=== PATIENT | female | born 1955 | race Caucasian/White ===

== ENCOUNTER 2019-10-22 06:20 | Inpatient (IN) | payer OTHER, MEDICARE, SELFPAY ==
[2019-10-22] VITALS (7 sets, daily range): BP systolic 132–226; BP diastolic 71–107; PULSE 68–93; RESP 16–20; TEMP 36.2–36.8; O2SAT 95–99; BMI 30.6
--- NOTE | ~2019-10-22 | XR_ITS ---
EXAMINATION: XR abdomen/kub 1V DATE: 10/24/2019 05:55 INDICATION: Small bowel obstruction. TECHNIQUE: A supine view of the abdomen on 2 radiographs was obtained. COMPARISON: Small bowel series 10/23/2019 FINDINGS: There is oral contrast in dilated small bowel in right abdomen. The colon is decompressed. The nasogastric tube tip is in the distal stomach. Surgical clips in the right upper quadrant are lik jonathan from cholecystectomy. IMPRESSION: 1. Small bowel obstruction. Reviewed, dictated and finalized at location A. IMPRESSION: 1. Small bowel obstruction.
--- NOTE | ~2019-10-22 | XR_ITS ---
EXAMINATION: XR abdomen/kub 1V DATE: 10/25/2019 06:01 INDICATION: Small bowel obstruction. TECHNIQUE: A supine view of the abdomen was obtained. COMPARISON: Abdomen radiographs 10/24/2019, CT abdomen and pelvis 10/22/2019 FINDINGS: There are dilated loops of small bowel bowel containing oral contrast in the lower abdomen. There is oral contrast in the proximal colon. The colon is normal in caliber. The nasogastric tube t ip is in the distal stomach. Surgical clips in the right upper quadrant are likely from cholecystecto my. IMPRESSION: 1. Persistently dilated distal small bowel, consistent with small bowel obstruction. Reviewed, dictated and finalized at location A. IMPRESSION: 1. Persistently dilated distal small bowel, consistent with small bowel obstruc tion.
--- NOTE | ~2019-10-22 | XR_ITS ---
EXAMINATION: XR UGI water soluble w sbs DATE: 10/23/2019 13:03 INDICATION: Small bowel obstruction. TECHNIQUE: Water-soluble contrast was injected into the nasogastric tube. Fluoroscopy of the stomach and small bowel was performed. Fluoroscopy exposure time was 0.1 minutes. Radiographs of the abdomen were obtained. The total number of images was 16. COMPARISON: CT abdomen and pelvis 10/22/2019 FINDINGS: UPPER GASTROINTESTINAL SERIES: The nasogastric tube tip is in the stomach. The stomach and duodenum are normal. Surgical clips in th e right upper quadrant are likely from cholecystectomy. SMALL BOWEL SERIES: There are multiple dilated loops of small bowel. At 4 hours, contrast had not reached the colon. IMPRESSION: 1. Small bowel obstruction. Reviewed, dictated and finalized at location A. IMPRESSION: 1. Small bowel obstruction.
--- NOTE | ~2019-10-22 | XR_ITS ---
XR abdomen NG/feed tube insert DATE: 10/22/2019 08:54 INDICATION: NG tube placement TECHNIQUE: Portable AP view on 10/22/2019 at 0851 hours COMPARISON: None FINDINGS: A nasogastric tube is present in the body of the stomach, extending 17 cm distal to the kristy phragmatic hiatus. There are some gas-distended dilated small bowel segments. Surgical clips overlying the right upper quadrant, consistent with cholecystectomy. IMPRESSION: NG tube in stomach Reviewed, dictated and finalized at Location A. Reviewed, dictated and finalized at location A. IMPRESSION: NG tube in stomach
--- NOTE | ~2019-10-22 | XR_ITS ---
EXAMINATION: XR abdomen/kub 1V INDICATION: Hematuria TECHNIQUE: Supine view of the abdomen is obtained. COMPARISON: 10/27/2019 FINDINGS: A small amount of enteric contrast material is seen throughout the colon to the level of th e rectum. There are no dilated loops of bowel. The nasogastric tube has been removed. Cholecystectomy clips are noted in the right upper quadrant. IMPRESSION: 1. Nonobstructive bowel gas pattern. Reviewed, dictated and finalized at location A.
--- NOTE | ~2019-10-22 | XR_ITS ---
EXAMINATION: XR abdomen/kub 1V DATE: 10/26/2019 05:59 INDICATION: Small bowel obstruction. TECHNIQUE: A supine view of the abdomen on 2 radiographs was obtained. COMPARISON: Abdomen radiograph 10/25/2019, CT abdomen and pelvis 10/22/2019 FINDINGS: There are no gas-filled dilated loops of bowel. There is oral contrast in the colon. There are scattered diverticula in the colon. The nasogastric tube tip is in the distal stomach. Surgical c lips in the right upper quadrant are likely from cholecystectomy. IMPRESSION: 1. Nonobstructive bowel gas pattern. Reviewed, dictated and finalized at location A.
--- NOTE | ~2019-10-22 | XR_ITS ---
EXAMINATION: XR abdomen/kub 1V DATE: 10/27/2019 05:57 INDICATION: Small bowel obstruction. TECHNIQUE: A supine view of the abdomen was obtained. COMPARISON: Abdomen radiograph 10/26/2019 FINDINGS: There are no gas-filled dilated loops of small bowel. There is oral contrast in the colon, which is decompressed. There are scattered diverticula in the colon. The nasogastric tube tip is in t he distal stomach. Surgical clips in the right upper quadrant are likely from cholecystectomy. IMPRESSION: 1. Nonobstructive bowel gas pattern. Reviewed, dictated and finalized at location A.
--- NOTE | ~2019-10-22 | XR_ITS ---
EXAMINATION: XR sm bowel follow through WS DATE: 10/27/2019 10:36 INDICATION: Small bowel obstruction. TECHNIQUE: Oral contrast was administered, and a time course of radiographs of the abdomen was obtain ed. Fluoroscopy of the small bowel was not performed. Fluoroscopy exposure time was 0 minutes. The to mekhi number of images was 7. COMPARISON: Small bowel series 10/23/2019 FINDINGS: The nasogastric tube tip is in the stomach. Surgical clips in the right upper quadrant are likely fro m cholecystectomy. There are no dilated loops of small bowel. Transit time from the stomach to proxim al colon was approximately 1 hour. There are diverticula in the colon. IMPRESSION: 1. Nonobstructive bowel gas pattern. Reviewed, dictated and finalized at location A.
--- NOTE | ~2019-10-22 | CT_ITS ---
EXAMINATION: CT abdomen pelvis wo con DATE: 10/22/2019 07:22 INDICATION: Abdominal pain. History of Crohn's disease. TECHNIQUE: Computed tomography (CT) of the abdomen and pelvis was performed without intravenous contr ast. Automated exposure control and iterative reconstruction technique were employed. Exam dose: 100 2.28 mGy-cm total exam DLP. COMPARISON: 08/04/2013 CT abdomen pelvis FINDINGS: No pulmonary infiltrate or consolidation. A 4 mm nodule is noted in the middle lobe (series 4 image 5). No pericardial or pleural effusion. There are numerous hepatic and splenic calcified granulomas. Status post cholecystectomy. No hepatic, splenic, pancreatic, adrenal or renal space-occupying mass l esion is evident on this limited noncontrast examination. No bile duct or pancreatic duct dilatation. No urinary tract calculus or hydroureteronephrosis. There is extensive calcification of the abdominal aorta and iliac arteries but no evidence of aneurys m. No intraperitoneal or retroperitoneal or pelvic mass lesion or adenopathy or ascites is noted. There is a small sliding hiatal hernia. There are numerous small bowel air fluid levels. There is small bowel dilatation up to 3.8 mm. There is some fecalized content within the mid to distal small bowel in the right periumbilical area, with evidence of a stricture in this region. There is some soft tissue infiltration of the mesenteric fat in this region. The distal small bowel is decompressed. There is mild left colonic diverticulosis; no CT evidence of diverticulitis. Small free fluid collects in the dependent pelvis. The urinary bladder is unremarkable. Status post hysterectomy. Degenerative changes of the thoracic and lumbar spine. Degenerative disease noted in particular at L3 -4, L4-5 and L5-S1. There is degenerative change at the apophyseal joints with associated minimal gra de 1 anterolisthesis at L4-5. IMPRESSION: Small bowel stricture/obstruction in right periumbilical area. Surgical consult is recom mended. Reviewed, dictated and finalized at Location A. Reviewed, dictated and finalized at location A. IMPRESSION: Small bowel stricture/obstruction in right periumbilical area. Checo gical consult is recommended.
--- NOTE | 2019-10-22 06:29 | ED.ABDPAIN ---
HPI - Abdominal Pain General Chief Complaint: Abdominal Pain <Roslyn Lawson MD - Last Filed: 10/22/19 07:06> Stated Complaint: abd pain <Roslyn Lawson MD - Last Filed: 10/22/19 07:06> Time Seen by Provider: 10/22/19 06:29 <Roslyn Lawson MD - Last Filed: 10/22/19 07:06> Source: patient <Roslyn Lawson MD - Last Filed: 10/22/19 07:06> Mode of arrival: EMS <Roslyn Lawson MD - Last Filed: 10/22/19 07:06> Limitations: no limitations <Roslyn Lawson MD - Last Filed: 10/22/19 07:06> History of Present Illness HPI narrative: Patient is a 64-year-old female with a history of Crohn's disease who presents for evaluation of abdominal pain. Pain is located throughout the abdomen, worse in the upper abdomen without radiation to the chest, back or lower abdomen. Associated with abdominal distention, nausea, no vomiting at this point. Patient with onset of symptoms approximately 10 hours ago. She has decreased flatus, no bowel movements this morning. Patient is worried she may have a bowel obstruction. She is not on any immune modulator therapy or steroids at this point. 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 <Roslyn Lawson MD - Last Filed: 10/22/19 07:06> Related Data Home Medications: Home Medications Medication Instructions Recorded Confirmed amlodipine [Norvasc] 5 mg PO DAILY 10/22/19 10/22/19 aspirin-dipyridamole [Aggrenox] 2 cap PO DAILY 10/22/19 10/22/19 bupropion HCl 150 mg PO BID 10/22/19 10/22/19 folic acid 1 mg PO DAILY 10/22/19 10/22/19 losartan 50 mg PO DAILY 10/22/19 10/22/19 mesalamine [Pentasa] 1,000 mg PO QID 10/22/19 10/22/19 pantoprazole 40 mg PO QAM 10/22/19 10/22/19 valacyclovir [Valtrex] 1,000 mg PO QID PRN 10/22/19 10/22/19 <Roslyn Lawson MD - Last Filed: 10/22/19 07:06> Allergies/Adverse Reactions: Allergies Allergy/AdvReac Type Severity Reaction Status Date / Time adhesive Allergy Unknown Rash Verified 10/22/19 06:37 amoxicillin Allergy Unknown Rash Verified 10/22/19 06:37 cefazolin Allergy Unknown Unknown Verified 10/22/19 06:37 Cephalosporins Allergy Unknown Unknown Verified 10/22/19 06:37 cephradine Allergy Unknown Unknown Verified 10/22/19 06:37 clopidogrel Allergy Unknown Muscle Verified 10/22/19 06:37 Spasms codeine Allergy Unknown Rash Verified 10/22/19 06:37 duloxetine Allergy Unknown Unknown Verified 10/22/19 06:37 hydromorphone Allergy Unknown Itching Verified 10/22/19 06:37 iodine Allergy Unknown Unknown Verified 10/22/19 06:37 lorazepam Allergy Unknown Unknown Verified 10/22/19 06:37 meperidine Allergy Unknown Unknown Verified 10/22/19 06:37 Penicillins Allergy Unknown Unknown Verified 10/22/19 06:37 phenytoin Allergy Unknown Unknown Verified 10/22/19 06:37 Ytldpvh-Dkh-Odr Reductase Allergy Unknown MUSCLE Verified 10/22/19 06:37 Inhibitor WEAKNESS/CRAMPING Sulfa (Sulfonamide Allergy Unknown Rash Verified 10/22/19 06:37 Antibiotics) sulfanilamide Allergy Unknown Unknown Verified 10/22/19 06:37 tramadol Allergy Unknown Itching Verified 10/22/19 06:37 CLOPIDOGREL BISULFATE Allergy Unknown SEVERE Uncoded 04/27/19 13:30 MUSCLE SPASMS Contrast Media Allergy Unknown Dyspnea / Uncoded 04/27/19 13:30 SOB <Roslyn Lawson MD - Last Filed: 10/22/19 07:06> Review of Systems Review of Systems: Narrative: CONSTITUTIONAL: Denies fever, chills, or sweats. CARDIOVASCULAR: Denies chest pain, palpitations, or edema. RESPIRATORY: Denies cough or dyspnea. GASTROINTESTINAL: Reports abdominal pain, nausea, no vomiting or diarrhea GENITOURINARY: Denies dysuria or hematuria. SKIN: Denies rash or itching. MUSCULOSKELETAL: Denies back pain NEUROLOGIC: Denies headache. <Roslyn Lawson MD - Last Filed: 10/22/19 07:06> PMFSH Past Medical History Medical History: Medical History Anxiety Bowel obstruction Crohn's disease CVA (
[2019-10-22 06:47] LABS: Basophils Absolute Auto 0.1 K/mm3 (0.0-0.1); Basophils Percent Auto 0.4 % (0.2-1.2); Eosinophils Absolute Auto 0.1 K/mm3 (0-0.3); Hematocrit 43.1 % (37.0-47.0); Hemoglobin 14.4 g/dL (12.0-15.0); Immature Granulocyte Absolute 0.07 K/mm3 (0.00-0.031); Immature Granulocyte Percent A 0.5 % (0-0.5); Lymphocytes Absolute Auto 2.87 K/mm3 (0.9-3.2); Lymphocytes Percent Auto 20.9 % (18.3-44.2); Mean Corpuscular HGB Conc 33.4 g/dl (32-36); Mean Corpuscular Hemoglobin 28.5 pg (26-34); Mean Corpuscular Volume 85.2 fl (80-100); Mean Platelet Volume 9.7 fl (7.4-10.4); Monocytes Absolute Auto 0.9 K/mm3 (0.1-0.6); Monocytes Percent Auto 6.6 % (2.6-8.5); Neutrophils Absolute Auto 9.7 K/mm3 (1.3-6.7); Neutrophils Percent Auto 70.6 % (45.5-73.1); Platelet Count Result 258 k/mm3 (150-375); Red Blood Count 5.06 M/mm3 (4.2-5.4); Red Cell Distribution Width 14.1 % (11.5-14.5); White Blood Count 13.7 K/mm3 (4.5-10.0)
[2019-10-22] MEDS: SODIUM CHLORIDE 0.9% IV 1,000 ML 999 ML IV CONT (06:47)
[2019-10-22] MEDS: ONDANSETRON INJ 4 MG/2 ML VIAL IV PUSH (06:47)
[2019-10-22 07:02] LABS: Alanine Aminotransferase 12 U/L (4-35); Albumin Level 4.6 g/dL (3.5-5.1); Alkaline Phosphatase 80 U/L (38-126); Aspartate Amino Transferase 25 U/L (14-36); Bilirubin,Total 0.3 mg/dL (0.2-1.3); Blood Urea Nitrogen 19 mg/dL (7-17); Calcium 9.8 mg/dL (8.4-10.2); Carbon Dioxide 24 mmol/L (22-30); Chloride 105 mmol/L (98-107); Estimated CRCL calculation 71 ml/min; Estimated Glomerular Filt Rate > 60; Glucose 183 mg/dL (65-105); Lipase 96 U/L (23-300); Potassium 4.2 mmol/L (3.4-5.0); Sodium 138 mmol/L (137-145)
[2019-10-22 08:25] LABS: Add Urine Microscopic? YES; Appearance Urine Clear (Clear); Bacteria Urine Trace /hpf; Bilirubin Urine Negative (Negative); Blood Urine 1+ (Negative); Color Urine Straw (Yellow); Glucose Urine UA Negative (Negative); Ketones Urine Negative (Negative); Leukocyte Esterase Ur Negative LEU/UL (Negative); Mucus Urine Rare /lpf; Nitrate Urine Negative (Negative); Protein Urine 2+ mg/dL (Negative); RBC Urine 0-2 /hpf (0-2); Specific Grav Ur 1.014 (1.001-1.035); Squamous Epithelial Cell Urine Rare /hpf (Few); Urobilinogen Urine Negative mg/dL (<2.0); WBC Urine 0-3 /hpf
[2019-10-22] MEDS: metroNIDAZOLE 500 MG/ISO 100ML 500 MG/100 ML BAG 100 MG IVPB ×2 (09:18→16:41)
[2019-10-22] MEDS: methylPREDNISolone SOD SUCC 40 MG VIAL 30 MG IV PUSH ×3 (09:18→21:07)
[2019-10-22] MEDS: MORPHINE SULFATE 4 MG/ML INJ IV PUSH ×3 (10:33→21:16)
--- NOTE | 2019-10-22 10:35 | WPDGICN ---
Assessment and Plan Assessment and plan (1) SBO (small bowel obstruction): Code(s): K56.609 - Unspecified intestinal obstruction, unspecified as to partial versus complete obstruction Status: Acute Assessment and Plan: Patient with acute small bowel obstruction. X-ray suggest stricture obstruction in the mid abdomen. Patient is known to have many adhesions identified by previous hysterectomy and cholecystectomy. She has been felt to have Crohn's disease identified by blood work in the past. Previously treated with Pentasa. Dr. Hanks and the emergency room physician have placed the patient on a trial of IV steroids. Plan is for NG tube decompression. Surgery will see the patient for the potential of surgical decompression if necessary. (2) Crohn's disease: Code(s): K50.90 - Crohn's disease, unspecified, without complications Status: Acute Assessment and Plan: Identified by lab work. Patient has done well for many years. Current obstruction may be from Crohn's disease but may also be from adhesions. Surgery to follow patient closely at this point. She had patient will be treated empirically for Crohn's disease. GI Consult Note Consult date/time: 10/22/19 10:35 HPI: Bianca Vee is a 64 year old female seen at the request of the emergency room and Dr. mann as absence. Patient ate and nice evening meal. Later in the evening about 10 or 11:00 a.m. began to have severe abdominal pain abdominal distention and cramping. Upon presenting to the emergency room x-rays were consistent with small-bowel obstruction. Patient's past medical history is significant for similar findings in 2006. She underwent a cholecystectomy. Laboratory workup suggested Crohn's disease. Since that time she has been maintained on Pentasa. Has done well with no abdominal distention or cramping in the last 10-12 years. Her past medical history is significant for diabetes and hypertension. In 1977 had a ruptured appendix and diffuse peritonitis. In 2001 abdominal hysterectomy was performed she was noted to have multiple adhesions at that time. Cholecystectomy was performed in 2006 and apparently she had multiple adhesions at that time . multiple puncture sites were required to have laparoscopic cholecystectomy performed. She has been followed by Dr. jadiel garcía who has treated her for apparent Crohn's disease. Laboratory works appear to confirm this diagnosis. She has been on Pentasa for many years as stated with no repeat difficulties over the last 10 years. Review of Systems Review of Systems: All systems reviewed & are unremarkable except as noted in HPI and below PMFSH Past Medical History Medical History Anxiety Bowel obstruction Crohn's disease CVA (cerebral vascular accident) Depression Nephrolithiasis Pancreatitis Type 2 diabetes mellitus Surgical History Surgical History H/O: hysterectomy History of cholecystectomy History of tonsillectomy Family History Family History Father Hypertension Family history of coronary artery disease Sibling Family history of alcoholism Grandparent Family history of coronary artery disease Other Asthma Social History Social History Smoking status: Never smoker Alcohol intake: never Meds Home Medications and Allergies Home Medications Medication Instructions Recorded Confirmed Type amlodipine [Norvasc] 5 mg PO DAILY 10/22/19 10/22/19 History aspirin-dipyridamole [Aggrenox] 2 cap PO DAILY 10/22/19 10/22/19 History bupropion HCl 150 mg PO BID 10/22/19 10/22/19 History folic acid 1 mg PO DAILY 10/22/19 10/22/19 History losartan 50 mg PO DAILY 10/22/19 10/22/19 History mesalamine [Pentasa] 1,000 mg PO QID 10/22/19 10/22/19 History
--- NOTE | 2019-10-22 10:56 | PC.NURSE ---
This patient, Bianca eVe, was admitted to Medical Room 248-. Patient/family oriented to hospital policies and general routines including ID bracelet, bed and alarms, visiting hours, pain management, procedures, bathroom and other care routines, personal items, smoking policy, room service/diet, and visiting hours. Valuables list has been completed. Information on how to activate the Rapid Response Team has been discussed. Patient/Family are encouraged to report perceived risks to care and to ask questions if they do not understand what they are told or what they should do.
[2019-10-22] MEDS: levoFLOXacin 500 MG/D5W 100 ML 500 MG/100 ML BAG 100 MG IVPB (11:05)
[2019-10-22] MEDS: SODIUM CHLORIDE 0.9% IV 1,000 ML 125 ML IV CONT ×2 (11:06→20:33)
[2019-10-22 12:57] LABS: Glucose Point of Care 202 (65-105)
--- NOTE | 2019-10-22 16:58 | PM.IMHP ---
H&P: HPI History of Present Illness Chief complaint: SMALL BOWEL BSCRUCTION,CROHNS Narrative: Bianca Vee is a 64 year old female this patient is had multiples abdominal surgery and has had 2 prior partial small-bowel obstructions in the past. Her small-bowel obstructions have been treated conservatively. The patient does have ulcerative colitis and is typically well under control. The patient typically manages her diet so that she does not have a flare-up of the Crohn's disease. The patient stated that last night she ate shrimp and broccoli salad. The patient started to have abdominal pain mostly around the umbilical area. She has a had a bowel movement since yesterday. She said that is a very crampy tight feeling in her abdomen. The symptoms went on for approximately 10 hours before she came to the emergency room. She has seen Dr. De La Cruz in the past but chose to see other since then. She tells me that she saw Dr. de la cruz in the emergency room earlier. The patient has a anxiety issues. She did have a NG tube placed in the right near. Abdominal pelvis CT was read as small bowel stricture/obstruction and right belinda umbilical area. Surgical consult recommended. Surgery has been consulted. After the NG tube was placed at abdominal x-ray was taken and was read as NG tube in the stomach. I spent approximately 1 hour repositioning the NG tube and flushing the NG tube and was able to return flecks of broccoli and other substances. The patient still continues to complains of abdominal discomfort. Patient was started on Flagyl, Levaquin, IV fluids, and steroids. Date of service 10/22/2019 Review of Systems Review of Systems: All systems reviewed & are unremarkable except as noted in HPI and below Constitutional: Constitutional: Reports as per HPI and Reports no additional constitutional complaints Eyes: Eyes: Reports as per HPI and Reports no additional eye complaints ENT: Reports system reviewed and no additional complaints, except as documented and Reports Normal hearing present Cardiovascular: Cardiovascular: Reports no additional cardiovascular complaints Respiratory: Respiratory: Reports no additional respiratory complaints and Reports no additional respiratory complaints Gastrointestinal: Gastrointestinal: Reports as per HPI and Reports no additional gastrointestinal complaints Musculoskeletal: Musculoskeletal: Reports no additional musculoskeletal complaints Integumentary/Breasts: Skin/Breast: Reports system reviewed and no additional complaints, except as docu and Reports as per HPI Neurologic: Reports system reviewed and no additional complaints, except as documented, Reports as per HPI and Reports Normal hearing present Psychiatric: Psychiatric: Reports no additional psychiatric complaints and Reports as per HPI Endocrine: Endocrine: Reports no additional endocrine complaints Hematologic/Lymphatic: Hematologic/Lymphatic: Reports no additional hematologic/lymphatic complaints Allergic/Immunologic: Allergic/Immunologic: Reports no additional allergic/immunologic complaints [facility] Past Medical History Medical History (Updated 10/22/19 @ 17:42 by Mayra Stark NP) Anxiety Bowel obstruction Crohn's disease CVA (cerebral vascular accident) Depression History of endometriosis Hyperlipidemia Hypertension IBS (irritable bowel syndrome) Nephrolithiasis Obstructive sleep apnea Unable to tolerate CPAP Pancreatitis PTSD (post-traumatic stress disorder) Shingles Tendon tear, ankle Left ankle was wearing of walking the for that. Type 2 diabetes mellitus Surgical History Surgical History (Updated 10/22/19 @ 17:13 by Mayra Stark NP) H/O meniscectomy of right knee H/O rhinoplasty H/O: hysterectomy History of appendectomy History of section, classical History of cholecystectomy History of extraction of renal calculus History of tonsillectomy Family History Family History (Reviewed 10/22/19 @ 17
[2019-10-22 17:30] LABS: Glucose Point of Care 162 (65-105)
--- NOTE | 2019-10-22 19:02 | PM.CNGS ---
Assessment and Plan Assessment and plan (1) SBO (small bowel obstruction): Code(s): K56.609 - Unspecified intestinal obstruction, unspecified as to partial versus complete obstruction Status: Acute Assessment and Plan: cont NG decompression, bowel rest, will get UGI c SBS for further eval (2) Crohn's disease: Code(s): K50.90 - Crohn's disease, unspecified, without complications Status: Acute Assessment and Plan: steroid trial per GI (3) Type 2 diabetes mellitus: Code(s): E11.9 - Type 2 diabetes mellitus without complications Status: Chronic Assessment and Plan: mgmt per primary (4) Hypertension: Code(s): I10 - Essential (primary) hypertension Status: Chronic Assessment and Plan: mgmt per primary (5) CVA (cerebral vascular accident): Code(s): I63.9 - Cerebral infarction, unspecified Status: Acute Assessment and Plan: in 2008 c some mild residual motor/neural dysfxn History of Present Illness Consult details Consult date: 10/22/19 Reason for consult: abdominal pain (sbo) Requesting physician: Mayra Stark NP Narrative: The patient is a 64-year-old female a history of well-controlled Crohn's disease that presented to the emergency department complaining of crampy abdominal pain over the last day or so. Patient reports that after dinner yesterday the symptoms became much more severe. Patient reports nausea as well as vomiting. Patient reports a similar episode in 2006 and at that time was diagnosed with Crohn's disease. Workup in the emergency department including CT scan is significant for small-bowel obstruction possible stricture. Review of Systems Constitutional: Constitutional: Denies anorexia, Denies chills, Denies fatigue, Denies headache(s), Denies malaise, Denies poor appetite, Denies weight gain and Denies weight loss Eyes: Eyes: Reports no additional eye complaints and Denies loss of vision ENT: Reports Normal hearing present, Denies dysphagia, Denies headache(s), Denies hearing loss and Denies sore throat Cardiovascular: Cardiovascular: Denies chest pain, Denies syncope, Denies irregular heart rhythm, Denies leg edema and Denies dyspnea Respiratory: Respiratory: Denies cough and Denies dyspnea Gastrointestinal: Gastrointestinal: Reports abdominal pain, Reports bloating, Denies change in bowel habits, Denies change in stool character, Denies constipation, Denies dysphagia, Reports heartburn, Denies diarrhea, Reports nausea and Reports vomiting Genitourinary: Genitourinary: Denies urinary frequency, Denies dysuria and Denies urinary urgency Musculoskeletal: Musculoskeletal: Denies myalgias, Denies arthralgias and Denies muscle cramps Integumentary/Breasts: Skin/Breast: Denies non-healing lesions and Denies rash Neurologic: Denies syncope, Denies headache(s) and Denies loss of vision Psychiatric: Psychiatric: Reports no additional psychiatric complaints Endocrine: Endocrine: Denies change in body appearance and Denies fatigue Hematologic/Lymphatic: Hematologic/Lymphatic: Denies easy bleeding, Denies easy bruising and Denies lymphadenopathy PMFSH Past Medical History Medical History Anxiety Bowel obstruction Crohn's disease CVA (cerebral vascular accident) Depression History of endometriosis Hyperlipidemia Hypertension IBS (irritable bowel syndrome) Nephrolithiasis Obstructive sleep apnea Unable to tolerate CPAP Pancreatitis PTSD (post-traumatic stress disorder) Shingles Tendon tear, ankle Left ankle was wearing of walking the for that. Type 2 diabetes mellitus Surgical History Surgical History H/O meniscectomy of right knee H/O rhinoplasty H/O: hysterectomy History of appendectomy History of section, classical History of cholecystectomy History of extraction of renal calculus
[2019-10-22] MEDS: FAMOTIDINE 20 MG/2 ML VIAL IV PUSH (21:06)
[2019-10-22 23:12] LABS: Glucose Point of Care 139 (65-105)
[2019-10-23] MEDS: metroNIDAZOLE 500 MG/ISO 100ML 500 MG/100 ML BAG 100 MG IVPB ×4 (00:41→23:49)
[2019-10-23] MEDS: MORPHINE SULFATE 4 MG/ML INJ IV PUSH ×6 (00:50→22:31)
[2019-10-23] MEDS: methylPREDNISolone SOD SUCC 40 MG VIAL 30 MG IV PUSH ×3 (05:11→20:41)
[2019-10-23 05:23] LABS: Basophils Percent Auto 0.1 % (0.2-1.2); Hematocrit 42.9 % (37.0-47.0); Hemoglobin 14.1 g/dL (12.0-15.0); Immature Granulocyte Absolute 0.14 K/mm3 (0.00-0.031); Immature Granulocyte Percent A 0.7 % (0-0.5); Lymphocytes Percent Auto 9.2 % (18.3-44.2); Mean Corpuscular HGB Conc 32.9 g/dl (32-36); Mean Corpuscular Hemoglobin 28.5 pg (26-34); Mean Corpuscular Volume 86.8 fl (80-100); Mean Platelet Volume 9.6 fl (7.4-10.4); Monocytes Absolute Auto 0.9 K/mm3 (0.1-0.6); Monocytes Percent Auto 4.4 % (2.6-8.5); Neutrophils Absolute Auto 17.8 K/mm3 (1.3-6.7); Neutrophils Percent Auto 85.6 % (45.5-73.1); Platelet Count Result 289 k/mm3 (150-375); Red Blood Count 4.94 M/mm3 (4.2-5.4); Red Cell Distribution Width 14.2 % (11.5-14.5); White Blood Count 20.8 K/mm3 (4.5-10.0)
[2019-10-23 05:23] LABS: Glucose Point of Care 146 (65-105)
[2019-10-23 05:39] LABS: Alanine Aminotransferase 24 U/L (4-35); Albumin Level 4.2 g/dL (3.5-5.1); Alkaline Phosphatase 74 U/L (38-126); Aspartate Amino Transferase 52 U/L (14-36); Bilirubin,Total 0.4 mg/dL (0.2-1.3); Blood Urea Nitrogen 13 mg/dL (7-17); Calcium 8.8 mg/dL (8.4-10.2); Carbon Dioxide 25 mmol/L (22-30); Chloride 104 mmol/L (98-107); Estimated CRCL calculation 71 ml/min; Estimated Glomerular Filt Rate > 60; Glucose 152 mg/dL (65-105); Magnesium 1.3 mg/dL (1.6-2.3); Potassium 4.2 mmol/L (3.4-5.0); Sodium 137 mmol/L (137-145)
[2019-10-23 06:00] VITALS: BP 165/68; PULSE 82; RESP 18; TEMP 36.2; O2SAT 97
[2019-10-23] MEDS: SODIUM CHLORIDE 0.9% IV 1,000 ML 125 ML IV CONT ×2 (06:02→20:40)
[2019-10-23 06:31] LABS: Thyroid Stimulating Hormone Reflex 0.889 uIU/mL (0.465-4.68)
--- NOTE | 2019-10-23 09:01 | PM.PNGS ---
Progress Note: A&P Assessment and Plan (1) SBO (small bowel obstruction): Code(s): K56.609 - Unspecified intestinal obstruction, unspecified as to partial versus complete obstruction Status: Acute Assessment and Plan: will get UGI c SBS for further eval today, cont bowel rest/NG decompression for now (2) Crohn's disease: Code(s): K50.90 - Crohn's disease, unspecified, without complications Status: Acute Assessment and Plan: steroids per GI (3) Type 2 diabetes mellitus: Code(s): E11.9 - Type 2 diabetes mellitus without complications Status: Chronic Assessment and Plan: mgmt per primary (4) CVA (cerebral vascular accident): Code(s): I63.9 - Cerebral infarction, unspecified Status: Acute Subjective Subjective Date/Time Seen: 10/23/19 09:01 feels a little better this am, +flatus, less pain/bloating Review of Systems Constitutional: Constitutional: Denies chills, Reports fatigue and Reports lethargy Cardiovascular: Cardiovascular: Denies chest pain and Denies palpitations Respiratory: Respiratory: Denies dyspnea Gastrointestinal: Gastrointestinal: Reports abdominal pain, Reports bloating, Reports constipation, Denies diarrhea, Reports nausea and Denies vomiting Exam Const: General: no acute distress Resp: Auscultation: clear to auscultation bilaterally Cardio: Rate: regular rate Rhythm: regular rhythm GI: Other: S, decreased dist, mild TTP, +bs Objective Data Vital Signs Vital Signs: Vital Signs - 24 hr 10/22/19 09:02 10/22/19 11:00 10/22/19 11:08 Temperature 36.2 C L Pulse Rate 86 75 82 Respiratory Rate 16 16 18 Blood Pressure 159/92 H 188/88 H 186/86 H Pulse Oximetry 98 96 10/22/19 13:59 10/22/19 22:00 10/23/19 06:00 Temperature 36.2 C L 36.8 C 36.2 C L Pulse Rate 93 93 82 Respiratory Rate 18 18 18 Blood Pressure 151/88 H 132/71 165/68 H Pulse Oximetry 95 97 97 Intake/Output Intake/Output: Intake & Output 10/20/19 10/21/19 10/22/19 10/23/19 23:59 23:59 23:59 23:59 Intake Total 2300 1100 Output Total 1225 1000 Balance 1075 100 Meds/Results Medications: Active Medications Generic Name Dose Route Start Last Admin Trade Name Freq PRN Reason Stop Dose Admin Dextrose 12.5 gm 10/22/19 16:56 Dextrose 50% Syringe IV PUSH PRN PRN Hypoglycemia Protocol Famotidine 20 mg 10/22/19 21:00 10/22/19 21:06 Pepcid Iv IV PUSH 20 mg Q12HR NICHOLAS Administration Glucagon 1 mg 10/22/19 16:56 Glucagon For Inj IM PRN PRN Hypoglycemia Protocol Glucose 15 gm 10/22/19 16:56 Glutose 15 PO PRN PRN Hypoglycemia Protocol Hydralazine HCl 10 mg 10/22/19 16:54 Apresoline Hcl Inj IV PUSH Q8H PRN Blood Pressure - High Sodium Chloride 1,000 mls @ 125 mls/hr 10/22/19 09:35 10/23/19 06:02 Normal Saline Iv IV CONT 125 mls/hr .Q8H NICHOLAS Administration Metronidazole 500 mg in 100 mls @ 100 mls/hr 10/22/19 17:00 10/23/19 02:05 Flagyl 500 Mg/Iso Soln 100 Ml IVPB Infused Q8H [facility] Infusion Levofloxacin/Dextrose 500 mg in 100 mls @ 100 mls/hr 10/23/19 09:00 Levaquin 500 Mg/D5w 100 Ml IVPB DAILY NICHOLAS Dextrose 1,000 mls @ 100 mls/hr 10/22/19 16:56 Dextrose 5% 1,000 Ml IVPB PRN PRN Hypoglycemia Protocol Insulin Aspart 2 - 5 units 10/22/19 17:00 10/23/19 05:07 Novolog SUB-Q Not Given Q6H [facility] Protocol Methylprednisolone Sodium Succinate 30 mg 10/22/19 14:00 10/23/19 05:11 Solu-Medrol IV PUSH 30 mg Q8HR NICHOLAS Administration Morphine Sulfate 4 mg 10/22/19 09:34 10/23/19 06:57 Morphine Sulfate Inj IV PUSH 4 mg Q2H PRN Administration Pain Rated 7-10 Radiology Results: ITS Impressions Abdomen X-Ray 10/22/19 09:09 IMPRESSION: NG tube in stomach Abdomen/Pelvis CT 10/22/19 09:19 IMPRESSION: Small bowel stricture/obstruction in right periumbili
[2019-10-23] MEDS: ONDANSETRON INJ 4 MG/2 ML VIAL IV PUSH ×3 (09:47→22:32)
--- NOTE | 2019-10-23 10:29 | WPDGIPROGNO ---
Subjective Date/time seen: 10/23/19 10:29 Reason for follow-up small bowel obstruction /questionable Crohn's disease. The patient continues to have abdominal distention. It is presently getting a small bowel series. At this time barium as slowly proceeding through the small bowel. No bowel movement reported. Heart rate rhythm regular. Lungs CTA. Abdomen was distended mildly tympanic. Bowel sounds were hypoactive. Extremities were without edema. Neuro was nonfocal. HEENT and was unremarkable. NG tube was in place. Impression: Small-bowel obstruction. This may be secondary to adhesions versus Crohn's disease. GERD well controlled on medication. NAFLD. History of pancreatitis with positive DONNY. Sweat gland carcinoma. History of adenomatous colon polyps. Low magnesium. Anxiety/depression. Cervical dysplasia status post conization. Diabetes mellitus. Gout. Hyperlipidemia. Hypertension. Questionable history of [place]. Renal lithiasis. Obesity. Obstructive sleep apnea. TIA/CVA. Obesity. Recommendation: Continue IV antibiotics. Continue steroids. Await small-bowel follow-through. Recheck KUB in the a.m. and blood work in a.m.. Recommend surgery to continue following. Correct electrolytes. Review of Systems Review of Systems: All systems reviewed & are unremarkable except as noted in HPI and below Objective Data Vital Signs Vital Signs: Vital Signs - 24 hr 10/22/19 11:00 10/22/19 11:08 10/22/19 13:59 Temperature 36.2 C L 36.2 C L Pulse Rate 75 82 93 Respiratory Rate 16 18 18 Blood Pressure 188/88 H 186/86 H 151/88 H Pulse Oximetry 96 95 10/22/19 22:00 10/23/19 06:00 Temperature 36.8 C 36.2 C L Pulse Rate 93 82 Respiratory Rate 18 18 Blood Pressure 132/71 165/68 H Pulse Oximetry 97 97 Intake/Output Intake/Output: Intake & Output 10/20/19 10/21/19 10/22/19 10/23/19 23:59 23:59 23:59 23:59 Intake Total 2300 1100 Output Total 1225 1000 Balance 1075 100 Meds/Results Medications: Active Medications Generic Name Dose Route Start Last Admin Trade Name Freq PRN Reason Stop Dose Admin Dextrose 12.5 gm 10/22/19 16:56 Dextrose 50% Syringe IV PUSH PRN PRN Hypoglycemia Protocol Famotidine 20 mg 10/22/19 21:00 10/22/19 21:06 Pepcid Iv IV PUSH 20 mg Q12HR NICHOLAS Administration Glucagon 1 mg 10/22/19 16:56 Glucagon For Inj IM PRN PRN Hypoglycemia Protocol Glucose 15 gm 10/22/19 16:56 Glutose 15 PO PRN PRN Hypoglycemia Protocol Hydralazine HCl 10 mg 10/22/19 16:54 Apresoline Hcl Inj IV PUSH Q8H PRN Blood Pressure - High Sodium Chloride 1,000 mls @ 125 mls/hr 10/22/19 09:35 10/23/19 06:02 Normal Saline Iv IV CONT 125 mls/hr .Q8H N[facility]AS Administration Metronidazole 500 mg in 100 mls @ 100 mls/hr 10/22/19 17:00 10/23/19 02:05 Flagyl 500 Mg/Iso Soln 100 Ml IVPB Infused Q8H [facility] Infusion Levofloxacin/Dextrose 500 mg in 100 mls @ 100 mls/hr 10/23/19 09:00 Levaquin 500 Mg/D5w 100 Ml IVPB DAILY N[facility] Dextrose 1,000 mls @ 100 mls/hr 10/22/19 16:56 Dextrose 5% 1,000 Ml IVPB PRN PRN Hypoglycemia Protocol Insulin Aspart 2 - 5 units 10/22/19 17:00 10/23/19 05:07 Novolog SUB-Q Not Given Q6H [facility] Protocol Methylprednisolone Sodium Succinate 30 mg 10/22/19 14:00 10/23/19 05:11 Solu-Medrol IV PUSH 30 mg Q8HR NICHOLAS Administration Morphine Sulfate 4 mg 10/22/19 09:34 10/23/19 09:07 Morphine Sulfate Inj IV PUSH 4 mg Q2H PRN Administration Pain Rated 7-10 Ondansetron HCl 4 mg 10/23/19 09:31 10/23/19 09:47 Zofran Inj IV PUSH 4 mg Q6H PRN Administration Nausea And Vomiting Radiology Results: ITS Impressions Abdomen X-Ray 10/22/19 09:09 IMPRESSION: NG tube in stomach Abdomen/Pelvis CT 10/22/19 09:19 IMPRESSION: Small bowel
[2019-10-23 11:05] VITALS: BMI 30.6
[2019-10-23] MEDS: MAGNESIUM SULF 2 GM/WATER 50ML 2 GM/50 ML BAG IVPB (11:09)
[2019-10-23] MEDS: FAMOTIDINE 20 MG/2 ML VIAL IV PUSH ×2 (11:12→20:41)
[2019-10-23 11:41] LABS: Hematocrit 40.2 % (37.0-47.0); Hemoglobin 13.3 g/dL (12.0-15.0); Mean Corpuscular HGB Conc 33.1 g/dl (32-36); Mean Corpuscular Hemoglobin 28.7 pg (26-34); Mean Corpuscular Volume 86.8 fl (80-100); Mean Platelet Volume 9.9 fl (7.4-10.4); Platelet Count Result 280 k/mm3 (150-375); Red Blood Count 4.63 M/mm3 (4.2-5.4); Red Cell Distribution Width 14.3 % (11.5-14.5); White Blood Count 20.7 K/mm3 (4.5-10.0)
[2019-10-23 11:50] LABS: Prothrombin Time 12.8 Seconds (11.1-14.7)
[2019-10-23 12:06] LABS: Alanine Aminotransferase 20 U/L (4-35); Alkaline Phosphatase 70 U/L (38-126); Aspartate Amino Transferase 37 U/L (14-36); Bilirubin,Total 0.4 mg/dL (0.2-1.3); Blood Urea Nitrogen 14 mg/dL (7-17); Calcium 9.1 mg/dL (8.4-10.2); Carbon Dioxide 26 mmol/L (22-30); Chloride 105 mmol/L (98-107); Estimated CRCL calculation 71 ml/min; Estimated Glomerular Filt Rate > 60; Glucose 180 mg/dL (65-105); Magnesium 1.4 mg/dL (1.6-2.3); Sodium 138 mmol/L (137-145)
--- NOTE | 2019-10-23 12:42 | PM.IMPN ---
Progress Note: A&P Assessment and Plan (1) SBO (small bowel obstruction): Code(s): K56.609 - Unspecified intestinal obstruction, unspecified as to partial versus complete obstruction Status: Acute Assessment and Plan: CT abd/pelvis revealed numerous small bowel air fluid levels with small bowel dilatation up to 3.8mm with fecalized contents in the mid to distal small bowel in the right periumbilical area with evidence of stricture. There was also soft tissue infiltration of the mesenteric fat in this region with the distal small bowel decompressed. General surgery and GI are on board. She has an NG tube in place which was clamped at the time of my evaluation for small bowel series. She did have 2 epiodes of emesis while the NG tube was clamped for the study. Her abdomen is mildly to moderately distended at this time. She has a known hx of adhesions due to multiple abdominal surgeries in the past and hx of SBO x2 in 2006. She also reports a hx of Chron's disease identified by blood work and is on mesalamine. UGI series revealed multiple dilated loops of small bowel at at 4 hours, contrast had not reached the colon. General surgery is on board and recommendations are greatly appreciated Continue NPO for bowel rest Continue NG tube decompression and return to suction once the study is complete Continue IV fluids Continue IV analgesics PRN Continue IV zofran PRN nausea (2) Type 2 diabetes mellitus: Qualifiers: Diabetes mellitus complication status: without complication Diabetes mellitus tank terminal gauger insulin use: without tank terminal gauger use Qualified Code(s): E11.9 - Type 2 diabetes mellitus without complications Code(s): E11.9 - Type 2 diabetes mellitus without complications Status: Chronic Assessment and Plan: Blood sugars were reviewed and are at target. HbA1C from 06/13/19 was 6.9. Glyburide and metformin are on hold at this time. Check HbA1C Continue Accu-cheks Q6HR since pt is NPO Continue low dose SSI Continue hypoglycemic protocol (3) Anxiety: Code(s): F41.9 - Anxiety disorder, unspecified Status: Chronic Assessment and Plan: Continue ativan PRN (4) Depression: Qualifiers: Depression Type: unspecified Qualified Code(s): F32.9 - Major depressive disorder, single episode, unspecified Code(s): F32.9 - Major depressive disorder, single episode, unspecified Status: Chronic Assessment and Plan: The patient has a hx of depression and is on bupropion which is on hold at this time. Resume bupropion once pt is no longer NPO (5) Crohn's disease: Qualifiers: Digestive disease complication type: unspecified complication Gastrointestinal tract location: unspecified location Qualified Code(s): K50.919 - Crohn's disease, unspecified, with unspecified complications Code(s): K50.90 - Crohn's disease, unspecified, without complications Status: Acute Assessment and Plan: The patient has a hx of Chron's disease diagnosed by blood work. She is on mesalamine prior to admission. Dr. Hanks is on board. Continue IV solu-medrol Continue IV flagyl and levaquin (6) Hypertension: Qualifiers: Hypertension type: essential hypertension Qualified Code(s): I10 - Essential (primary) hypertension Code(s): I10 - Essential (primary) hypertension Status: Chronic Assessment and Plan: Blood pressures were reviewed and the AM reading was elevated at 165/68. Losartan and amlodipine are on hold at this time since she is NPO given SBO. She is also experiencing pain which is exacerbating her HTN. Continue IV hydralazine PRN Continue to monitor (7) Hyperlipidemia: Qualifiers: Hyperlipidemia type: unspecified Qualified Code(s): E78.5 - Hyperlipidemia, unspecified Code(s): E78.5 - Hyperlipidemia, unspecified Status: Acute Asse
[2019-10-23 12:52] LABS: Glucose Point of Care 158 (65-105)
[2019-10-23] MEDS: levoFLOXacin 500 MG/D5W 100 ML 500 MG/100 ML BAG 100 MG IVPB (13:49)
[2019-10-23 14:00] VITALS: BP 141/85; PULSE 72; RESP 16; TEMP 36.6; O2SAT 96
[2019-10-23 14:55] VITALS: BP 168/82; PULSE 71; RESP 20; TEMP 36.4; O2SAT 98
[2019-10-23] MEDS: ENOXAPARIN 40 MG/0.4 ML SYRINGE SUB-Q (17:38)
[2019-10-23 19:05] LABS: Glucose Point of Care 133 (65-105)
[2019-10-23 20:00] VITALS: PULSE 71; RESP 20; O2SAT 98
[2019-10-23 22:00] VITALS: BP 167/6; PULSE 53; RESP 18; TEMP 36.3; O2SAT 96
[2019-10-23 23:00] VITALS: BP 151/77
[2019-10-24 00:07] LABS: Glucose Point of Care 174 (65-105)
[2019-10-24] MEDS: MORPHINE SULFATE 4 MG/ML INJ IV PUSH ×2 (03:57→09:32)
[2019-10-24] MEDS: ONDANSETRON INJ 4 MG/2 ML VIAL IV PUSH ×3 (03:58→20:24)
[2019-10-24 05:05] LABS: Hematocrit 38.3 % (37.0-47.0); Hemoglobin 12.6 g/dL (12.0-15.0); Mean Corpuscular HGB Conc 32.9 g/dl (32-36); Mean Corpuscular Volume 88.2 fl (80-100); Mean Platelet Volume 10.2 fl (7.4-10.4); Platelet Count Result 269 k/mm3 (150-375); Red Blood Count 4.34 M/mm3 (4.2-5.4); Red Cell Distribution Width 14.5 % (11.5-14.5); White Blood Count 20.7 K/mm3 (4.5-10.0)
[2019-10-24 05:18] LABS: Blood Urea Nitrogen 18 mg/dL (7-17); Calcium 8.4 mg/dL (8.4-10.2); Carbon Dioxide 25 mmol/L (22-30); Chloride 106 mmol/L (98-107); Estimated CRCL calculation 63 ml/min; Estimated Glomerular Filt Rate > 60; Glucose 150 mg/dL (65-105); Magnesium 1.8 mg/dL (1.6-2.3); Potassium 4.2 mmol/L (3.4-5.0); Sodium 137 mmol/L (137-145)
[2019-10-24] MEDS: SODIUM CHLORIDE 0.9% IV 1,000 ML 125 ML IV CONT (05:58)
[2019-10-24 06:00] VITALS: BP 158/55; PULSE 55; RESP 18; TEMP 36.5; O2SAT 97
[2019-10-24] MEDS: methylPREDNISolone SOD SUCC 40 MG VIAL 30 MG IV PUSH ×3 (06:07→20:35)
[2019-10-24 07:46] LABS: Glucose Point of Care 140 (65-105)
--- NOTE | 2019-10-24 08:37 | PM.PNGS ---
Progress Note: A&P Assessment and Plan (1) SBO (small bowel obstruction): Code(s): K56.609 - Unspecified intestinal obstruction, unspecified as to partial versus complete obstruction Status: Acute Assessment and Plan: No signs of intestinal ischemia but does not appear to have resolution of small-bowel obstruction at this point. Continue steroids and antibiotics. Continue NG suction, NPO and IV fluids. Will check serial exams labs and KUBs. Would still give this several more days unless her condition would change. 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 insulin use: without adjunct faculty for medical terminology use Diabetes mellitus complication status: without complication Qualified Code(s): E11.9 - Type 2 diabetes mellitus without complications Code(s): E11.9 - Type 2 diabetes mellitus without complications Status: Chronic Subjective Subjective Date/Time Seen: 10/24/19 08:37 Patient reports: no new complaints, pain is less, no flatus, no bowel movement, vomiting and afebrile Review of Systems Review of Systems: All systems reviewed & are unremarkable except as noted in HPI and below Constitutional: Constitutional: Denies headache(s) ENT: Denies headache(s) Cardiovascular: Cardiovascular: Denies chest pain and Denies dyspnea Respiratory: Respiratory: Denies cough and Denies dyspnea Gastrointestinal: Gastrointestinal: Reports as per HPI Neurologic: Denies confusion and Denies headache(s) Psychiatric: Psychiatric: Denies confusion Exam Const: General: comfortable and no acute distress; No confusion Orientation/consciousness: patient oriented x3 and No confusion Resp: Effort & Inspection: normal respiratory effort Auscultation: clear to auscultation bilaterally Cardio: Rate: regular rate Rhythm: regular rhythm GI: Inspection: distended GI Palp: Yes Soft to palpation, No Tenderness to palpation present (GI), No Guarding due to palpation present (GI) and No Rebound tenderness present Auscultation: Hypoactive bowel sounds present Neuro: General: patient oriented x3, no focal motor deficits and No confusion Extrem: General: no calf tenderness and no edema Psych: Speech and movement: Normal speech and movement present Affect: normal affect Attitude: cooperative Thought process: Loose association thought process present Insight: Fair insight present (Psych) Judgement: Fair judgement present (Psych) Objective Data Vital Signs Vital Signs: Vital Signs - 24 hr 10/23/19 14:00 10/23/19 14:55 10/23/19 20:00 Temperature 36.6 C 36.4 C Pulse Rate 72 71 71 Respiratory Rate 16 20 20 Blood Pressure 141/85 H 168/82 H Pulse Oximetry 96 98 98 10/23/19 22:00 10/23/19 23:00 10/24/19 06:00 Temperature 36.3 C L 36.5 C Pulse Rate 53 L 55 L Respiratory Rate 18 18 Blood Pressure 167/6 H 151/77 H 158/55 H Pulse Oximetry 96 97 Intake/Output Intake/Output: Intake & Output 10/21/19 10/22/19 10/23/19 10/24/19 23:59 23:59 23:59 23:59 Intake Total 2300 2450 1000 Output Total 1225 2000 800 Balance 1075 450 200 Meds/Results Medications: Active Medications Generic Name Dose Route Start Last Admin Trade Name Freq PRN Reason Stop Dose Admin Dextrose 12.5 gm 10/22/19 16:56 Dextrose 50% Syringe IV PUSH PRN PRN Hypoglycemia Protocol Enoxaparin Sodium 40 mg 10/23/19 17:00 10/23/19 17:38
[2019-10-24] MEDS: levoFLOXacin 500 MG/D5W 100 ML 500 MG/100 ML BAG 100 MG IVPB (09:13)
[2019-10-24] MEDS: ENOXAPARIN 40 MG/0.4 ML SYRINGE SUB-Q (09:19)
[2019-10-24] MEDS: FAMOTIDINE 20 MG/2 ML VIAL IV PUSH ×2 (09:19→20:34)
[2019-10-24] MEDS: metroNIDAZOLE 500 MG/ISO 100ML 500 MG/100 ML BAG 100 MG IVPB ×2 (10:43→17:35)
--- NOTE | 2019-10-24 12:32 | WPDGIPROGNO ---
Subjective Date/time seen: 10/24/19 12:32 For follow-up with GI for small-bowel obstruction. The patient has not had any bowel movement. Minimal flatus. No nausea vomiting. Still has abdominal distention and discomfort. Fourteen point review systems otherwise unremarkable. HEENT is unremarkable. NG tube in place. Heart rate rhythm regular. Lungs CTA. Abdomen slight distention., soft hypoactive bowel sounds. Extremities without edema. Neuro nonfocal. Impression: Small-bowel obstruction. This may be secondary to adhesions versus Crohn's disease? GERD well controlled on medication. NAFLD. History of pancreatitis with positive DONNY. Sweat gland carcinoma. History of adenomatous colon polyps. Low magnesium. Anxiety/depression. Cervical dysplasia status post conization. Diabetes mellitus. Gout. Hyperlipidemia. Hypertension. Questionable history of [place]. Renal lithiasis. Obesity. Obstructive sleep apnea. TIA/CVA. Obesity. Recommendation: Continue antibiotics. Continue steroids. Surgery if no improvement. Objective Data Vital Signs Vital Signs: Vital Signs - 24 hr 10/23/19 14:00 10/23/19 14:55 10/23/19 20:00 Temperature 36.6 C 36.4 C Pulse Rate 72 71 71 Respiratory Rate 16 20 20 Blood Pressure 141/85 H 168/82 H Pulse Oximetry 96 98 98 10/23/19 22:00 10/23/19 23:00 10/24/19 06:00 Temperature 36.3 C L 36.5 C Pulse Rate 53 L 55 L Respiratory Rate 18 18 Blood Pressure 167/6 H 151/77 H 158/55 H Pulse Oximetry 96 97 Intake/Output Intake/Output: Intake & Output 10/21/19 10/22/19 10/23/19 10/24/19 23:59 23:59 23:59 23:59 Intake Total 2300 2450 1100 Output Total 1225 2000 800 Balance 1075 450 300 Meds/Results Medications: Active Medications Generic Name Dose Route Start Last Admin Trade Name Freq PRN Reason Stop Dose Admin Dextrose 12.5 gm 10/22/19 16:56 Dextrose 50% Syringe IV PUSH PRN PRN Hypoglycemia Protocol Enoxaparin Sodium 40 mg 10/23/19 17:00 10/24/19 09:19 Lovenox SUB-Q 40 mg DAILY NICHOLAS Administration Famotidine 20 mg 10/22/19 21:00 10/24/19 09:19 Pepcid Iv IV PUSH 20 mg Q12HR NICHOLAS Administration Glucagon 1 mg 10/22/19 16:56 Glucagon For Inj IM PRN PRN Hypoglycemia Protocol Glucose 15 gm 10/22/19 16:56 Glutose 15 PO PRN PRN Hypoglycemia Protocol Hydralazine HCl 10 mg 10/22/19 16:54 Apresoline Hcl Inj IV PUSH Q8H PRN Blood Pressure - High Metronidazole 500 mg in 100 mls @ 100 mls/hr 10/22/19 17:00 10/24/19 10:43 Flagyl 500 Mg/Iso Soln 100 Ml IVPB 100 mls/hr Q8H NICH[facility]AS Administration Levofloxacin/Dextrose 500 mg in 100 mls @ 100 mls/hr 10/23/19 09:00 10/24/19 09:13 Levaquin 500 Mg/D5w 100 Ml IVPB 100 mls/hr DAILY NICHOLAS Administration Dextrose 1,000 mls @ 100 mls/hr 10/22/19 16:56 Dextrose 5% 1,000 Ml IVPB PRN PRN Hypoglycemia Protocol Acetaminophen 1,000 mg in 100 mls @ 400 mls/hr 10/23/19 14:06 Ofirmev 1,000 Mg Ivpb IVPB 10/24/19 14:07 Q6H PRN Pain Rated 1-6 Potassium Chloride/Sodium Chloride 1,000 mls @ 100 mls/hr 10/24/19 08:45 Kcl 20 Meq/0.45% Ns IV CONT .Q10H [facility] Insulin Aspart 2 - 5 units 10/22/19 17:00 10/24/19 05:59 Novolog SUB-Q Not Given Q6H [facility] Protocol Methylprednisolone Sodium Succinate 30 mg 10/22/19 14:00 10/24/19 06:07 Solu-Medrol IV PUSH 30 mg Q8HR NICHOLAS Administration Morphine Sulfate 4 mg 10/22/19 09:34 10/24/19 09:32 Morphine Sulfate Inj IV PUSH 4 mg Q2H PRN Administration Pain Rated 7-10 Ondansetron HCl 4 mg 10/23/19 12:43 10/24/19 09:32 Zofran Inj IV PUSH 4 mg Q4H PRN Administration Nausea And Vomiting Radiology Results: ITS Impressions Abdomen/Pelvis CT 10/22/19 09:19 IMPRESSION: Small bowel stricture/obstruction in right periumbilical area. Surgical consult is recommended
[2019-10-24] MEDS: KCL 20 MEQ/0.45% NS 1,000 ML 100 ML IV CONT ×2 (13:01→22:14)
[2019-10-24 14:00] VITALS: BP 168/69; PULSE 78; RESP 18; TEMP 36.3; O2SAT 93
--- NOTE | 2019-10-24 14:45 | PM.IMPN ---
Progress Note: A&P Assessment and Plan (1) SBO (small bowel obstruction): Code(s): K56.609 - Unspecified intestinal obstruction, unspecified as to partial versus complete obstruction Status: Acute Assessment and Plan: CT abd/pelvis revealed numerous small bowel air fluid levels with small bowel dilatation up to 3.8mm with fecalized contents in the mid to distal small bowel in the right periumbilical area with evidence of stricture. There was also soft tissue infiltration of the mesenteric fat in this region with the distal small bowel decompressed. General surgery and GI are on board. She has an NG tube in place which is patent and draining. Her abdomen is mildly distended at this time. She has a known hx of adhesions due to multiple abdominal surgeries in the past and hx of SBO x2 in 2006. She also reports a hx of Crohn's disease identified by blood work and is on mesalamine. UGI series revealed multiple dilated loops of small bowel at at 4 hours, contrast had not reached the colon. Abdominal x-ray today revealed unchanged SBO. General surgery and GI is on board and recommendations are greatly appreciated Continue NPO for bowel rest Continue NG tube decompression was continuous suction Continue IV fluids Continue IV analgesics PRN Continue IV zofran PRN nausea Continue to monitor with serial abdominal exams and abdominal x-ray (2) Type 2 diabetes mellitus: Qualifiers: Diabetes mellitus fci insulin use: without radio station manager use Diabetes mellitus complication status: without complication Qualified Code(s): E11.9 - Type 2 diabetes mellitus without complications Code(s): E11.9 - Type 2 diabetes mellitus without complications Status: Chronic Assessment and Plan: Blood sugars have been reviewed and are at target. A1c repeated today is 7.0. Blood sugar evaluated today and stable at 150. Check HbA1C Continue Accu-cheks Q6HR since pt is NPO Continue low dose SSI and hypoglycemic protocol Continue to hold glyburide and metformin (3) Anxiety: Code(s): F41.9 - Anxiety disorder, unspecified Status: Chronic Assessment and Plan: Patient appears slightly anxious in conversation. Continue ativan PRN (4) Depression: Qualifiers: Depression Type: unspecified Qualified Code(s): F32.9 - Major depressive disorder, single episode, unspecified Code(s): F32.9 - Major depressive disorder, single episode, unspecified Status: Chronic Assessment and Plan: The patient has a hx of depression and is on bupropion which is on hold at this time. Resume bupropion once pt is no longer NPO (5) Crohn's disease: Qualifiers: Digestive disease complication type: unspecified complication Gastrointestinal tract location: unspecified location Qualified Code(s): K50.919 - Crohn's disease, unspecified, with unspecified complications Code(s): K50.90 - Crohn's disease, unspecified, without complications Status: Acute Assessment and Plan: The patient has a hx of Chron's disease diagnosed by blood work. She is on mesalamine prior to admission. Dr. Hanks is on board. Continue IV solu-medrol Continue IV flagyl and levaquin (6) Hypertension: Qualifiers: Hypertension type: essential hypertension Qualified Code(s): I10 - Essential (primary) hypertension Code(s): I10 - Essential (primary) hypertension Status: Chronic Assessment and Plan: Blood pressures reviewed today and stable at 150 8/55. Losartan and amlodipine are on hold at this time since she is NPO given SBO. She is also experiencing pain which is likely exacerbating her HTN. Continue to hold p.o. antihypertensives Continue IV hydralazine PRN Continue to monitor blood pressures (7) Hyperlipidemia: Qualifiers: Hyperlipidemia type: unspecified Qualified Code(s): E78.5 - Hyperlipidemia, unspecified
[2019-10-24 15:21] LABS: Glucose Point of Care 136 (65-105)
[2019-10-24 19:32] LABS: Glucose Point of Care 143 (65-105)
[2019-10-24] MEDS: hydrALAZINE HCL 20 MG/ML VIAL 10 MG IV PUSH (21:28)
[2019-10-24 22:00] VITALS: BP 188/76; PULSE 72; RESP 16; TEMP 36.2; O2SAT 95
[2019-10-24 22:10] LABS: Glucose Point of Care 132 (65-105)
[2019-10-24] MEDS: HYOSCYAMINE SULFATE 0.5 MG/ML AMPUL 0.25 MG IM (22:33)
[2019-10-25] MEDS: metroNIDAZOLE 500 MG/ISO 100ML 500 MG/100 ML BAG 100 MG IVPB ×3 (00:55→17:39)
[2019-10-25] MEDS: MORPHINE SULFATE 4 MG/ML INJ IV PUSH ×4 (04:11→21:21)
[2019-10-25 05:22] LABS: Hematocrit 40.8 % (37.0-47.0); Hemoglobin 13.5 g/dL (12.0-15.0); Mean Corpuscular HGB Conc 33.1 g/dl (32-36); Mean Corpuscular Hemoglobin 28.7 pg (26-34); Mean Corpuscular Volume 86.6 fl (80-100); Mean Platelet Volume 10.3 fl (7.4-10.4); Platelet Count Result 280 k/mm3 (150-375); Red Blood Count 4.71 M/mm3 (4.2-5.4); Red Cell Distribution Width 14.4 % (11.5-14.5); White Blood Count 19.3 K/mm3 (4.5-10.0)
[2019-10-25 05:24] LABS: Blood Urea Nitrogen 17 mg/dL (7-17); Calcium 8.9 mg/dL (8.4-10.2); Carbon Dioxide 27 mmol/L (22-30); Chloride 103 mmol/L (98-107); Estimated CRCL calculation 63 ml/min; Estimated Glomerular Filt Rate > 60; Glucose 146 mg/dL (65-105); Magnesium 1.8 mg/dL (1.6-2.3); Sodium 137 mmol/L (137-145)
[2019-10-25 05:51] VITALS: BP 175/77; PULSE 84; RESP 16; TEMP 36.4; O2SAT 96
[2019-10-25] MEDS: methylPREDNISolone SOD SUCC 40 MG VIAL 30 MG IV PUSH ×3 (06:07→21:22)
[2019-10-25 06:25] LABS: Glucose Point of Care 134 (65-105)
[2019-10-25] MEDS: FAMOTIDINE 20 MG/2 ML VIAL IV PUSH ×2 (08:27→21:26)
[2019-10-25] MEDS: ENOXAPARIN 40 MG/0.4 ML SYRINGE SUB-Q (08:28)
[2019-10-25] MEDS: levoFLOXacin 500 MG/D5W 100 ML 500 MG/100 ML BAG 100 MG IVPB (08:29)
--- NOTE | 2019-10-25 08:33 | WPDGIPROGNO ---
Subjective Date/time seen: 10/25/19 08:33 Small bowel obstruction. This very pleasant lady passed minimal flatus. No nausea or vomiting. Had some rectal bleeding and a significant panic attack last night. The bleeding consists some blood on the tissue paper. She is having no significant abdominal pain at this time. HEENT: NG tube in place. Heart rate rhythm regular. Lungs CTA. Abdomen was soft with hypoactive bowel sounds. Extremities without edema. Musculoskeletal system revealed no joint tenderness or swelling Skin is warm and dry. Neuro was nonfocal. Impression: Small-bowel obstruction. This may be secondary to adhesions versus Crohn's disease? GERD well controlled on medication. NAFLD. History of pancreatitis with positive DONNY. Sweat gland carcinoma. History of adenomatous colon polyps. Low magnesium. Anxiety/depression. Cervical dysplasia status post conization. Diabetes mellitus. Gout. Hyperlipidemia. Hypertension. Questionable history of OH. Renal lithiasis. Obesity. Obstructive sleep apnea. TIA/CVA. Obesity. Recommendation: Recheck KUB in the morning. Recheck laboratory studies in the morning. If no improvement or require surgery. Review of Systems Review of Systems: All systems reviewed & are unremarkable except as noted in HPI and below Objective Data Vital Signs Vital Signs: Vital Signs - 24 hr 10/24/19 14:00 10/24/19 22:00 10/25/19 05:51 Temperature 36.3 C L 36.2 C L 36.4 C Pulse Rate 78 72 84 Respiratory Rate 18 16 16 Blood Pressure 168/69 H 188/76 H 175/77 H Pulse Oximetry 93 95 96 Intake/Output Intake/Output: Intake & Output 10/22/19 10/23/19 10/24/19 10/25/19 23:59 23:59 23:59 23:59 Intake Total 2300 2450 2500 100 Output Total 1225 2000 2250 1950 Balance 1075 450 250 -1850 Meds/Results Medications: Active Medications Generic Name Dose Route Start Last Admin Trade Name Freq PRN Reason Stop Dose Admin Dextrose 12.5 gm 10/22/19 16:56 Dextrose 50% Syringe IV PUSH PRN PRN Hypoglycemia Protocol Enoxaparin Sodium 40 mg 10/23/19 17:00 10/24/19 09:19 Lovenox SUB-Q 40 mg DAILY NICHOLAS Administration Famotidine 20 mg 10/22/19 21:00 10/24/19 20:34 Pepcid Iv IV PUSH 20 mg Q12HR NICHOLAS Administration Glucagon 1 mg 10/22/19 16:56 Glucagon For Inj IM PRN PRN Hypoglycemia Protocol Glucose 15 gm 10/22/19 16:56 Glutose 15 PO PRN PRN Hypoglycemia Protocol Hydralazine HCl 10 mg 10/22/19 16:54 10/24/19 21:28 Apresoline Hcl Inj IV PUSH 10 mg Q8H PRN Administration Blood Pressure - High Metronidazole 500 mg in 100 mls @ 100 mls/hr 10/22/19 17:00 10/25/19 02:05 Flagyl 500 Mg/Iso Soln 100 Ml IVPB Infused Q8H NICHOLAS Infusion Levofloxacin/Dextrose 500 mg in 100 mls @ 100 mls/hr 10/23/19 09:00 10/24/19 12:47 Levaquin 500 Mg/D5w 100 Ml IVPB Infused DAILY NICHOLAS Infusion Dextrose 1,000 mls @ 100 mls/hr 10/22/19 16:56 Dextrose 5% 1,000 Ml IVPB PRN PRN Hypoglycemia Protocol Potassium Chloride/Sodium Chloride 1,000 mls @ 100 mls/hr 10/24/19 08:45 10/24/19 22:14 Kcl 20 Meq/0.45% Ns IV CONT 100 mls/hr .Q10H NICHOLAS Administration Acetaminophen 1,000 mg in 100 mls @ 400 mls/hr 10/24/19 17:09 10/24/19 17:50 Ofirmev 1,000 Mg Ivpb IVPB 10/25/19 17:10 Infused Q6H PRN Infusion Pain Rated 4-6, Fever Insulin Aspart 2 - 5 units 10/22/19 17:00 10/25/19 07:39 Novolog SUB-Q Not Given Q6H [facility] Protocol Methylprednisolone Sodium Succinate 30 mg 10/22/19 14:00 10/25/19 06:07 Solu-Medrol IV PUSH 30 mg Q8HR NICHOLAS Administration Morphine Sulfate 4 mg 10/22/19 09:34 10/25/19 04:11 Morphine Sulfate Inj IV PUSH 4 mg Q2H PRN Administration Pain Rated 7-10 Ondansetron HCl 4 mg 10/23/19 12:43 10/24/19 20:24 Zofran Inj IV PUSH 4 mg Q4H PRN Administration Nausea And Vomiting
[2019-10-25] MEDS: KCL 20 MEQ/0.45% NS 1,000 ML 100 ML IV CONT ×2 (08:37→23:47)
[2019-10-25 09:00] VITALS: BP 145/77
--- NOTE | 2019-10-25 10:04 | PM.PNGS ---
Progress Note: A&P Assessment and Plan (1) SBO (small bowel obstruction): Code(s): K56.609 - Unspecified intestinal obstruction, unspecified as to partial versus complete obstruction Status: Acute Assessment and Plan: KUB looks better and no signs of bowel ischemia. Continue NG suction NPO and IV fluids. I am still hopeful this may resolve. (2) Crohn's disease: Qualifiers: Digestive disease complication type: unspecified complication Gastrointestinal tract location: unspecified location Qualified Code(s): K50.919 - Crohn's disease, unspecified, with unspecified complications Code(s): K50.90 - Crohn's disease, unspecified, without complications Status: Chronic Assessment and Plan: Continue antibiotics and IV steroid medications. Dr. Hanks is following. (3) CVA (cerebral vascular accident): Code(s): I63.9 - Cerebral infarction, unspecified Status: Chronic (4) Type 2 diabetes mellitus: Qualifiers: Diabetes mellitus terminal gauger insulin use: without terminal gauger use Diabetes mellitus complication status: without complication Qualified Code(s): E11.9 - Type 2 diabetes mellitus without complications Code(s): E11.9 - Type 2 diabetes mellitus without complications Status: Chronic (5) Hypertension: Qualifiers: Hypertension type: essential hypertension Qualified Code(s): I10 - Essential (primary) hypertension Code(s): I10 - Essential (primary) hypertension Status: Chronic Subjective Subjective Date/Time Seen: 10/25/19 10:04 The came upset yesterday because she urinated and notice some blood in the urine. Otherwise, has pass flatus but no BM. No abdominal pain. No further vomiting. Review of Systems Review of Systems: All systems reviewed & are unremarkable except as noted in HPI and below Constitutional: Constitutional: Denies headache(s) ENT: Denies headache(s) Cardiovascular: Cardiovascular: Denies chest pain and Denies dyspnea Respiratory: Respiratory: Denies cough and Denies dyspnea Gastrointestinal: Gastrointestinal: Reports as per HPI Genitourinary: Genitourinary: Reports as per HPI (Hematuria) Neurologic: Denies confusion and Denies headache(s) Psychiatric: Psychiatric: Denies confusion Exam Const: General: comfortable and no acute distress; No confusion Orientation/consciousness: patient oriented x3 and No confusion Resp: Effort & Inspection: normal respiratory effort Auscultation: clear to auscultation bilaterally Cardio: Rate: regular rate Rhythm: regular rhythm GI: Inspection: distended, obesity and scar GI Palp: Yes Soft to palpation, No Tenderness to palpation present (GI), No Guarding due to palpation present (GI) and No Rebound tenderness present Auscultation: Hypoactive bowel sounds present Neuro: General: patient oriented x3, no focal motor deficits and No confusion Extrem: General: no calf tenderness and no edema Psych: Affect: normal affect Insight: Good insight present (Psych) Judgement: Good judgement present (Psych) Objective Data Vital Signs Vital Signs: Vital Signs - 24 hr 10/24/19 14:00 10/24/19 22:00 10/25/19 05:51 Temperature 36.3 C L 36.2 C L 36.4 C Pulse Rate 78 72 84 Respiratory Rate 18 16 16 Blood Pressure 168/69 H 188/76 H 175/77 H Pulse Oximetry 93 95 96 Intake/Output Intake/Output: Intake & Output 10/22/19 10/23/19 10/24/19 10/25/19 23:59 23:59 23:59 23:59 Intake Total 2300 2450 2500 1100 Output Total 1225 2000 2250 1950 Balance 1075 450 250 -850 Meds/Results Medications: Active Medications Generic Name Dose Route Start Last Admin Trade Name Freq PRN Reason Stop Dose Admin Dextrose 12.5 gm 10/22/19 16:56 Dextrose 50% Syringe IV PUSH PRN PRN Hypoglycemia Protocol Enoxaparin Sodium 40 mg 10/23/19 17:00 10/25/19 08:28 Lovenox SUB-Q 40 mg DAILY NICHOLAS Administration Famotidine 20 mg 10/22/19 21:00
--- NOTE | 2019-10-25 11:40 | PCDIET ---
Nutrition Follow-Up Complete: Nutrition Diagnosis: Altered GI function related to Crohn's disease as evidenced by NPO/NGT. Nutrition Goal: Meet estimated nutritional needs Goal not met. Patient remains NPO with NG tube in place. 350mL output today thus far. Per surgery, KUB improved and no planned surgery at this time. Last recorded weight is 81 kg. Recommend obtaining new weight. Bowel Motility: No reported BM. +Flatus. Labs Reviewed: WBC (19.3), Glu (134) Meds Noted: Pepcid, Novolog, Levaquin, Solu Medrol, Flagyl, 0.45NaCl with 20mEq KCl at 100mL/hr Additional Notes: No documented skin breakdown. Patient is on day #5 NPO. If unable/unexpected to advance diet in the next 2-3 days, recommend central PN: Clinimix E 5/15 at 80mL/hr with 250mL 20% lipids will provide 1863kcal and 96 grams protein daily. May also consider short term peripheral nutrition support if duration of NPO is expected to last less than a few more days: Clinimix E 4.25/5 at 100mL/hr with 250mL 20% lipids will provide 1316kcal and 102g protein daily. Nutrition Monitoring and Evaluation: Will follow up every 3 days.
[2019-10-25 12:52] LABS: Glucose Point of Care 152 (65-105)
[2019-10-25 14:00] VITALS: BP 185/80; PULSE 77; RESP 16; TEMP 36.2; O2SAT 96
--- NOTE | 2019-10-25 14:24 | PM.IMPN ---
Progress Note: A&P Assessment and Plan (1) SBO (small bowel obstruction): Code(s): K56.609 - Unspecified intestinal obstruction, unspecified as to partial versus complete obstruction Status: Acute Assessment and Plan: CT abd/pelvis revealed numerous small bowel air fluid levels with small bowel dilatation up to 3.8mm with fecalized contents in the mid to distal small bowel in the right periumbilical area with evidence of stricture. There was also soft tissue infiltration of the mesenteric fat in this region with the distal small bowel decompressed. She has an NG tube in place which is patent and draining. Her abdomen is mildly distended at this time. She has a known hx of adhesions due to multiple abdominal surgeries and hx of SBO x2 in 2006. She also reports a hx of Crohn's disease identified by blood work and is on mesalamine. UGI series revealed multiple dilated loops of small bowel at 4 hours, contrast had not reached the colon. Abdominal x-ray today revealed persistently dilated distal small bowel with slight improvement in dilatation as compared to yesterday. General surgery and GI is on board and recommendations are greatly appreciated Continue NPO diet for bowel rest Continue NG tube decompression with low intermittent suction Continue IV fluids Continue IV analgesics PRN Continue IV zofran PRN nausea Continue to monitor with serial abdominal exams and abdominal x-ray (2) Type 2 diabetes mellitus: Qualifiers: Diabetes mellitus complication status: without complication Diabetes mellitus intermediate project manager insulin use: without mcfp use Qualified Code(s): E11.9 - Type 2 diabetes mellitus without complications Code(s): E11.9 - Type 2 diabetes mellitus without complications Status: Chronic Assessment and Plan: Blood sugars have been reviewed and are at target. A1c repeated today is 7.0. Blood sugar evaluated today and stable at 146. Continue Accu-cheks Q6HR since pt is NPO Continue low dose SSI and hypoglycemic protocol Continue to hold glyburide and metformin (3) Crohn's disease: Qualifiers: Digestive disease complication type: unspecified complication Gastrointestinal tract location: unspecified location Qualified Code(s): K50.919 - Crohn's disease, unspecified, with unspecified complications Code(s): K50.90 - Crohn's disease, unspecified, without complications Status: Chronic Assessment and Plan: The patient has a hx of Crohn's disease diagnosed by blood work. She is on mesalamine prior to admission. Continue IV solu-medrol Continue IV flagyl and levaquin Dr. Hanks is on board and recommendations are appreciated (4) Hypertension: Qualifiers: Hypertension type: essential hypertension Qualified Code(s): I10 - Essential (primary) hypertension Code(s): I10 - Essential (primary) hypertension Status: Chronic Assessment and Plan: Blood pressures reviewed today and elevated at 175/77 and then improved to 145/77 on repeat. She is experiencing pain which is likely exacerbating her HTN. Continue to hold PO antihypertensives Continue IV hydralazine PRN Continue to monitor blood pressures (5) Hypomagnesemia: Code(s): E83.42 - Hypomagnesemia Status: Acute Assessment and Plan: Magnesium previously low at 1.3. She takes 250mg PO daily prior to admission which is on hold as she is NPO. Magnesium today is 1.8. Continue to monitor and supplement as needed (6) Hematuria: Code(s): R31.9 - Hematuria, unspecified Status: Acute Assessment and Plan: Patient reports episode of hematuria last night. She denies dysuria, urgency, or frequency. She does endorse mild right flank pain. She has no CVA tenderness. She has a history of nephrolithiasis. CT on 10/21 did not reveal evidence of calculus or hydroureteronephrosis. Renal function is good. Will order UA with re
[2019-10-25] MEDS: hydrALAZINE HCL 20 MG/ML VIAL 10 MG IV PUSH ×2 (15:58→21:42)
[2019-10-25 17:15] LABS: Glucose Point of Care 142 (65-105)
[2019-10-25 17:30] VITALS: BP 159/86
[2019-10-25] MEDS: ONDANSETRON INJ 4 MG/2 ML VIAL IV PUSH (21:26)
[2019-10-25 22:00] VITALS: BP 185/81; PULSE 76; RESP 16; TEMP 36.6; O2SAT 96
[2019-10-25 23:19] VITALS: BP 148/70
[2019-10-26 01:09] LABS: Glucose Point of Care 152 (65-105)
[2019-10-26] MEDS: metroNIDAZOLE 500 MG/ISO 100ML 500 MG/100 ML BAG 100 MG IVPB ×3 (01:38→16:44)
[2019-10-26] MEDS: MORPHINE SULFATE 4 MG/ML INJ IV PUSH ×2 (02:31→15:20)
[2019-10-26 05:50] VITALS: BP 146/61; PULSE 63; RESP 16; TEMP 36.6; O2SAT 94
[2019-10-26] MEDS: methylPREDNISolone SOD SUCC 40 MG VIAL 30 MG IV PUSH ×3 (06:18→22:00)
--- NOTE | 2019-10-26 06:23 | PM.PNGS ---
Progress Note: A&P Assessment and Plan (1) SBO (small bowel obstruction): Code(s): K56.609 - Unspecified intestinal obstruction, unspecified as to partial versus complete obstruction Status: Acute Assessment and Plan: Seems to be making progress. Continue present treatment. Possibly proceed with repeat small-bowel series tomorrow. (2) Crohn's disease: Qualifiers: Digestive disease complication type: unspecified complication Gastrointestinal tract location: unspecified location Qualified Code(s): K50.919 - Crohn's disease, unspecified, with unspecified complications Code(s): K50.90 - Crohn's disease, unspecified, without complications Status: Chronic (3) Type 2 diabetes mellitus: Qualifiers: Diabetes mellitus nursing home insulin use: without vermin exterminator use Diabetes mellitus complication status: without complication Qualified Code(s): E11.9 - Type 2 diabetes mellitus without complications Code(s): E11.9 - Type 2 diabetes mellitus without complications Status: Chronic Subjective Subjective Date/Time Seen: 10/26/19 06:23 Patient reports: no new complaints, feels better, flatus and no bowel movement Review of Systems Review of Systems: All systems reviewed & are unremarkable except as noted in HPI and below Constitutional: Constitutional: Denies headache(s) ENT: Denies headache(s) Cardiovascular: Cardiovascular: Denies chest pain and Denies dyspnea Respiratory: Respiratory: Denies cough and Denies dyspnea Gastrointestinal: Gastrointestinal: Reports as per HPI Neurologic: Denies confusion and Denies headache(s) Psychiatric: Psychiatric: Denies confusion Exam Const: General: comfortable and no acute distress; No confusion Orientation/consciousness: patient oriented x3 and No confusion Resp: Effort & Inspection: normal respiratory effort Auscultation: clear to auscultation bilaterally Cardio: Rate: regular rate Rhythm: regular rhythm GI: Inspection: distended and obesity GI Palp: Yes Soft to palpation, No Tenderness to palpation present (GI), No Guarding due to palpation present (GI) and No Rebound tenderness present Auscultation: Hypoactive bowel sounds present Neuro: General: patient oriented x3, no focal motor deficits and No confusion Extrem: General: no calf tenderness and no edema Psych: Affect: normal affect Insight: Good insight present (Psych) Judgement: Good judgement present (Psych) Objective Data Vital Signs Vital Signs: Vital Signs - 24 hr 10/25/19 09:00 10/25/19 14:00 10/25/19 17:30 Temperature 36.2 C L Pulse Rate 77 Respiratory Rate 16 Blood Pressure 145/77 H 185/80 H 159/86 H Pulse Oximetry 96 10/25/19 22:00 10/25/19 23:19 10/26/19 05:50 Temperature 36.6 C 36.6 C Pulse Rate 76 63 Respiratory Rate 16 16 Blood Pressure 185/81 H 148/70 H 146/61 H Pulse Oximetry 96 94 Intake/Output Intake/Output: Intake & Output 10/23/19 10/24/19 10/25/19 10/26/19 23:59 23:59 23:59 23:59 Intake Total 2450 2500 2400 100 Output Total 2000 2250 3350 1400 Balance 450 250 -950 -1300 Meds/Results Medications: Active Medications Generic Name Dose Route Start Last Admin Trade Name Freq PRN Reason Stop Dose Admin Dextrose 12.5 gm 10/22/19 16:56 Dextrose 50% Syringe IV PUSH PRN PRN Hypoglycemia Protocol Enoxaparin Sodium 40 mg 10/23/19 17:00 10/25/19 08:28 Lovenox SUB-Q 40 mg DAILY NICHOLAS Administration Famotidine 20 mg 10/22/19 21:00 10/25/19 21:26 Pepcid Iv IV PUSH 20 mg Q12HR NICHOLAS Administration Glucagon 1 mg 10/22/19 16:56 Glucagon For Inj IM PRN PRN Hypoglycemia Protocol Glucose 15 gm 10/22/19 16:56 Glutose 15 PO PRN PRN Hypoglycemia Protocol Hydralazine HCl 10 mg 10/22/19 16:54 10/25/19 21:42 Apresoline Hcl Inj IV PUSH 10 mg Q8H PRN Administration Blood Pressure - High Metronidazole 500 mg
[2019-10-26 06:26] LABS: Hemoglobin 13.2 g/dL (12.0-15.0); Mean Corpuscular Hemoglobin 28.3 pg (26-34); Mean Corpuscular Volume 85.8 fl (80-100); Mean Platelet Volume 9.6 fl (7.4-10.4); Platelet Count Result 275 k/mm3 (150-375); Red Blood Count 4.66 M/mm3 (4.2-5.4); Red Cell Distribution Width 14.5 % (11.5-14.5); White Blood Count 16.4 K/mm3 (4.5-10.0)
[2019-10-26 06:42] LABS: Alanine Aminotransferase 60 U/L (4-35); Albumin Level 3.9 g/dL (3.5-5.1); Alkaline Phosphatase 82 U/L (38-126); Aspartate Amino Transferase 166 U/L (14-36); Bilirubin,Total 0.5 mg/dL (0.2-1.3); Blood Urea Nitrogen 20 mg/dL (7-17); Calcium 8.8 mg/dL (8.4-10.2); Carbon Dioxide 29 mmol/L (22-30); Chloride 100 mmol/L (98-107); Estimated CRCL calculation 63 ml/min; Estimated Glomerular Filt Rate > 60; Glucose 142 mg/dL (65-105); Magnesium 1.8 mg/dL (1.6-2.3); Potassium 3.9 mmol/L (3.4-5.0); Sodium 136 mmol/L (137-145)
--- NOTE | 2019-10-26 08:22 | WPDGIPROGNO ---
Subjective Date/time seen: 10/26/19 08:22 Patient fortunately passing flatus. No bowel movement yet. Feeling much better. General: very pleasant patient in no acute distress. HEENT: Head was normocephalic sclerae is clear mouth without masses neck was supple. Heart: Rate rhythm regular without S3 or S4. Lungs: CTA. Abdomen: Soft with no guarding or rigidity. Bowel sounds were active. Neurologic: Cranial nerves 2 through 12 intact. No focal defects. No clonus. Musculoskeletal system: Revealed no joint tenderness or swelling no muscle atrophy. Extremities: Reveal no significant edema. Skin: Warm and dry with normal turgor. Mental status: intact. Patient is alert and oriented. Impression: Small-bowel obstruction. This may be secondary to adhesions versus Crohn's disease? GERD well controlled on medication. NAFLD. History of pancreatitis with positive DONNY. Sweat gland carcinoma. History of adenomatous colon polyps. Low magnesium. Anxiety/depression. Cervical dysplasia status post conization. Diabetes mellitus. Gout. Hyperlipidemia. Hypertension. Questionable history of OH. Renal lithiasis. Obesity. Obstructive sleep apnea. TIA/CVA. Obesity. Recommendation: May consider clear liquids. Advance as tolerated to low residue, consistent carbohydrate and low-fat diet. Would recommend oral prednisone 40 mg with rapid taper 5 mg Every 5 days. Dietary consult. Patient to follow up in the office in 4 weeks. Review of Systems Review of Systems: All systems reviewed & are unremarkable except as noted in HPI and below Objective Data Vital Signs Vital Signs: Vital Signs - 24 hr 10/25/19 09:00 10/25/19 14:00 10/25/19 17:30 Temperature 36.2 C L Pulse Rate 77 Respiratory Rate 16 Blood Pressure 145/77 H 185/80 H 159/86 H Pulse Oximetry 96 10/25/19 22:00 10/25/19 23:19 10/26/19 05:50 Temperature 36.6 C 36.6 C Pulse Rate 76 63 Respiratory Rate 16 16 Blood Pressure 185/81 H 148/70 H 146/61 H Pulse Oximetry 96 94 Intake/Output Intake/Output: Intake & Output 10/23/19 10/24/19 10/25/19 10/26/19 23:59 23:59 23:59 23:59 Intake Total 2450 2500 2400 100 Output Total 1999 2250 3350 1600 Balance 450 250 -950 -1500 Meds/Results Medications: Active Medications Generic Name Dose Route Start Last Admin Trade Name Freq PRN Reason Stop Dose Admin Dextrose 12.5 gm 10/22/19 16:56 Dextrose 50% Syringe IV PUSH PRN PRN Hypoglycemia Protocol Enoxaparin Sodium 40 mg 10/23/19 17:00 10/25/19 08:28 Lovenox SUB-Q 40 mg DAILY NICHOLAS Administration Famotidine 20 mg 10/22/19 21:00 10/25/19 21:26 Pepcid Iv IV PUSH 20 mg Q12HR NICHOLAS Administration Glucagon 1 mg 10/22/19 16:56 Glucagon For Inj IM PRN PRN Hypoglycemia Protocol Glucose 15 gm 10/22/19 16:56 Glutose 15 PO PRN PRN Hypoglycemia Protocol Hydralazine HCl 10 mg 10/22/19 16:54 10/25/19 21:42 Apresoline Hcl Inj IV PUSH 10 mg Q8H PRN Administration Blood Pressure - High Metronidazole 500 mg in 100 mls @ 100 mls/hr 10/22/19 17:00 10/26/19 04:36 Flagyl 500 Mg/Iso Soln 100 Ml IVPB Infused Q8H NICHOLAS Infusion Levofloxacin/Dextrose 500 mg in 100 mls @ 100 mls/hr 10/23/19 09:00 10/25/19 12:48 Levaquin 500 Mg/D5w 100 Ml IVPB Infused DAILY NICHOLAS Infusion Dextrose 1,000 mls @ 100 mls/hr 10/22/19 16:56 Dextrose 5% 1,000 Ml IVPB PRN PRN Hypoglycemia Protocol Potassium Chloride/Sodium Chloride 1,000 mls @ 100 mls/hr 10/24/19 08:45 10/25/19 23:47 Kcl 20 Meq/0.45% Ns IV CONT 100 mls/hr .Q10H NICHOLAS Administration Insulin Aspart 2 - 5 units 10/22/19 17:00 10/26/19 06:17 Novolog SUB-Q Not Given Q6H NICHOLAS Protocol Methylprednisolone Sodium Succinate 30 mg 10/22/19 14:00 10/26/19 06:18 Solu-Medrol IV PUSH 30 mg Q8HR NICHOLAS Administration Morphine Sulfate 4 mg 10/21
[2019-10-26] MEDS: ENOXAPARIN 40 MG/0.4 ML SYRINGE SUB-Q (08:55)
[2019-10-26] MEDS: FAMOTIDINE 20 MG/2 ML VIAL IV PUSH ×2 (08:55→22:00)
[2019-10-26] MEDS: levoFLOXacin 500 MG/D5W 100 ML 500 MG/100 ML BAG 100 MG IVPB (08:56)
[2019-10-26] MEDS: ONDANSETRON INJ 4 MG/2 ML VIAL IV PUSH ×2 (10:22→15:20)
[2019-10-26 11:27] LABS: Glucose Point of Care 168 (65-105)
--- NOTE | 2019-10-26 12:11 | PM.IMPN ---
Progress Note: A&P Assessment and Plan (1) SBO (small bowel obstruction): Code(s): K56.609 - Unspecified intestinal obstruction, unspecified as to partial versus complete obstruction Status: Acute Assessment and Plan: CT abd/pelvis revealed numerous small bowel air fluid levels with small bowel dilatation up to 3.8mm with fecalized contents in the mid to distal small bowel in the right periumbilical area with evidence of stricture. There was also soft tissue infiltration of the mesenteric fat in this region with the distal small bowel decompressed. She has an NG tube in place which is patent and draining. She has a known hx of adhesions due to multiple abdominal surgeries and hx of SBO x2 in 2006. SBO likely related to adhesions, but may be related to Crohn's disease. UGI series performed on 10/22 revealed multiple dilated loops of small bowel and at 4 hours contrast had not reached the colon. Abdominal x-ray today reveals nonobstructive bowel gas pattern. Patient had a bowel movement and is passing flatus. General surgery and GI is on board and recommendations are greatly appreciated Continue NPO diet for bowel rest Continue NG tube decompression with low intermittent suction Continue IV fluids Continue IV analgesics PRN Continue IV zofran PRN nausea Continue to monitor with serial abdominal exams and abdominal x-ray. Possibly small bowel follow-through tomorrow (2) Crohn's disease: Qualifiers: Digestive disease complication type: unspecified complication Gastrointestinal tract location: unspecified location Qualified Code(s): K50.919 - Crohn's disease, unspecified, with unspecified complications Code(s): K50.90 - Crohn's disease, unspecified, without complications Status: Chronic Assessment and Plan: The patient has a hx of Crohn's disease diagnosed by blood work. She is on mesalamine prior to admission. Continue IV solu-medrol Continue IV flagyl and levaquin Dr. Hanks is on board and recommendations are appreciated (3) Hematuria: Code(s): R31.9 - Hematuria, unspecified Status: Acute Assessment and Plan: Patient reports episode of gross hematuria on 10/22 and 10/23. She denies dysuria, urgency, or frequency. She previously endorsed mild right flank pain which has resolved. She has no CVA tenderness. She complains of dysuria and bladder spasm today. She has a history of nephrolithiasis. CT on 10/21 did not reveal evidence of calculus or hydroureteronephrosis. UA on 10/21 revealed 1+ blood. It appears she passed a stone on 10/24 at night which was sent to the lab for pathology. Renal function is good. UA has been ordered and still needs to be collected. Will evaluate for ongoing hematuria Continue to monitor (4) Nephrolithiasis: Code(s): N20.0 - Calculus of kidney Status: Acute Assessment and Plan: Appears patient passed a stone last night as above. No evidence of stone on CT a/p taken 10/21. Urine had been strained Await UA results Await pathology result of stone (5) Hypertension: Qualifiers: Hypertension type: essential hypertension Qualified Code(s): I10 - Essential (primary) hypertension Code(s): I10 - Essential (primary) hypertension Status: Chronic Assessment and Plan: Blood pressures reviewed today and stable at 141/61. She has had several elevated readings which may be explained by pain she was experiencing. Continue to hold PO antihypertensives given NPO status Continue IV hydralazine PRN Continue to monitor blood pressures (6) Hypomagnesemia: Code(s): E83.42 - Hypomagnesemia Status: Acute Assessment and Plan: Magnesium previously low at 1.3. She takes 250mg PO daily prior to admission which is on hold as she is NPO. Magnesium levels have been stable. Continue to monitor and supplement as needed (7) Type 2 diabetes mellitus: Qualifie
--- NOTE | 2019-10-26 12:36 | PCDIET ---
Nutrition Consult Complete: Altered GI function as related to Chrons as evidenced by NPO/NGT Meet estimated nutritional needs Goal: Goal not met. Continue with current goal. Pt current nutrition is NPO. Nutrition recommendation: ADAT to heart healthy/DBCC if medically appropriate. If PO intake not appropriate, recommend starting PPN/TPN in the next 24hrs due to prolonged NPO period. See rec below. Last recorded weight is 81 kg. Bowel Motility: BM and flatus + Labs Reviewed:na 136, BUN 20, Glucose 142, AST 166, ALT 60 Additional Notes: Patient is on day #5 NPO. If unable/unexpected to advance diet in the next 2-3 days, recommend alternative nutrition to bypass gut: If need anticipated short term (less than three days) recommend PPN: Clinimix E 4.25/5 at 100mL/hr with 250mL 20% lipids will provide 1316kcal and 102g protein daily. TPN recommended for longer expected NPO over three days: Clinimix E 5/15 at 80mL/hr with 250mL 20% lipids will provide 1863kcal and 96 grams protein daily. Due to risk of refeeding syndrome from prolonged NPO period, any PPN/TPN should start at 1/2 rate for day one, increasing only to full goal rate day two if electrolytes remain stable. Will monitor nutrition, wt, labs daily.
[2019-10-26 13:41] LABS: Add Urine Microscopic? YES; Appearance Urine Clear (Clear); Bilirubin Urine Negative (Negative); Blood Urine 2+ (Negative); Color Urine Yellow (Yellow); Glucose Urine UA Negative (Negative); Ketones Urine Trace mg/dL (Negative); Leukocyte Esterase Ur Trace LEU/UL (Negative); Mucus Urine Rare /lpf; Nitrate Urine Negative (Negative); Protein Urine Negative (Negative); Specific Grav Ur 1.017 (1.001-1.035); Squamous Epithelial Cell Urine Occasional /hpf (Few); Urobilinogen Urine Negative mg/dL (<2.0); WBC Urine 0-3 /hpf
[2019-10-26 13:43] VITALS: BP 177/81; PULSE 60; RESP 18; TEMP 36.1; O2SAT 98
[2019-10-26] MEDS: hydrALAZINE HCL 20 MG/ML VIAL 10 MG IV PUSH (14:22)
[2019-10-26] MEDS: PHENOL/SOD PHENO SPRAY CHERRY (*BKC) 1 SPRAY MUCOUS MEM ×2 (14:23→22:29)
[2019-10-26] MEDS: KCL 20 MEQ/0.45% NS 1,000 ML 100 ML IV CONT (14:27)
[2019-10-26 15:33] LABS: Glucose Point of Care 127 (65-105)
[2019-10-26 16:55] LABS: Glucose Point of Care 155 (65-105)
[2019-10-26 22:00] VITALS: BP 154/78; PULSE 64; RESP 18; TEMP 36.6; O2SAT 96
[2019-10-27 00:21] LABS: Glucose Point of Care 122 (65-105)
[2019-10-27] MEDS: KCL 20 MEQ/0.45% NS 1,000 ML 100 ML IV CONT ×3 (00:59→23:33)
[2019-10-27] MEDS: metroNIDAZOLE 500 MG/ISO 100ML 500 MG/100 ML BAG 100 MG IVPB ×3 (04:06→16:30)
[2019-10-27] MEDS: ONDANSETRON INJ 4 MG/2 ML VIAL IV PUSH ×2 (04:12→12:42)
[2019-10-27] MEDS: hydrALAZINE HCL 20 MG/ML VIAL 10 MG IV PUSH (05:49)
[2019-10-27 05:53] LABS: Hematocrit 42.9 % (37.0-47.0); Hemoglobin 14.2 g/dL (12.0-15.0); Mean Corpuscular HGB Conc 33.1 g/dl (32-36); Mean Corpuscular Hemoglobin 28.7 pg (26-34); Mean Corpuscular Volume 86.8 fl (80-100); Mean Platelet Volume 9.8 fl (7.4-10.4); Platelet Count Result 288 k/mm3 (150-375); Red Blood Count 4.94 M/mm3 (4.2-5.4); Red Cell Distribution Width 14.5 % (11.5-14.5); White Blood Count 15.9 K/mm3 (4.5-10.0)
[2019-10-27] MEDS: methylPREDNISolone SOD SUCC 40 MG VIAL 30 MG IV PUSH (05:58)
[2019-10-27 06:00] VITALS: BP 177/81; PULSE 76; RESP 18; TEMP 36.3; O2SAT 96
[2019-10-27 06:12] LABS: Alanine Aminotransferase 49 U/L (4-35); Albumin Level 4.1 g/dL (3.5-5.1); Alkaline Phosphatase 85 U/L (38-126); Aspartate Amino Transferase 55 U/L (14-36); Bilirubin,Total 0.5 mg/dL (0.2-1.3); Blood Urea Nitrogen 20 mg/dL (7-17); Calcium 8.8 mg/dL (8.4-10.2); Carbon Dioxide 28 mmol/L (22-30); Chloride 99 mmol/L (98-107); Estimated CRCL calculation 63 ml/min; Estimated Glomerular Filt Rate > 60; Glucose 163 mg/dL (65-105); Magnesium 1.9 mg/dL (1.6-2.3); Potassium 4.5 mmol/L (3.4-5.0); Sodium 136 mmol/L (137-145)
[2019-10-27 06:35] VITALS: BP 153/84
[2019-10-27 07:14] LABS: Prealbumin 31.9 mg/dL (17.6-36.0)
--- NOTE | 2019-10-27 07:27 | PM.PNGS ---
Progress Note: A&P Assessment and Plan (1) SBO (small bowel obstruction): Code(s): K56.609 - Unspecified intestinal obstruction, unspecified as to partial versus complete obstruction Status: Acute Assessment and Plan: It appears small-bowel obstruction has resolved. Will proceed with repeat upper GI small-bowel follow-through to ensure resolution. If has appropriate transit time, will proceed with removing NG tube in starting liquids today. (2) Crohn's disease: Qualifiers: Digestive disease complication type: unspecified complication Gastrointestinal tract location: unspecified location Qualified Code(s): K50.919 - Crohn's disease, unspecified, with unspecified complications Code(s): K50.90 - Crohn's disease, unspecified, without complications Status: Chronic Assessment and Plan: For plans regarding antibiotics and steroids per Dr. Hanks and hospitalist. (3) CVA (cerebral vascular accident): Code(s): I63.9 - Cerebral infarction, unspecified Status: Chronic (4) Type 2 diabetes mellitus: Qualifiers: Diabetes mellitus watermaster insulin use: without correction use Diabetes mellitus complication status: without complication Qualified Code(s): E11.9 - Type 2 diabetes mellitus without complications Code(s): E11.9 - Type 2 diabetes mellitus without complications Status: Chronic Subjective Subjective Date/Time Seen: 10/27/19 07:28 Patient reports: no new complaints, feels better, flatus, bowel movement and afebrile Review of Systems Review of Systems: All systems reviewed & are unremarkable except as noted in HPI and below Constitutional: Constitutional: Denies headache(s) ENT: Denies headache(s) Cardiovascular: Cardiovascular: Denies chest pain and Denies dyspnea Respiratory: Respiratory: Denies cough and Denies dyspnea Gastrointestinal: Gastrointestinal: Reports as per HPI Neurologic: Denies confusion and Denies headache(s) Psychiatric: Psychiatric: Denies confusion Exam Const: General: comfortable and no acute distress; No confusion Orientation/consciousness: patient oriented x3 and No confusion GI: Inspection: normal to inspection and non-distended GI Palp: Yes Soft to palpation, No Tenderness to palpation present (GI), No Guarding due to palpation present (GI) and No Rebound tenderness present Auscultation: normal bowel sounds Neuro: General: patient oriented x3, no focal motor deficits and No confusion Extrem: General: no calf tenderness and no edema Psych: Affect: normal affect Insight: Good insight present (Psych) Judgement: Good judgement present (Psych) Objective Data Vital Signs Vital Signs: Vital Signs - 24 hr 10/26/19 13:43 10/26/19 22:00 Temperature 36.1 C L 36.6 C Pulse Rate 60 64 Respiratory Rate 18 18 Blood Pressure 177/81 H 154/78 H Pulse Oximetry 98 96 Intake/Output Intake/Output: Intake & Output 10/24/19 10/25/19 10/26/19 10/27/19 23:59 23:59 23:59 23:59 Intake Total 2500 2400 1621 879 Output Total 2250 5080 227 Balance 061 -698 -657 060 Meds/Results Medications: Active Medications Generic Name Dose Route Start Last Admin Trade Name Freq PRN Reason Stop Dose Admin Dextrose 12.5 gm 10/22/19 16:56 Dextrose 50% Syringe IV PUSH PRN PRN Hypoglycemia Protocol Enoxaparin Sodium 40 mg 10/23/19 17:00 10/26/19 08:55 Lovenox SUB-Q 40 mg DAILY NICHOLAS Administration Famotidine 20 mg 10/22/19 21:00 10/26/19 22:00 Pepcid Iv IV PUSH 20 mg Q12HR NICHOLAS Administration Glucagon 1 mg 10/22/19 16:56 Glucagon For Inj IM PRN PRN Hypoglycemia Protocol Glucose 15 gm 10/22/19 16:56 Glutose 15 PO PRN PRN Hypoglycemia Protocol Hydralazine HCl 10 mg 10/22/19 16:54 10/27/19 05:49 Apresoline Hcl Inj IV PUSH 10 mg Q8H PRN Administration Blood Pressure - High Metronidazole 500 mg in 100 mls @ 100 ml
[2019-10-27 07:35] LABS: Glucose Point of Care 166 (65-105)
[2019-10-27 08:07] LABS: Glucose Point of Care 169 (65-105)
[2019-10-27] MEDS: ENOXAPARIN 40 MG/0.4 ML SYRINGE SUB-Q (09:00)
--- NOTE | 2019-10-27 10:38 | PCNFU ---
Nutrition Follow-Up Complete: Alertered GI function as related to Chrons as evidenced by NPO/NGT goal: Meet estimated nutritional needs Progressing towards goal. We will continue current goal. Pt current nutrition is NPO. Nutrition recommendation:Advance as tolerated per MD orders. Last recorded weight is 81 kg. Bowel Motility:+BM reported 10/26 Labs Reviewed:Glu 163,BUN 20,Na 136 Meds Noted:Flygyl,Lovenox,Solu Medrol Additional Notes: Spoke with nursing over telephone today due to COVID 19 precautions. Patient is currently in xray for small bowel follow through. Plans to removed NGT and start clear liquids if resolved. Monitoring: Will monitor every 3 days.
[2019-10-27 11:00] LABS: Vitamin D 1,25 (OH)2 Total 54 pg/mL (18-72); Vitamin D2 1,25 (OH)2 <8 pg/mL; Vitamin D3 1,25 (OH)2 54 pg/mL
[2019-10-27] MEDS: levoFLOXacin 500 MG/D5W 100 ML 500 MG/100 ML BAG 100 MG IVPB (11:00)
[2019-10-27 11:07] LABS: Glucose Point of Care 201 (65-105)
[2019-10-27] MEDS: FAMOTIDINE 20 MG/2 ML VIAL IV PUSH (11:08)
[2019-10-27 11:52] LABS: Glucose Point of Care 208 (65-105)
[2019-10-27] MEDS: INSULIN ASPART (*BKC) 100 UNITS/ML SUB-Q ×2 (12:06→23:32)
--- NOTE | 2019-10-27 12:22 | WPDGIPROGNO ---
Subjective Date/time seen: 10/27/19 12:22 Continue follow-up of small-bowel obstruction. Patient feeling well. Having multiple stools. Follow-up small-bowel follow-through shows contrast in the colon within 1 hour. No nausea, vomiting or abdominal pain. General: very pleasant patient in no acute distress. HEENT: Head was normocephalic sclerae is clear mouth without masses neck was supple. Heart: Rate rhythm regular without S3 or S4. Lungs: CTA. Abdomen: Soft with no guarding or rigidity. Bowel sounds were active. Neurologic: Cranial nerves 2 through 12 intact. No focal defects. No clonus. Musculoskeletal system: Revealed no joint tenderness or swelling no muscle atrophy. Extremities: Reveal no significant edema. Skin: Warm and dry with normal turgor. Mental status: intact. Patient is alert and oriented. Impression: Small-bowel obstruction. This may be secondary to adhesions versus Crohn's disease? The patient has Crohn's disease is not been definitively and histologically proven. GERD well controlled on medication. NAFLD. History of pancreatitis with positive DONNY. Sweat gland carcinoma. History of adenomatous colon polyps. Low magnesium. Anxiety/depression. Cervical dysplasia status post conization. Diabetes mellitus. Gout. Hyperlipidemia. Hypertension. Questionable history of VT. Renal lithiasis. Obesity. Obstructive sleep apnea. TIA/CVA. Obesity. Recommendation: DC NG tube. Clear liquids. Would advance to a low residue diabetic diet. DC IV Solu-Medrol. Will begin prednisone 40 mg with a rapid taper of 5 mg every 5 days. Will follow up in the office. Recheck laboratory studies. Orders have been placed. Review of Systems Review of Systems: All systems reviewed & are unremarkable except as noted in HPI and below Objective Data Vital Signs Vital Signs: Vital Signs - 24 hr 10/26/19 13:43 10/26/19 22:00 10/27/19 06:00 Temperature 36.1 C L 36.6 C 36.3 C L Pulse Rate 60 64 76 Respiratory Rate 18 18 18 Blood Pressure 177/81 H 154/78 H 177/81 H Pulse Oximetry 98 96 96 10/27/19 06:35 Temperature Pulse Rate Respiratory Rate Blood Pressure 153/84 H Pulse Oximetry Intake/Output Intake/Output: Intake & Output 10/24/19 10/25/19 10/26/19 10/27/19 23:59 23:59 23:59 23:59 Intake Total 2500 2400 1621 879 Output Total 5869 9934 8973 2953 Balance 082 -878 -829 -385 Meds/Results Medications: Active Medications Generic Name Dose Route Start Last Admin Trade Name Freq PRN Reason Stop Dose Admin Dextrose 12.5 gm 10/22/19 16:56 Dextrose 50% Syringe IV PUSH PRN PRN Hypoglycemia Protocol Enoxaparin Sodium 40 mg 10/23/19 17:00 10/27/19 09:00 Lovenox SUB-Q 40 mg DAILY NICHOLAS Administration Glucagon 1 mg 10/22/19 16:56 Glucagon For Inj IM PRN PRN Hypoglycemia Protocol Glucose 15 gm 10/22/19 16:56 Glutose 15 PO PRN PRN Hypoglycemia Protocol Hydralazine HCl 10 mg 10/22/19 16:54 10/27/19 05:49 Apresoline Hcl Inj IV PUSH 10 mg Q8H PRN Administration Blood Pressure - High Metronidazole 500 mg in 100 mls @ 100 mls/hr 10/22/19 17:00 10/27/19 09:06 Flagyl 500 Mg/Iso Soln 100 Ml IVPB 100 mls/hr Q8H NICHOLAS Administration Levofloxacin/Dextrose 500 mg in 100 mls @ 100 mls/hr 10/23/19 09:00 10/26/19 09:56 Levaquin 500 Mg/D5w 100 Ml IVPB Infused DAILY NICHOLAS Infusion Dextrose 1,000 mls @ 100 mls/hr 10/22/19 16:56 Dextrose 5% 1,000 Ml IVPB PRN PRN Hypoglycemia Protocol Potassium Chloride/Sodium Chloride 1,000 mls @ 100 mls/hr 10/24/19 08:45 10/27/19 00:59 Kcl 20 Meq/0.45% Ns IV CONT 100 mls/hr .Q10H NICHOLAS Administration Insulin Aspart 2 - 5 units 10/22/19 17:00 10/27/19 12:06 Novolog SUB-Q 2 units Q6H NICHOLAS Administration Protocol Morphine Sulfate 4 mg 10/22/19 09:34 10/26/19 15:20 Morphine Sulfate Inj IV PUSH 4 mg
[2019-10-27] MEDS: PHENOL/SOD PHENO SPRAY CHERRY (*BKC) 1 SPRAY MUCOUS MEM (12:42)
--- NOTE | 2019-10-27 13:19 | PCDIET ---
Nutrition Consult for low fiber/diabetic consistent carb/low fat diet. See Nutritional Teaching Intervention. Diabetic Referral made for outpatient education with Dietitian and House Worker General. Thank you for the consult.
[2019-10-27 13:22] LABS: Hematocrit 43.5 % (37.0-47.0); Hemoglobin 14.5 g/dL (12.0-15.0); Mean Corpuscular HGB Conc 33.3 g/dl (32-36); Mean Corpuscular Hemoglobin 28.4 pg (26-34); Mean Corpuscular Volume 85.3 fl (80-100); Mean Platelet Volume 9.7 fl (7.4-10.4); Platelet Count Result 312 k/mm3 (150-375); Red Cell Distribution Width 14.4 % (11.5-14.5)
[2019-10-27 13:26] VITALS: BP 148/85; PULSE 86; RESP 18; TEMP 36.3; O2SAT 97
[2019-10-27 13:36] LABS: Blood Urea Nitrogen 21 mg/dL (7-17); CRP < 0.5 mg/dL (<1.0); Calcium 8.8 mg/dL (8.4-10.2); Carbon Dioxide 28 mmol/L (22-30); Chloride 99 mmol/L (98-107); Estimated CRCL calculation 71 ml/min; Estimated Glomerular Filt Rate > 60; Glucose 168 mg/dL (65-105); Magnesium 1.9 mg/dL (1.6-2.3); Phosphorus 4.1 mg/dL (2.5-4.5); Potassium 4.2 mmol/L (3.4-5.0); Sodium 135 mmol/L (137-145)
[2019-10-27] MEDS: PANTOPRAZOLE 40 MG TABLET PO (13:59)
--- NOTE | 2019-10-27 14:39 | PM.IMPN ---
Progress Note: A&P Assessment and Plan (1) SBO (small bowel obstruction): Code(s): K56.609 - Unspecified intestinal obstruction, unspecified as to partial versus complete obstruction Status: Acute Assessment and Plan: CT abd/pelvis revealed numerous small bowel air fluid levels with small bowel dilatation up to 3.8mm with fecalized contents in the mid to distal small bowel in the right periumbilical area with evidence of stricture. There was also soft tissue infiltration of the mesenteric fat in this region with the distal small bowel decompressed. She has an NG tube in place which is patent and draining. She has a known hx of adhesions due to multiple abdominal surgeries and hx of SBO x2 in 2006. SBO likely related to adhesions, but may be related to Crohn's disease. UGI series performed on 10/22 revealed multiple dilated loops of small bowel and at 4 hours contrast had not reached the colon. Abdominal x-ray 10/25 reveals nonobstructive bowel gas pattern. Small-bowel follow-through performed todayShows no dilated loops of bowel and 1 hour transit time from stomach to proximal colon. Patient had a bowel movement and is passing flatus. General surgery and GI is on board and recommendations are greatly appreciated Begin clear liquid diet and advance as tolerated Discontinue NG tube Discontinue IV fluids Continue IV analgesics PRN Continue IV zofran PRN nausea (2) Crohn's disease: Qualifiers: Digestive disease complication type: unspecified complication Gastrointestinal tract location: unspecified location Qualified Code(s): K50.919 - Crohn's disease, unspecified, with unspecified complications Code(s): K50.90 - Crohn's disease, unspecified, without complications Status: Chronic Assessment and Plan: The patient has a hx of Crohn's disease diagnosed by blood work. She is on mesalamine prior to admission. Discontinue IV solu-medrol Begin p.o. prednisone with taper. Initiate at 40 mg and decrease by 5 mg every 5 days per GI recommendation Continue IV flagyl and levaquin Dr. Hanks is on board and recommendations are appreciated (3) Urinary tract infection: Code(s): N39.0 - Urinary tract infection, site not specified Status: Acute Assessment and Plan: Patient endorsed gross hematuria on 10/22 and 10/23. On 10/25 and today, she complains of dysuria and suprapubic discomfort. She also endorses urgency and frequency. No CVA tenderness. UA with trace leukocyte esterase but otherwise relatively normal, however she has been receiving IV antibiotics. Reflex culture was not performed. She does have leukocytosis but has remained afebrile. Will treat with 5 day course of macrobid given her symptoms. Continue IV fluids Continue to monitor symptoms (4) Nephrolithiasis: Code(s): N20.0 - Calculus of kidney Status: Acute Assessment and Plan: She has a history of nephrolithiasis. CT on 10/21 did not reveal evidence of calculus or hydroureteronephrosis. Patient reports episode of gross hematuria on 10/22 and 10/23 and she passed a stone on 10/24 pm which was sent to lab for pathology. UA collected on 10/25 revealed 2+ blood and 6-10 RBC. She denies CVA tenderness or flank pain. No longer having gross hematuria. Cr is 0.8 and BUN is 20 Await pathology result of stone Patient requests to be set up with a urologist as an outpatient given her history of kidney stones (5) Hypertension: Qualifiers: Hypertension type: essential hypertension Qualified Code(s): I10 - Essential (primary) hypertension Code(s): I10 - Essential (primary) hypertension Status: Chronic Assessment and Plan: Blood pressures reviewed today and stable though mildly elevated at 153/84. She has had several elevated readings which may be explained by pain she was experiencing. Will resume PO amlodipine and losartan. Previously held while patient was NPO. S
[2019-10-27] MEDS: predniSONE 20 MG TABLET 40 MG PO (14:58)
[2019-10-27 15:54] LABS: Glucose Point of Care 107 (65-105)
[2019-10-27] MEDS: NITROFURANTOIN MONOHYD MACROCR 100 MG CAP PO (20:47)
[2019-10-27 22:00] VITALS: BP 169/75; PULSE 75; RESP 18; TEMP 36; O2SAT 98
[2019-10-27 23:22] LABS: Glucose Point of Care 289 (65-105)
[2019-10-28] MEDS: metroNIDAZOLE 500 MG/ISO 100ML 500 MG/100 ML BAG 100 MG IVPB ×2 (00:50→09:44)
[2019-10-28] MEDS: PHENOL/SOD PHENO SPRAY CHERRY (*BKC) 1 SPRAY MUCOUS MEM ×2 (05:03→23:01)
[2019-10-28] MEDS: INSULIN ASPART (*BKC) 100 UNITS/ML SUB-Q ×2 (05:04→17:08)
[2019-10-28 05:25] LABS: Basophils Percent Auto 0.1 % (0.2-1.2); Eosinophils Percent Auto 0.1 % (0-4.4); Hematocrit 41.9 % (37.0-47.0); Immature Granulocyte Absolute 0.16 K/mm3 (0.00-0.031); Lymphocytes Absolute Auto 3.15 K/mm3 (0.9-3.2); Lymphocytes Percent Auto 19.3 % (18.3-44.2); Mean Corpuscular HGB Conc 33.4 g/dl (32-36); Mean Corpuscular Hemoglobin 28.6 pg (26-34); Mean Corpuscular Volume 85.7 fl (80-100); Mean Platelet Volume 9.5 fl (7.4-10.4); Monocytes Absolute Auto 1.4 K/mm3 (0.1-0.6); Monocytes Percent Auto 8.7 % (2.6-8.5); Neutrophils Absolute Auto 11.6 K/mm3 (1.3-6.7); Neutrophils Percent Auto 70.8 % (45.5-73.1); Platelet Count Result 308 k/mm3 (150-375); Red Blood Count 4.89 M/mm3 (4.2-5.4); Red Cell Distribution Width 14.3 % (11.5-14.5); White Blood Count 16.3 K/mm3 (4.5-10.0)
[2019-10-28 05:41] LABS: Alanine Aminotransferase 28 U/L (4-35); Albumin Level 3.7 g/dL (3.5-5.1); Alkaline Phosphatase 68 U/L (38-126); Aspartate Amino Transferase 25 U/L (14-36); Bilirubin,Total 0.3 mg/dL (0.2-1.3); Blood Urea Nitrogen 21 mg/dL (7-17); Calcium 8.9 mg/dL (8.4-10.2); Carbon Dioxide 28 mmol/L (22-30); Chloride 102 mmol/L (98-107); Estimated CRCL calculation 56 ml/min; Estimated Glomerular Filt Rate > 60; Glucose 213 mg/dL (65-105); Magnesium 1.9 mg/dL (1.6-2.3); Potassium 3.9 mmol/L (3.4-5.0); Sodium 135 mmol/L (137-145)
[2019-10-28 05:56] LABS: Glucose Point of Care 205 (65-105)
[2019-10-28 06:00] VITALS: BP 158/78; PULSE 78; RESP 16; TEMP 36.1; O2SAT 97
[2019-10-28] MEDS: levoFLOXacin 500 MG/D5W 100 ML 500 MG/100 ML BAG 100 MG IVPB (08:38)
[2019-10-28] MEDS: ENOXAPARIN 40 MG/0.4 ML SYRINGE SUB-Q (08:46)
[2019-10-28] MEDS: LOSARTAN POTASSIUM 50 MG TABLET PO (08:46)
[2019-10-28] MEDS: predniSONE 20 MG TABLET 40 MG PO (08:47)
[2019-10-28] MEDS: NITROFURANTOIN MONOHYD MACROCR 100 MG CAP PO ×2 (08:47→20:53)
[2019-10-28] MEDS: PANTOPRAZOLE 40 MG TABLET PO (08:47)
[2019-10-28] MEDS: glyBURIDE 5 MG TABLET PO (08:47)
[2019-10-28] MEDS: metFORMIN HCL 500 MG TABLET PO (08:47)
[2019-10-28] MEDS: AMLODIPINE BESYLATE 5 MG TABLET PO (08:48)
--- NOTE | 2019-10-28 09:08 | WPDGIPROGNO ---
Progress Note: A&P Assessment and Plan (1) SBO (small bowel obstruction): Code(s): K56.609 - Unspecified intestinal obstruction, unspecified as to partial versus complete obstruction Status: Acute Assessment and Plan: resolved, SBFT reviewed tolerating diet now appreciate surgery service ? adhesions vs Crohns (however not proven per Dr Hanks's notes) (2) Crohn's disease: Qualifiers: Digestive disease complication type: unspecified complication Gastrointestinal tract location: unspecified location Qualified Code(s): K50.919 - Crohn's disease, unspecified, with unspecified complications Code(s): K50.90 - Crohn's disease, unspecified, without complications Status: Chronic Assessment and Plan: continue with prednisone 40 mg with a rapid taper of 5 mg every 5 days, also on iv abx home maybe tomorrow if clinical improvement (3) Type 2 diabetes mellitus: Qualifiers: Diabetes mellitus ad terminal makeup operator insulin use: without mcc use Diabetes mellitus complication status: without complication Qualified Code(s): E11.9 - Type 2 diabetes mellitus without complications Code(s): E11.9 - Type 2 diabetes mellitus without complications Status: Chronic Subjective Date/time seen: 10/28/19 09:08 Interval history: I am covering for Dr Hanks. NGT removed and she is tolerating diet this morning, also had BM earlier today, overall feeling better Review of Systems Review of Systems: All systems reviewed & are unremarkable except as noted in HPI and below Exam Const: General: comfortable and no acute distress; No confusion Orientation/consciousness: patient oriented x3 and No confusion HENMT: General nose exam: Normal nares present Eyes: General: appearance normal, both eyes and all related structures Neck: Neck: no JVD Resp: Auscultation: clear to auscultation bilaterally Cardio: Rate: regular rate GI: Inspection: normal to inspection and non-distended GI Palp: Yes Soft to palpation, No Tenderness to palpation present (GI), No Guarding due to palpation present (GI) and No Rebound tenderness present Auscultation: normal bowel sounds Neuro: General: patient oriented x3, no focal motor deficits and No confusion Extrem: General: no calf tenderness and no edema Psych: Affect: normal affect Insight: Good insight present (Psych) Judgement: Good judgement present (Psych) Objective Data Vital Signs Vital Signs: Vital Signs - 24 hr 10/27/19 13:26 10/27/19 22:00 10/28/19 06:00 Temperature 97.4 F L 96.8 F L 97.0 F L Pulse Rate 86 75 78 Respiratory Rate 18 18 16 Blood Pressure 148/85 H 169/75 H 158/78 H Pulse Oximetry 97 98 97 Intake/Output Intake/Output: Intake & Output 10/25/19 10/26/19 10/27/19 10/28/19 23:59 23:59 23:59 23:59 Intake Total 2400 1621 3539 250 Output Total 7434 8002 8816 881 Tkhamjl -653 -531 1539 -250 Meds/Results Medications: Active Medications Generic Name Dose Route Start Last Admin Trade Name Freq PRN Reason Stop Dose Admin Amlodipine Besylate 5 mg 10/28/19 09:00 10/28/19 08:48 Norvasc PO 5 mg DAILY NICHOLAS Administration Dextrose 12.5 gm 10/22/19 16:56 Dextrose 50% Syringe IV PUSH PRN PRN Hypoglycemia Protocol Dipyridamole/Aspirin 1 cap 10/28/19 09:00 10/28/19 08:47 Aggrenox 25 Mg-200 Mg Capsule PO 1 cap BID NICHOLAS Administration Enoxaparin Sodium 40 mg 10/23/19 17:00 10/28/19 08:46 Lovenox SUB-Q 40 mg DAILY NICHOLAS Administration Glucagon 1 mg 10/22/19 16:56 Glucagon For Inj IM PRN PRN Hypoglycemia Protocol Glucose 15 gm 10/22/19 16:56 Glutose 15 PO PRN PRN Hypoglycemia Protocol Glyburide 5 mg 10/28/19 08:00 10/28/19 08:47 Micronase PO 5 mg DAILY@0800 NICHOLAS Administration Hydralazine HCl 10 mg 10/22/19 16:54 10/27/19 05:49 Apresoline Hcl Inj IV PUSH 10 mg Q8H PRN Administration Blood Pressure -
[2019-10-28] MEDS: OXYBUTYNIN CHLORIDE 5 MG TABLET PO ×3 (09:43→17:08)
--- NOTE | 2019-10-28 10:20 | PM.IMPN ---
Progress Note: A&P Assessment and Plan (1) SBO (small bowel obstruction): Code(s): K56.609 - Unspecified intestinal obstruction, unspecified as to partial versus complete obstruction Status: Acute Assessment and Plan: CT abd/pelvis revealed numerous small bowel air fluid levels with small bowel dilatation up to 3.8mm with fecalized contents in the mid to distal small bowel in the right periumbilical area with evidence of stricture. There was also soft tissue infiltration of the mesenteric fat in this region with the distal small bowel decompressed. She has an NG tube in place which is patent and draining. She has a known hx of adhesions due to multiple abdominal surgeries and hx of SBO x2 in 2006. SBO likely related to adhesions, but may be related to Crohn's disease. UGI series performed on 10/22 revealed multiple dilated loops of small bowel and at 4 hours contrast had not reached the colon. Abdominal x-ray 10/25 reveals nonobstructive bowel gas pattern. Small-bowel follow-through performed today shows no dilated loops of bowel and 1 hour transit time from stomach to proximal colon. Patient had a bowel movement and is passing flatus. General surgery and GI is on board and recommendations are greatly appreciated Continue to advance diet as tolerated NG tube discontinued on 10/27/2019 IV fluids discontinued on 10/27/2019 Continue IV analgesics PRN Continue IV zofran PRN nausea Hopeful discharge tomorrow pending improvement of oral intake (2) Crohn's disease: Qualifiers: Digestive disease complication type: unspecified complication Gastrointestinal tract location: unspecified location Qualified Code(s): K50.919 - Crohn's disease, unspecified, with unspecified complications Code(s): K50.90 - Crohn's disease, unspecified, without complications Status: Chronic Assessment and Plan: The patient has a hx of suspected Crohn's disease diagnosed by blood work. She is on mesalamine prior to admission. IV solu-medrol discontinued on 10/27/2019 Continue p.o. prednisone with taper. Initiate at 40 mg and decrease by 5 mg every 5 days per GI recommendation. 40 mg PO initiated on 10/27/2019 and will decrease to 35 mg on 11/01/2019 Continue IV flagyl and levaquin. Initiated on 10/22/2019 GI is on board and recommendations are appreciated (3) Urinary tract infection: Code(s): N39.0 - Urinary tract infection, site not specified Status: Acute Assessment and Plan: Patient endorsed gross hematuria on 10/22 and 10/23. Now, she complains of dysuria, suprapubic discomfort, urgency, frequency, and bladder spasm. No CVA tenderness. UA with trace leukocyte esterase but otherwise relatively normal, however she has been receiving IV antibiotics. Reflex culture was not performed. She does have leukocytosis but has remained afebrile. Will treat with 5 day course of macrobid given her symptoms. Initiated on 10/26. Begin oxybutynin for bladder spasm Continue to monitor symptoms (4) Nephrolithiasis: Code(s): N20.0 - Calculus of kidney Status: Acute Assessment and Plan: She has a history of nephrolithiasis. CT on 10/21 did not reveal evidence of calculus or hydroureteronephrosis. Patient reports episode of gross hematuria on 10/22 and 10/23 and she passed a stone on 10/24 pm which was sent to lab for chemical analysis. UA collected on 10/25 revealed 2+ blood and 6-10 RBC. She denies CVA tenderness or flank pain. No longer having gross hematuria. Cr is 0.8 and BUN is 20 Await pathology result of stone Order KUB to assess for additional stones Begin oxybutynin for bladder spasm Patient requests to be set up with a urologist as an outpatient given her history of kidney stones (5) Hypertension: Qualifiers: Hypertension type: essential hypertension Qualified Code(s): I10 - Essential (primary) hypertension Code(s): I10 - Essential (primary) hypert
--- NOTE | 2019-10-28 10:41 | PM.PNGS ---
Progress Note: A&P Assessment and Plan (1) SBO (small bowel obstruction): Code(s): K56.609 - Unspecified intestinal obstruction, unspecified as to partial versus complete obstruction Status: Acute Assessment and Plan: resolved by small-bowel series. Hopefully patient's appetite will improve. She is now on diabetic diet with low fiber. Continue to follow. (2) Crohn's disease: Qualifiers: Digestive disease complication type: unspecified complication Gastrointestinal tract location: unspecified location Qualified Code(s): K50.919 - Crohn's disease, unspecified, with unspecified complications Code(s): K50.90 - Crohn's disease, unspecified, without complications Status: Chronic Assessment and Plan: Antibiotics have been stopped. Solu-Medrol has been stopped. Patient is on a prednisone rapid taper. Appreciate GI assistance. Subjective Subjective Date/Time Seen: 10/28/19 10:41 Patient reports: bowel movement Interval history: Patient had negative upper GI small-bowel follow-through yesterday. She was started on clear liquids. She has not been nauseated but tells me the liquids did not really agree with her. She also did have much of an appetite. She did not take much of the clear liquids. She would like to try some solid food. Review of Systems Review of Systems: All systems reviewed & are unremarkable except as noted in HPI and below ( HPI) Exam Const: General: comfortable and no acute distress; No confusion Orientation/consciousness: patient oriented x3 and No confusion Resp: Effort & Inspection: normal respiratory effort Auscultation: clear to auscultation bilaterally Cardio: Rate: regular rate Rhythm: regular rhythm GI: Inspection: normal to inspection, non-distended, obesity and scar ( midline) GI Palp: Yes Soft to palpation, No Tenderness to palpation present (GI), No Guarding due to palpation present (GI) and No Rebound tenderness present Auscultation: normal bowel sounds Neuro: General: patient oriented x3, no focal motor deficits and No confusion Extrem: General: no calf tenderness and no edema Psych: Affect: normal affect Insight: Good insight present (Psych) Judgement: Good judgement present (Psych) Objective Data Vital Signs Vital Signs: Vital Signs - 24 hr 10/27/19 13:26 10/27/19 22:00 10/28/19 06:00 Temperature 36.3 C L 36.0 C L 36.1 C L Pulse Rate 86 75 78 Respiratory Rate 18 18 16 Blood Pressure 148/85 H 169/75 H 158/78 H Pulse Oximetry 97 98 97 Intake/Output Intake/Output: Intake & Output 10/25/19 10/26/19 10/27/19 10/28/19 23:59 23:59 23:59 23:59 Intake Total 2400 1621 3539 610 Output Total 3350 9456 0677 500 Banner -955 -257 1539 110 Meds/Results Medications: Active Medications Generic Name Dose Route Start Last Admin Trade Name Freq PRN Reason Stop Dose Admin Amlodipine Besylate 5 mg 10/28/19 09:00 10/28/19 08:48 Norvasc PO 5 mg DAILY NICHOLAS Administration Dextrose 12.5 gm 10/22/19 16:56 Dextrose 50% Syringe IV PUSH PRN PRN Hypoglycemia Protocol Dipyridamole/Aspirin 1 cap 10/28/19 09:00 10/28/19 08:47 Aggrenox 25 Mg-200 Mg Capsule PO 1 cap BID NICHOLAS Administration Enoxaparin Sodium 40 mg 10/23/19 17:00 10/28/19 08:46 Lovenox SUB-Q 40 mg DAILY NICHOLAS Administration Glucagon 1 mg 10/22/19 16:56 Glucagon For Inj IM PRN PRN Hypoglycemia Protocol Glucose 15 gm 10/22/19 16:56 Glutose 15 PO PRN PRN Hypoglycemia Protocol Glyburide 5 mg 10/28/19 08:00 10/28/19 08:47 Micronase PO 5 mg DAILY@0800 NICHOLAS Administration Hydralazine HCl 10 mg 10/22/19 16:54 10/27/19 05:49 Apresoline Hcl Inj IV PUSH 10 mg Q8H PRN Administration Blood Pressure - High Metronidazole 500 mg in 100 mls @ 100 mls/hr 10/22/19 17:00 10/28/19 09:44 Flagyl 500 Mg/Iso Soln 100 Ml IVPB 100 mls/hr Q8H NICHOLAS Administra
[2019-10-28 11:39] LABS: Glucose Point of Care 99 (65-105)
[2019-10-28] MEDS: KCL 20 MEQ/0.45% NS 1,000 ML 100 ML IV CONT ×3 (12:58→23:00)
[2019-10-28 14:00] VITALS: BP 136/66; PULSE 74; RESP 18; TEMP 36.4; O2SAT 95
[2019-10-28 16:31] LABS: Glucose Point of Care 203 (65-105)
[2019-10-28 21:01] LABS: Glucose Point of Care 208 (65-105)
[2019-10-28 22:00] VITALS: BP 146/75; PULSE 77; RESP 16; TEMP 36.8; O2SAT 97
[2019-10-29] MEDS: PHENOL/SOD PHENO SPRAY CHERRY (*BKC) 1 SPRAY MUCOUS MEM ×2 (01:56→21:48)
[2019-10-29 05:21] LABS: Basophils Percent Auto 0.2 % (0.2-1.2); Eosinophils Absolute Auto 0.1 K/mm3 (0-0.3); Eosinophils Percent Auto 0.5 % (0-4.4); Hematocrit 40.1 % (37.0-47.0); Hemoglobin 13.3 g/dL (12.0-15.0); Immature Granulocyte Absolute 0.22 K/mm3 (0.00-0.031); Immature Granulocyte Percent A 1.2 % (0-0.5); Lymphocytes Absolute Auto 5.53 K/mm3 (0.9-3.2); Mean Corpuscular HGB Conc 33.2 g/dl (32-36); Mean Corpuscular Hemoglobin 28.5 pg (26-34); Mean Corpuscular Volume 85.9 fl (80-100); Mean Platelet Volume 9.7 fl (7.4-10.4); Monocytes Absolute Auto 1.5 K/mm3 (0.1-0.6); Monocytes Percent Auto 7.7 % (2.6-8.5); Neutrophils Absolute Auto 11.7 K/mm3 (1.3-6.7); Neutrophils Percent Auto 61.4 % (45.5-73.1); Platelet Count Result 262 k/mm3 (150-375); Red Blood Count 4.67 M/mm3 (4.2-5.4); Red Cell Distribution Width 14.5 % (11.5-14.5); White Blood Count 19.1 K/mm3 (4.5-10.0)
[2019-10-29 05:35] LABS: Alanine Aminotransferase 21 U/L (4-35); Albumin Level 3.5 g/dL (3.5-5.1); Alkaline Phosphatase 56 U/L (38-126); Aspartate Amino Transferase 20 U/L (14-36); Bilirubin,Total 0.3 mg/dL (0.2-1.3); Blood Urea Nitrogen 22 mg/dL (7-17); Calcium 8.7 mg/dL (8.4-10.2); Carbon Dioxide 27 mmol/L (22-30); Chloride 103 mmol/L (98-107); Estimated CRCL calculation 63 ml/min; Estimated Glomerular Filt Rate > 60; Glucose 136 mg/dL (65-105); Magnesium 1.7 mg/dL (1.6-2.3); Potassium 3.9 mmol/L (3.4-5.0); Sodium 136 mmol/L (137-145)
[2019-10-29 06:00] VITALS: BP 174/73; PULSE 52; RESP 20; TEMP 36.8; O2SAT 98
[2019-10-29 08:05] LABS: Glucose Point of Care 101 (65-105)
[2019-10-29] MEDS: metFORMIN HCL 500 MG TABLET PO (09:44)
[2019-10-29] MEDS: glyBURIDE 5 MG TABLET PO (09:44)
[2019-10-29] MEDS: predniSONE 20 MG TABLET 40 MG PO (09:45)
[2019-10-29] MEDS: AMLODIPINE BESYLATE 5 MG TABLET PO (09:46)
[2019-10-29] MEDS: ENOXAPARIN 40 MG/0.4 ML SYRINGE SUB-Q (09:46)
[2019-10-29] MEDS: LOSARTAN POTASSIUM 50 MG TABLET PO (09:47)
[2019-10-29] MEDS: NITROFURANTOIN MONOHYD MACROCR 100 MG CAP PO ×2 (09:47→21:44)
[2019-10-29] MEDS: OXYBUTYNIN CHLORIDE 5 MG TABLET PO ×3 (09:47→16:36)
[2019-10-29] MEDS: PANTOPRAZOLE 40 MG TABLET PO (09:47)
--- NOTE | 2019-10-29 10:54 | PM.PNGS ---
Progress Note: A&P Assessment and Plan (1) Leukocytosis: Code(s): D72.829 - Elevated white blood cell count, unspecified Status: Acute Assessment and Plan: white blood cell count continues to increase. She is on Macrobid for urinary tract infection but is still having dysuria. Consider getting formal urine culture to look for resistant organism. Other thought is that this is due to the prednisone and prednisone taper. (2) SBO (small bowel obstruction): Code(s): K56.609 - Unspecified intestinal obstruction, unspecified as to partial versus complete obstruction Status: Resolved Assessment and Plan: Eating well although still has some digestive complaints. Plain films yesterday were negative for any signs of obstruction. (3) Crohn's disease: Qualifiers: Digestive disease complication type: unspecified complication Gastrointestinal tract location: unspecified location Qualified Code(s): K50.919 - Crohn's disease, unspecified, with unspecified complications Code(s): K50.90 - Crohn's disease, unspecified, without complications Status: Chronic Assessment and Plan: On prednisone taper per Dr. Escalera. Further management per GI. Subjective Subjective Date/Time Seen: 10/29/19 10:54 Still not feeling quite 100%. She is eating better and 8 all of her breakfast. She is reporting a little bit of nausea right now. She ate well yesterday taking in over 2000 cc orally. Review of Systems Review of Systems: All systems reviewed & are unremarkable except as noted in HPI and below ( HPI and those items noted below) Gastrointestinal: Gastrointestinal: Reports nausea Genitourinary: Genitourinary: Reports hematuria ( 3 days ago.) and Reports dysuria ( Still having some dysuria) Exam Const: General: comfortable and no acute distress; No confusion Orientation/consciousness: patient oriented x3 and No confusion GI: Inspection: normal to inspection, non-distended, obesity and scar GI Palp: Yes Soft to palpation, No Tenderness to palpation present (GI), No Guarding due to palpation present (GI) and No Rebound tenderness present Auscultation: normal bowel sounds Neuro: General: patient oriented x3, no focal motor deficits and No confusion Extrem: General: no calf tenderness and no edema Psych: Affect: normal affect Insight: Good insight present (Psych) Judgement: Good judgement present (Psych) Objective Data Vital Signs Vital Signs: Vital Signs - 24 hr 10/28/19 14:00 10/28/19 22:00 10/29/19 06:00 Temperature 36.4 C 36.8 C 36.8 C Pulse Rate 74 77 52 L Respiratory Rate 18 16 20 Blood Pressure 136/66 146/75 H 174/73 H Pulse Oximetry 95 97 98 Intake/Output Intake/Output: Intake & Output 10/26/19 10/27/19 10/28/19 10/29/19 23:59 23:59 23:59 23:59 Intake Total 1621 3539 4490 490 Output Total 2275 2000 2550 1200 Balance -654 1539 1940 -710 Meds/Results Medications: Active Medications Generic Name Dose Route Start Last Admin Trade Name Freq PRN Reason Stop Dose Admin Amlodipine Besylate 5 mg 10/28/19 09:00 10/29/19 09:46 Norvasc PO 5 mg DAILY NICHOLAS Administration Dextrose 12.5 gm 10/22/19 16:56 Dextrose 50% Syringe IV PUSH PRN PRN Hypoglycemia Protocol Dipyridamole/Aspirin 1 cap 10/28/19 09:00 10/29/19 09:46 Aggrenox 25 Mg-200 Mg Capsule PO 1 cap BID NICHOLAS Administration Enoxaparin Sodium 40 mg 10/23/19 17:00 10/29/19 09:46 Lovenox SUB-Q 40 mg DAILY NICHOLAS Administration Glucagon 1 mg 10/22/19 16:56 Glucagon For Inj IM PRN PRN Hypoglycemia Protocol Glucose 15 gm 10/22/19 16:56 Glutose 15 PO PRN PRN Hypoglycemia Protocol Glyburide 5 mg 10/28/19 08:00 10/29/19 09:44 Micronase PO 5 mg DAILY@0800 NICHOLAS Administration Hydralazine HCl 10 mg 10/22/19 16:54 10/27/19 05:49 Apresoline Hcl Inj IV PUSH 10 mg Q8H PRN Administratio
[2019-10-29 11:40] LABS: Glucose Point of Care 181 (65-105)
--- NOTE | 2019-10-29 13:39 | WPDGIPROGNO ---
Progress Note: A&P Assessment and Plan (1) Crohn's disease: Qualifiers: Digestive disease complication type: unspecified complication Gastrointestinal tract location: unspecified location Qualified Code(s): K50.919 - Crohn's disease, unspecified, with unspecified complications Code(s): K50.90 - Crohn's disease, unspecified, without complications Status: Chronic Assessment and Plan: continue with slow taper (decrease 5 mg every 5 days) and 3 more days of abx (2) SBO (small bowel obstruction): Code(s): K56.609 - Unspecified intestinal obstruction, unspecified as to partial versus complete obstruction Status: Resolved Assessment and Plan: resolved, having bowel movements, still discomfort after eating probably go home tomorrow Dr Hanks to resume care (3) Leukocytosis: Qualifiers: Leukocytosis type: unspecified Qualified Code(s): D72.829 - Elevated white blood cell count, unspecified Code(s): D72.829 - Elevated white blood cell count, unspecified Status: Acute Assessment and Plan: most likely from steroids, no fever and she is on iv antibiotics (4) CVA (cerebral vascular accident): Qualifiers: CVA mechanism: unspecified Qualified Code(s): I63.9 - Cerebral infarction, unspecified Code(s): I63.9 - Cerebral infarction, unspecified Status: Chronic Subjective Date/time seen: 10/29/19 13:39 Interval history: tolerating diet but discomfort and bloating after eating, she also had BM. Still not ready to go home, probably tomorrow. Review of Systems Review of Systems: All systems reviewed & are unremarkable except as noted in HPI and below Exam Const: General: comfortable and no acute distress; No confusion Orientation/consciousness: patient oriented x3 and No confusion HENMT: General nose exam: Normal nares present Eyes: General: appearance normal, both eyes and all related structures Neck: Neck: no JVD Resp: Auscultation: clear to auscultation bilaterally Cardio: Rate: regular rate GI: Inspection: normal to inspection and non-distended GI Palp: Yes Soft to palpation, No Tenderness to palpation present (GI), No Guarding due to palpation present (GI) and No Rebound tenderness present Auscultation: normal bowel sounds Neuro: General: patient oriented x3, no focal motor deficits and No confusion Speech: normal speech Other: chronic right sided weakness (CVA) Extrem: General: no calf tenderness and no edema Psych: Affect: normal affect Insight: Good insight present (Psych) Judgement: Good judgement present (Psych) Objective Data Vital Signs Vital Signs: Vital Signs - 24 hr 10/28/19 14:00 10/28/19 22:00 10/29/19 06:00 Temperature 97.6 F 98.3 F 98.2 F Pulse Rate 74 77 52 L Respiratory Rate 18 16 20 Blood Pressure 136/66 146/75 H 174/73 H Pulse Oximetry 95 97 98 Intake/Output Intake/Output: Intake & Output 10/26/19 10/27/19 10/28/19 10/29/19 23:59 23:59 23:59 23:59 Intake Total 1621 3539 4490 490 Output Total 2275 2000 2550 1200 Balance -654 1539 1940 -710 Meds/Results Medications: Active Medications Generic Name Dose Route Start Last Admin Trade Name Freq PRN Reason Stop Dose Admin Amlodipine Besylate 5 mg 10/28/19 09:00 10/29/19 09:46 Norvasc PO 5 mg DAILY NICHOLAS Administration Dextrose 12.5 gm 10/22/19 16:56 Dextrose 50% Syringe IV PUSH PRN PRN Hypoglycemia Protocol Dipyridamole/Aspirin 1 cap 10/28/19 09:00 10/29/19 09:46 Aggrenox 25 Mg-200 Mg Capsule PO 1 cap BID NICHLOAS Administration Enoxaparin Sodium 40 mg 10/23/19 17:00 10/29/19 09:46 Lovenox SUB-Q 40 mg DAILY NICHOLAS Administration Glucagon 1 mg 10/22/19 16:56 Glucagon For Inj IM PRN PRN Hypoglycemia Protocol Glucose 15 gm 10/22/19 16:56 Glutose 15 PO PRN PRN Hypoglycemia Protocol Glyburide 5 mg 10/28/19 08:00 10/29/19 09:44
[2019-10-29 14:00] VITALS: BP 146/73; PULSE 88; RESP 18; TEMP 36.7; O2SAT 98
[2019-10-29] MEDS: INSULIN ASPART (*BKC) 100 UNITS/ML SUB-Q (16:37)
--- NOTE | 2019-10-29 16:47 | PM.IMPN ---
Progress Note: A&P Assessment and Plan (1) SBO (small bowel obstruction): Code(s): K56.609 - Unspecified intestinal obstruction, unspecified as to partial versus complete obstruction Status: Resolved Assessment and Plan: CT abd/pelvis revealed numerous small bowel air fluid levels with small bowel dilatation up to 3.8mm with fecalized contents in the mid to distal small bowel in the right periumbilical area with evidence of stricture. There was also soft tissue infiltration of the mesenteric fat in this region with the distal small bowel decompressed. She has an NG tube in place which is patent and draining. She has a known hx of adhesions due to multiple abdominal surgeries and hx of SBO x2 in 2006. SBO likely related to adhesions, but may be related to Crohn's disease. UGI series performed on 10/22 revealed multiple dilated loops of small bowel and at 4 hours contrast had not reached the colon. Abdominal x-ray 10/25 reveals nonobstructive bowel gas pattern. Small-bowel follow-through performed today shows no dilated loops of bowel and 1 hour transit time from stomach to proximal colon. Patient had a bowel movement and is passing flatus. General surgery and GI is on board and recommendations are greatly appreciated Continue to advance diet as tolerated NG tube discontinued on 10/27/2019 IV fluids discontinued on 10/28/2019 Continue IV analgesics PRN Continue IV zofran PRN nausea Hopeful discharge tomorrow pending improvement of oral intake (2) Crohn's disease: Qualifiers: Digestive disease complication type: unspecified complication Gastrointestinal tract location: unspecified location Qualified Code(s): K50.919 - Crohn's disease, unspecified, with unspecified complications Code(s): K50.90 - Crohn's disease, unspecified, without complications Status: Chronic Assessment and Plan: The patient has a hx of suspected Crohn's disease diagnosed by blood work. She is on mesalamine prior to admission. She has leukocytosis, however I suspect this is related to prednisone use. IV solu-medrol discontinued on 10/27/2019 Continue p.o. prednisone with taper. Initiate at 40 mg and decrease by 5 mg every 5 days per GI recommendation. 40 mg PO initiated on 10/27/2019 and will decrease to 35 mg on 11/01/2019 Continue IV flagyl and levaquin. Initiated on 10/22/2019. Will continue for 3 additional days per GI recommendation. (3) Urinary tract infection: Code(s): N39.0 - Urinary tract infection, site not specified Status: Acute Assessment and Plan: Patient endorsed gross hematuria on 10/22 and 10/23. On 10/24, she complained of dysuria, suprapubic discomfort, urgency, frequency, and bladder spasm. No CVA tenderness. UA with trace leukocyte esterase but otherwise relatively normal, however she has been receiving IV antibiotics. Reflex culture was not performed. She does have leukocytosis, likely due to prednisone. She has remained afebrile. Will treat with 5 day course of macrobid given her symptoms. Initiated on 10/26. Continue oxybutynin for bladder spasm Continue to monitor symptoms (4) Nephrolithiasis: Code(s): N20.0 - Calculus of kidney Status: Acute Assessment and Plan: She has a history of nephrolithiasis. CT on 10/21 did not reveal evidence of calculus or hydroureteronephrosis. Patient reports episode of gross hematuria on 10/22 and 10/23 and she passed a stone on 10/24 pm which was sent to lab for chemical analysis. UA collected on 10/25 revealed 2+ blood and 6-10 RBC. She denies CVA tenderness or flank pain. No longer having gross hematuria. Cr is 0.8 and BUN is 22 Await pathology result of stone Order KUB to assess for additional stones Begin oxybutynin for bladder spasm Patient requests to be set up with a urologist as an outpatient given her history of kidney stones (5) Hypertension: Qualifiers: Hypertension type: essentia
[2019-10-29 16:48] LABS: Glucose Point of Care 300 (65-105)
[2019-10-29 22:00] VITALS: BP 139/72; PULSE 89; RESP 20; TEMP 36.3; O2SAT 99
[2019-10-29 22:44] LABS: Glucose Point of Care 246 (65-105)
[2019-10-30 05:47] LABS: Basophils Percent Auto 0.2 % (0.2-1.2); Eosinophils Absolute Auto 0.1 K/mm3 (0-0.3); Eosinophils Percent Auto 0.5 % (0-4.4); Hemoglobin 13.6 g/dL (12.0-15.0); Immature Granulocyte Absolute 0.21 K/mm3 (0.00-0.031); Immature Granulocyte Percent A 1.2 % (0-0.5); Lymphocytes Absolute Auto 4.97 K/mm3 (0.9-3.2); Lymphocytes Percent Auto 28.1 % (18.3-44.2); Mean Corpuscular HGB Conc 33.2 g/dl (32-36); Mean Corpuscular Hemoglobin 28.7 pg (26-34); Mean Corpuscular Volume 86.5 fl (80-100); Mean Platelet Volume 9.9 fl (7.4-10.4); Monocytes Absolute Auto 1.4 K/mm3 (0.1-0.6); Monocytes Percent Auto 7.6 % (2.6-8.5); Neutrophils Percent Auto 62.4 % (45.5-73.1); Platelet Count Result 274 k/mm3 (150-375); Red Blood Count 4.74 M/mm3 (4.2-5.4); Red Cell Distribution Width 14.5 % (11.5-14.5); White Blood Count 17.7 K/mm3 (4.5-10.0)
[2019-10-30 05:59] LABS: Alanine Aminotransferase 17 U/L (4-35); Albumin Level 3.6 g/dL (3.5-5.1); Alkaline Phosphatase 55 U/L (38-126); Aspartate Amino Transferase 16 U/L (14-36); Bilirubin,Total 0.3 mg/dL (0.2-1.3); Blood Urea Nitrogen 20 mg/dL (7-17); Calcium 8.6 mg/dL (8.4-10.2); Carbon Dioxide 28 mmol/L (22-30); Chloride 102 mmol/L (98-107); Estimated CRCL calculation 63 ml/min; Estimated Glomerular Filt Rate > 60; Glucose 119 mg/dL (65-105); Magnesium 1.7 mg/dL (1.6-2.3); Potassium 3.5 mmol/L (3.4-5.0); Sodium 138 mmol/L (137-145)
[2019-10-30 06:00] VITALS: BP 134/89; PULSE 89; RESP 20; TEMP 36.6; O2SAT 99
[2019-10-30 07:58] LABS: Glucose Point of Care 93 (65-105)
[2019-10-30] MEDS: glyBURIDE 5 MG TABLET PO (08:53)
[2019-10-30] MEDS: PANTOPRAZOLE 40 MG TABLET PO (08:53)
[2019-10-30] MEDS: predniSONE 20 MG TABLET 40 MG PO (08:53)
[2019-10-30] MEDS: LOSARTAN POTASSIUM 50 MG TABLET PO (08:53)
[2019-10-30] MEDS: ENOXAPARIN 40 MG/0.4 ML SYRINGE SUB-Q (08:53)
[2019-10-30] MEDS: OXYBUTYNIN CHLORIDE 5 MG TABLET PO ×2 (08:53→12:59)
[2019-10-30] MEDS: metFORMIN HCL 500 MG TABLET PO (08:53)
[2019-10-30] MEDS: NITROFURANTOIN MONOHYD MACROCR 100 MG CAP PO (08:53)
[2019-10-30] MEDS: AMLODIPINE BESYLATE 5 MG TABLET PO (08:53)
[2019-10-30] MEDS: PHENOL/SOD PHENO SPRAY CHERRY (*BKC) 1 SPRAY MUCOUS MEM (08:57)
--- NOTE | 2019-10-30 09:54 | PM.PNGS ---
Progress Note: A&P Assessment and Plan (1) SBO (small bowel obstruction): Code(s): K56.609 - Unspecified intestinal obstruction, unspecified as to partial versus complete obstruction Status: Resolved Assessment and Plan: Seems to have resolved with current treatment. Continues to tolerate a low fiber diet and bowels are moving. Okay to discharge from a surgical standpoint and no follow-up needed unless having issues in the future. (2) Leukocytosis: Qualifiers: Leukocytosis type: unspecified Qualified Code(s): D72.829 - Elevated white blood cell count, unspecified Code(s): D72.829 - Elevated white blood cell count, unspecified Status: Acute Assessment and Plan: White blood cell count down some today to 17,000. Likely due to steroids. Still having dysuria and is on Macrobid for UTI. Plans to see Urologist as an outpatient and is on oxybutynin. (3) Crohn's disease: Qualifiers: Digestive disease complication type: unspecified complication Gastrointestinal tract location: unspecified location Qualified Code(s): K50.919 - Crohn's disease, unspecified, with unspecified complications Code(s): K50.90 - Crohn's disease, unspecified, without complications Status: Chronic Assessment and Plan: On prednisone taper per Dr. Escalera. Further management per GI. Will plan to follow up with Dr. Hanks. Subjective Subjective Date/Time Seen: 10/30/19 09:30 Patient reports: no new complaints, tolerating a regular diet, flatus and bowel movement Interval history: Patient feeling well today. Still reports fullness after eating meals with some bloating but resolves spontaneously. No nausea, vomiting, or abdominal pain. Bowels are moving. No other complaints. Review of Systems Review of Systems: All systems reviewed & are unremarkable except as noted in HPI and below Exam Const: General: comfortable and no acute distress Orientation/consciousness: patient oriented x3 GI: Inspection: non-distended GI Palp: Yes Soft to palpation, No Tenderness to palpation present (GI) and No Guarding due to palpation present (GI) Auscultation: normal bowel sounds Skin: General skin exam: normal color Neuro: General: patient oriented x3 and no focal motor deficits Extrem: General: no calf tenderness and no edema Psych: Affect: normal affect Attitude: cooperative Insight: Good insight present (Psych) Judgement: Good judgement present (Psych) Objective Data Vital Signs Vital Signs: Vital Signs - 24 hr 10/29/19 14:00 10/29/19 22:00 10/30/19 06:00 Temperature 36.7 C 36.3 C L 36.6 C Pulse Rate 88 89 89 Respiratory Rate 18 20 20 Blood Pressure 146/73 H 139/72 134/89 Pulse Oximetry 98 99 99 Intake/Output Intake/Output: Intake & Output 10/27/19 10/28/19 10/29/19 10/30/19 23:59 23:59 23:59 23:59 Intake Total 3539 4490 1130 1280 Output Total 1999 2550 3550 1300 Balance 1539 1940 -242 -20 Meds/Results Medications: Active Medications Generic Name Dose Route Start Last Admin Trade Name Freq PRN Reason Stop Dose Admin Amlodipine Besylate 5 mg 10/28/19 09:00 10/30/19 08:53 Norvasc PO 5 mg DAILY NICHOLAS Administration Dextrose 12.5 gm 10/22/19 16:56 Dextrose 50% Syringe IV PUSH PRN PRN Hypoglycemia Protocol Dipyridamole/Aspirin 1 cap 10/28/19 09:00 10/30/19 08:53 Aggrenox 25 Mg-200 Mg Capsule PO 1 cap BID NICHOLAS Administration Enoxaparin Sodium 40 mg 10/23/19 17:00 10/30/19 08:53 Lovenox SUB-Q 40 mg DAILY NICHOLAS Administration Glucagon 1 mg 10/22/19 16:56 Glucagon For Inj IM PRN PRN Hypoglycemia Protocol Glucose 15 gm 10/22/19 16:56 Glutose 15 PO PRN PRN Hypoglycemia Protocol Glyburide 5 mg 10/28/19 08:00 10/30/19 08:53 Micronase PO 5 mg DAILY@0800 NICHOLAS Administration Hydralazine HCl 10 mg 10/22/19 16:54 10/27/19 05:49 Apresoline Hcl Inj IV PUSH
--- NOTE | 2019-10-30 10:58 | WPDGIPROGNO ---
Subjective Date/time seen: 10/30/19 10:58 Follow-up with small-bowel obstruction adhesions versus Crohn's. Very pleasant lady's feeling better. Passing flatus and having bowel movements. No significant abdominal pain, nausea or vomiting. General: very pleasant patient in no acute distress. HEENT: Head was normocephalic sclerae is clear mouth without masses neck was supple. Heart: Rate rhythm regular without S3 or S4. Lungs: CTA. Abdomen: Soft with no guarding or rigidity. Bowel sounds were active. Neurologic: Cranial nerves 2 through 12 intact. No focal defects. No clonus. Musculoskeletal system: Revealed no joint tenderness or swelling no muscle atrophy. Extremities: Reveal no significant edema. Skin: Warm and dry with normal turgor. Mental status: intact. Patient is alert and oriented. Impression: Small-bowel obstruction. This may be secondary to adhesions versus Crohn's disease? The patient has Crohn's disease is not been definitively and histologically proven. GERD well controlled on medication. NAFLD. History of pancreatitis with positive DONNY. Sweat gland carcinoma. History of adenomatous colon polyps. Low magnesium. Anxiety/depression. Cervical dysplasia status post conization. Diabetes mellitus. Gout. Hyperlipidemia. Hypertension. Questionable history of [place]. Renal lithiasis. Obesity. Obstructive sleep apnea. TIA/CVA. Obesity. Recommendation: Continue prednisone 40 mg. Decrease by 5 mg every 5 days. Will follow up the office in 4-5 weeks. Review of Systems Review of Systems: All systems reviewed & are unremarkable except as noted in HPI and below Objective Data Vital Signs Vital Signs: Vital Signs - 24 hr 10/29/19 14:00 10/29/19 22:00 10/30/19 06:00 Temperature 36.7 C 36.3 C L 36.6 C Pulse Rate 88 89 89 Respiratory Rate 18 20 20 Blood Pressure 146/73 H 139/72 134/89 Pulse Oximetry 98 99 99 Intake/Output Intake/Output: Intake & Output 10/27/19 10/28/19 10/29/19 10/30/19 23:59 23:59 23:59 23:59 Intake Total 3539 4490 1130 1280 Output Total 1999 2550 3550 1300 Balance 1539 9250 -5500 -20 Meds/Results Medications: Active Medications Generic Name Dose Route Start Last Admin Trade Name Freq PRN Reason Stop Dose Admin Amlodipine Besylate 5 mg 10/28/19 09:00 10/30/19 08:53 Norvasc PO 5 mg DAILY NICHOLAS Administration Dextrose 12.5 gm 10/22/19 16:56 Dextrose 50% Syringe IV PUSH PRN PRN Hypoglycemia Protocol Dipyridamole/Aspirin 1 cap 10/28/19 09:00 10/30/19 08:53 Aggrenox 25 Mg-200 Mg Capsule PO 1 cap BID NICHOLAS Administration Enoxaparin Sodium 40 mg 10/23/19 17:00 10/30/19 08:53 Lovenox SUB-Q 40 mg DAILY NICHOLAS Administration Glucagon 1 mg 10/22/19 16:56 Glucagon For Inj IM PRN PRN Hypoglycemia Protocol Glucose 15 gm 10/22/19 16:56 Glutose 15 PO PRN PRN Hypoglycemia Protocol Glyburide 5 mg 10/28/19 08:00 10/30/19 08:53 Micronase PO 5 mg DAILY@0800 NICHOLAS Administration Hydralazine HCl 10 mg 10/22/19 16:54 10/27/19 05:49 Apresoline Hcl Inj IV PUSH 10 mg Q8H PRN Administration Blood Pressure - High Dextrose 1,000 mls @ 100 mls/hr 10/22/19 16:56 Dextrose 5% 1,000 Ml IVPB PRN PRN Hypoglycemia Protocol Insulin Aspart 3 - 6 units 10/28/19 12:00 10/30/19 08:54 Novolog SUB-Q Not Given [facility] Protocol Losartan Potassium 50 mg 10/28/19 09:00 10/30/19 08:53 Cozaar PO 50 mg DAILY NICHOLAS Administration Metformin HCl 500 mg 10/28/19 08:00 10/30/19 08:53 Glucophage PO 500 mg DAILY@0800 NICHOLAS Administration Morphine Sulfate 4 mg 10/22/19 09:34 10/26/19 15:20 Morphine Sulfate Inj IV PUSH 4 mg Q2H PRN Administration Pain Rated 7-10 Nitrofurantoin Macrocrystals 100 mg 10/27/19 21:00 10/30/19 08:53 Macrobid PO 100 mg Q12HR NICHOLAS Administration Ondansetron HCl
[2019-10-30 11:42] LABS: Glucose Point of Care 149 (65-105)
[2019-10-30 14:00] VITALS: BP 129/79; PULSE 87; RESP 20; TEMP 36.7; O2SAT 98
--- NOTE | 2019-10-31 10:50 | PM.DS ---
DS: Summary Hospital Course Reason for hospitalization: Abdominal pain Hospital Course: Date of admission: 10/22/2019 Date of discharge: 10/30/2019 Baldemar Vee is a 64 year old female with a PMH significant for Crohns disease, multiple abdominal surgeries, SBO x2 in 2006, CVA, nephrolithiasis, and T2DM who presented to the ED on 10/22/19 with complaints of abdominal pain, distension, and inability to pass flatus. At presentation, WBC 13.7, Hgb 14.4, Hct 43.1, Plt 258, Na 138, K 4.2 Cl 105, CO2 24, BUN 19, Cr 0.7, Gluc 183, CT a/p revealing SBO in right periumbilical area. An NG tube was placed and she was made NPO. She was admitted to the hospitalist service on 10/22/19 and was seen in consultation by general surgery and gastroenterology. She was monitored with serial abdominal exams and X-rays. UGI series on 10/22 revealed dilated loops of small bowel and no transit of contrast to colon after 4 hours. On 10/25, abdominal X-ray showed non-obstructive bowel gas pattern, and she began passing flatus and having bowel movements. Her distension improved considerably. NG tube was discontinued on 10/26 and she began to advance her diet. She was able to tolerate a low fiber diet at time of discharge. She completed a course of IV Levaquin and Flagyl. She transitioned from IV solumedrol to PO Prednisone taper which she will continue outpatient. She will follow up with Dr. Hanks in 4-6 weeks. On 10/24, she passed a kidney stone after having hematuria x2 days. She also endorsed suprapubic discomfort, dysuria, urgency, and frequency. Her UA revealed only trace leuk esterase, likely because she had been on IV antibiotics for several days. She was treated with a course of Macrobid and oxybutynin for bladder spasms. She plans to establish outpatient care with a urologist given her history of kidney stones. With the resolution of her small bowel obstruction and tolerating a solid diet, she was felt to no longer require inpatient care. She was educated on her medication changes as well as dietary recommendations. She was advised to monitor blood sugars closely given her extended prednisone taper. She will follow up with her PCP in 1-2 weeks. She was discharged home in hemodynamically stable condition on the afternoon of 10/30/19. Status at Discharge Functional status at discharge: independent ambulation Overall status at discharge: patient is progressing back to baseline Time Spent with Patient Time attestation: Total time spent providing and/or coordinating discharge services:55 minutes Time spent: Greater than 30 minutes Exam Narrative: Exam Narrative: Ms. Vee is examined alone today. She is a well-nourished 64-year-old female who is lying semi recumbent in bed. She appears comfortable and is in no acute respiratory distress. At time of discharge, HR 87, BP 129/79, RR 20, T 98.1?, 98% room air Neuro: awake, alert and oriented x4, speech clear, no focal neuro deficits noted HEENMT: normocephalic, atraumatic, EOMI, sclerae anicteric, moist oral mucosa Neck: supple, no lymphadenopathy Respiratory: clear to auscultation bilaterally, normal respiratory effort without accessory muscle use Cardio: regular rate, regular rhythm, normal S1 and S2 Abdomen: normal to inspection, quarter size bruise on RLQ, nondistended, normoactive bowel sounds, tympanic to percussion, soft, nontender to palpation, no rigidity or guarding, no CVA tenderness, no flank tenderness Extremities: BLE without edema, erythema, or pain to palpation, dorsal pedis pulses palpable bilaterally Skin: Linear excoriation on right lower extremity, warm and dry Psych: Pleasant and cooperative, chatty, normal mood and affect DS: Data Data Completed and Pending Completed studies during hospitalization: Pending at discharge 10/25/19 07:41 Surgical [PTH] Routine Labs on day of discharge: Laboratory Tests 10/30/19 05:19 10/30/19 05:19 10/30/19 11:28 POC Capillary Glucose 149 H
== END 2019-10-30 16:06 | disposition home or self-care (01) | DRG 388 ==
LOC: ANHED 09:27 → ANH2MED 09:58
PROVIDERS: Emergency Medicine; Internal Medicine Gastroenterology; Nurse Practitioner; Physician Assistant; Surgery; Admitting Provider Hospitalist; Emergency Provider Emergency Medicine; Visit Provider Family Medicine
DX: K56.609 Unspecified intestinal obstruction, unspecified as to partial versus complete obstruction (principal); K85.90 Acute pancreatitis without necrosis or infection, unspecified; K50.90 Crohn's disease, unspecified, without complications; N39.0 Urinary tract infection, site not specified; F41.8 Other specified anxiety disorders; E11.9 Type 2 diabetes mellitus without complications; G47.33 Obstructive sleep apnea (adult) (pediatric); I10 Essential (primary) hypertension; E78.5 Hyperlipidemia, unspecified; B02.9 Zoster without complications; E83.42 Hypomagnesemia; Z86.73 Personal history of transient ischemic attack (TIA), and cerebral infarction without residual deficits; E66.9 Obesity, unspecified; Z68.30 Body mass index [BMI] 30.0-30.9, adult; M10.9 Gout, unspecified; N20.0 Calculus of kidney
CPT/HCPCS: 36415; 74018; 74176; 74240; 74248; 74250; 80048; 80053; 80076; 81001; 82365; 82652; 83036; 83690; 83735; 84100; 84134; 84443; 85025; 85027; 85610; 86140; 88300; 96361; 96365; 96366; 96367; 96375; 96376; 99285; A9270; G0378; J0131; J0360; J1650; J1815; J1956; J1980; J2270; J2405; J2920; J3010; J3475; J7030; J7512

== ENCOUNTER 2020-06-14 23:59 | Emergency (ER) | payer OTHER, MEDICARE, SELFPAY ==
--- NOTE | ~2020-06-14 | XR_ITS ---
EXAMINATION: XR chest 1V portable DATE: 06/15/2020 00:39 INDICATION: Shortness of breath, cough, nausea and body aches. TECHNIQUE: frontal view of the chest was obtained. COMPARISON: Chest radiograph dated 02/26/2007 FINDINGS: The lungs remain clear with no focal airspace opacities, pulmonary edema, pleural effusion or pneumot horax. The cardiomediastinal silhouette is normal. Cholecystectomy clips in the right upper quadrant. IMPRESSION: 1. No acute cardiopulmonary disease. Reviewed, dictated and finalized at location A. EDUCATOR
[2020-06-15] VITALS (9 sets, daily range): BP systolic 124–154; BP diastolic 87–104; PULSE 96–116; RESP 13–23; TEMP 36.6; O2SAT 94–96
--- NOTE | 2020-06-15 00:56 | ED.GENADULT ---
HPI - General Adult General Chief complaint: Shortness of Breath/Dyspnea Stated complaint: SOB w/ cough Time Seen by Provider: 06/15/20 00:12 History of Present Illness HPI narrative: Patient is a 64-year-old female who presents the emergency department with chief complaint of cough sore throat and ear pain. Patient reports that she was exposed to COVID-19 states she has multiple family members that have COVID-19. Patient states that she has been coughing and has had a sore throat reports that its not improved by anything and reports it hurts whenever she eats or during. Patient denies shortness of breath. Related Data Home Medications Medication Instructions Recorded Confirmed Pentasa 500 mg PO BID 10/22/19 10/22/19 amlodipine [Norvasc] 5 mg PO DAILY 10/22/19 10/22/19 aspirin-dipyridamole [Aggrenox] 2 cap PO DAILY 10/22/19 10/22/19 bupropion HCl 150 mg PO BID 10/22/19 10/22/19 cholecalciferol (vitamin D3) 25 mcg PO BID 10/22/19 10/22/19 [Vitamin D3] coQ10 (ubiquinol) 100 mg PO DAILY 10/22/19 10/22/19 folic acid 1 mg PO DAILY 10/22/19 10/22/19 glyburide-metformin 5 - 500 tablet PO QID 10/22/19 10/22/19 losartan 50 mg PO DAILY 10/22/19 10/22/19 magnesium 250 mg PO DAILY 10/22/19 10/22/19 pantoprazole 40 mg PO QAM 10/22/19 10/22/19 valacyclovir [Valtrex] 1,000 mg PO DAILY 10/22/19 10/22/19 Allergies Allergy/AdvReac Type Severity Reaction Status Date / Time clopidogrel Allergy Severe Muscle Verified 06/15/20 00:18 Spasms adhesive Allergy Unknown Rash Verified 06/15/20 00:18 amoxicillin Allergy Unknown Rash Verified 06/15/20 00:18 cefazolin Allergy Unknown Unknown Verified 06/15/20 00:18 Cephalosporins Allergy Unknown Unknown Verified 06/15/20 00:18 cephradine Allergy Unknown Unknown Verified 06/15/20 00:18 codeine Allergy Unknown Rash Verified 06/15/20 00:18 duloxetine Allergy Unknown Unknown Verified 10/22/19 06:37 hydromorphone Allergy Unknown Itching Verified 10/22/19 06:37 iodine Allergy Unknown Unknown Verified 06/15/20 00:18 lorazepam Allergy Unknown Unknown Verified 06/15/20 00:18 meperidine Allergy Unknown Unknown Verified 06/15/20 00:18 Penicillins Allergy Unknown Unknown Verified 06/15/20 00:18 phenytoin Allergy Unknown Unknown Verified 06/15/20 00:18 Lcejkry-Hff-Cpe Reductase Allergy Unknown MUSCLE Verified 06/15/20 00:18 Inhibitor WEAKNESS/CRAMPING Sulfa (Sulfonamide Allergy Unknown Rash Verified 06/15/20 00:18 Antibiotics) sulfanilamide Allergy Unknown Unknown Verified 06/15/20 00:18 tramadol Allergy Unknown Itching Verified 06/15/20 00:18 Contrast Media Allergy Unknown Dyspnea / Uncoded 04/27/19 13:30 SOB Review of Systems Review of Systems: Narrative: A 10 system review of systems was completed on the patient and is negative except for what is stated in the HPI. Nursing and ancillary documentation was reviewed. [facility] Past Medical History Medical History Anxiety Bowel obstruction Crohn's disease Questionable. CVA (cerebral vascular accident) Depression History of endometriosis Hyperlipidemia Hypertension IBS (irritable bowel syndrome) Nephrolithiasis Obstructive sleep apnea Unable to tolerate CPAP Pancreatitis PTSD (post-traumatic stress disorder) Shingles Tendon tear, ankle Left ankle was wearing of walking the for that. Type 2 diabetes mellitus Surgical History Surgical History H/O meniscectomy of right knee H/O rhinoplasty H/O: hysterectomy History of appendectomy History of section, classical History of cholecystectomy History of extraction of renal calculus History of tonsillectomy Family History Family History Father Acute myocardial infarction Family history of coronary artery disease Hypertension Sibling Family history of alcoholism Hypertension Grandparent F
[2020-06-15] MEDS: predniSONE 20 MG TABLET 40 MG PO (01:02)
[2020-06-15] MEDS: BENZONATATE 100 MG CAPSULE 200 MG PO (01:02)
[2020-06-15 20:08] LABS: SARS-CoV-2 RNA PCR Positive
== END 2020-06-15 01:22 | disposition home or self-care (01) ==
PROVIDERS: Emergency Provider Emergency Medicine; PCP Family Medicine
DX: U07.1 COVID-19 (principal); F41.9 Anxiety disorder, unspecified; Z86.73 Personal history of transient ischemic attack (TIA), and cerebral infarction without residual deficits; F32.9 Major depressive disorder, single episode, unspecified; E78.5 Hyperlipidemia, unspecified; N80.9 Endometriosis, unspecified; K58.9 Irritable bowel syndrome, unspecified; G47.33 Obstructive sleep apnea (adult) (pediatric); F43.10 Post-traumatic stress disorder, unspecified; E11.9 Type 2 diabetes mellitus without complications; Z79.84 Long term (current) use of oral hypoglycemic drugs; Z79.82 Long term (current) use of aspirin; Z87.442 Personal history of urinary calculi
CPT/HCPCS: 71045; 87081; 87880; 99283; A9270; C9803; J7512; U0003

== ENCOUNTER 2021-01-07 19:38 | Emergency (ER) | payer OTHER, MEDICARE, SELFPAY ==
[2021-01-07 19:49] VITALS: BP 147/68; PULSE 82; RESP 16; TEMP 37.2; O2SAT 99
--- NOTE | 2021-01-07 20:11 | ED.FEMALEGU ---
HPI - Female Genitourinary General Chief complaint: Urogenital-Female Stated complaint: blood in urine Related Data Home Medications Medication Instructions Recorded Confirmed Pentasa 500 mg PO BID 10/22/19 01/07/21 amlodipine [Norvasc] 5 mg PO DAILY 10/22/19 01/07/21 aspirin-dipyridamole [Aggrenox] 2 cap PO DAILY 10/22/19 01/07/21 bupropion HCl 150 mg PO BID 10/22/19 01/07/21 cholecalciferol (vitamin D3) 25 mcg PO BID 10/22/19 01/07/21 [Vitamin D3] coQ10 (ubiquinol) 100 mg PO DAILY 10/22/19 01/07/21 folic acid 1 mg PO DAILY 10/22/19 01/07/21 glyburide-metformin 5 - 500 tablet PO QID 10/22/19 01/07/21 losartan 50 mg PO DAILY 10/22/19 01/07/21 magnesium 250 mg PO DAILY 10/22/19 01/07/21 pantoprazole 40 mg PO QAM 10/22/19 01/07/21 valacyclovir [Valtrex] 1,000 mg PO DAILY 10/22/19 01/07/21 prednisone 20 mg PO ONCE 01/07/21 01/07/21 Allergies Allergy/AdvReac Type Severity Reaction Status Date / Time clopidogrel Allergy Severe Muscle Verified 06/15/20 00:18 Spasms adhesive Allergy Unknown Rash Verified 06/15/20 00:18 amoxicillin Allergy Unknown Rash Verified 06/15/20 00:18 cefazolin Allergy Unknown Unknown Verified 06/15/20 00:18 Cephalosporins Allergy Unknown Unknown Verified 06/15/20 00:18 cephradine Allergy Unknown Unknown Verified 06/15/20 00:18 codeine Allergy Unknown Rash Verified 06/15/20 00:18 duloxetine Allergy Unknown Unknown Verified 10/22/19 06:37 hydromorphone Allergy Unknown Itching Verified 10/22/19 06:37 iodine Allergy Unknown Unknown Verified 06/15/20 00:18 lorazepam Allergy Unknown Unknown Verified 06/15/20 00:18 meperidine Allergy Unknown Unknown Verified 06/15/20 00:18 Penicillins Allergy Unknown Unknown Verified 06/15/20 00:18 phenytoin Allergy Unknown Unknown Verified 06/15/20 00:18 Nzvsnuv-Emd-Whc Reductase Allergy Unknown MUSCLE Verified 06/15/20 00:18 Inhibitor WEAKNESS/CRAMPING Sulfa (Sulfonamide Allergy Unknown Rash Verified 06/15/20 00:18 Antibiotics) sulfanilamide Allergy Unknown Unknown Verified 06/15/20 00:18 tramadol Allergy Unknown Itching Verified 06/15/20 00:18 Contrast Media Allergy Unknown Dyspnea / Uncoded 04/27/19 13:30 SOB PMFSH Past Medical History Medical History Anxiety Bowel obstruction Crohn's disease Questionable. CVA (cerebral vascular accident) Depression History of endometriosis Hyperlipidemia Hypertension IBS (irritable bowel syndrome) Nephrolithiasis Obstructive sleep apnea Unable to tolerate CPAP Pancreatitis PTSD (post-traumatic stress disorder) Shingles Tendon tear, ankle Left ankle was wearing of walking the for that. Type 2 diabetes mellitus Surgical History Surgical History H/O meniscectomy of right knee H/O rhinoplasty H/O: hysterectomy History of appendectomy History of section, classical History of cholecystectomy History of extraction of renal calculus History of tonsillectomy Family History Family History Father Acute myocardial infarction Family history of coronary artery disease Hypertension Sibling Family history of alcoholism Hypertension Grandparent Family history of coronary artery disease Mother Diabetes mellitus Acute myocardial infarction Congestive heart failure Leukemia Hypertension Cerebrovascular accident Other Asthma Social History Social History Social History: The patient lives with her . She has 1 son. She desires to be a full code and she desires to have her as her durable power defense attorney for healthcare. The patient is a lifelong nonsmoker. 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 No alcohol or illicit drugs. Smoking status: Never smoker Second hand tobacco smoke exposure: Yes Alcohol
--- NOTE | 2021-01-14 16:51 | PC.NURSE ---
called and stated had been dx with uti and given abx but received phone call from another pharmacy with same abx ready to be picked up. aware urine cx shows no growth and not to start second round of abx unless otherwise directed by pmd. stated will f/u with pmd.
== END 2021-01-07 20:16 | disposition home or self-care (01) ==
PROVIDERS: Emergency Provider Nurse Practitioner
DX: N30.01 Acute cystitis with hematuria (principal); F41.9 Anxiety disorder, unspecified; F32.9 Major depressive disorder, single episode, unspecified; Z86.73 Personal history of transient ischemic attack (TIA), and cerebral infarction without residual deficits; N80.9 Endometriosis, unspecified; E78.5 Hyperlipidemia, unspecified; I10 Essential (primary) hypertension; E11.9 Type 2 diabetes mellitus without complications
CPT/HCPCS: 81003; 87086; 99213; G0463

== ENCOUNTER 2021-06-25 13:30 | Outpatient (RCR) | payer MEDICARE, SELFPAY ==
[2021-06-17 15:59] VITALS: PULSE 68
== END 2021-08-05 13:27 | disposition home or self-care (01) ==
LOC: ANHCPREHAB 13:30
PROVIDERS: PCP Family Medicine; Visit Provider Internal Medicine Cardiovascular Disease
DX: Z95.1 Presence of aortocoronary bypass graft (principal)
CPT/HCPCS: 93798

== ENCOUNTER 2021-08-29 08:46 | Inpatient (IN) | payer MEDICARE, SELFPAY ==
[2021-08-29] VITALS (33 sets, daily range): BP systolic 91–187; BP diastolic 43–121; PULSE 90–116; RESP 12–24; TEMP 35.9–37.4; O2SAT 93–100
--- NOTE | ~2021-08-29 | XR_ITS ---
EXAMINATION: XR abdomen obstructive series DATE: 08/31/2021 11:16 INDICATION: Follow-up partial small bowel obstruction TECHNIQUE: Supine and upright views of the abdomen. FINDINGS: Comparison to multiple prior studies sequentially, with oldest reviewed study dated 020. The visualized lung parenchyma is normal.. There is a nonobstructive bowel gas pattern. Small bowel h as been decompressed since prior examination. NG tube in the stomach. There are cholecystectomy clips . Gas and stool are seen throughout the colon to the level of the rectum. There is no free air. Card iomegaly. Status post median sternotomy. IMPRESSION: 1. No acute abdominal abnormality. Reviewed, dictated and finalized at location A.
--- NOTE | ~2021-08-29 | XR_ITS ---
EXAMINATION: XR abdomen obstructive series DATE: 08/30/2021 08:44 INDICATION: Possible small bowel obstruction versus ileus. Abdomen pain. TECHNIQUE: Supine and upright views of the abdomen. FINDINGS: 08/29/2021 The visualized lung parenchyma is normal.. There is a nonspecific bowel gas pattern. Small bowel is r elatively decompressed. NG tube in the stomach. There are air-fluid levels in the small bowel in the right abdomen. Gas and stool are seen throughout the colon to the level of the rectum. There is no f ree air. IMPRESSION: 1. Nonspecific bowel gas pattern which may represent ileus or partial obstruction.. Reviewed, dictated and finalized at location A. IMPRESSION: 1. Nonspecific bowel gas pattern which may represent ileus or partial obstruct ion..
--- NOTE | ~2021-08-29 | CT_ITS ---
EXAMINATION: CT abdomen pelvis wo con DATE: 08/29/2021 09:29 INDICATION: Small bowel obstruction TECHNIQUE: Computed tomography (CT) of the abdomen and pelvis was performed without intravenous contr ast. The dose-length product was 916.56 mGy-cm. Automated exposure control and iterative reconstructi on technique were employed. COMPARISON: CT dated 10/22/2019. FINDINGS: There is dilated fluid-filled small bowel throughout the abdomen with transition in the pel vis, best seen on coronal images 32-50. Lung bases are unremarkable. There are calcified granulomas of the liver and spleen. There is a nodul ar liver surface, suspicious for cirrhosis. The pancreas, adrenal glands and kidneys are unremarkable . No free air or free fluid. No significant lymphadenopathy. Moderate lumbar spondylosis. IMPRESSION: 1. Small bowel obstruction with transition in the pelvis. Reviewed, dictated and finalized at location B.
--- NOTE | ~2021-08-29 | XR_ITS ---
EXAMINATION: XR abdomen NG/feed tube insert DATE: 08/29/2021 15:46 INDICATION: Nasogastric tube placement. TECHNIQUE: An upright view of the abdomen was obtained. COMPARISON: CT abdomen and pelvis 08/29/2021 FINDINGS: There are dilated loops of small bowel. The colon is decompressed. The lower abdomen is exc luded. The nasogastric tube tip is in the stomach. Surgical clips in the right upper quadrant are lik jonathan from cholecystectomy. Median sternotomy wires and mediastinal surgical clips are seen, likely fro m prior coronary artery bypass grafting. IMPRESSION: 1. Nasogastric tube tip in the stomach. 2. Small bowel obstruction. Reviewed, dictated and finalized at location A.
--- NOTE | ~2021-08-29 | XR_ITS ---
EXAMINATION: XR sm bowel follow through [facility] DATE: 09/01/2021 15:56 INDICATION: Small bowel obstruction. Possible Crohn's disease. TECHNIQUE: Workers Compensation Legal Secretary radiograph(s) of the abdomen was/were obtained. Oral contrast was administered by t he patient's existing nasogastric tube, and sequential radiographs of the abdomen were obtained until oral contrast was noted to be in the proximal colon. A total of 15 fluoroscopic spot images of the s mall bowel and 5 overhead radiographs were obtained. Fluoroscopy exposure time was 2.7 minutes. COMPARISON: CT dated 08/29/2021 FINDINGS: Workers Compensation Legal Secretary radiograph demonstrates cholecystectomy clips in the right upper quadrant. Nasogastric tube tip in proximal side port in the body of the stomach. Median sternotomy wires and mediastinal surgical c lips are seen, likely from prior coronary artery bypass grafting. No dilated gas-filled loops of ken l on the environmental advisor image. Transit time from the stomach to proximal colon was approximately 30-45 minutes . There is normal caliber and mucosal fold pattern throughout the small bowel. Terminal ileum is norm al. No tethering or abnormal mass effect observed upon the small bowel with real-time fluoroscopy. IMPRESSION: 1. Small bowel appears normal with no obstruction. Reviewed, dictated and finalized at location A.
[2021-08-29] MEDS: MORPHINE SULFATE (*CRX) 4 MG/ML INJ IV PUSH ×3 (09:21→20:25)
[2021-08-29] MEDS: ONDANSETRON INJ 4 MG/2 ML VIAL IV PUSH (09:21)
[2021-08-29 09:30] LABS: Basophils Absolute Auto 0.1 K/mm3 (0.0-0.1); Basophils Percent Auto 0.5 % (0.2-1.2); Eosinophils Absolute Auto 0.2 K/mm3 (0-0.3); Eosinophils Percent Auto 1.5 % (0-4.4); Hemoglobin 12.7 g/dL (12.0-15.0); Immature Granulocyte Absolute 0.08 K/mm3 (0.00-0.031); Immature Granulocyte Percent A 0.5 % (0-0.5); Lymphocytes Absolute Auto 3.25 K/mm3 (0.9-3.2); Lymphocytes Percent Auto 20.9 % (18.3-44.2); Mean Corpuscular HGB Conc 31.8 g/dl (32-36); Mean Corpuscular Volume 78.9 fl (80-100); Mean Platelet Volume 9.9 fl (7.4-10.4); Monocytes Percent Auto 6.5 % (2.6-8.5); Neutrophils Absolute Auto 10.9 K/mm3 (1.3-6.7); Neutrophils Percent Auto 70.1 % (45.5-73.1); Platelet Count Result 284 k/mm3 (150-375); Red Blood Count 5.07 M/mm3 (4.2-5.4); Red Cell Distribution Width 16.3 % (11.5-14.5); White Blood Count 15.6 K/mm3 (4.5-10.0)
[2021-08-29 09:54] LABS: Albumin Level 4.5 g/dL (3.5-5.1); Alkaline Phosphatase 85 U/L (38-126); Anion Gap 13 mmol/L (8-16); Aspartate Amino Transferase 33 U/L (14-36); Bilirubin,Total 0.3 mg/dL (0.2-1.3); Blood Urea Nitrogen 22 mg/dL (7-17); Calcium 9.6 mg/dL (8.4-10.2); Carbon Dioxide 22 mmol/L (22-30); Chloride 103 mmol/L (98-107); Estimated CRCL calculation 77 ml/min; Estimated Glomerular Filt Rate > 60; Glucose 192 mg/dL (65-110); Lipase 95 U/L (23-300); Sodium 138 mmol/L (137-145)
[2021-08-29 10:07] LABS: Alanine Aminotransferase 17 U/L (4-35)
[2021-08-29 10:17] LABS: Add Urine Microscopic? YES; Appearance Urine Cloudy (Clear); Bilirubin Urine Negative (Negative); Color Urine Yellow (Yellow); Glucose Urine UA Negative (Negative); Ketones Urine Trace mg/dL (Negative); Leukocyte Esterase Ur 1+ LEU/UL (Negative); Mucus Urine Rare /lpf; Nitrate Urine Negative (Negative); Protein Urine 3+ mg/dL (Negative); Specific Grav Ur 1.026 (1.001-1.035); Squamous Epithelial Cell Urine Occasional /hpf (Few); Urobilinogen Urine Negative mg/dL (<2.0); WBC Urine 21-30 /hpf
[2021-08-29 10:24] LABS: Blood Urine Negative (Negative)
--- NOTE | 2021-08-29 11:08 | ED.ABDPAIN ---
HPI - Abdominal Pain General Chief Complaint: Abdominal Pain Stated Complaint: Abd Pain Time Seen by Provider: 08/29/21 08:59 History of Present Illness HPI narrative: Patient is a 65-year-old female with history of nonbiopsy-proven Crohn's disease who presents ER with concerns for bowel obstruction. Has history of recurrent partial small bowel obstructions that improved with steroids. She has been seen by GI here as well as general surgery here in the past. She is never required surgery. Reports she began having pain around 2:30 AM. She has been having abdominal cramping and vomiting. She is able to force 1 bowel movement. No diarrhea. Denies fevers or chills or sweats. No chest pain or chest pressure. Related Data Home Medications Medication Instructions Recorded Confirmed bupropion HCl 150 mg PO BID 10/22/19 06/17/21 cholecalciferol (vitamin D3) 25 mcg PO BID 10/22/19 06/17/21 [Vitamin D3] coQ10 (ubiquinol) 100 mg PO DAILY 10/22/19 06/17/21 magnesium 250 mg PO DAILY 10/22/19 06/17/21 pantoprazole 40 mg PO QAM 10/22/19 06/17/21 valacyclovir [Valtrex] 1,000 mg PO DAILY PRN 10/22/19 06/17/21 aspirin 81 mg PO DAILY 06/17/21 06/17/21 biotin 10,000 mcg PO DAILY 06/17/21 06/17/21 dapagliflozin [Farxiga] 10 mg PO DAILY 06/17/21 06/17/21 ezetimibe 10 mg PO DAILY 06/17/21 06/17/21 folic acid-vit B6-vit B12 [Folbic] 1 tablet PO DAILY 06/17/21 06/17/21 glyburide-metformin 1 tablet PO DAILY 06/17/21 06/17/21 losartan 50 mg PO DAILY 06/17/21 06/17/21 metoprolol succinate 50 mg PO DAILY 06/17/21 06/17/21 rosuvastatin 5 mg PO 3XW 06/17/21 06/17/21 diclofenac sodium [Diclo Gel] 2 g TOPICAL QID PRN 06/18/21 06/18/21 Allergies Allergy/AdvReac Type Severity Reaction Status Date / Time clopidogrel Allergy Severe Muscle Verified 06/15/20 00:18 Spasms adhesive Allergy Unknown Rash Verified 06/15/20 00:18 amoxicillin Allergy Unknown Rash Verified 06/15/20 00:18 cefazolin Allergy Unknown Unknown Verified 06/15/20 00:18 Cephalosporins Allergy Unknown Unknown Verified 06/15/20 00:18 cephradine Allergy Unknown Unknown Verified 06/15/20 00:18 codeine Allergy Unknown Rash Verified 06/15/20 00:18 duloxetine Allergy Unknown Unknown Verified 10/22/19 06:37 hydromorphone Allergy Unknown Itching Verified 10/22/19 06:37 iodine Allergy Unknown Unknown Verified 06/15/20 00:18 lorazepam Allergy Unknown Unknown Verified 06/15/20 00:18 meperidine Allergy Unknown Unknown Verified 06/15/20 00:18 Penicillins Allergy Unknown Unknown Verified 06/15/20 00:18 phenytoin Allergy Unknown Unknown Verified 06/15/20 00:18 Fqtidzw-SSN-UlV Reductase Allergy Unknown MUSCLE Verified 06/15/20 00:18 Inhibitor WEAKNESS/CRAMPING [Ozsbbjy-Ukg-Ocg Reductase Inhibitor] Sulfa (Sulfonamide Allergy Unknown Rash Verified 06/15/20 00:18 Antibiotics) sulfanilamide Allergy Unknown Unknown Verified 06/15/20 00:18 tramadol Allergy Unknown Itching Verified 06/15/20 00:18 Contrast Media Allergy Unknown Dyspnea / Uncoded 04/27/19 13:30 SOB Review of Systems Review of Systems: All systems reviewed & are unremarkable except as noted in HPI and below Constitutional: Constitutional: Denies chills and Denies fever(s) ENT: Denies nasal congestion and Denies sore throat Respiratory: Respiratory: Denies cough, Denies dyspnea and Denies wheezing Gastrointestinal: Gastrointestinal: Reports abdominal pain, Reports bloating, Denies diarrhea, Reports nausea and Reports vomiting Genitourinary: Genitourinary: Denies nocturia, Denies dysuria and Denies flank pain PMFSH Past Medical History Medical History Anxiety Bowel obstruction Crohn's disease Questionable. CVA (cerebral vascular accident) Depression History of endometriosis Hyperlipidemia Hypertension IBS (irritable bowel syndrome) Nephrolithiasis Obstructive sleep apnea Unable to tolerate CPAP Pancreatitis PTSD (post-traumatic stress disorder)
[2021-08-29] MEDS: methylPREDNISolone SOD SUCC 40 MG VIAL IV PUSH ×3 (12:25→20:26)
--- NOTE | 2021-08-29 13:00 | PM.IMHP ---
H&P: HPI History of Present Illness Date/Time: 08/29/21 13:00 Chief Complaint: Abdominal pain. Narrative: This is a pleasant 65-year-old female with Crohn's disease and history of small bowel obstruction who presented to the emergency department for evaluation of abdominal pain. A couple of days ago she she developed mild discomfort and bloating in her upper abdomen and early this morning just after midnight it became acutely worse ?like severe gas pain.? She took Gas-X with no relief and shortly thereafter she developed nausea and she reports multiple episodes of emesis. Her pain was still present when she woke this morning and she come in for evaluation as her symptoms are similar to though she has had with previous bowel obstructions. CT of the abdomen and pelvis did demonstrate a small bowel obstruction with transition in the pelvis and she is being admitted in this setting. NG tube was placed and she is feeling a bit better at the time my evaluation. She had a small but unremarkable bowel movement this morning after quite a bit of straining. She has not had any further episodes of emesis since arrival to the hospital. Of note she had previously seen Dr. Hanks for her Crohn's disease but his office is now further away and she has switched to Dr. De La Cruz though she has not had her 1st appoint with him as of yet. Review of Systems Review of Systems: Twelve systems were reviewed. No fever, chills, or sweats. No recent cold or flu symptoms. Her diabetes is typically well controlled with fasting glucose usually around 105. Her glucose was well over 200 today which is very unusual for her. She does mention that she has stopped taking her diabetes medication however due to adverse effects and concerns that it may have caused her pancreatitis. No blurry vision, polydipsia, or polyuria. She denies dysuria, hematuria, urinary urgency, hesitancy, and frequency. Except as documented, all other systems were reviewed and are negative. [facility] Past Medical History Medical History (Updated 08/29/21 @ 21:18 by Puja West PA-C) Anxiety Bowel obstruction Cerebrovascular accident With mild right-sided weakness. Coronary artery disease COVID-19 Crohn's disease Not biopsy proven, identified by lab work. Depression History of endometriosis Hyperlipidemia (Unknown) Hypertension Nephrolithiasis Obstructive sleep apnea Intolerant to CPAP Pancreatitis Post traumatic stress disorder Sweat gland carcinoma Left upper cheek, status post excision. Type 2 diabetes mellitus (Unknown) Surgical History Surgical History (Updated 08/29/21 @ 21:10 by Puja West PA-C) History of appendectomy History of cardiac catheterization History of section, classical History of cholecystectomy History of coronary artery bypass graft (01/16/21) [facility] bypass [facility]. History of extraction of renal calculus History of hysterectomy History of meniscectomy of right knee History of rhinoplasty History of tonsillectomy Family History Family History Father Acute myocardial infarction Family history of coronary artery disease Hypertension Hypercholesteremia Sibling Family history of alcoholism Hypertension Hypercholesteremia Grandparent Family history of coronary artery disease Mother Diabetes mellitus Acute myocardial infarction Congestive heart failure Leukemia Hypertension Cerebrovascular accident Hypercholesteremia Other Asthma Social History Social History (Updated 08/29/21 @ 21:09 by Puja West PA-C) Social History: The patient lives with her in [place]; they have 1 son. 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 No alcohol or illicit substance abuse. She designates her , David Vee, as her surrogate decision maker and she wishes to be a full code. Spiritual care concerns: N
[2021-08-29] MEDS: SODIUM CHLORIDE 0.9% IV 1,000 ML 125 ML IV CONT ×2 (13:53→20:25)
--- NOTE | 2021-08-29 15:31 | ADMGEN ---
This patient, Bianca Vee, was admitted to Medical Room 242-. Patient/family oriented to hospital policies and general routines including ID bracelet, bed and alarms, visiting hours, pain management, procedures, bathroom and other care routines, personal items, smoking policy, room service/diet, and visiting hours. Information on how to activate the Rapid Response Team has been discussed. Patient/Family are encouraged to report perceived risks to care and to ask questions if they do not understand what they are told or what they should do.
--- NOTE | 2021-08-29 15:58 | PM.CNGS ---
Assessment and Plan Assessment and plan (1) Urinary tract infection: Code(s): N39.0 - Urinary tract infection, site not specified Status: Acute Assessment and Plan: urinalysis suggests possible UTI in view of elevated wbc's in urine and positive leukocyte esterase. 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 Rx as per hospitalist. (3) History of CVA (cerebrovascular accident): Code(s): Z86.73 - Personal history of transient ischemic attack (TIA), and cerebral infarction without residual deficits Status: Acute (4) Hyperlipidemia: Onset Date: Unknown Qualifiers: Hyperlipidemia type: unspecified Qualified Code(s): E78.5 - Hyperlipidemia, unspecified Code(s): E78.5 - Hyperlipidemia, unspecified Status: Acute Assessment and Plan: We will need to hold current medications at this time but then resume them upon discharge. (5) Leukocytosis: Qualifiers: Leukocytosis type: unspecified Qualified Code(s): D72.829 - Elevated white blood cell count, unspecified Code(s): D72.829 - Elevated white blood cell count, unspecified Status: Acute Assessment and Plan: Possibly related to 1. Above. Recommend see repeat CBC in a.m.. (6) Hypertension: Qualifiers: Hypertension type: essential hypertension Qualified Code(s): I10 - Essential (primary) hypertension Code(s): I10 - Essential (primary) hypertension Status: Chronic Assessment and Plan: Rx as per hospitalist (7) Crohn's disease: Qualifiers: Digestive disease complication type: unspecified complication Gastrointestinal tract location: unspecified location Qualified Code(s): K50.919 - Crohn's disease, unspecified, with unspecified complications Code(s): K50.90 - Crohn's disease, unspecified, without complications Status: Chronic Assessment and Plan: apparently diagnosed by serology 4-7 years ago. Patient has improved after steroid treatment several times in the hospital when she had other signs of partial small bowel obstruction in the past. Because of this steroids were started in the ER and are being continued. This time I agree with that and we will watch for signs of infection. (Since this may hide the signs of infection). Patient had plans to follow-up with a GI doctor outpatient but has not yet done so. GI consultation recommended if one can be obtained through the weekend. (8) Ileus, unspecified: Code(s): K56.7 - Ileus, unspecified Status: Suspected Assessment and Plan: At this time since the patient had bowel movements both this morning and yesterday I suspect that she has an ileus rather than true obstruction. However, we will need to follow with serial x-rays and exams and see how she does. Since she has a history of possible Crohn's disease without recent treatment believe it is reasonable to go ahead and start treatment with steroids. However I would recommend that GI consultation be obtained. Also we can perhaps sort out while she is here where she will go for continue GI care afterwards. It sounds as if her last colonoscopy may be as long as 3 or 4 years ago so it may be reasonable to consider having them try to do colonoscopy and get into the ilium to get biopsies to make a tissue diagnosis of this. There was no mention of significant thickening of the distal ileal small bowel wall or other areas of thickening in the small bowel to suggest definite CT evidence of Crohn's. Another possibility is th
[2021-08-29 16:49] LABS: Glucose Point of Care 158 mg/dl (65-105)
[2021-08-29] MEDS: BISACODYL 10 MG SUPPOSITORY RECTAL (18:29)
[2021-08-29 20:13] LABS: Glucose Point of Care 211 mg/dl (65-105)
[2021-08-30] VITALS (8 sets, daily range): BP systolic 132–187; BP diastolic 58–102; PULSE 72–106; RESP 14–20; TEMP 36.2–37.1; O2SAT 96–100
[2021-08-30] MEDS: MORPHINE SULFATE (*CRX) 4 MG/ML INJ IV PUSH ×4 (01:58→20:29)
[2021-08-30] MEDS: ONDANSETRON INJ 4 MG/2 ML VIAL IV PUSH ×2 (01:58→20:30)
[2021-08-30 05:35] LABS: Hematocrit 36.5 % (37.0-47.0); Hemoglobin 11.3 g/dL (12.0-15.0); Mean Corpuscular Hemoglobin 25.2 pg (26-34); Mean Corpuscular Volume 81.5 fl (80-100); Platelet Count Result 258 k/mm3 (150-375); Red Blood Count 4.48 M/mm3 (4.2-5.4); Red Cell Distribution Width 16.6 % (11.5-14.5)
[2021-08-30 05:41] LABS: Anion Gap 7 mmol/L (8-16); Blood Urea Nitrogen 26 mg/dL (7-17); Calcium 8.9 mg/dL (8.4-10.2); Carbon Dioxide 27 mmol/L (22-30); Chloride 106 mmol/L (98-107); Estimated CRCL calculation 63 ml/min; Estimated Glomerular Filt Rate > 60; Glucose 162 mg/dL (65-110); Hemoglobin A1C 7.6 % (<5.7); Magnesium 1.4 mg/dL (1.6-2.3); Sodium 140 mmol/L (137-145)
[2021-08-30] MEDS: methylPREDNISolone SOD SUCC 40 MG VIAL IV PUSH ×3 (06:11→20:32)
[2021-08-30 06:26] LABS: Glucose Point of Care 140 mg/dl (65-105)
[2021-08-30] MEDS: MAGNESIUM SULF 2 GM/WATER 50ML 2 GM/50 ML BAG IVPB (09:00)
[2021-08-30] MEDS: INSULIN ASPART (*BKC) 100 UNITS/ML SUB-Q (12:33)
[2021-08-30] MEDS: SODIUM CHLORIDE 0.9% IV 1,000 ML 80 ML IV CONT ×2 (12:41→22:49)
[2021-08-30 12:47] LABS: Glucose Point of Care 203 mg/dl (65-105)
--- NOTE | 2021-08-30 14:24 | P.PNIM_ITS ---
Progress Note: A&P Assessment and Plan (1) Ileus, unspecified: Code(s): K56.7 - Ileus, unspecified Status: Suspected Assessment and Plan: Ileus vs small-bowel obstruction. * Appreciate general surgery consultation * Patient is passing flatus and having bowel movements now. Hx is more consistent with ileus * Abdominal x-ray today showed nonspecific bowel gas pattern * Continue NG decompression. NPO diet with gentle IV fluids * Continue with serial abdominal exams (2) Crohn's disease: Qualifiers: Digestive disease complication type: unspecified complication Gastrointestinal tract location: unspecified location Qualified Code(s): K50.919 - Crohn's disease, unspecified, with unspecified complications Code(s): K50.90 - Crohn's disease, unspecified, without complications Status: Chronic Assessment and Plan: Diagnosed by serology 5+ years ago. * She is currently in between gastroenterologists and has a scheduled appoint with Dr. De La Cruz at the end of September. * Continue Solu-Medrol 40 mg q.8 hours, chronic elevation in WBC noted * GI consultation recommended per General Surgery. 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 insulin use: without terminal operator use Diabetes mellitus complication status: without complication Qualified Code(s): E11.9 - Type 2 diabetes mellitus without complications Code(s): E11.9 - Type 2 diabetes mellitus without complications Status: Chronic Assessment and Plan: A1c is 7.6 * Reports her blood sugars are little bit higher than what is usual for her in the low 200s * She admits that she stop taking Farxiga recently due to concerns for pancreatitis * Continue Accu-Cheks, sliding scale insulin, hypoglycemic protocol (4) Hypertension: Qualifiers: Hypertension type: essential hypertension Qualified Code(s): I10 - Essential (primary) hypertension Code(s): I10 - Essential (primary) hypertension Status: Chronic Assessment and Plan: Blood pressures reviewed and have been reasonably controlled. She did have a single episode of hypotension yesterday with BP 91/43 * Subsequent blood pressures have been stable. Last BP 157/67 * Oral antihypertensives on hold while NPO * P.r.n. hydralazine as needed for BP >170 systolic (5) Coronary artery disease: Code(s): I25.10 - Atherosclerotic heart disease of [place] coronary artery without angina pectoris Status: Inactive Assessment and Plan: Status post 4 vessel bypass in January 2021. * No acute issues. (6) Abnormal urinalysis: Code(s): R82.90 - Unspecified abnormal findings in urine Status: Acute Assessment and Plan: Urine looks contaminated and she gives no history to suggest underlying infection. She is asymptomatic * No indication for antibiotics at this time * Urine culture is pending (7) Hypomagnesemia: Code(s): E83.42 - Hypomagnesemia Status: Acute Assessment and Plan: Magnesium 1.4 * Administer 2 g IV magnesium sulfate * Recheck tomorrow Subjective Date/time seen: 08/30/21 14:24 Interval history: Date of service: 08/30/2021 Bianca Vee is a 65-year-old female with a history of coronary artery disease, Crohn's disease, SBO, AMINA, hypertension, hyperlipidemia, type 2 diabetes mellitus, and several other medical problems who is seen in follow-up for SBO. She is feeling a
--- NOTE | 2021-08-30 14:24 | PM.IMPN ---
Progress Note: A&P Assessment and Plan (1) Ileus, unspecified: Code(s): K56.7 - Ileus, unspecified Status: Suspected Assessment and Plan: Ileus vs small-bowel obstruction. Appreciate general surgery consultation Patient is passing flatus and having bowel movements now. Hx is more consistent with ileus Abdominal x-ray today showed nonspecific bowel gas pattern Continue NG decompression. NPO diet with gentle IV fluids Continue with serial abdominal exams (2) Crohn's disease: Qualifiers: Digestive disease complication type: unspecified complication Gastrointestinal tract location: unspecified location Qualified Code(s): K50.919 - Crohn's disease, unspecified, with unspecified complications Code(s): K50.90 - Crohn's disease, unspecified, without complications Status: Chronic Assessment and Plan: Diagnosed by serology 5+ years ago. She is currently in between gastroenterologists and has a scheduled appoint with Dr. De La Cruz at the end of September. Continue Solu-Medrol 40 mg q.8 hours, chronic elevation in WBC noted GI consultation recommended per General Surgery. 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: without extermination supervisor use Diabetes mellitus complication status: without complication Qualified Code(s): E11.9 - Type 2 diabetes mellitus without complications Code(s): E11.9 - Type 2 diabetes mellitus without complications Status: Chronic Assessment and Plan: A1c is 7.6 Reports her blood sugars are little bit higher than what is usual for her in the low 200s She admits that she stop taking Farxiga recently due to concerns for pancreatitis Continue Accu-Cheks, sliding scale insulin, hypoglycemic protocol (4) Hypertension: Qualifiers: Hypertension type: essential hypertension Qualified Code(s): I10 - Essential (primary) hypertension Code(s): I10 - Essential (primary) hypertension Status: Chronic Assessment and Plan: Blood pressures reviewed and have been reasonably controlled. She did have a single episode of hypotension yesterday with BP 91/43 Subsequent blood pressures have been stable. Last BP 157/67 Oral antihypertensives on hold while NPO P.r.n. hydralazine as needed for BP >170 systolic (5) Coronary artery disease: Code(s): I25.10 - Atherosclerotic heart disease of [place] coronary artery without angina pectoris Status: Inactive Assessment and Plan: Status post 4 vessel bypass in January 2021. No acute issues. (6) Abnormal urinalysis: Code(s): R82.90 - Unspecified abnormal findings in urine Status: Acute Assessment and Plan: Urine looks contaminated and she gives no history to suggest underlying infection. She is asymptomatic No indication for antibiotics at this time Urine culture is pending (7) Hypomagnesemia: Code(s): E83.42 - Hypomagnesemia Status: Acute Assessment and Plan: Magnesium 1.4 Administer 2 g IV magnesium sulfate Recheck tomorrow Subjective Date/time seen: 08/30/21 14:24 Interval history: Date of service: 08/30/2021 Bianca Vee is a 65-year-old female with a history of coronary artery disease, Crohn's disease, SBO, AMINA, hypertension, hyperlipidemia, type 2 diabetes mellitus, and several other medical problems who is seen in follow-up for SBO. She is feeling a little bit better today. She does endorse abdominal discomfort that she rates as 7/10. She feels that her abdominal bloating has improved. She is passing flatus. She had a small amount of liquid stool this morning. Denies nausea or vomiting. She denies dysuria, hematuria, urgency, or frequency. Denies fever or chills. No dizziness, lightheadedness, weakness, shortness breath, cough, chest pain. She has no additional concerns at this t
--- NOTE | 2021-08-30 17:40 | PM.PNGS ---
Progress Note: A&P Assessment and Plan (1) Abnormal urinalysis: Code(s): R82.90 - Unspecified abnormal findings in urine Status: Acute (2) Ileus, unspecified: Code(s): K56.7 - Ileus, unspecified Status: Suspected Assessment and Plan: This seems to be improved as the patient has good bowel sounds today and had a bowel movement this AM. Will start a clamping routine her NG tube during the daytime and leave it to intermittent suction through the night tonight. Re-evaluate tomorrow after another set of abdominal films and then decide whether we could possibly remove the NG. This probably reflects either decreasing inflammation related to Crohn's in the area of concern or simple resolution of ileus. (3) Leukocytosis: Qualifiers: Leukocytosis type: unspecified Qualified Code(s): D72.829 - Elevated white blood cell count, unspecified Code(s): D72.829 - Elevated white blood cell count, unspecified Status: Acute (4) Hypomagnesemia: Code(s): E83.42 - Hypomagnesemia Status: Acute Assessment and Plan: as per hospitalist -- supplemented today (5) History of CVA (cerebrovascular accident): Code(s): Z86.73 - Personal history of transient ischemic attack (TIA), and cerebral infarction without residual deficits Status: Acute Assessment and Plan: Pt states that this was a Lacunar infarct in 2008 Subjective Subjective Date/Time Seen: 08/30/21 17:30 Patient is sitting up in bed when I entered the room. She denies nausea at this time. Still has some mild abdominal pain and is still occasionally taking morphine for it. Not very nauseated. She did have 1 loose stool this morning confirmed by the nurse. Review of Systems Review of Systems: All systems reviewed & are unremarkable except as noted in HPI and below Constitutional: Constitutional: Reports as per HPI, Denies chills and Denies fever(s) Cardiovascular: Cardiovascular: Denies chest pain and Denies dyspnea Respiratory: Respiratory: Reports no additional respiratory complaints and Denies dyspnea Gastrointestinal: Gastrointestinal: Reports as per HPI, Reports bloating ( Mild), Reports loose stools ( x1 this morning), Reports nausea ( on and off) and Denies vomiting Genitourinary: Genitourinary: Denies urinary incontinence and Denies urinary urgency Musculoskeletal: Musculoskeletal: Reports no additional musculoskeletal complaints Neurologic: Denies memory loss Psychiatric: Psychiatric: Denies anxiety and Denies memory loss Exam Const: General: cooperative, comfortable, alert and awake Orientation/consciousness: patient oriented x3 HENMT: Head: normal to inspection Mouth: Yes moist mucous membranes Other: NG at 55 cm at the exit of nostril. Eyes: Sclera: sclerae normal Pupils: Equal, round and reactive pupils present Neck: Neck: normal visual inspection and no JVD Chest: Chest palpation & inspection: normal inspection of the chest Resp: Effort & Inspection: normal respiratory effort Auscultation: clear to auscultation bilaterally Cardio: Jugular venous distension: no JVD Rate: regular rate GI: Inspection: normal to inspection and scar (lower midline) GI Palp: Yes Soft to palpation and Yes Tenderness to palpation present (GI) (mild in epigastium) Auscultation: normal bowel sounds Other: 900 cc out NG since MN Neuro: General: patient oriented x3 Cranial nerves: Yes Equal, round and reactive pupils present Objective Data Vital Signs Vital Signs: Vital Signs - 24 hr 08/29/21 19:42 08/29/21 20:00 08/29/21 21:59 Temperature 35.9 C L 35.9 C L Pulse Rate 94 111 H 111 H Respiratory Rate 18 20 Blood Pressure 139/80 139/80 Pulse Oximetry 95 98 98 08/29/21 23:49 08/30/21 03:39 08/30/21 03:43 Temperature 36.1 C L 36.3 C L 36.3 C L Pulse Rate 96 103 H 103 H Respiratory Rate 20 20 20 Blood Pressure 124/67 132/70 132/70 Pulse Oximetry 95 96 96 08/30/21 10:
[2021-08-30] MEDS: MAGNESIUM HYDROXIDE SUSP 30 ML UDC FEED TUBE (17:58)
[2021-08-30 18:19] LABS: Glucose Point of Care 195 mg/dl (65-105)
[2021-08-30] MEDS: hydrALAZINE HCL 20 MG/ML VIAL 10 MG IV PUSH (20:31)
[2021-08-30] MEDS: NITROGLYCERIN SL 0.4 MG TABLET (21:38)
[2021-08-30] MEDS: NITROGLYCERIN SL 0.4 MG TABLET SUBLINGUAL (21:40)
--- NOTE | 2021-08-30 21:42 | ECG_ITS ---
Measurements Intervals [place] Rate: 91 P: 35 [place]: 170 QRS: -11 QRSD: 109 T: 32 QT: 364 QTc: 449 Interpretive Statements SINUS RHYTHM MINIMAL VOLTAGE CRITERIA FOR LVH, CONSIDER NORMAL VARIANT [MEETS CRITERIA IN ONE OF: R(aVL), S(V1), R(V5), R(V5/V6)+S(V1)] POSSIBLE ANTERIOR MYOCARDIAL INFARCTION , PROBABLY OLD [30 ms Q WAVE IN V3/V4, OR R < 0.2 mV IN V4] INFERIOR MYOCARDIAL INFARCTION , PROBABLY OLD [40+ ms Q WAVE AND/OR ST/T ABNORMALITY IN II/aVF] NONSPECIFIC T-WAVE ABNORMALITY ABNORMAL ECG Electronically Signed On 09-04-2021 15:43:26 CDT by Roger San M.D.
[2021-08-30 22:08] LABS: Troponin I 0.318 ng/mL (0.000-0.034)
[2021-08-30] MEDS: NITROGLYCERIN OINTMENT 1 INCH DOSE 0.5 INCH TRANSDERM (22:39)
[2021-08-30] MEDS: ASPIRIN 300 MG SUPPOSITORY RECTAL (22:47)
[2021-08-30] MEDS: HEPARIN SOD/D5W 100 UNITS/ML 25,000 UNITS/250 ML BAG 8 UNITS IV CONT (22:54)
--- NOTE | 2021-08-30 23:20 | PC.NURSE ---
This patient, Bianca Vee, was transferred to [[facility] ] on 08/30/21 at 2309. Personal belongings sent with patient. Report given to Kiki ]. Appropriate documentation sent with patient.
[2021-08-30 23:22] LABS: Basophils Percent Auto 0.1 % (0.2-1.2); Hematocrit 35.5 % (37.0-47.0); Hemoglobin 11.3 g/dL (12.0-15.0); Immature Granulocyte Absolute 0.13 K/mm3 (0.00-0.031); Immature Granulocyte Percent A 0.6 % (0-0.5); Lymphocytes Percent Auto 6.1 % (18.3-44.2); Mean Corpuscular HGB Conc 31.8 g/dl (32-36); Mean Corpuscular Hemoglobin 25.6 pg (26-34); Mean Corpuscular Volume 80.3 fl (80-100); Mean Platelet Volume 9.9 fl (7.4-10.4); Monocytes Absolute Auto 0.5 K/mm3 (0.1-0.6); Monocytes Percent Auto 2.5 % (2.6-8.5); Neutrophils Absolute Auto 19.5 K/mm3 (1.3-6.7); Neutrophils Percent Auto 90.7 % (45.5-73.1); Platelet Count Result 274 k/mm3 (150-375); Red Blood Count 4.42 M/mm3 (4.2-5.4); Red Cell Distribution Width 16.7 % (11.5-14.5); White Blood Count 21.5 K/mm3 (4.5-10.0)
[2021-08-30 23:31] LABS: INR 1.1; Prothrombin Time 13.5 Seconds (11.1-14.7)
[2021-08-30 23:32] LABS: Alanine Aminotransferase 46 U/L (4-35); Albumin Level 4.2 g/dL (3.5-5.1); Alkaline Phosphatase 127 U/L (38-126); Anion Gap 6 mmol/L (8-16); Aspartate Amino Transferase 78 U/L (14-36); Bilirubin,Total 0.5 mg/dL (0.2-1.3); Blood Urea Nitrogen 27 mg/dL (7-17); Calcium 8.6 mg/dL (8.4-10.2); Carbon Dioxide 26 mmol/L (22-30); Chloride 104 mmol/L (98-107); Estimated CRCL calculation 72 ml/min; Estimated Glomerular Filt Rate > 60; Glucose 207 mg/dL (65-110); Magnesium 2.1 mg/dL (1.6-2.3); Partial Thromboplastin Time 43.2 SECONDS (22.3-36.8); Potassium 3.8 mmol/L (3.4-5.0); Sodium 136 mmol/L (137-145)
[2021-08-31] VITALS (17 sets, daily range): BP systolic 128–183; BP diastolic 62–83; PULSE 65–86; RESP 16–20; TEMP 35.9–36.8; O2SAT 95–100
--- NOTE | 2021-08-31 | ECG_ITS ---
Measurements Intervals [place] Rate: 78 P: 43 RI: 178 QRS: -11 QRSD: 93 T: 7 QT: 390 QTc: 445 Interpretive Statements SINUS RHYTHM MODERATE VOLTAGE CRITERIA FOR LVH, CONSIDER NORMAL VARIANT [MEETS CRITERIA IN ONE OF: R(aVL), S(V1), R(V5), R(V5/V6)+S(V1)] POSSIBLE ANTERIOR MYOCARDIAL INFARCTION , PROBABLY OLD [30 ms Q WAVE IN V3/V4, OR R < 0.2 mV IN V4] INFERIOR MYOCARDIAL INFARCTION , PROBABLY OLD [40+ ms Q WAVE AND/OR ST/T ABNORMALITY IN II/aVF] ABNORMAL ECG NO PREVIOUS ECG AVAILABLE FOR COMPARISON Electronically Signed On 08-31-2021 12:37:10 CDT by Roger San M.D.
--- NOTE | 2021-08-31 00:41 | PC.NURSE ---
This patient, Bianca Vee, was received from [[id number] ] on 08/30/21 at 2305 for c/o chest pain and elevated troponin. Patient/family oriented to unit policies and routines
[2021-08-31 01:12] LABS: Troponin I 0.309 ng/mL (0.000-0.034)
[2021-08-31 04:39] LABS: Basophils Percent Auto 0.1 % (0.2-1.2); Hematocrit 33.2 % (37.0-47.0); Hemoglobin 10.4 g/dL (12.0-15.0); Immature Granulocyte Absolute 0.13 K/mm3 (0.00-0.031); Immature Granulocyte Percent A 0.6 % (0-0.5); Lymphocytes Absolute Auto 1.94 K/mm3 (0.9-3.2); Lymphocytes Percent Auto 9.5 % (18.3-44.2); Mean Corpuscular HGB Conc 31.3 g/dl (32-36); Mean Corpuscular Hemoglobin 25.3 pg (26-34); Mean Corpuscular Volume 80.8 fl (80-100); Monocytes Absolute Auto 0.7 K/mm3 (0.1-0.6); Monocytes Percent Auto 3.6 % (2.6-8.5); Neutrophils Absolute Auto 17.6 K/mm3 (1.3-6.7); Neutrophils Percent Auto 86.2 % (45.5-73.1); Platelet Count Result 275 k/mm3 (150-375); Red Blood Count 4.11 M/mm3 (4.2-5.4); Red Cell Distribution Width 16.7 % (11.5-14.5); White Blood Count 20.4 K/mm3 (4.5-10.0)
[2021-08-31 04:47] LABS: Partial Thromboplastin Time 36.9 SECONDS (22.3-36.8)
[2021-08-31 04:50] LABS: Anion Gap 5 mmol/L (8-16); Blood Urea Nitrogen 26 mg/dL (7-17); Calcium 8.3 mg/dL (8.4-10.2); Carbon Dioxide 29 mmol/L (22-30); Chloride 105 mmol/L (98-107); Estimated CRCL calculation 63 ml/min; Estimated Glomerular Filt Rate > 60; Glucose 180 mg/dL (65-110); Magnesium 2.2 mg/dL (1.6-2.3); Potassium 3.9 mmol/L (3.4-5.0); Sodium 139 mmol/L (137-145)
[2021-08-31 05:03] LABS: Troponin I 0.588 ng/mL (0.000-0.034)
[2021-08-31] MEDS: methylPREDNISolone SOD SUCC 40 MG VIAL IV PUSH ×3 (05:06→21:41)
[2021-08-31] MEDS: HEPARIN SODIUM 5,000 UNITS/ML VIAL 4000 UNITS IV PUSH (05:06)
--- NOTE | 2021-08-31 07:35 | ECG_ITS ---
Measurements Intervals [place] Rate: 75 P: 11 AR: 159 QRS: -8 QRSD: 109 T: 8 QT: 395 QTc: 443 Interpretive Statements SINUS RHYTHM MINIMAL VOLTAGE CRITERIA FOR LVH, CONSIDER NORMAL VARIANT [MEETS CRITERIA IN ONE OF: R(aVL), S(V1), R(V5), R(V5/V6)+S(V1)] INFERIOR MYOCARDIAL INFARCTION , PROBABLY OLD [40+ ms Q WAVE AND/OR ST/T ABNORMALITY IN II/aVF] CANNOT RULE OUT ANTERIOR INFARCTION, AGE UNDETERMINED ABNORMAL ECG COMPARED TO ECG 08/31/2021 00:46:28 NO SIGNIFICANT CHANGES Electronically Signed On 08-31-2021 12:40:57 CDT by Roger San M.D.
[2021-08-31 08:55] LABS: Alanine Aminotransferase 42 U/L (4-35); Albumin Level 3.6 g/dL (3.5-5.1); Alkaline Phosphatase 107 U/L (38-126); Anion Gap 5 mmol/L (8-16); Aspartate Amino Transferase 64 U/L (14-36); Bilirubin,Total 0.3 mg/dL (0.2-1.3); Blood Urea Nitrogen 26 mg/dL (7-17); Calcium 8.3 mg/dL (8.4-10.2); Carbon Dioxide 28 mmol/L (22-30); Chloride 105 mmol/L (98-107); Estimated CRCL calculation 63 ml/min; Estimated Glomerular Filt Rate > 60; Glucose 179 mg/dL (65-110); Sodium 138 mmol/L (137-145)
[2021-08-31] MEDS: SODIUM CHLORIDE 0.9% IV 1,000 ML 80 ML IV CONT ×2 (10:51→23:19)
--- NOTE | 2021-08-31 11:00 | PM.CNCAR ---
Assessment and Plan Assessment and plan (1) Elevated troponin: Code(s): R77.8 - Other specified abnormalities of plasma proteins Status: Acute Assessment and Plan: Patient had elevated troponin at admission and her troponin is still elevated. Will continue to trend by repeating a troponin now. Uncertain if this represents ACS or simply secondary to her underlying illness. If recurrent chest pain, repeat a EKG and notify me for further recommendations. (2) Chest pain: Code(s): R07.9 - Chest pain, unspecified Status: Acute Assessment and Plan: Atypical but nitrate responsive. Will continue nitroglycerin paste 1 in Q 6 hours. EKG does not show anything acute. Given her abdominal situation and the fact she is currently pain-free, will continue treat conservatively for now. Check a 2D echocardiogram with Doppler (3) CAD (coronary artery disease): Code(s): I25.10 - Atherosclerotic heart disease of [place] coronary artery without angina pectoris Status: Acute Assessment and Plan: Known history of CAD and bypass as detailed extensively in history above. Aspirin 81 mg p.r. daily to be given. This order will be written. I will also start her on metoprolol 5 mg IV q.8 hours. Her blood pressure was also quite elevated yesterday (4) Abdominal pain: Code(s): R10.9 - Unspecified abdominal pain Status: Acute Assessment and Plan: Ileus versus bowel obstruction. Workup per surgery History of Present Illness History of Present Illness Consult date/time: 08/31/21 11:00 Requesting physician: Puja West PA-C Consult reason: chest pain Reason For Visit: SOB Narrative: Reason consultation, chest pain and positive troponin Date of service 08/31/2021 Requesting provider Puja West History: Patient is a 65-year-old female who had chest discomfort as well as severe shortness of breath last year. This resulted in abnormal stress test and eventual echocardiogram and catheterization. Patient was found have multivessel CAD. She had a diffuse disease in the mid to apical LAD a maximum stenosis of 70% midvessel as well as 80% apical stenosis. Proximal D1 50% stenosis. Circumflex 90% proximal OM2 80% mid circumflex lesion. RCA large 70% proximal RCA stenosis and 90% mid to distal stenosis. 70% RPL stenosis. She has no left main disease. She underwent a ORTIZ to the LAD as well as a free radial artery to OM 1 as well as SVG to OM2 and RPDA. Patient has been dealing with multiple bouts of small bowel obstruction and ileus. She came to the hospital a few days ago because of worsening abdominal distention and she felt bloated, nauseated started to vomit. She had severe abdominal pain. NG was inserted for decompression. She is being seen by surgery. Thoughts are probable ileus versus small-bowel obstruction. Last night however she started developed jaw pain by moving her jaw. She then became anxious. She did have some left-sided chest pain which radiated down her arm as well as some tingling in her hands. Her pain in her chest and down her arm was called ?electrical ?. Her arm also felt heavy. She was short of breath. Troponins were drawn and were minimally elevated at 0.5. There were also elevated prior to having symptoms at 0.3. She states that her symptoms were improving on their own but she was given nitroglycerin which further help. She continues have the jaw pain special worsened on the left side of her wrist she is talking. She denies any syncope, presyncope, paroxysmal nocturnal dyspnea, orthopnea. She currently has no chest or arm pain. She states that her symptoms started shortly after receiving morphine Zofran and IV BP medications yesterday. Review of Systems Review of Systems: All systems reviewed & are unremarkable except as noted in HPI and below Constitutional: Constitutional: Reports weakness Eyes: Eyes: Denies blurry vision ENT: Reports
[2021-08-31 11:18] LABS: Partial Thromboplastin Time 61.8 SECONDS (22.3-36.8)
[2021-08-31] MEDS: NITROGLYCERIN OINTMENT 1 INCH DOSE TRANSDERM ×3 (11:38→23:19)
[2021-08-31] MEDS: HEPARIN SODIUM 5,000 UNITS/ML VIAL 2500 UNITS IV PUSH (11:38)
[2021-08-31] MEDS: MORPHINE SULFATE (*CRX) 4 MG/ML INJ IV PUSH ×2 (12:10→20:20)
[2021-08-31] MEDS: INSULIN ASPART (*BKC) 100 UNITS/ML SUB-Q (12:13)
[2021-08-31] MEDS: METOPROLOL TARTRATE INJ 5 MG/5 ML VIAL IV PUSH ×2 (12:36→21:41)
--- NOTE | 2021-08-31 14:28 | PM.PNGS ---
Progress Note: A&P Assessment and Plan (1) Abnormal urinalysis: Code(s): R82.90 - Unspecified abnormal findings in urine Status: Acute Assessment and Plan: IF patient willing will have nurse to straight cath for repeat urinalysis (see cath urine result dot dot dot they were unable to do her culture and patient did have significant pyuria) (2) Ileus, unspecified: Code(s): K56.7 - Ileus, unspecified Status: Suspected Assessment and Plan: This seems to be improved as the patient has good bowel sounds today and had a bowel movement on 08/30. Will clamp her NG tube during the daytime and leave it to intermittent suction through the night tonight. (possibly removed it tonight if does well with clears while NG is clamped during the day time). Need to move cautiously as the patient had a 1000 cc out the NG overnight. Today's x-ray however does not show any air-fluid levels and a nonspecific bowel gas pattern. This probably reflects either decreasing inflammation related to Crohn's in the area of concern or simple resolution of ileus. (3) Leukocytosis: Qualifiers: Leukocytosis type: unspecified Qualified Code(s): D72.829 - Elevated white blood cell count, unspecified Code(s): D72.829 - Elevated white blood cell count, unspecified Status: Acute Assessment and Plan: up to 20,000 a day but this may be secondary to the q.8 hours steroids. (4) Hypomagnesemia: Code(s): E83.42 - Hypomagnesemia Status: Acute Assessment and Plan: as per hospitalist -- supplemented on 08/30 normal at 2.2 this a.m. (5) History of CVA (cerebrovascular accident): Code(s): Z86.73 - Personal history of transient ischemic attack (TIA), and cerebral infarction without residual deficits Status: Acute Assessment and Plan: Pt states that this was a Lacunar infarct in 2008 Additional Plan I will give milk of Mag down NG again today and leave NG clamped through most the day of patient tolerated. ( Allow clear liquids well NG is clamped and nurses may reconnect her NG to low intermittent suction p.r.n. nausea, vomiting, or significant abdominal pain ). Repeat labs in a.m. including CBC BMP and magnesium Encourage patient to be up walking 3 times a day in the hallway. Will have nursing record all bowel movements on the graphic. urine culture report revealed contaminated specimen. Will consider cath specimen for repeat study. ( Patient not currently on antibiotics). Subjective Subjective Date/Time Seen: 08/31/21 13:28 Patient sitting in bed with head up an NG clamped when I entered the room. She denies nausea. Still having some pain and took morphine 1 or 2 hours ago. She had an episode of left chest pain extending into her left arm and therefore moved to IMU last night. This is improved now with nitro paste and she is on a heparin drip. Today's x-ray showed improvement in her bowel gas pattern and therefore we will clamp her NG and let her try clears. She did have 2 bowel movements yesterday. She is passing gas today with no bowel movement yet today. Nurse Chloe states that she is able to get up and walk per Cardiology. I would want her to walk and she knows it. Review of Systems Review of Systems: All systems reviewed & are unremarkable except as noted in HPI and below Constitutional: Constitutional: Reports as per HPI, Denies chills, Denies fever(s), Reports malaise and Reports poor appetite Eyes: Eyes: Reports no additional eye complaints ENT: Reports Normal hearing present and Denies dizziness Cardiovascular: Cardiovascular: Reports no additional cardiovascular complaints, Denies chest pain, Denies irregular heart rhythm and Denies dyspnea Respiratory: Respiratory: Reports no additional respiratory complaints, Reports no additional respiratory complaints and Denies dyspnea Gastrointestinal: Gastrointestinal: Reports as per HPI, Reports no addit
--- NOTE | 2021-08-31 14:37 | P.PNIM_ITS ---
Progress Note: A&P Assessment and Plan (1) Ileus, unspecified: Code(s): K56.7 - Ileus, unspecified Status: Suspected Assessment and Plan: Ileus vs small-bowel obstruction. * Appreciate general surgery consultation * Improving. Abdominal x-ray today showed nonobstructive bowel gas pattern * Patient is passing flatus and having bowel movements. Hx is more consistent with ileus * NG clamped. Started clear liquid diet and is tolerating well. Continue to advance diet per General surgery * Continue gentle IV fluid rehydration until tolerating diet (2) Crohn's disease: Qualifiers: Digestive disease complication type: unspecified complication Gastrointestinal tract location: unspecified location Qualified Code(s): K50.919 - Crohn's disease, unspecified, with unspecified complications Code(s): K50.90 - Crohn's disease, unspecified, without complications Status: Chronic Assessment and Plan: Diagnosed by serology 5+ years ago. * She is currently in between gastroenterologists and has a scheduled appoint with Dr. De La Cruz at the end of September. * Continue Solu-Medrol 40 mg q.8 hours. Increase in chronically elevated WBC noted. * GI consultation recommended per General Surgery. Appreciate recommendations (3) Chest pain: Code(s): R07.9 - Chest pain, unspecified Status: Acute Assessment and Plan: Patient with sudden onset of bilateral jaw pain radiating to the left chest, left shoulder, left arm with associated numbness in the hands * No EKG changes noted * Troponin elevated up to 1.67 * Started on heparin drip * Appreciate cardiology consultation * Begin nitropaste and IV Lopressor 5 mg q.8 hours * At this time will continue to monitor closely No cardiac intervention required at this time, however if chest pain returns will repeat EKG and Cardiology well be notified immediately * Pain has resolved at this time * Echocardiogram ordered and is pending (4) Elevated troponin: Code(s): R77.8 - Other specified abnormalities of plasma proteins Status: Acute Assessment and Plan: As above (5) Coronary artery disease: Code(s): I25.10 - Atherosclerotic heart disease of [place] coronary artery without angina pectoris Status: Inactive Assessment and Plan: Status post 4 vessel bypass in January 2021. * Patient with active chest pain last night and this morning. See above * Rectal aspirin ordered while NPO (6) Hypertension: Qualifiers: Hypertension type: essential hypertension Qualified Code(s): I10 - Essential (primary) hypertension Code(s): I10 - Essential (primary) hypertension Status: Chronic Assessment and Plan: Blood pressures reviewed and had been well controlled. Last night, patient became anxious and blood pressures have been elevated since. Last BP 183/68 * Oral antihypertensives on hold while NPO * P.r.n. hydralazine as needed for BP >170 systolic * Scheduled Lopressor 5 mg q.8 (7) Type 2 diabetes mellitus: Onset Date: Unknown Qualifiers: Diabetes mellitus detention insulin use: without intermediate project manager use Diabetes mellitus complication status: without complication Qualified Code(s): E11.9 - Type 2 diabetes mellitus without complications Code(s): E11.9 - Type 2 diabetes mellitus without complications Status: Chronic Assessment and Plan: A1c is 7.6 * Blood sugars reviewed and stable in the 180s today * She admits that she stopped taking Farxiga recently due to concerns for
--- NOTE | 2021-08-31 14:37 | PM.IMPN ---
Progress Note: A&P Assessment and Plan (1) Ileus, unspecified: Code(s): K56.7 - Ileus, unspecified Status: Suspected Assessment and Plan: Ileus vs small-bowel obstruction. Appreciate general surgery consultation Improving. Abdominal x-ray today showed nonobstructive bowel gas pattern Patient is passing flatus and having bowel movements. Hx is more consistent with ileus NG clamped. Started clear liquid diet and is tolerating well. Continue to advance diet per General surgery Continue gentle IV fluid rehydration until tolerating diet (2) Crohn's disease: Qualifiers: Digestive disease complication type: unspecified complication Gastrointestinal tract location: unspecified location Qualified Code(s): K50.919 - Crohn's disease, unspecified, with unspecified complications Code(s): K50.90 - Crohn's disease, unspecified, without complications Status: Chronic Assessment and Plan: Diagnosed by serology 5+ years ago. She is currently in between gastroenterologists and has a scheduled appoint with Dr. De La Cruz at the end of September. Continue Solu-Medrol 40 mg q.8 hours. Increase in chronically elevated WBC noted. GI consultation recommended per General Surgery. Appreciate recommendations (3) Chest pain: Code(s): R07.9 - Chest pain, unspecified Status: Acute Assessment and Plan: Patient with sudden onset of bilateral jaw pain radiating to the left chest, left shoulder, left arm with associated numbness in the hands No EKG changes noted Troponin elevated up to 1.67 Started on heparin drip Appreciate cardiology consultation Begin nitropaste and IV Lopressor 5 mg q.8 hours At this time will continue to monitor closely No cardiac intervention required at this time, however if chest pain returns will repeat EKG and Cardiology well be notified immediately Pain has resolved at this time Echocardiogram ordered and is pending (4) Elevated troponin: Code(s): R77.8 - Other specified abnormalities of plasma proteins Status: Acute Assessment and Plan: As above (5) Coronary artery disease: Code(s): I25.10 - Atherosclerotic heart disease of [place] coronary artery without angina pectoris Status: Inactive Assessment and Plan: Status post 4 vessel bypass in January 2021. Patient with active chest pain last night and this morning. See above Rectal aspirin ordered while NPO (6) Hypertension: Qualifiers: Hypertension type: essential hypertension Qualified Code(s): I10 - Essential (primary) hypertension Code(s): I10 - Essential (primary) hypertension Status: Chronic Assessment and Plan: Blood pressures reviewed and had been well controlled. Last night, patient became anxious and blood pressures have been elevated since. Last BP 183/68 Oral antihypertensives on hold while NPO P.r.n. 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 use: without intermediate use Diabetes mellitus complication status: without complication Qualified Code(s): E11.9 - Type 2 diabetes mellitus without complications Code(s): E11.9 - Type 2 diabetes mellitus without complications Status: Chronic Assessment and Plan: A1c is 7.6 Blood sugars reviewed and stable in the 180s today She admits that she stopped taking Farxiga recently due to concerns for pancreatitis Continue Accu-Cheks, sliding scale insulin, hypoglycemic protocol (8) Abnormal urinalysis: Code(s): R82.90 - Unspecified abnormal findings in urine Status: Acute Assessment and Plan: Urine looks contaminated and she gives no history to suggest underlying infection. She remains asymptomatic No indication for antibiotics at this time Urine culture showed mixed genital f
[2021-08-31 17:31] LABS: Add Urine Microscopic? YES; Appearance Urine Clear (Clear); Bacteria Urine Trace /hpf; Bilirubin Urine Negative (Negative); Blood Urine 1+ (Negative); Color Urine Yellow (Yellow); Glucose Urine UA 1+ mg/dL (Negative); Ketones Urine Negative (Negative); Leukocyte Esterase Ur Negative LEU/UL (Negative); Mucus Urine Rare /lpf; Nitrate Urine Negative (Negative); Protein Urine Negative (Negative); RBC Urine 21-50 /hpf (0-2); Specific Grav Ur 1.025 (1.001-1.035); Squamous Epithelial Cell Urine Rare /hpf (Few); Urobilinogen Urine Negative mg/dL (<2.0); WBC Urine 0-3 /hpf
[2021-08-31 17:32] LABS: Glucose Point of Care 214 mg/dl (65-105)
[2021-08-31 17:32] LABS: Glucose Point of Care 178 mg/dl (65-105)
[2021-08-31 17:52] LABS: Partial Thromboplastin Time 106.8 SECONDS (22.3-36.8)
[2021-08-31] MEDS: MAGNESIUM HYDROXIDE SUSP 30 ML UDC FEED TUBE (18:01)
[2021-08-31] MEDS: PANTOPRAZOLE SODIUM IV 40 MG VIAL IV PUSH (21:41)
[2021-08-31] MEDS: HEPARIN SOD/D5W 100 UNITS/ML 25,000 UNITS/250 ML BAG 11 UNITS IV CONT (21:42)
[2021-08-31] MEDS: NEOMYCIN/POLYMYXIN/BACITRACIN OINTMENT PACKET 1 PACKET (22:23)
[2021-09-01] VITALS (17 sets, daily range): BP systolic 148–162; BP diastolic 57–71; PULSE 57–90; RESP 12–18; TEMP 36.6–36.9; O2SAT 95–97
--- NOTE | 2021-09-01 | ECHO_ITS ---
Patient Info Name: Bianca Vee Age: 65 years : 1955 Gender: Female Ht: 64 in Wt: 186 lbs BSA: 1.98 m2 HR: 61 bpm BP: 148 / 57 mmHg Heart Rhythm: Sinus Rhythm Exam Date: 09/01/2021 9:05 AM Exam Location: [facility] Patient Status: Inpatient Admit Date: 08/30/2021 Staff Ordering Physician: Roger San MD Metal Buffer: Cole Simms, LORAINE, RT Attending Provider: Pawan Stafford MD Referring Physician: Mena DHALIWAL; Exam Type: CA echo doppler color flow Study Info Indications R06.02 - Shortness of breath Complete two-dimensional, color flow and Doppler transthoracic echocardiogram is performed with contrast to opacify the left ventricle and to improve the deliniation of the left ventricle endocardial borders. Summary 1. Normal left ventricular size, thickness systolic and diastolic function. 2. Mildly sclerotic aortic valve with no stenosis. 3. Small amount of pulmonic valve insufficiency. Left Ventricle Left ventricular chamber dimension is normal. Left ventricular systolic function is normal, estimated at 65-70%. The left ventricular diastolic function is normal. Right Ventricle Right ventricular chamber dimension is normal. Left Atria Left atrial chamber dimension is normal. Right Atria Right atrial chamber dimension is normal. Aortic Valve The aortic valve is trileaflet. There is mild aortic valve sclerosis. There is no aortic valve stenosis. Pulmonic Valve The pulmonic valve is normal. There is mild pulmonic regurgitation. Mitral Valve The mitral valve has normal leaflets. Tricuspid Valve The tricuspid valve leaflets are normal. Pericardium/Pleural The pericardium appears normal. Aorta The aortic root size at the sinus of Valsalva is normal. Left Ventricular Outflow Tract Name Value Normal LVOT 2D LVOT Diameter 2.0 cm LVOT Doppler LVOT Peak Gradient 2 mmHg LVOT Mean Gradient 1 mmHg LVOT VTI 20 cm LVOT VTI/AV VTI Ratio 0.6 LVOT Stroke Volume 65 ml LVOT CO 4.1 l/min LVOT CI 2.1 l/min/m2 Mitral Valve Name Value Normal MV Doppler MV Decel Grainger 227 cm/s2 MV PHT 97 ms MV Area (PHT) 2.3 cm2 4.0-5.0 MV Diastolic Function MV E Peak Velocity 76 cm/s MV A Peak Velocity 39 cm/s MV E/A 1.9 MV Decel Time 334 ms MV Annular TDI
[2021-09-01] MEDS: ONDANSETRON INJ 4 MG/2 ML VIAL IV PUSH (00:45)
[2021-09-01 01:07] LABS: Glucose Point of Care 162 mg/dl (65-105)
[2021-09-01] MEDS: NEOMYCIN/POLYMYXIN/BACITRACIN OINTMENT PACKET 1 PACKET (01:26)
[2021-09-01 05:53] LABS: Hematocrit 30.6 % (37.0-47.0); Hemoglobin 9.5 g/dL (12.0-15.0); Mean Corpuscular Hemoglobin 24.9 pg (26-34); Mean Corpuscular Volume 80.3 fl (80-100); Mean Platelet Volume 10.2 fl (7.4-10.4); Platelet Count Result 242 k/mm3 (150-375); Red Blood Count 3.81 M/mm3 (4.2-5.4); White Blood Count 15.2 K/mm3 (4.5-10.0)
[2021-09-01] MEDS: methylPREDNISolone SOD SUCC 40 MG VIAL IV PUSH ×2 (06:04→16:13)
[2021-09-01] MEDS: MORPHINE SULFATE (*CRX) 4 MG/ML INJ IV PUSH ×2 (06:04→22:43)
[2021-09-01] MEDS: METOPROLOL TARTRATE INJ 5 MG/5 ML VIAL IV PUSH ×3 (06:05→21:52)
[2021-09-01] MEDS: NITROGLYCERIN OINTMENT 1 INCH DOSE TRANSDERM ×2 (06:05→12:29)
[2021-09-01 06:07] LABS: Partial Thromboplastin Time 84.3 SECONDS (22.3-36.8)
[2021-09-01 06:09] LABS: Anion Gap 3 mmol/L (8-16); Blood Urea Nitrogen 21 mg/dL (7-17); Calcium 8.2 mg/dL (8.4-10.2); Carbon Dioxide 29 mmol/L (22-30); Chloride 103 mmol/L (98-107); Estimated CRCL calculation 64 ml/min; Estimated Glomerular Filt Rate > 60; Glucose 191 mg/dL (65-110); Magnesium 2.1 mg/dL (1.6-2.3); Potassium 4.2 mmol/L (3.4-5.0); Sodium 135 mmol/L (137-145)
[2021-09-01] MEDS: PANTOPRAZOLE SODIUM IV 40 MG VIAL IV PUSH ×2 (07:55→20:22)
[2021-09-01] MEDS: ASPIRIN 300 MG SUPPOSITORY RECTAL (07:56)
--- NOTE | 2021-09-01 09:54 | WPDGICN ---
Assessment and Plan Assessment and plan (1) Small bowel obstruction: Code(s): K56.609 - Unspecified intestinal obstruction, unspecified as to partial versus complete obstruction Status: Acute Assessment and Plan: Patient admitted with apparent small bowel obstruction. Although concern over possible ileus has also been raised. In the past patient was told that she may have had Crohn's disease. But this was an empiric diagnosis and not substantiated never completely defined. Plan at the present time is for conservative NG tube decompression. Surgical follow-up. Should her obstruction resolved in small-bowel follow-through would be indicated. Colonoscopy electively at a later date to evaluate for more definitive histology would be encouraged when feasible. This is not feasible while obstruction is present. Will proceed with obtaining his inflammatory bowel disease serology in an attempt to further clarify this presumptive diagnosis at present. 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 Patient previously followed by Dr. Ronny Hanks. She reports she was in her usual state of health began to have abdominal pain she describes in the upper abdomen. This prompted her to go to the emergency room on Wednesday evening. Patient states that she has had bowel obstruction on at least 2 previous occasions. And this felt very similar to previous episodes. Most recent episode 2019. She apparently was treated empirically for Crohn's disease. This may have been based on serology diagnosis. Apparently he failed to be confirmed endoscopically. She improved with broad-spectrum antibiotic treatment. Conservative NG tube decompression apparently was obtained at that time. She failed to follow up with Dr. Hanks after that discharge. She has not been on any medications for this presumed Crohn's disease. She states the diagnosis was very uncertain. Patient more recently has had quadruple coronary artery bypass graft performed in March of 2021. Since admission to the hospital she has been treated with NG tube decompression. She has had some chest pain and for this reason was placed on a heparin drip. NG tube currently reveals some dark maroonish return. Patient's family history is noncontributory. Review of Systems Review of Systems: All systems reviewed & are unremarkable except as noted in HPI and below PMFSH Past Medical History Medical History Anxiety Bowel obstruction Cerebrovascular accident With mild right-sided weakness. Coronary artery disease COVID-19 Crohn's disease Not biopsy proven, identified by lab work. Depression History of endometriosis Hyperlipidemia (Unknown) Hypertension Nephrolithiasis Obstructive sleep apnea Intolerant to CPAP Pancreatitis Post traumatic stress disorder Sweat gland carcinoma Left upper cheek, status post excision. Type 2 diabetes mellitus (Unknown) Surgical History Surgical History History of appendectomy History of cardiac catheterization Hi
[2021-09-01] MEDS: PERFLUTREN LIPID MICROSPHERES 1.5 ML VIAL DILUTED TO 10 ML TOTAL VOLUME IV PUSH (10:43)
[2021-09-01 12:19] LABS: Glucose Point of Care 202 mg/dl (65-105)
[2021-09-01] MEDS: SODIUM CHLORIDE 0.9% IV 1,000 ML 80 ML IV CONT (12:28)
[2021-09-01] MEDS: INSULIN ASPART (*BKC) 100 UNITS/ML SUB-Q (12:29)
--- NOTE | 2021-09-01 12:53 | PM.PNCARD ---
Progress Note: A&P Assessment and Plan (1) Elevated troponin: Code(s): R77.8 - Other specified abnormalities of plasma proteins Status: Acute Assessment and Plan: Patient had elevated troponin at admission and her troponin is still elevated. Repeat troponin yesterday continue to up trend (0.318, 0.309, 0.588, 1.670) Uncertain if this represents ACS or simply secondary to her underlying illness. She does report some very mild intermittent discomfort in her left upper chest/shoulder. Continue heparin Continue nitroglycerin paste Continue aspirin Continue metoprolol Talked to her regarding possibility of angiogram during this hospitalization. However, need to wait until SBO is resolved and is sure that patient does not need surgical intervention. Currently not having any angina. Continue with current treatment. (2) Chest pain: Code(s): R07.9 - Chest pain, unspecified Status: Acute Assessment and Plan: Atypical but nitrate responsive. Will continue nitroglycerin paste 1 in Q 6 hours. EKG does not show anything acute. Given her abdominal situation and the fact she is currently pain-free, will continue treat conservatively for now. As above. (3) CAD (coronary artery disease): Code(s): I25.10 - Atherosclerotic heart disease of [place] coronary artery without angina pectoris Status: Acute Assessment and Plan: Known history of CAD and bypass as detailed extensively in history above. (4) Abdominal pain: Code(s): R10.9 - Unspecified abdominal pain Status: Acute Assessment and Plan: Ileus versus bowel obstruction. Workup per surgery. GI is also involved in the case. Subjective Date/time seen: 09/01/21 12:53 Cardiology follow up for chest pain, positive troponin Feeling better today, very tired. She has less bloating but is complaining of nausea when she ambulates. She does have some very mild chest pain that the patient rates at a 1. Denies any shortness of breath. Review of Systems Review of Systems: All systems reviewed & are unremarkable except as noted in HPI and below Constitutional: Constitutional: Denies excessive sweating, Denies headache(s) and Reports weakness Eyes: Eyes: Denies blurry vision ENT: Reports Normal hearing present, Denies headache(s), Denies lip swelling and Denies neck pain Cardiovascular: Cardiovascular: Reports chest pain and Denies dyspnea Respiratory: Respiratory: Denies dyspnea Gastrointestinal: Gastrointestinal: Reports abdominal pain and Reports bloating Genitourinary: Genitourinary: Denies hematuria Musculoskeletal: Musculoskeletal: Denies neck pain Integumentary/Breasts: Skin/Breast: Denies dry skin Neurologic: Reports Normal hearing present, Denies headache(s) and Reports weakness Psychiatric: Psychiatric: Reports anxiety Endocrine: Endocrine: Denies excessive sweating Hematologic/Lymphatic: Hematologic/Lymphatic: Denies easy bleeding Allergic/Immunologic: Allergic/Immunologic: Denies lip swelling Exam Narrative: Awake alert. Appears stated age Const: General: comfortable and no acute distress HENMT: Other: NG in place Eyes: Sclera: sclerae normal Neck: Neck: supple and no JVD Chest: Other: Sternotomy incision is well healed Resp: Auscultation: clear to auscultation bilaterally Cardio: Rate: regular rate Rhythm: regular rhythm GI: Inspection: non-distended Skin: General skin exam: normal color Neuro: Cranial nerves: Yes Normal hearing present Cognition (Neuro): normal cognition Speech: normal speech Extrem: General: normal to inspection Psych: Mental Status: mental status grossly normal Affect: Anxious affect present Objective Data Vital Signs Vital Signs: Vital Signs - 24 hr 08/31/21 14:00 08/31/21 16:00 08/31/21 16:13 Temperature 36.1 C L Pulse Rate 67 75 Respiratory Rate 18 Blood Pressure 161/65 H Pulse Oximetry 96 96 08/31/21 18:00
--- NOTE | 2021-09-01 13:05 | PM.PNGS ---
Progress Note: A&P Assessment and Plan (1) Ileus, unspecified: Code(s): K56.7 - Ileus, unspecified Status: Suspected Assessment and Plan: Improving, patient moved her bowels last night and reports flatus today. Plain films of the abdomen yesterday showed a normal bowel gas pattern. She is still complaining of bloating and nausea with NG clamped. Will get Gastrografin small bowel follow through today. If there does not appear to be evidence of an obstruction, then we could remove the NG tube and start clear liquids. If she does have a high-grade small bowel obstruction, then we would have to consider surgical exploration. Continue NG tube decompression, IV fluids, and bowel rest for now. Continue IV steroids and treatment of possible Crohn's per GI. Plan for colonoscopy as an outpatient when feasible - patient wanting to establish care with a new Director [employer] after discharge. Encouraged patient to be up walking the halls a few times during the day. (2) Leukocytosis: Qualifiers: Leukocytosis type: unspecified Qualified Code(s): D72.829 - Elevated white blood cell count, unspecified Code(s): D72.829 - Elevated white blood cell count, unspecified Status: Acute Assessment and Plan: WBC down to 15,000 today. IV steroids likely contributing to leukocytosis. (3) History of CVA (cerebrovascular accident): Code(s): Z86.73 - Personal history of transient ischemic attack (TIA), and cerebral infarction without residual deficits Status: Acute Assessment and Plan: Stroke in 2008 and TIAs in 2009 and 2010 (4) Abnormal urinalysis: Code(s): R82.90 - Unspecified abnormal findings in urine Status: Acute Assessment and Plan: Repeat U/A yesterday was negative for nitrates and leukocytes with normal WBC. Not suggestive of urinary tract infection. (5) Chest pain: Code(s): R07.9 - Chest pain, unspecified Status: Acute Assessment and Plan: Atypical chest pain that responded to nitrates. No complaints of chest pain today. Cardiology following and recommendations noted. They will consider repeating EKG if chest pain returns. (6) Elevated troponin: Code(s): R77.8 - Other specified abnormalities of plasma proteins Status: Acute Assessment and Plan: Unclear if this is ACS or secondary to underlying illness. Cardiology following and recommendations noted. Additional Plan I have discussed the patient's case and plan of care with Dr. Solano. Subjective Subjective Date/Time Seen: 09/01/21 11:05 Patient reports: flatus, bowel movement and nausea Interval history: Patient seen and examined this morning. She reports having her NG tube clamped this morning about 1 hour before breakfast and she did develop some bloating and discomfort. She then had less than half of her clear liquid tray for breakfast and again had bloating discomfort and mild nausea. She has been put back to suction and only has less than 100 cc out of the NG tube. She reports nausea resolved but she still feels bloated. There was 500 cc documented output from NG overnight. She is passing gas today and had a large BM overnight. She reports other than the discomfort of the bloating, she is not having any significant abdominal pain. Denies chest pain or shortness of breath. She was able to get up and walk the halls once yesterday, but has not been up yet today. Review of Systems Review of Systems: All systems reviewed & are unremarkable except as noted in HPI and below Exam Const: General: comfortable, no acute distress and alert Orientation/consciousness: patient oriented x3 GI: Inspection: other (mildly distended) GI Palp: Yes Soft to palpation, Yes Tenderness to palpation present (GI) (mild tenderness in epigastric area and LUQ), No Guarding due to palpation present (GI), No Rigid due to palpation and No Rebound tenderness present Auscultation: normal bowel sound
--- NOTE | 2021-09-01 16:01 | P.PNIM_ITS ---
Progress Note: A&P Assessment and Plan (1) Ileus, unspecified: Code(s): K56.7 - Ileus, unspecified Status: Suspected Assessment and Plan: Ileus vs small-bowel obstruction. * Appreciate general surgery consultation * Improving. Abdominal x-ray yesterday showed nonobstructive bowel gas pattern * Patient is passing flatus and having bowel movements. Hx is more consistent with ileus * Completed small-bowel follow-through today * NG to be removed today per General surgery recommendations * Continue clear liquid diet. Continue to advance diet per General surgery * Will discontinue IV fluids as patient is tolerating clears (2) Crohn's disease: Qualifiers: Digestive disease complication type: unspecified complication Gastrointestinal tract location: unspecified location Qualified Code(s): K50.919 - Crohn's disease, unspecified, with unspecified complications Code(s): K50.90 - Crohn's disease, unspecified, without complications Status: Chronic Assessment and Plan: Diagnosed by serology 5+ years ago. * She is currently in between gastroenterologists and has a scheduled appointment with Dr. De La Cruz at the end of September. * Will discontinue IV steroids at this time * Appreciate gastroenterology consultation. Repeat serology has been collected and she will need outpatient elective colonoscopy (3) Chest pain: Code(s): R07.9 - Chest pain, unspecified Status: Acute Assessment and Plan: 08/30/21 developed sudden onset of bilateral jaw pain radiating to the left chest, left shoulder, left arm with associated numbness in the hands * No EKG changes noted * Troponin elevated up to 1.67 * Appreciate cardiology consultation * Continue heparin drip, nitro paste, aspirin, metoprolol * Consider angiogram pending surgical clearance from ileus * At this time will continue to monitor closely. No cardiac intervention required at this time, however if chest pain returns will repeat EKG and Cardiology well be notified immediately * Pain has resolved at this time * Echocardiogram completed 321 without any evidence of wall motion abnormality (4) Elevated troponin: Code(s): R77.8 - Other specified abnormalities of plasma proteins Status: Acute Assessment and Plan: As above (5) Coronary artery disease: Code(s): I25.10 - Atherosclerotic heart disease of [place] coronary artery without angina pectoris Status: Inactive Assessment and Plan: Status post 4 vessel bypass in January 2021. * Patient with active chest pain on 08/30. See above. * Resume PO aspirin 81 mg daily (6) Hypertension: Qualifiers: Hypertension type: essential hypertension Qualified Code(s): I10 - Essential (primary) hypertension Code(s): I10 - Essential (primary) hypertension Status: Chronic Assessment and Plan: Blood pressures reviewed and have been slightly elevated. Last BP 161/60 * Resume home losartan 50 mg daily * Scheduled Lopressor 5 mg q.8 (7) Type 2 diabetes mellitus: Onset Date: Unknown Qualifiers: Diabetes mellitus complication status: without complication Diabetes mellitus half-way insulin use: without emt intermediate use Qualified Code(s): E11.9 - Type 2 diabetes mellitus without complications Code(s): E11.9 - Type 2 diabetes mellitus without complications Status: Chronic Assessment and Plan: A1c is 7.6 * She admits that she stopped taking Farxiga recently due to concerns for pancreatitis * Continue
--- NOTE | 2021-09-01 16:01 | PM.IMPN ---
Progress Note: A&P Assessment and Plan (1) Ileus, unspecified: Code(s): K56.7 - Ileus, unspecified Status: Suspected Assessment and Plan: Ileus vs small-bowel obstruction. Appreciate general surgery consultation Improving. Abdominal x-ray yesterday showed nonobstructive bowel gas pattern Patient is passing flatus and having bowel movements. Hx is more consistent with ileus Completed small-bowel follow-through today NG to be removed today per General surgery recommendations Continue clear liquid diet. Continue to advance diet per General surgery Will discontinue IV fluids as patient is tolerating clears (2) Crohn's disease: Qualifiers: Digestive disease complication type: unspecified complication Gastrointestinal tract location: unspecified location Qualified Code(s): K50.919 - Crohn's disease, unspecified, with unspecified complications Code(s): K50.90 - Crohn's disease, unspecified, without complications Status: Chronic Assessment and Plan: Diagnosed by serology 5+ years ago. She is currently in between gastroenterologists and has a scheduled appointment with Dr. De La Cruz at the end of September. Will discontinue IV steroids at this time Appreciate gastroenterology consultation. Repeat serology has been collected and she will need outpatient elective colonoscopy (3) Chest pain: Code(s): R07.9 - Chest pain, unspecified Status: Acute Assessment and Plan: 08/30/21 developed sudden onset of bilateral jaw pain radiating to the left chest, left shoulder, left arm with associated numbness in the hands No EKG changes noted Troponin elevated up to 1.67 Appreciate cardiology consultation Continue heparin drip, nitro paste, aspirin, metoprolol Consider angiogram pending surgical clearance from ileus At this time will continue to monitor closely. No cardiac intervention required at this time, however if chest pain returns will repeat EKG and Cardiology well be notified immediately Pain has resolved at this time Echocardiogram completed 321 without any evidence of wall motion abnormality (4) Elevated troponin: Code(s): R77.8 - Other specified abnormalities of plasma proteins Status: Acute Assessment and Plan: As above (5) Coronary artery disease: Code(s): I25.10 - Atherosclerotic heart disease of [place] coronary artery without angina pectoris Status: Inactive Assessment and Plan: Status post 4 vessel bypass in January 2021. Patient with active chest pain on 08/30. See above. Resume PO aspirin 81 mg daily (6) Hypertension: Qualifiers: Hypertension type: essential hypertension Qualified Code(s): I10 - Essential (primary) hypertension Code(s): I10 - Essential (primary) hypertension Status: Chronic Assessment and Plan: Blood pressures reviewed and have been slightly elevated. 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 She remains asymptomatic No indication for antibiotics Urine culture showed mixed genit
[2021-09-01 16:48] LABS: Glucose Point of Care 149 mg/dl (65-105)
[2021-09-01 20:06] LABS: Glucose Point of Care 197 mg/dl (65-105)
[2021-09-02] VITALS (32 sets, daily range): BP systolic 130–187; BP diastolic 65–89; PULSE 48–95; RESP 14–20; TEMP 36.1–36.8; O2SAT 92–98
[2021-09-02] MEDS: NITROGLYCERIN OINTMENT 1 INCH DOSE TRANSDERM (01:37)
[2021-09-02 05:30] LABS: Hematocrit 31.7 % (37.0-47.0); Hemoglobin 9.8 g/dL (12.0-15.0); Mean Corpuscular HGB Conc 30.9 g/dl (32-36); Mean Corpuscular Hemoglobin 25.6 pg (26-34); Mean Corpuscular Volume 82.8 fl (80-100); Mean Platelet Volume 10.3 fl (7.4-10.4); Platelet Count Result 228 k/mm3 (150-375); Red Blood Count 3.83 M/mm3 (4.2-5.4); Red Cell Distribution Width 16.7 % (11.5-14.5); White Blood Count 14.7 K/mm3 (4.5-10.0)
[2021-09-02 05:43] LABS: Partial Thromboplastin Time 64.1 SECONDS (22.3-36.8)
[2021-09-02 05:49] LABS: Anion Gap 2 mmol/L (8-16); Blood Urea Nitrogen 19 mg/dL (7-17); Calcium 8.5 mg/dL (8.4-10.2); Carbon Dioxide 29 mmol/L (22-30); Chloride 104 mmol/L (98-107); Estimated CRCL calculation 64 ml/min; Estimated Glomerular Filt Rate > 60; Glucose 149 mg/dL (65-110); Potassium 3.8 mmol/L (3.4-5.0); Sodium 135 mmol/L (137-145)
--- NOTE | 2021-09-02 06:31 | PC.NURSE ---
Pt is bradycardic HR 45-[address] Valorie Hernández informed via telephone and ordered to hold Metoprolol 5mg IV push and transdermal Nitroglycerin 1 inch until furthur notice. Informed Dr. Hernández that I will update AM shift RN on orders to hold medications and to follow up on patients status with attending physcian.
[2021-09-02 08:20] LABS: Glucose Point of Care 123 mg/dl (65-105)
--- NOTE | 2021-09-02 09:10 | PM.PNCARD ---
Progress Note: A&P Assessment and Plan (1) Elevated troponin: Code(s): R77.8 - Other specified abnormalities of plasma proteins Status: Acute Assessment and Plan: Patient had elevated troponin at admission and her troponin is still elevated. Repeat troponin yesterday continue to up trend (0.318, 0.309, 0.588, 1.670) Uncertain if this represents ACS or simply secondary to her underlying illness. She does report some very mild intermittent discomfort in her left upper chest/shoulder. Continue heparin D/c nitro paste. SL nitro PRN Continue aspirin Continue metoprolol Talked to her regarding possibility of angiogram this afternoon. She has a lot of anxiety surrounding this and is wanting to wait until tomorrow so her can be here. She has an iodine allergy that causes shortness of breath and puffiness - she will need to be pretreated. Currently not having any angina. Continue with current treatment. (2) Chest pain: Code(s): R07.9 - Chest pain, unspecified Status: Acute Assessment and Plan: Atypical but nitrate responsive. Will continue nitroglycerin paste 1 in Q 6 hours. No acute changes on EKG. As above. (3) CAD (coronary artery disease): Code(s): I25.10 - Atherosclerotic heart disease of [place] coronary artery without angina pectoris Status: Acute Assessment and Plan: Known history of CAD and bypass as detailed extensively in history above. (4) Abdominal pain: Code(s): R10.9 - Unspecified abdominal pain Status: Acute Assessment and Plan: Ileus versus bowel obstruction. Workup per surgery. GI is also involved in the case. Subjective Date/time seen: 09/02/21 09:10 Cardiology follow up for chest pain, positive troponin Feeling some abdominal bloating but no pain. Feeling relieved that her NG tube is out. Denying any chest pain today. Feeling overwhelmed and anxious. Review of Systems Review of Systems: All systems reviewed & are unremarkable except as noted in HPI and below Constitutional: Constitutional: Denies excessive sweating, Denies headache(s) and Reports weakness Eyes: Eyes: Denies blurry vision ENT: Reports Normal hearing present, Denies headache(s), Denies lip swelling and Denies neck pain Cardiovascular: Cardiovascular: Reports chest pain and Denies dyspnea Respiratory: Respiratory: Denies dyspnea Gastrointestinal: Gastrointestinal: Reports abdominal pain and Reports bloating Genitourinary: Genitourinary: Denies hematuria Musculoskeletal: Musculoskeletal: Denies neck pain Integumentary/Breasts: Skin/Breast: Denies dry skin Neurologic: Reports Normal hearing present, Denies headache(s) and Reports weakness Psychiatric: Psychiatric: Reports anxiety Endocrine: Endocrine: Denies excessive sweating Hematologic/Lymphatic: Hematologic/Lymphatic: Denies easy bleeding Allergic/Immunologic: Allergic/Immunologic: Denies lip swelling Exam Narrative: Awake alert. Appears stated age Const: General: comfortable and no acute distress Eyes: Sclera: sclerae normal Neck: Neck: supple and no JVD Chest: Other: Sternotomy incision is well healed Resp: Auscultation: clear to auscultation bilaterally Cardio: Rate: regular rate Rhythm: regular rhythm GI: Inspection: non-distended GI Palp: Yes Soft to palpation Auscultation: Hypoactive bowel sounds present Skin: General skin exam: normal color Neuro: Cranial nerves: Yes Normal hearing present Cognition (Neuro): normal cognition Speech: normal speech Extrem: General: normal to inspection Psych: Mental Status: mental status grossly normal Affect: Anxious affect present Objective Data Vital Signs Vital Signs: Vital Signs - 24 hr 09/01/21 10:00 09/01/21 12:00 09/01/21 14:00 Temperature 36.6 C Pulse Rate 60 57 L 90 Respiratory Rate 12 Blood Pressure 161/60 H Pulse Oximetry 97 09/01/21 16:00 09/01/21 16:13 09/01/21
[2021-09-02] MEDS: MAGNESIUM 13.5 MG TABLET (250 MG MAG GLUCONATE) PO (09:12)
[2021-09-02] MEDS: ASPIRIN 81 MG CHEWABLE TABLET PO (09:12)
[2021-09-02] MEDS: LOSARTAN POTASSIUM 50 MG TABLET PO (09:12)
[2021-09-02] MEDS: PANTOPRAZOLE SODIUM IV 40 MG VIAL IV PUSH ×2 (09:12→20:34)
--- NOTE | 2021-09-02 10:58 | P.PNIM_ITS ---
Progress Note: A&P Assessment and Plan (1) Ileus, unspecified: Code(s): K56.7 - Ileus, unspecified Status: Resolved Assessment and Plan: Resolved. Ileus vs small-bowel obstruction. * Appreciate general surgery consultation * Improving. Abdominal x-ray yesterday showed nonobstructive bowel gas pattern * Patient is passing flatus and having bowel movements. Hx is more consistent with ileus * Completed small-bowel follow-through on 09/01 which showed normal transit time from stomach to proximal colon * NG discontinued on 09/01 * She was tolerating clear liquids. She is now NPO for angiogram * Diet will be advanced following procedure to full liquids and then low-fiber (2) Crohn's disease: Qualifiers: Digestive disease complication type: unspecified complication Gastrointestinal tract location: unspecified location Qualified Code(s): K50.919 - Crohn's disease, unspecified, with unspecified complications Code(s): K50.90 - Crohn's disease, unspecified, without complications Status: Chronic Assessment and Plan: Diagnosed by serology 5+ years ago. * She is currently in between gastroenterologists. She had an appointment scheduled with Dr. 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 * IV steroids discontinued 09/01. Chronically elevated WBC trending down. * She was seen in consultation by gastroenterology and repeat serology is pending. She will need outpatient elective colonoscopy. (3) Chest pain: Code(s): R07.9 - Chest pain, unspecified Status: Acute Assessment and Plan: 08/30/21 developed sudden onset of bilateral jaw pain radiating to the left chest, left shoulder, left arm with associated numbness in the hands * No EKG changes noted * Troponin elevated up to 1.67 * Appreciate cardiology consultation * Continue heparin drip,, aspirin, metoprolol, p.r.n. nitro * Planning for angiogram today. Patient will require pretreatment due to history of iodine allergy * Pain has resolved at this time * Echocardiogram completed 09/01 without any evidence of wall motion abnormality (4) Elevated troponin: Code(s): R77.8 - Other specified abnormalities of plasma proteins Status: Acute Assessment and Plan: As above (5) Coronary artery disease: Code(s): I25.10 - Atherosclerotic heart disease of [place] coronary artery without angina pectoris Status: Inactive Assessment and Plan: Status post 4 vessel bypass in January 2021. * Patient with active chest pain on 08/30. See above. * Continue PO aspirin 81 mg daily * Patient is established with irrigator overhead at [facility] (6) Hypertension: Qualifiers: Hypertension type: essential hypertension Qualified Code(s): I10 - Essential (primary) hypertension Code(s): I10 - Essential (primary) hypertension Status: Chronic Assessment and Plan: Blood pressures reviewed and have been slightly elevated. Last BP 173/70 prior to receiving antihypertensives * Continue home losartan 50 mg daily * Metoprolol 25 mg p.o. b.i.d. (7) Type 2 diabetes mellitus: Onset Date: Unknown Qualifiers: Diabetes mellitus shelter insulin use: without shelter use Diabetes mellitus complication status: without complication Qualified Code(s): E11.9 - Type 2 diabetes mellitus without complications Code(s): E11.9 - Type 2 diabetes mellitus without complications Status: Chronic Assessment and Plan: A1c is 7.6 *
--- NOTE | 2021-09-02 10:58 | PM.IMPN ---
Progress Note: A&P Assessment and Plan (1) Ileus, unspecified: Code(s): K56.7 - Ileus, unspecified Status: Resolved Assessment and Plan: Resolved. Ileus vs small-bowel obstruction. Appreciate general surgery consultation Improving. Abdominal x-ray yesterday showed nonobstructive bowel gas pattern Patient is passing flatus and having bowel movements. Hx is more consistent with ileus Completed small-bowel follow-through on 09/01 which showed normal transit time from stomach to proximal colon NG discontinued on 09/01 She was tolerating clear liquids. She is now NPO for angiogram Diet will be advanced following procedure to full liquids and then low-fiber (2) Crohn's disease: Qualifiers: Digestive disease complication type: unspecified complication Gastrointestinal tract location: unspecified location Qualified Code(s): K50.919 - Crohn's disease, unspecified, with unspecified complications Code(s): K50.90 - Crohn's disease, unspecified, without complications Status: Chronic Assessment and Plan: Diagnosed by serology 5+ years ago. She is currently in between gastroenterologists. She had an appointment scheduled with Dr. De La Cruz but now states her PCP is referring her to a dairy grazer at [facility]. IV steroids discontinued 09/01. Chronically elevated WBC trending down. She was seen in consultation by gastroenterology and repeat serology is pending. She will need outpatient elective colonoscopy. (3) Chest pain: Code(s): R07.9 - Chest pain, unspecified Status: Acute Assessment and Plan: 08/30/21 developed sudden onset of bilateral jaw pain radiating to the left chest, left shoulder, left arm with associated numbness in the hands No EKG changes noted Troponin elevated up to 1.67 Appreciate cardiology consultation Continue heparin drip,, aspirin, metoprolol, p.r.n. nitro Planning for angiogram today. Patient will require pretreatment due to history of iodine allergy Pain has resolved at this time Echocardiogram completed 09/01 without any evidence of wall motion abnormality (4) Elevated troponin: Code(s): R77.8 - Other specified abnormalities of plasma proteins Status: Acute Assessment and Plan: As above (5) Coronary artery disease: Code(s): I25.10 - Atherosclerotic heart disease of [place] coronary artery without angina pectoris Status: Inactive Assessment and Plan: Status post 4 vessel bypass in January 2021. Patient with active chest pain on 08/30. See above. Continue PO aspirin 81 mg daily Patient is established with brim greaser operator at [facility] (6) Hypertension: Qualifiers: Hypertension type: essential hypertension Qualified Code(s): I10 - Essential (primary) hypertension Code(s): I10 - Essential (primary) hypertension Status: Chronic Assessment and Plan: Blood pressures reviewed and have been slightly elevated. Last BP 173/70 prior to receiving antihypertensives Continue home losartan 50 mg daily Metoprolol 25 mg p.o. b.i.d. (7) Type 2 diabetes mellitus: Onset Date: Unknown Qualifiers: Diabetes mellitus terminal carman insulin use: without halfway use Diabetes mellitus complication status: without complication Qualified Code(s): E11.9 - Type 2 diabetes mellitus without complications Code(s): E11.9 - Type 2 diabetes mellitus without complications Status: Chronic Assessment and Plan: A1c is 7.6 She admits that she stopped taking Farxiga recently due to concerns for pancreatitis Continue Accu-Cheks, moderate dose sliding scale insulin, hypoglycemic protocol Home glyburide-metformin is on hold (8) Abnormal urinalysis: Code(s): R82.90 - Unspecified abnormal findings in urine Status: Acute Assessment and Plan: Urine looks contaminated and she gives no history to suggest underlying infe
--- NOTE | 2021-09-02 11:55 | PM.PNGS ---
Progress Note: A&P Assessment and Plan (1) Ileus, unspecified: Code(s): K56.7 - Ileus, unspecified Status: Resolved Assessment and Plan: Improving, patient moved her bowels last night and reports a BM & flatus today. small-bowel follow-through yesterday showed no signs of obstruction with dye making it to the colon in a normal time. IV steroids and treatment of possible Crohn's stopped appropriately by hospitalist yesterday after the upper GI/SBFT study was normal. However, because of a dye allergy patient may have a restarted as a pre treatment for her possible angiogram today. I check with the nurse and last dose was at 4:15 p.m. yesterday. Plan for colonoscopy as an outpatient when feasible - patient wanting to establish care with a new Ice Cream Van Vendor after discharge And I discussed with her the importance of obtaining the previous IBD panel from 2 years ago and the 1 and sent yesterday on a blood draw. She should take these results with her to her new car blaster helper when a discuss further workup. ( of note yesterday's small-bowel follow-through showed no specific signs on radiology testing of any ileal inflammation or mucosal abnormalities to suggest Crohn's at this particular moment in time. Encouraged patient to be up walking the halls a few times during the day. When okay with other services we will begin advancing her diet starting with full liquids today since she tolerated clears last evening for supper. (2) Leukocytosis: Qualifiers: Leukocytosis type: unspecified Qualified Code(s): D72.829 - Elevated white blood cell count, unspecified Code(s): D72.829 - Elevated white blood cell count, unspecified Status: Acute Assessment and Plan: WBC down to 14,000 today. IV steroids likely contributing to leukocytosis. (3) History of CVA (cerebrovascular accident): Code(s): Z86.73 - Personal history of transient ischemic attack (TIA), and cerebral infarction without residual deficits Status: Acute Assessment and Plan: Lacunar Stroke in 2008 and TIAs in 2009 and 2010 (4) Abnormal urinalysis: Code(s): R82.90 - Unspecified abnormal findings in urine Status: Acute Assessment and Plan: Repeat (str cath) U/A yesterday was negative for nitrates and leukocytes with normal WBC. Not suggestive of urinary tract infection. (5) Chest pain: Code(s): R07.9 - Chest pain, unspecified Status: Acute Assessment and Plan: Atypical chest pain that responded to nitrates. No complaints of chest pain today. Cardiology following and recommendations noted. They will consider repeating EKG if chest pain returns And in view of her current clinical picture and elevated troponins are apparently considering a coronary angiogram later today or tomorrow. (6) Elevated troponin: Code(s): R77.8 - Other specified abnormalities of plasma proteins Status: Acute Assessment and Plan: Unclear if this is ACS or secondary to underlying illness. Cardiology following and recommendations noted. Additional Plan I have discussed the patient's case and plan of care with the cardiology team. Subjective Subjective Date/Time Seen: 09/02/21 11:56 Patient is sitting up in bed when I entered the room. She denies any nausea or vomiting. Denies abdominal pain today. She had a loose stool at approximately 9:30 a.m. this morning and several yesterday afternoon after the small-bowel follow-through. When okay with other services we will begin advancing her diet starting with full liquids today since she tolerated clears last evening for supper. Review of Systems Review of Systems: All systems reviewed & are unremarkable except as noted in HPI and below Constitutional: Constitutional: Reports as per HPI, Denies chills, Denies fever(s), Reports malaise and Reports poor appetite Eyes: Eyes: Reports no additional eye complaints ENT: Reports
[2021-09-02 12:32] LABS: Glucose Point of Care 129 mg/dl (65-105)
[2021-09-02] MEDS: predniSONE 40 MG, predniSONE 10 MG 50 MG PO (13:06)
[2021-09-02] MEDS: ACETAMINOPHEN 325 MG TABLET 650 MG PO (13:06)
--- NOTE | 2021-09-02 13:26 | WPDMODSED ---
Moderate Sedation Note-Pt Data Patient Data Diagnosis: coronary artery disease with previous CABG Present Complaint: chest pain earlier in this hospitalization Procedure to be performed/Plan: left heart catheterization with bypass graft examination Allergies Allergy/AdvReac Type Severity Reaction Status Date / Time clopidogrel Allergy Severe Muscle Verified 08/29/21 15:35 Spasms adhesive Allergy Unknown Rash Verified 08/29/21 15:35 amoxicillin Allergy Unknown Rash Verified 08/29/21 15:35 cefazolin Allergy Unknown Unknown Verified 08/29/21 15:35 Cephalosporins Allergy Unknown Unknown Verified 08/29/21 15:35 cephradine Allergy Unknown Unknown Verified 08/29/21 15:35 codeine Allergy Unknown Rash Verified 08/29/21 15:35 duloxetine Allergy Unknown Unknown Verified 08/29/21 15:35 hydromorphone Allergy Unknown Itching Verified 08/29/21 15:35 iodine Allergy Unknown Unknown Verified 08/29/21 15:35 lorazepam Allergy Unknown Unknown Verified 06/15/20 00:18 meperidine Allergy Unknown Unknown Verified 06/15/20 00:18 Penicillins Allergy Unknown Unknown Verified 06/15/20 00:18 phenytoin Allergy Unknown Unknown Verified 06/15/20 00:18 Mriuuwl-HSS-FxO Reductase Allergy Unknown MUSCLE Verified 06/15/20 00:18 Inhibitor WEAKNESS/CRAMPING [Wsleyby-Bxz-Wiy Reductase Inhibitor] Sulfa (Sulfonamide Allergy Unknown Rash Verified 08/29/21 15:34 Antibiotics) sulfanilamide Allergy Unknown Unknown Verified 06/15/20 00:18 tramadol Allergy Unknown Itching Verified 06/15/20 00:18 oxycodone Allergy Unknown Verified 08/29/21 15:33 Contrast Media Allergy Unknown Dyspnea / Uncoded 04/27/19 13:30 SOB Home Medications Medication Instructions Recorded Confirmed Type bupropion HCl 150 mg PO DAILY 10/22/19 08/29/21 History cholecalciferol (vitamin D3) 25 mcg PO BID 10/22/19 08/29/21 History [Vitamin D3] coQ10 (ubiquinol) 100 mg PO DAILY 10/22/19 08/29/21 History magnesium 250 mg PO DAILY 10/22/19 08/29/21 History pantoprazole 40 mg PO QAM 10/22/19 08/29/21 History valacyclovir [Valtrex] 1,000 mg PO DAILY PRN 10/22/19 08/29/21 History aspirin 81 mg PO DAILY 06/17/21 08/29/21 History glyburide-metformin 1 tablet PO DAILY 06/17/21 08/29/21 History losartan 50 mg PO DAILY 06/17/21 08/29/21 History Current Medications: Active Medications Acetaminophen (Acetaminophen 325 Mg Tablet) 650 mg PO Q4H PRN PRN Reason: Mild Pain (1-3) or Fever Last Admin: 09/02/21 13:06 Dose: 650 mg Documented by: Hydrocodone Bitart/Acetaminophen (Hydrocodone/Acetaminophen (*Crx) 5-325 Mg Tablet) 1 tab PO Q6H PRN PRN Reason: Pain Rated 4-6 Aspirin (Aspirin 81 Mg Chewable Tablet) 81 mg PO DAILY NICHOLAS Last Admin: 09/02/21 09:12 Dose: 81 mg Documented by: Dextrose (Dextrose 50% 25 Gm/50 Ml Syringe) 12.5 gm IV PUSH PRN PRN; Protocol PRN Reason: Hypoglycemia Diclofenac Sodium (Diclofenac Sodium 1% 100 Gm Gel (*Bkc)) 1 applic TOPICAL QID PRN PRN Reason: right knee pain Glucagon (Glucagon For Inj 1 Mg Vial) 1 mg IM PRN PRN; Protocol PRN Reason: Hypoglycemia Glucose (Glucose Oral Gel 15 Gm Of Glucse In 37.5 Gm Tube) 15 gm PO PRN PRN; Protocol PRN Reason: Hypoglycemia Heparin Sodium (Porcine) (Heparin Sodium 5,000 Units/Ml Vial) 4,000 units IV PUSH PRN PRN PRN Reason: aPTT less than 55 seconds Last Admin: 08/31/21 05:06 Dose: 4,000 units Documented by: Heparin Sodium (Porcine) (Heparin Sodium 5,000 Units/Ml Vial) 2,500 units IV PUSH PRN PRN PRN Reason: aPTT 55 - 70 seconds Last Admin: 08/31/21 11:38 Dose: 2,500 units Documented by: Hydralazine HCl (Hydralazine Hcl 20 Mg/Ml Vial) 10 mg IV PUSH Q8H PRN PRN Reason: Systolic BP >170 Last Admin: 08/30/21 20:31 Dose: 10 mg Documented by: Dextrose (Dextrose 5% 1,000 Ml) 1,000 mls @ 100 mls/hr IVPB PRN PRN; Protocol PRN Reason: Hypoglycemia Heparin Sodium/Dextrose (Heparin Sodium/D5w 100 Units/Ml) 25,000 units in 250 mls @ 12 mls/hr IV CONT .[id number] NICHOLAS; Protocol Last Titration: 09/02/21 07
[2021-09-02 14:05] LABS: Partial Thromboplastin Time 69.2 SECONDS (22.3-36.8)
[2021-09-02] MEDS: diphenhydrAMINE HCl INJ 50 MG/ML VIAL IV PUSH (14:50)
--- NOTE | 2021-09-02 14:53 | WPDCARDPROC ---
Cardiac Cath Procedure Note Date of procedure:: 09/02/21 Performing physician:: Teodoro Christopher MD Indication:: acute coronary syndrome Brief clinical history:: this is a 65-year-old woman known to have multivessel coronary disease with previous bypass grafting. She was hospitalized here with abdominal pain and a small bowel obstruction. In that setting some chest pain occurred with a mild troponin rise. Because of this incident a angiogram follow-up has been recommend. Procedure Procedure performed:: left ventriculogram coronary angiogram radial artery graft angiogram internal mammary graft angiogram Sedation/Medication given:: fentanyl 50 mg Versed 2 mg case start time 2:14 p.m. case end time 2:45 p.m. sedation provided by Jovan Grubbs RN, trained observer Access site:: right femoral artery Estimated blood loss:: 20-25 cc Procedure note:: patient was brought to the cardiac catheterization lab in the post absorptive state. The right femoral triangle was prepared and draped in the fashion. Anesthesia was provided with 1% lidocaine infiltrated locally. Using the modified Seldinger technique a 5 Slov[place] femoral artery and then left heart catheterization was carried out. I used a 5 [place] angled pigtail catheter to measure left-sided hemodynamics as well as to inject left ventriculogram 30 degree CARD projection. After this the pigtail catheter was withdrawn. I then used a 5 [place] FL4 catheter to engage and inject the washoe right coronary artery multiple projections. A 5 [place] FR4 catheter was used to engage inject the right artery as well as a radial artery graft to the OM. The same catheter was used to inject ORTIZ graft to the LAD. Following this the cineangiograms were the case was terminated. An angiogram was done of the femoral artery through the sheath which was determined I would have sheath removed with direct manual compression. The patient did receive IV labetalol in the crime laboratory analyst as well as IV hydralazine for treatment of hypertension prior to sheath removal. There were no signs of A groin hematoma upon leaving the crime laboratory analyst. Findings:: hemodynamics: Central aortic pressure is 226 over 96 left ventricle 226/0 end-diastolic 16. No gradient on pullback across the aortic valve. Left ventricle: The LV is of normal size. Anterior wall is mildly hypodynamic the inferior wall is moderately hypodynamic the global ejection fraction I would air quality specialist to be about 40-45%. The left main coronary artery is moderate caliber and patent the left anterior descending is medium caliber vessel it is severely diffusely disease. The 1st major diagonal branch appears to be totally occluded. Shortly after this the LAD is totally occluded self with no antegrade past the midportion. It is diffusely disease proximal to this as well. The circumflex is all moderate to large caliber vessel with a proximal OM1 branch that is moderate to large in caliber and free of significant disease. There is a 90% stenosis in the circumflex trunk prior to this OM 1. Competitive filling can be seen distal to this presumably from a graft into a more distal marginal branch. The right coronary artery is large in caliber and dominant to the posterior circulation. The entire right coronary artery is severely diffusely disease. Proximally there is 80-90% stenosis there is approximately 90% stenosis in the midportion severe diffuse disease in the 3rd portion as well. The RPDA and RPL branches are small and mildly diffusely disease. I do not see any competitive filling in any of these branches. Selective injection of the left internal mammary shows that it is a medium caliber JEET. It proximally is free of disease it is anastomosis into the mid LAD is patent. The LAD from the midportion distal to this is severely diffusely diseased with at least 80% stenosis distal to the JEET anastomosis. Injection of the radial graft appears to be nicely p
--- NOTE | 2021-09-02 15:37 | PC.NURSE ---
Cardiopulmonary Rehab Services flyer was given to patient.
[2021-09-02] MEDS: SODIUM CHLORIDE 0.9% IV 1,000 ML 125 ML IV CONT (17:56)
[2021-09-02 18:41] LABS: Glucose Point of Care 303 mg/dl (65-105)
[2021-09-02] MEDS: INSULIN ASPART (*BKC) 100 UNITS/ML SUB-Q (19:02)
[2021-09-02 20:15] LABS: Glucose Point of Care 329 mg/dl (65-105)
[2021-09-02] MEDS: METOPROLOL TARTRATE 25 MG TABLET PO (20:34)
[2021-09-02 22:17] LABS: Glucose Point of Care 255 mg/dl (65-105)
[2021-09-02] MEDS: DICLOFENAC SODIUM 1% 100 GM GEL (*BKC) 1 APPLIC TOPICAL (22:27)
[2021-09-03] VITALS (13 sets, daily range): BP systolic 144–177; BP diastolic 68–89; PULSE 62–83; RESP 16–20; TEMP 36.1–37.1; O2SAT 97–99
[2021-09-03 05:23] LABS: Hematocrit 36.3 % (37.0-47.0); Hemoglobin 11.5 g/dL (12.0-15.0); Mean Corpuscular HGB Conc 31.7 g/dl (32-36); Mean Corpuscular Hemoglobin 25.4 pg (26-34); Mean Corpuscular Volume 80.3 fl (80-100); Platelet Count Result 245 k/mm3 (150-375); Red Blood Count 4.52 M/mm3 (4.2-5.4); Red Cell Distribution Width 16.7 % (11.5-14.5); White Blood Count 13.6 K/mm3 (4.5-10.0)
[2021-09-03 05:34] LABS: Anion Gap 5 mmol/L (8-16); Blood Urea Nitrogen 17 mg/dL (7-17); Calcium 8.6 mg/dL (8.4-10.2); Carbon Dioxide 30 mmol/L (22-30); Chloride 100 mmol/L (98-107); Estimated CRCL calculation 64 ml/min; Estimated Glomerular Filt Rate > 60; Glucose 185 mg/dL (65-110); Magnesium 1.8 mg/dL (1.6-2.3); Potassium 3.3 mmol/L (3.4-5.0); Sodium 135 mmol/L (137-145)
[2021-09-03 08:26] LABS: Glucose Point of Care 145 mg/dl (65-105)
[2021-09-03] MEDS: ASPIRIN 81 MG CHEWABLE TABLET PO (09:08)
[2021-09-03] MEDS: PANTOPRAZOLE SODIUM IV 40 MG VIAL IV PUSH ×2 (09:08→20:38)
[2021-09-03] MEDS: POTASSIUM CHLORIDE 20 MEQ TABLET PO (09:08)
[2021-09-03] MEDS: METOPROLOL TARTRATE 25 MG TABLET PO ×2 (09:08→20:38)
[2021-09-03] MEDS: LOSARTAN POTASSIUM 50 MG TABLET PO (09:08)
[2021-09-03] MEDS: MAGNESIUM 13.5 MG TABLET (250 MG MAG GLUCONATE) PO (09:08)
--- NOTE | 2021-09-03 09:46 | P.PNIM_ITS ---
Progress Note: A&P Assessment and Plan (1) Ileus, unspecified: Code(s): K56.7 - Ileus, unspecified Status: Resolved Assessment and Plan: Resolved. Ileus vs small-bowel obstruction. * general surgery consultation * Improving. Repeat abdominal x-ray showed nonobstructive bowel gas pattern * Patient is passing flatus and having bowel movements. Hx is more consistent with ileus * Completed small-bowel follow-through on 09/01 which showed normal transit time from stomach to proximal colon * NG discontinued on 09/01 * She was tolerating clear liquids. She was advanced following procedure to full liquids and then low-fiber but is now having some abdominal pain and bloating. (2) Crohn's disease: Qualifiers: Digestive disease complication type: unspecified complication Gastrointestinal tract location: unspecified location Qualified Code(s): K50.919 - Crohn's disease, unspecified, with unspecified complications Code(s): K50.90 - Crohn's disease, unspecified, without complications Status: Chronic Assessment and Plan: Diagnosed by serology 5+ years ago. * She is currently in between gastroenterologists. She had an appointment scheduled with Dr. De La Cruz but now states her PCP is referring her to a retail service lead merchandiser at [facility]. * IV steroids discontinued 09/01. Chronically elevated WBC trending down. * She was seen in consultation by gastroenterology and repeat serology is pending. She will need outpatient elective colonoscopy. (3) Chest pain: Code(s): R07.9 - Chest pain, unspecified Status: Acute Assessment and Plan: 08/30/21 developed sudden onset of bilateral jaw pain radiating to the left chest, left shoulder, left arm with associated numbness in the hands * No EKG changes noted * Troponin elevated up to 1.67 * Continued heparin drip, aspirin, metoprolol, p.r.n. nitro prior to cath * Echocardiogram completed 09/01 without any evidence of wall motion abnormality * Angiogram yesterday notes diffuse disease * Appreciate cardiology recommendations (4) Elevated troponin: Code(s): R77.8 - Other specified abnormalities of plasma proteins Status: Acute Assessment and Plan: As above (5) Coronary artery disease: Code(s): I25.10 - Atherosclerotic heart disease of [place] coronary artery without angina pectoris Status: Inactive Assessment and Plan: Status post 4 vessel bypass in January 2021. * Patient with active chest pain on 08/30. See above. * Continue PO aspirin 81 mg daily * Patient is established with catering truck driver at [facility] (6) Hypertension: Qualifiers: Hypertension type: essential hypertension Qualified Code(s): I10 - Essential (primary) hypertension Code(s): I10 - Essential (primary) hypertension Status: Chronic Assessment and Plan: Blood pressures reviewed and have been slightly elevated. Last BP 173/70 prior to receiving antihypertensives * Continue home losartan 50 mg daily * Metoprolol 25 mg p.o. b.i.d. (7) Type 2 diabetes mellitus: Onset Date: Unknown Qualifiers: Diabetes mellitus nursing home insulin use: without termite inspector use Diabetes mellitus complication status: without complication Qualified Code(s): E11.9 - Type 2 diabetes mellitus without complications Code(s): E11.9 - Type 2 diabetes mellitus without complications Status: Chronic Assessment and Plan: A1c is 7.6 * She admits that she stopped taking F
--- NOTE | 2021-09-03 09:46 | PM.IMPN ---
Progress Note: A&P Assessment and Plan (1) Ileus, unspecified: Code(s): K56.7 - Ileus, unspecified Status: Resolved Assessment and Plan: Resolved. Ileus vs small-bowel obstruction. general surgery consultation Improving. Repeat abdominal x-ray showed nonobstructive bowel gas pattern Patient is passing flatus and having bowel movements. Hx is more consistent with ileus Completed small-bowel follow-through on 09/01 which showed normal transit time from stomach to proximal colon NG discontinued on 09/01 She was tolerating clear liquids. She was advanced following procedure to full liquids and then low-fiber but is now having some abdominal pain and bloating. (2) Crohn's disease: Qualifiers: Digestive disease complication type: unspecified complication Gastrointestinal tract location: unspecified location Qualified Code(s): K50.919 - Crohn's disease, unspecified, with unspecified complications Code(s): K50.90 - Crohn's disease, unspecified, without complications Status: Chronic Assessment and Plan: Diagnosed by serology 5+ years ago. She is currently in between gastroenterologists. She had an appointment scheduled with Dr. De La Cruz but now states her PCP is referring her to a cross roller at [facility]. IV steroids discontinued 09/01. Chronically elevated WBC trending down. She was seen in consultation by gastroenterology and repeat serology is pending. She will need outpatient elective colonoscopy. (3) Chest pain: Code(s): R07.9 - Chest pain, unspecified Status: Acute Assessment and Plan: 08/30/21 developed sudden onset of bilateral jaw pain radiating to the left chest, left shoulder, left arm with associated numbness in the hands No EKG changes noted Troponin elevated up to 1.67 Continued heparin drip, aspirin, metoprolol, p.r.n. nitro prior to cath Echocardiogram completed 09/01 without any evidence of wall motion abnormality Angiogram yesterday notes diffuse disease Appreciate cardiology recommendations (4) Elevated troponin: Code(s): R77.8 - Other specified abnormalities of plasma proteins Status: Acute Assessment and Plan: As above (5) Coronary artery disease: Code(s): I25.10 - Atherosclerotic heart disease of [place] coronary artery without angina pectoris Status: Inactive Assessment and Plan: Status post 4 vessel bypass in January 2021. Patient with active chest pain on 08/30. See above. Continue PO aspirin 81 mg daily Patient is established with hand stone polisher at [facility] (6) Hypertension: Qualifiers: Hypertension type: essential hypertension Qualified Code(s): I10 - Essential (primary) hypertension Code(s): I10 - Essential (primary) hypertension Status: Chronic Assessment and Plan: Blood pressures reviewed and have been slightly elevated. Last BP 173/70 prior to receiving antihypertensives Continue home losartan 50 mg daily Metoprolol 25 mg p.o. b.i.d. (7) Type 2 diabetes mellitus: Onset Date: Unknown Qualifiers: Diabetes mellitus oysterman insulin use: without nursing home use Diabetes mellitus complication status: without complication Qualified Code(s): E11.9 - Type 2 diabetes mellitus without complications Code(s): E11.9 - Type 2 diabetes mellitus without complications Status: Chronic Assessment and Plan: A1c is 7.6 She admits that she stopped taking Farxiga recently due to concerns for pancreatitis Continue Accu-Cheks, moderate dose sliding scale insulin, hypoglycemic protocol Home glyburide-metformin is on hold (8) Abnormal urinalysis: Code(s): R82.90 - Unspecified abnormal findings in urine Status: Acute Assessment and Plan: Urine looks contaminated and she gives no history to suggest underlying infection. She remains asymptomatic No indication for a
--- NOTE | 2021-09-03 11:14 | PM.PNCARD ---
Progress Note: A&P Assessment and Plan (1) Elevated troponin: Code(s): R77.8 - Other specified abnormalities of plasma proteins Status: Acute Assessment and Plan: Patient had elevated troponin at admission and her troponin is still elevated. Repeat troponin yesterday continue to up trend (0.318, 0.309, 0.588, 1.670) Uncertain if this represents ACS or simply secondary to her underlying illness. She does report some very mild intermittent discomfort in her left upper chest/shoulder. Will start isosorbide mononitrate 30 mg daily. SL nitro PRN Continue aspirin Continue metoprolol Catheterization results are as above. Medical management for now (2) Chest pain: Code(s): R07.9 - Chest pain, unspecified Status: Acute Assessment and Plan: Atypical but nitrate responsive. DC nitropaste. Change to ISMO 30 mg daily As above. (3) CAD (coronary artery disease): Code(s): I25.10 - Atherosclerotic heart disease of [place] coronary artery without angina pectoris Status: Acute Assessment and Plan: Known history of CAD and bypass as detailed extensively in history above. (4) Abdominal pain: Code(s): R10.9 - Unspecified abdominal pain Status: Acute Assessment and Plan: Ileus versus bowel obstruction. Workup per surgery. GI is also involved in the case. Subjective Date/time seen: 09/03/21 11:14 Interval history: Bianca Vee is a 65-year-old female with a history of coronary artery disease, Crohn's disease, SBO, AMINA, hypertension, hyperlipidemia, type 2 diabetes mellitus, and several other medical problems who is seen in follow-up for SBO and chest pain. Date of service 09/03/2021: She denies any chest pain, shortness of breath. Abdominal pain is a bit worse today. She is distended also Review of Systems Review of Systems: All systems reviewed & are unremarkable except as noted in HPI and below Constitutional: Constitutional: Denies excessive sweating, Denies headache(s) and Reports weakness Eyes: Eyes: Denies blurry vision ENT: Reports Normal hearing present, Denies headache(s), Denies lip swelling and Denies neck pain Cardiovascular: Cardiovascular: Reports chest pain and Denies dyspnea Respiratory: Respiratory: Denies dyspnea Gastrointestinal: Gastrointestinal: Reports abdominal pain and Reports bloating Genitourinary: Genitourinary: Denies hematuria Musculoskeletal: Musculoskeletal: Denies neck pain Integumentary/Breasts: Skin/Breast: Denies dry skin Neurologic: Reports Normal hearing present, Denies headache(s) and Reports weakness Psychiatric: Psychiatric: Reports anxiety Endocrine: Endocrine: Denies excessive sweating Hematologic/Lymphatic: Hematologic/Lymphatic: Denies easy bleeding Allergic/Immunologic: Allergic/Immunologic: Denies lip swelling Exam Narrative: Awake alert. Appears stated age Const: General: comfortable and no acute distress HENMT: Other: NG in place Eyes: Sclera: sclerae normal Neck: Neck: supple and no JVD Chest: Other: Sternotomy incision is well healed Resp: Auscultation: clear to auscultation bilaterally Cardio: Rate: regular rate Rhythm: regular rhythm GI: Inspection: distended Auscultation: Hypoactive bowel sounds present Skin: General skin exam: normal color Neuro: Cranial nerves: Yes Normal hearing present Cognition (Neuro): normal cognition Speech: normal speech Extrem: General: normal to inspection Psych: Mental Status: mental status grossly normal Affect: Anxious affect present Objective Data Vital Signs Vital Signs: Vital Signs - 24 hr 09/02/21 12:00 09/02/21 15:00 09/02/21 15:15 Temperature 36.8 C 36.6 C Pulse Rate 68 91 79 Respiratory Rate 16 16 14 Blood Pressure 187/83 H 147/69 H 144/67 H Pulse Oximetry 96 94 93 09/02/21 15:30 09/02/21 15:45 09/02/21 15:55 Temperature Pulse Rate 78 76 80 Respiratory Rate 14 14 16 Blood Press
[2021-09-03 12:08] LABS: Glucose Point of Care 171 mg/dl (65-105)
--- NOTE | 2021-09-03 16:35 | PC.NURSE ---
This patient, Bianca Vee, was transferred to [facility] on 09/03/21 at 1635. Personal belongings sent with patient. Report given to TOAN Mata. Appropriate documentation sent with patient.
[2021-09-03 16:47] LABS: Glucose Point of Care 162 mg/dl (65-105)
--- NOTE | 2021-09-03 16:49 | PM.PNGS ---
Progress Note: A&P Assessment and Plan (1) Ileus, unspecified: Code(s): K56.7 - Ileus, unspecified Status: Resolved Assessment and Plan: Improving, patient moved her bowels last night and reports a BM & flatus today. small-bowel follow-through on09/01 showed no signs of obstruction with dye making it to the colon in a normal time. IV steroids and treatment of possible Crohn's stopped appropriately by hospitalist and then 1 dose given to prevent dye reaction yesterday prior to her cardiac catheterization. Now steroids have been stopped again. Plan for colonoscopy as an outpatient when feasible - patient wanting to establish care with a new Behavioral Geneticist after discharge. And I discussed with her the importance of obtaining the previous IBD panel from 2 years ago and the one sent on 09/01 on a blood draw. 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 ( of note yesterday's small-bowel follow-through showed no specific signs on radiology testing of any ileal inflammation or mucosal abnormalities to suggest Crohn's at this particular moment in time. Encouraged patient to be up walking the halls a few times during the day. When okay with other services we will begin advancing her diet starting with full liquids today since she tolerated clears last evening for supper. Would recommend full liquids for supper tonight and then if she tolerates that well has and another bowel movement up to low-fiber and have her go on that and home on that until she meets with her and decides how she should proceed with her new gastrologist ( appointment apparently on October 02). Patient agreeable to a dose of milk of magnesia which may help her clear the colon more. Patient has had previous intra-abdominal surgeries specifically the hysterectomy and therefore some of his current symptoms may have been related to adhesions and then resolution with decompression. (2) Leukocytosis: Qualifiers: Leukocytosis type: unspecified Qualified Code(s): D72.829 - Elevated white blood cell count, unspecified Code(s): D72.829 - Elevated white blood cell count, unspecified Status: Acute Assessment and Plan: WBC down to 13,000 today. IV steroids likely contributing to leukocytosis. (3) History of CVA (cerebrovascular accident): Code(s): Z86.73 - Personal history of transient ischemic attack (TIA), and cerebral infarction without residual deficits Status: Acute Assessment and Plan: Lacunar Stroke in 2009 and TIAs in 2010 and 2011 (4) Abnormal urinalysis: Code(s): R82.90 - Unspecified abnormal findings in urine Status: Acute Assessment and Plan: Repeat (str cath) U/A on 08/31 was negative for nitrates and leukocytes with normal WBC. Not suggestive of urinary tract infection. However there was hematuria which is somewhat unusual on a straight cath. Perhaps this should be checked again as an outpatient. Review of CT reveals that there was no nephrolithiasis noted. (5) Chest pain: Code(s): R07.9 - Chest pain, unspecified Status: Acute Assessment and Plan: Atypical chest pain that responded to nitrates. No complaints of chest pain today. Cardiology following and recommendations noted. T Patient had heart catheterization yesterday (see report). Apparently has some diffuse cardiac disease and medical treatment is indicated. (6) Elevated troponin: Code(s): R77.8 - Other specified abnormalities of plasma proteins Status: Acute Assessment and Plan: Unclear if this is ACS or secondary to underlying illness. Cardiology following and recommendations noted. Additional Plan I recommend that all the patient's imaging be placed on a disc and provided to her on discharge that she can take it with her to her gastroenterology appointment in [place] I recommend she stay on a low-fiber diet until she
[2021-09-03] MEDS: MAGNESIUM HYDROXIDE SUSP 30 ML UDC BY MOUTH (21:00)
[2021-09-03 21:26] LABS: Glucose Point of Care 197 mg/dl (65-105)
[2021-09-04] VITALS (8 sets, daily range): BP systolic 109–141; BP diastolic 70–81; PULSE 69–98; RESP 16–18; TEMP 36.3–36.7; O2SAT 96–100
[2021-09-04] MEDS: ACETAMINOPHEN 325 MG TABLET 650 MG PO (02:54)
[2021-09-04 08:10] LABS: Glucose Point of Care 170 mg/dl (65-105)
--- NOTE | 2021-09-04 08:42 | PM.PNCARD ---
Progress Note: A&P Assessment and Plan (1) Elevated troponin: Code(s): R77.8 - Other specified abnormalities of plasma proteins Status: Acute Assessment and Plan: Patient had elevated troponin at admission and her troponin is still elevated. Repeat troponin yesterday continue to up trend (0.318, 0.309, 0.588, 1.670) Uncertain if this represents ACS or simply secondary to her underlying illness. She does report some very mild intermittent discomfort in her left upper chest/shoulder. Continue isosorbide mononitrate 30 mg daily. SL nitro PRN Continue aspirin Continue metoprolol Catheterization results are as above. Medical management for now C/s to dietitian for heart healthy diet education (2) Chest pain: Code(s): R07.9 - Chest pain, unspecified Status: Acute Assessment and Plan: Atypical but nitrate responsive. DC nitropaste. Change to Imdur 30 mg daily as above. (3) CAD (coronary artery disease): Code(s): I25.10 - Atherosclerotic heart disease of [place] coronary artery without angina pectoris Status: Acute Assessment and Plan: Known history of CAD and bypass as detailed extensively in history above. (4) Abdominal pain: Code(s): R10.9 - Unspecified abdominal pain Status: Acute Assessment and Plan: Ileus versus bowel obstruction. Workup per surgery. GI is also involved in the case. Subjective Date/time seen: 09/04/21 08:42 Interval history: Bianca Vee is a 65-year-old female with a history of coronary artery disease, Crohn's disease, SBO, AMINA, hypertension, hyperlipidemia, type 2 diabetes mellitus, and several other medical problems who is seen in follow-up for SBO and chest pain. Date of service 09/03/2021: She denies any chest pain, shortness of breath. Abdominal pain is a bit worse today. She is distended also Date of service 09/04/2021: Not having any chest pain this morning. she is having BMs and passing gas but still complains of some bloating. Review of Systems Review of Systems: All systems reviewed & are unremarkable except as noted in HPI and below Constitutional: Constitutional: Denies excessive sweating, Denies headache(s) and Reports weakness Eyes: Eyes: Denies blurry vision ENT: Reports Normal hearing present, Denies headache(s), Denies lip swelling and Denies neck pain Cardiovascular: Cardiovascular: Reports chest pain and Denies dyspnea Respiratory: Respiratory: Denies dyspnea Gastrointestinal: Gastrointestinal: Reports abdominal pain and Reports bloating Genitourinary: Genitourinary: Denies hematuria Musculoskeletal: Musculoskeletal: Denies neck pain Integumentary/Breasts: Skin/Breast: Denies dry skin Neurologic: Reports Normal hearing present, Denies headache(s) and Reports weakness Psychiatric: Psychiatric: Reports anxiety Endocrine: Endocrine: Denies excessive sweating Hematologic/Lymphatic: Hematologic/Lymphatic: Denies easy bleeding Allergic/Immunologic: Allergic/Immunologic: Denies lip swelling Exam Narrative: Awake alert. Appears stated age Const: General: comfortable and no acute distress Eyes: Sclera: sclerae normal Neck: Neck: supple and no JVD Chest: Other: Sternotomy incision is well healed Resp: Auscultation: clear to auscultation bilaterally Cardio: Rate: regular rate Rhythm: regular rhythm GI: GI Palp: Yes Soft to palpation Auscultation: normal bowel sounds Skin: General skin exam: normal color Neuro: Cranial nerves: Yes Normal hearing present Cognition (Neuro): normal cognition Speech: normal speech Extrem: General: normal to inspection Psych: Mental Status: mental status grossly normal Affect: Anxious affect present Objective Data Vital Signs Vital Signs: Vital Signs - 24 hr 09/03/21 09:08 09/03/21 10:00 09/03/21 12:00 Temperature 37.1 C Pulse Rate 74 81 67 Respiratory Rate 16 Blood Pressure 170/83 H Pulse Oximetry
[2021-09-04] MEDS: METOPROLOL TARTRATE 25 MG TABLET PO (09:20)
[2021-09-04] MEDS: PANTOPRAZOLE SODIUM IV 40 MG VIAL IV PUSH (09:20)
[2021-09-04] MEDS: ASPIRIN 81 MG CHEWABLE TABLET PO (09:21)
[2021-09-04] MEDS: LOSARTAN POTASSIUM 50 MG TABLET PO (09:21)
[2021-09-04] MEDS: ISOSORBIDE MONONITRATE 30 MG TAB.ER.24H PO (09:21)
[2021-09-04 10:07] LABS: Hematocrit 39.1 % (37.0-47.0); Hemoglobin 12.4 g/dL (12.0-15.0); Mean Corpuscular HGB Conc 31.7 g/dl (32-36); Mean Corpuscular Hemoglobin 25.2 pg (26-34); Mean Corpuscular Volume 79.5 fl (80-100); Mean Platelet Volume 10.2 fl (7.4-10.4); Platelet Count Result 277 k/mm3 (150-375); Red Blood Count 4.92 M/mm3 (4.2-5.4); Red Cell Distribution Width 17.2 % (11.5-14.5); White Blood Count 14.2 K/mm3 (4.5-10.0)
[2021-09-04 10:41] LABS: Anion Gap 8 mmol/L (8-16); Blood Urea Nitrogen 16 mg/dL (7-17); Calcium 8.6 mg/dL (8.4-10.2); Carbon Dioxide 26 mmol/L (22-30); Chloride 99 mmol/L (98-107); Estimated CRCL calculation 54 ml/min; Estimated Glomerular Filt Rate > 60; Glucose 269 mg/dL (65-110); Magnesium 1.7 mg/dL (1.6-2.3); Potassium 3.3 mmol/L (3.4-5.0); Sodium 133 mmol/L (137-145)
[2021-09-04] MEDS: MAGNESIUM 13.5 MG TABLET (250 MG MAG GLUCONATE) PO (11:18)
[2021-09-04 12:12] LABS: Glucose Point of Care 207 mg/dl (65-105)
[2021-09-04] MEDS: INSULIN ASPART (*BKC) 100 UNITS/ML SUB-Q (12:58)
[2021-09-04] MEDS: POTASSIUM CHLORIDE 20 MEQ TABLET 40 MEQ PO (13:18)
--- NOTE | 2021-09-04 13:37 | PM.DS ---
DS: Admitting Diagnosis Discharge Date 09/04/21 Admitting Diagnosis Abdominal pain DS: Discharge Diagnosis Discharge Diagnosis (1) Ileus, unspecified: Code(s): K56.7 - Ileus, unspecified Status: Resolved Assessment and Plan: Patient presents with abdominal pain. She has history of Crohn's. CT the abdomen pelvis showed Ileus vs small-bowel obstruction. General surgery was consulted. NG tube was placed. Check clinical improvement. Repeat abdominal x-ray showed nonobstructive bowel gas pattern. She was passing flatus and having bowel movements. [place] more likely she had ileus. She completed a small-bowel follow-through on 09/01 which showed normal transit time from stomach to proximal colon. NG discontinued on 09/01 and started on clear liquid diet. She tolerated clear liquids and diet was advanced to low-fiber which she tolerated. She continued to have some mild left flank pain. (2) Crohn's disease: Qualifiers: Digestive disease complication type: unspecified complication Gastrointestinal tract location: unspecified location Qualified Code(s): K50.919 - Crohn's disease, unspecified, with unspecified complications Code(s): K50.90 - Crohn's disease, unspecified, without complications Status: Chronic Assessment and Plan: Diagnosed by serology 5+ years ago. She is currently in between gastroenterologists. She had an appointment scheduled with Dr. De La Cruz but now states her PCP is referring her to a concert singer at [facility]. She is treated with IV steroids but these were stopped on 09/01/2021. She has elevated white count probably related to steroids and also more chronic. She was seen by GI and repeat serologies are pending. She will need further outpatient evaluation by GI either here or at [place]. (3) Chest pain: Code(s): R07.9 - Chest pain, unspecified Status: Acute Assessment and Plan: On 08/30/21, she developed sudden onset of bilateral jaw pain radiating to the left chest, left shoulder, left arm with associated numbness in the hands.No EKG changes noted but Troponin elevated up to 1.67. Treated with heparin drip, aspirin and metoprolol. Echocardiogram completed 09/01 showing EF of 65-70% and normal diastolic function without any evidence of wall motion abnormality. Cardiology was consulted. She underwent a heart catheterization on 09/02/2021 showin. Severe diffuse 3 vessel coronary artery disease with mid occlusion of the LAD and severe disease distally, distal to the anastomosis of the JEET graft. 2. High-grade stenosis of the circumflex with filling of OM 2 and OM 1 from the radial artery graft 3. dominant right coronary artery that is severely diffusely diseased in multiple locations 4. patent JEET graft to the LAD but as stated above with significant disease in the LAD distal to the anastomosis 5. patent radial artery graft appears to be anastomosed to OM2 and fills both marginals 6. apparent occlusion of the previously placed saphenous vein graft as it was not found in the aortic root and I did not see any competitive filling in the PDA. 7. Mild LV systolic dysfunction Please see report for further details. Plan is for medical management. Appreciate Cardiology input. Imdur was added to her medical regimen. (4) Elevated troponin: Code(s): R77.8 - Other specified abnormalities of plasma proteins Status: Acute Assessment and Plan: As above. Who was unclear if this represents ACS or simply secondary to her underlying illness. (5) Coronary artery disease: Code(s): I25.10 - Atherosclerotic heart disease of [place] coronary artery without angina pectoris Status: Inactive Assessment and Plan: Status post 4 vessel bypass in January 2021. 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 As above. Plan is for medical management. (6) Hypertension: Qualifiers: Hypert
--- NOTE | 2021-09-05 20:57 | PC.NURSE ---
Patient called regarding Potassium, per patient Dr. Woodruff stated that it would be ok to take Potassium if she experienced leg cramps. RN reviewed medications and discharge planning, patient received a one-time dose of Potassium 40mEq prior to discharge. RN called Mayra Stark for recommendation: per Mayra, ok for patient to take Potassium OTC not to exceed dosage administered prior to discharge and to follow up with PCP. Patient verbalizes understanding.
[2021-09-07 12:14] LABS: ANCA Screen Negative (Negative); Myeloperoxidase Ab <1.0 AI (<1.0); Proteinase-3 Ab <1.0 AI (<1.0); S cerevisiae Ab (IgG) 4.5 U (<=20.0)
--- NOTE | 2021-09-08 12:23 | PC.NURSE ---
IBD test findings are WNL. Dr. Arshad aware.
== END 2021-09-04 15:28 | disposition home health service (06) | DRG 389 ==
LOC: ANHED 13:04 → ANH2MED 13:48 → ANHIMU 08-30 23:25 → ANH3MEDSUR 09-04 11:39 → ANHIMU 09-05 09:46
PROVIDERS: Internal Medicine; Internal Medicine Cardiovascular Disease; Internal Medicine Gastroenterology; Physician Assistant; Specialist; Surgery; Admitting Provider Family Medicine; Emergency Provider Emergency Medicine; PCP Family Medicine; Visit Provider Internal Medicine
PROC: 4A023N7 Measurement of Cardiac Sampling and Pressure, Left Heart, Percutaneous Approach (ICD-10-PCS; CPT 93459; principal; 2021-09-02 14:30)
DX: K56.7 Ileus, unspecified (principal); I69.351 Hemiplegia and hemiparesis following cerebral infarction affecting right dominant side; K50.90 Crohn's disease, unspecified, without complications; I25.10 Atherosclerotic heart disease of native coronary artery without angina pectoris; D72.829 Elevated white blood cell count, unspecified; R82.90 Unspecified abnormal findings in urine; R07.89 Other chest pain; E78.5 Hyperlipidemia, unspecified; I10 Essential (primary) hypertension; F43.10 Post-traumatic stress disorder, unspecified; E11.9 Type 2 diabetes mellitus without complications; E83.42 Hypomagnesemia; F41.9 Anxiety disorder, unspecified; G47.33 Obstructive sleep apnea (adult) (pediatric); Z90.710 Acquired absence of both cervix and uterus; Z90.49 Acquired absence of other specified parts of digestive tract; Z86.16 Personal history of COVID-19; Z85.89 Personal history of malignant neoplasm of other organs and systems
CPT/HCPCS: 36415; 51701; 74019; 74176; 74250; 80048; 80053; 81001; 81025; 82948; 83036; 83690; 83735; 84484; 85025; 85027; 85610; 85730; 86036; 86671; 87086; 87088; 93005; 93306; 93459; 96361; 96365; 96375; 96376; 99285; A9270; C1769; C1887; C1894; C9113; G0378; J0360; J1200; J1644; J1815; J2250; J2270; J2405; J2920; J3010; J3475; J7030; J7040; J7512; Q9957

== ENCOUNTER 2021-10-17 03:40 | Emergency (ER) | payer MEDICARE, SELFPAY ==
--- NOTE | ~2021-10-17 | CT_ITS ---
EXAMINATION: CT abdomen pelvis wo con DATE: 10/17/2021 04:57 INDICATION: Abdominal pain. TECHNIQUE: Computed tomography (CT) of the abdomen and pelvis was performed without intravenous contr ast. Automated exposure control and iterative reconstruction technique were employed. The dose-length product was 902.76 mGy-cm. COMPARISON: 08/29/2021 FINDINGS: Visualized lower lungs are clear. Heart size is normal. Atherosclerotic coronary artery calcification . Median sternotomy and associated coronary artery bypass grafting. No pericardial or pleural effusio n. Small sliding-type hiatal hernia. Numerous hepatic and splenic calcific lesions consistent with old granulomatous disease. Cholecystect deya clips at the gallbladder fossa. Pancreas, bilateral adrenal glands and kidneys are normal. Multip le scattered colonic diverticula without adjacent inflammatory change to suggest diverticulitis. Sma ll bowel is normal with no obstruction. The appendix is not visualized. No pericecal inflammatory aneudy nge to suggest acute appendicitis. Bladder is normal. The uterus is not identified and has likely bee n surgically resected. No free intraperitoneal gas or fluid. No pathologically enlarged abdominal or pelvic lymphadenopathy. Severe lumbar and lower thoracic spondylosis. IMPRESSION: 1. No acute intra-abdominal/pelvic process. 2. Small sliding-type hiatal hernia. 3. Diverticulosis. Reviewed, dictated and finalized at location A.
[2021-10-17 03:53] VITALS: BP 154/87; PULSE 72; RESP 18; TEMP 36.5; O2SAT 98
[2021-10-17 03:56] LABS: Basophils Absolute Auto 0.1 K/mm3 (0.0-0.1); Basophils Percent Auto 0.7 % (0.2-1.2); Eosinophils Absolute Auto 0.2 K/mm3 (0-0.3); Eosinophils Percent Auto 1.8 % (0-4.4); Hematocrit 34.4 % (37.0-47.0); Hemoglobin 10.7 g/dL (12.0-15.0); Immature Granulocyte Absolute 0.07 K/mm3 (0.00-0.031); Immature Granulocyte Percent A 0.6 % (0-0.5); Lymphocytes Absolute Auto 4.33 K/mm3 (0.9-3.2); Lymphocytes Percent Auto 34.3 % (18.3-44.2); Mean Corpuscular HGB Conc 31.1 g/dl (32-36); Mean Corpuscular Hemoglobin 24.8 pg (26-34); Mean Corpuscular Volume 79.8 fl (80-100); Mean Platelet Volume 9.8 fl (7.4-10.4); Monocytes Absolute Auto 1.1 K/mm3 (0.1-0.6); Monocytes Percent Auto 8.7 % (2.6-8.5); Neutrophils Absolute Auto 6.8 K/mm3 (1.3-6.7); Neutrophils Percent Auto 53.9 % (45.5-73.1); Platelet Count Result 289 k/mm3 (150-375); Red Blood Count 4.31 M/mm3 (4.2-5.4); Red Cell Distribution Width 15.7 % (11.5-14.5); White Blood Count 12.6 K/mm3 (4.5-10.0)
[2021-10-17 04:06] LABS: Alanine Aminotransferase 9 U/L (4-35); Albumin Level 4.2 g/dL (3.5-5.1); Alkaline Phosphatase 68 U/L (38-126); Anion Gap 8 mmol/L (8-16); Aspartate Amino Transferase 24 U/L (14-36); Bilirubin,Total 0.2 mg/dL (0.2-1.3); Blood Urea Nitrogen 21 mg/dL (7-17); Calcium 9.1 mg/dL (8.4-10.2); Carbon Dioxide 26 mmol/L (22-30); Chloride 104 mmol/L (98-107); Estimated CRCL calculation 61 ml/min; Estimated Glomerular Filt Rate > 60; Glucose 173 mg/dL (65-110); Lipase 214 U/L (23-300); Potassium 3.8 mmol/L (3.4-5.0); Sodium 138 mmol/L (137-145)
--- NOTE | 2021-10-17 04:11 | ED.ABDPAIN ---
HPI - Abdominal Pain General Chief Complaint: Abdominal Pain Stated Complaint: ABD PAIN, N/V Time Seen by Provider: 10/17/21 03:50 Source: patient History of Present Illness HPI narrative: Patient returns with abdominal pain that started proximally 1 hour ago it is constant, no radiation improved after an episode of emesis. Reports last bowel movement approximately 30 minutes prior to EMS arrival. Patient reports a history of ileus and small bowel obstructions and today's pain feels similar to her prior bowel obstructions. She does see GI at [facility], reports hysterectomy but denies any additional abdominal surgeries. Denies any blood bile or melena in her emesis or bowel movement she denies any urinary symptoms she denies any fevers. Related Data Home Medications Medication Instructions Recorded Confirmed bupropion HCl 150 mg PO DAILY 10/22/19 08/29/21 cholecalciferol (vitamin D3) 25 mcg PO BID 10/22/19 08/29/21 [Vitamin D3] coQ10 (ubiquinol) 100 mg PO DAILY 10/22/19 08/29/21 magnesium 250 mg PO DAILY 10/22/19 08/29/21 pantoprazole 40 mg PO QAM 10/22/19 08/29/21 valacyclovir [Valtrex] 1,000 mg PO DAILY PRN 10/22/19 08/29/21 aspirin 81 mg PO DAILY 06/17/21 08/29/21 glyburide-metformin 1 tablet PO DAILY 06/17/21 08/29/21 losartan 50 mg PO DAILY 06/17/21 08/29/21 rosuvastatin 5 mg PO DAILY 10/17/21 Allergies Allergy/AdvReac Type Severity Reaction Status Date / Time clopidogrel Allergy Severe Muscle Verified 10/17/21 03:56 Spasms adhesive Allergy Unknown Rash Verified 10/17/21 03:56 amoxicillin Allergy Unknown Rash Verified 10/17/21 03:56 cefazolin Allergy Unknown Unknown Verified 10/17/21 03:56 Cephalosporins Allergy Unknown Unknown Verified 10/17/21 03:56 cephradine Allergy Unknown Unknown Verified 10/17/21 03:56 codeine Allergy Unknown Rash Verified 10/17/21 03:56 duloxetine Allergy Unknown Unknown Verified 10/17/21 03:56 hydromorphone Allergy Unknown Itching Verified 10/17/21 03:56 iodine Allergy Unknown Unknown Verified 10/17/21 03:56 lorazepam Allergy Unknown Unknown Verified 10/17/21 03:56 meperidine Allergy Unknown Unknown Verified 10/17/21 03:56 Penicillins Allergy Unknown Unknown Verified 10/17/21 03:56 phenytoin Allergy Unknown Unknown Verified 10/17/21 03:56 Acqhhbw-JPX-YaL Reductase Allergy Unknown MUSCLE Verified 10/17/21 03:56 Inhibitor WEAKNESS/CRAMPING [Rrcdukj-Ono-Zem Reductase Inhibitor] Sulfa (Sulfonamide Allergy Unknown Rash Verified 10/17/21 03:56 Antibiotics) sulfanilamide Allergy Unknown Unknown Verified 10/17/21 03:56 tramadol Allergy Unknown Itching Verified 10/17/21 03:56 oxycodone Allergy Unknown Verified 10/17/21 03:56 Contrast Media Allergy Unknown Dyspnea / Uncoded 10/17/21 03:56 SOB Review of Systems Review of Systems: CONSTITUTIONAL: Denies fever, chills, or sweats. EYES: Denies visual changes, redness, or discharge. ENT: Denies rhinorrhea, congestion, sore throat, or otalgia. CARDIOVASCULAR: Denies chest pain, palpitations, or edema. RESPIRATORY: Denies cough or dyspnea. GASTROINTESTINAL: Abdominal pain with nausea and vomiting GENITOURINARY: Denies dysuria or hematuria. SKIN: Denies rash or itching. MUSCULOSKELETAL: Denies back pain, joint pain, or myalgia. NEUROLOGIC: Denies headache, numbness, dizziness, or weakness. PSYCHIATRIC: Denies anxiety or depression. All systems reviewed & are unremarkable except as noted in HPI and below PMFSH Past Medical History Medical History Anxiety Bowel obstruction Cerebrovascular accident With mild right-sided weakness. Coronary artery disease COVID-19 Crohn's disease Not biopsy proven, identified by lab work. Depression History of endometriosis Hyperlipidemia (Unknown) Hypertension Nephrolithiasis Obstructive sleep apnea Intolerant to CPAP Pancreatitis Post traumatic stress disorder Sweat gland carcinoma Left upper cheek, status post excisio
[2021-10-17] MEDS: SODIUM CHLORIDE 0.9% IV 500 ML 999 ML IV CONT (04:19)
[2021-10-17] MEDS: MORPHINE SULFATE (*CRX) 4 MG/ML INJ IV PUSH (04:19)
[2021-10-17] MEDS: ONDANSETRON INJ 4 MG/2 ML VIAL IV PUSH (04:19)
[2021-10-17 04:20] LABS: Atypical Lymphocytes Present; Platelet Estimate Adequate (Adequate)
[2021-10-17 05:19] LABS: Appearance Urine Clear (Clear); Bilirubin Urine Negative (Negative); Color Urine Yellow (Yellow); Glucose Urine UA Negative (Negative); Ketones Urine Negative (Negative); Leukocyte Esterase Ur Negative LEU/UL (Negative); Nitrate Urine Negative (Negative); Protein Urine 1+ mg/dL (Negative); Specific Grav Ur <= 1.005 (1.001-1.035); Urobilinogen Urine 0.2 mg/dL (<2.0)
[2021-10-17 05:22] LABS: RBC Urine 0-2 /hpf (0-2); WBC Urine 0-3 /hpf
[2021-10-17 05:28] LABS: Add Urine Microscopic? YES; Blood Urine Trace (Negative)
[2021-10-17 05:40] VITALS: BP 104/51; PULSE 74; RESP 18; O2SAT 99
== END 2021-10-17 05:40 | disposition home or self-care (01) ==
PROVIDERS: Emergency Provider Emergency Medicine; PCP Family Medicine
DX: R10.10 Upper abdominal pain, unspecified (principal); R11.2 Nausea with vomiting, unspecified; I69.951 Hemiplegia and hemiparesis following unspecified cerebrovascular disease affecting right dominant side; I25.10 Atherosclerotic heart disease of native coronary artery without angina pectoris; K50.90 Crohn's disease, unspecified, without complications; E78.5 Hyperlipidemia, unspecified; I10 Essential (primary) hypertension; E11.9 Type 2 diabetes mellitus without complications; G47.33 Obstructive sleep apnea (adult) (pediatric); F41.9 Anxiety disorder, unspecified; F32.A Depression, unspecified; F43.10 Post-traumatic stress disorder, unspecified; Z86.16 Personal history of COVID-19; Z87.442 Personal history of urinary calculi; Z95.1 Presence of aortocoronary bypass graft; Z79.84 Long term (current) use of oral hypoglycemic drugs; Z79.82 Long term (current) use of aspirin; K57.90 Diverticulosis of intestine, part unspecified, without perforation or abscess without bleeding; K44.9 Diaphragmatic hernia without obstruction or gangrene; Z85.89 Personal history of malignant neoplasm of other organs and systems
CPT/HCPCS: 36415; 74176; 80053; 81001; 83690; 85025; 96361; 96374; 96375; 99284; J2270; J2405; J7040

== ENCOUNTER 2022-09-27 00:51 | Emergency (ER) | payer MEDICARE, SELFPAY ==
--- NOTE | ~2022-09-27 | CT_ITS ---
EXAMINATION: CT abdomen pelvis wo con DATE: 09/27/2022 02:44 INDICATION: Flank pain TECHNIQUE: Computed tomography (CT) of the abdomen and pelvis was performed without intravenous contr ast. The dose-length product (DLP) was 801.46 mGy-cm. Automated exposure control and iterative recons truction technique were employed. COMPARISON: 10/17/2021 FINDINGS: The lung bases are clear. The heart size is normal. Punctate calcifications in otherwise no rmal appearing liver and spleen likely represent healed granulomatous disease. The gallbladder is chica gically absent. The pancreas and adrenal glands are normal. The kidneys are unremarkable. No stones a re identified in the kidneys, ureters, or bladder. No hydronephrosis or hydroureter. Colonic divertic ulosis is present without evidence of diverticulitis. No pathologically enlarged abdominal or pelvic lymph nodes are identified. No free intraperitoneal gas or evidence of bowel obstruction. There is mo derate thoracic and lumbar spondylosis. IMPRESSION: 1. No CT correlate for the patient's symptoms. Reviewed, dictated and finalized at location A.
[2022-09-27 01:17] VITALS: BP 184/78; PULSE 99; RESP 18; TEMP 37; O2SAT 98
[2022-09-27 01:38] LABS: Appearance Urine Cloudy (Clear); Bacteria Urine None Seen /hpf; Bilirubin Urine Negative (Negative); Blood Urine 3+ (Negative); Color Urine Yellow (Yellow); Glucose Urine UA Negative (Negative); Ketones Urine Negative (Negative); Leukocyte Esterase Ur Trace LEU/UL (Negative); Nitrate Urine Negative (Negative); Non Pathogenic Casts 0-2; Protein Urine 3+ mg/dL (Negative); RBC Urine >100 /hpf (0-2); Specific Grav Ur 1.015 (1.001-1.035); Squamous Epithelial Cell Urine None seen /hpf (Few); Urobilinogen Urine 0.2 mg/dL (<2.0)
[2022-09-27 01:40] LABS: Basophils Absolute Auto 0.1 K/mm3 (0.0-0.1); Basophils Percent Auto 0.4 % (0.2-1.2); Eosinophils Absolute Auto 0.2 K/mm3 (0-0.3); Eosinophils Percent Auto 1.6 % (0-4.4); Hematocrit 38.8 % (37.0-47.0); Hemoglobin 12.4 g/dL (12.0-15.0); Immature Granulocyte Absolute 0.06 K/mm3 (0.00-0.031); Immature Granulocyte Percent A 0.5 % (0-0.5); Lymphocytes Absolute Auto 3.67 K/mm3 (0.9-3.2); Lymphocytes Percent Auto 30.9 % (18.3-44.2); Mean Corpuscular Hemoglobin 25.9 pg (26-34); Monocytes Absolute Auto 0.7 K/mm3 (0.1-0.6); Neutrophils Absolute Auto 7.2 K/mm3 (1.3-6.7); Neutrophils Percent Auto 60.6 % (45.5-73.1); Platelet Count Result 265 k/mm3 (150-375); Red Blood Count 4.79 M/mm3 (4.2-5.4); Red Cell Distribution Width 17.1 % (11.5-14.5); White Blood Count 11.9 K/mm3 (4.5-10.0)
[2022-09-27 01:54] LABS: Alanine Aminotransferase 18 U/L (6-35); Albumin Level 4.7 g/dL (3.5-5.1); Alkaline Phosphatase 80 U/L (38-126); Anion Gap 11 mmol/L (8-16); Aspartate Amino Transferase 31 U/L (14-36); Bilirubin,Total 0.6 mg/dL (0.2-1.3); Blood Urea Nitrogen 24 mg/dL (7-17); Calcium 9.4 mg/dL (8.4-10.2); Carbon Dioxide 26 mmol/L (22-30); Chloride 101 mmol/L (98-107); Estimated CRCL calculation 9 ml/min; Estimated Glomerular Filt Rate > 60; Glucose 185 mg/dL (65-110); Potassium 4.2 mmol/L (3.4-5.0); Sodium 138 mmol/L (137-145)
[2022-09-27 01:57] LABS: Add Urine Microscopic? YES
[2022-09-27 02:19] VITALS: BP 151/81; PULSE 76; RESP 18; O2SAT 98
[2022-09-27 03:31] VITALS: BP 141/71; PULSE 78; RESP 16; O2SAT 99
[2022-09-27] MEDS: MORPHINE SULFATE (*CRX) 4 MG/ML INJ IV PUSH ×2 (03:49→06:48)
--- NOTE | 2022-09-27 04:13 | ED.GENADULT ---
HPI - General Adult General Chief complaint: Vaginal Bleeding Stated complaint: vaginal bleeding Time Seen by Provider: 09/27/22 01:56 History of Present Illness HPI narrative: Loik-mlft-aff female who presents the emergency department with chief complaint of blood in urine and showed no bleeding in her vaginal area. The patient states that she then urinated and noticed there was blood in the urine. Patient reports that she is not on blood thinners does report that she takes a baby aspirin patient states that she is had no trauma denies flank pain but does report that she is had some discomfort in her abdomen. Related Data Home Medications Medication Instructions Recorded Confirmed bupropion HCl 150 mg tablet,12 hr 150 mg PO DAILY 10/22/19 08/29/21 sustained-release cholecalciferol (vitamin D3) 25 25 mcg PO BID 10/22/19 08/29/21 mcg (1,000 unit) capsule (Vitamin D3) coQ10 (ubiquinol) 100 mg capsule 100 mg PO DAILY 10/22/19 08/29/21 magnesium 250 mg tablet 250 mg PO DAILY 10/22/19 08/29/21 pantoprazole 40 mg tablet,delayed 40 mg PO QAM 10/22/19 08/29/21 release valacyclovir 1 gram tablet 1,000 mg PO DAILY PRN Itching 10/22/19 08/29/21 (Valtrex) aspirin 81 mg capsule 81 mg PO DAILY 06/17/21 08/29/21 glyburide 5 mg-metformin 500 mg 1 tablet PO DAILY 06/17/21 08/29/21 tablet losartan 50 mg tablet 50 mg PO DAILY 06/17/21 08/29/21 rosuvastatin 5 mg tablet 5 mg PO DAILY 10/17/21 Allergies Allergy/AdvReac Type Severity Reaction Status Date / Time clopidogrel Allergy Severe Muscle Verified 09/27/22 01:21 Spasms adhesive Allergy Unknown Rash Verified 09/27/22 01:21 amoxicillin Allergy Unknown Rash Verified 09/27/22 01:21 cefazolin Allergy Unknown Unknown Verified 09/27/22 01:21 Cephalosporins Allergy Unknown Unknown Verified 09/27/22 01:21 cephradine Allergy Unknown Unknown Verified 09/27/22 01:21 codeine Allergy Unknown Rash Verified 09/27/22 01:21 duloxetine Allergy Unknown Unknown Verified 09/27/22 01:21 hydromorphone Allergy Unknown Itching Verified 09/27/22 01:21 iodine Allergy Unknown Unknown Verified 09/27/22 01:21 lorazepam Allergy Unknown Unknown Verified 09/27/22 01:21 meperidine Allergy Unknown Unknown Verified 09/27/22 01:21 Penicillins Allergy Unknown Unknown Verified 09/27/22 01:21 phenytoin Allergy Unknown Unknown Verified 09/27/22 01:21 Lntavlc-LWD-CdB Reductase Allergy Unknown MUSCLE Verified 09/27/22 01:21 Inhibitor WEAKNESS/CRAMPING [Iqeadov-Lma-Czo Reductase Inhibitor] Sulfa (Sulfonamide Allergy Unknown Rash Verified 09/27/22 01:21 Antibiotics) sulfanilamide Allergy Unknown Unknown Verified 09/27/22 01:21 tramadol Allergy Unknown Itching Verified 09/27/22 01:21 oxycodone Allergy Unknown Verified 09/27/22 01:21 Contrast Media Allergy Unknown Dyspnea / Uncoded 10/17/21 03:56 SOB Review of Systems Review of Systems: A 10 system review of systems was completed on the patient and is negative except for what is stated in the HPI. Nursing and ancillary documentation was reviewed. [facility] Past Medical History Medical History Anxiety Bowel obstruction Cerebrovascular accident With mild right-sided weakness. Coronary artery disease COVID-19 Crohn's disease Not biopsy proven, identified by lab work. Depression History of endometriosis Hyperlipidemia (Unknown) Hypertension Nephrolithiasis Obstructive sleep apnea Intolerant to CPAP Pancreatitis Post traumatic stress disorder Sweat gland carcinoma Left upper cheek, status post excision. Type 2 diabetes mellitus (Unknown) Surgical History Surgical History History of appendectomy History of cardiac catheterization History of section, classical History of cholecystectomy History of coronary artery bypass graft (01/16/21) Four vessel bypass at [facility]. History of extra
[2022-09-27 05:20] VITALS: BP 127/64; PULSE 74; RESP 16; O2SAT 97
[2022-09-27 06:38] VITALS: BP 124/67; PULSE 81; RESP 14; O2SAT 97
[2022-09-27 06:51] VITALS: BP 124/67; PULSE 78; RESP 16; O2SAT 99
[2022-09-27] MEDS: NITROFURANTOIN MONOHYD MACROCR 100 MG CAP PO (07:45)
== END 2022-09-27 07:55 | disposition home or self-care (01) ==
PROVIDERS: Emergency Provider Emergency Medicine; PCP Family Medicine
DX: N39.0 Urinary tract infection, site not specified (principal); R31.9 Hematuria, unspecified; F41.9 Anxiety disorder, unspecified; I25.10 Atherosclerotic heart disease of native coronary artery without angina pectoris; Z86.16 Personal history of COVID-19; F32.A Depression, unspecified; E78.5 Hyperlipidemia, unspecified; I10 Essential (primary) hypertension; G47.30 Sleep apnea, unspecified; E11.9 Type 2 diabetes mellitus without complications
CPT/HCPCS: 36415; 74176; 80053; 81001; 85025; 87086; 96374; 96376; 99284; A9270; J2270

== ENCOUNTER 2022-12-08 21:15 | Emergency (ER) | payer MEDICARE, SELFPAY ==
--- NOTE | ~2022-12-08 | CT_ITS ---
CT of the Abdomen and Pelvis: Indication: Abdominal pain Technique: 2.5 mm axial scans were obtained through the abdomen and pelvis following intravenous adm inistration of 100 cc of Omnipaque 350. Dose reduction technique was used on this scan by utilizing a utomated exposure control and iterative reconstruction technique. The dose-length product (DLP) was 9 58.49 mGy-cm. COMPARISON: 09/27/2022 Findings: Scans through the lung bases are unremarkable. Calcified hepatic and splenic granulomas are present. Probable mild fatty infiltration of liver. Chol ecystectomy clips are present. The pancreas, adrenals and kidneys are within normal limits. There are atherosclerotic calcifications of the aorta. No lymphadenopathy. No bowel obstruction or bowel wall thickening. There is no evidence to suggest acute appendicitis. Images through the pelvis were performed. 9 mm nodule along the posterior right urinary bladder wall is similar to prior exam (axial image 150). Patient is post hysterectomy. No adnexal mass evident. No ascites. Impression: 9 mm posterior right urinary bladder wall nodule. Neoplasm is consideration. Cystoscopy should be con sidered to further evaluate. Probable fatty infiltration of liver. Reviewed, dictated and finalized at location . Impression: 9 mm posterior right urinary bladder wall nodule. Neoplasm is consideration. Cy stoscopy should be considered to further evaluate. Probable fatty infiltration of liver.
[2022-12-08 21:20] VITALS: BP 154/80; PULSE 78; RESP 15; TEMP 36.6; O2SAT 100
--- NOTE | 2022-12-08 23:19 | ECG_ITS ---
Measurements Intervals [place] Rate: 83 P: 17 TX: 159 QRS: 16 QRSD: 98 T: 44 QT: 364 QTc: 428 Interpretive Statements SINUS RHYTHM POSSIBLE ANTERIOR MYOCARDIAL INFARCTION , PROBABLY OLD [30 ms Q WAVE IN V3/V4, OR R < 0.2 mV IN V4] INFERIOR MYOCARDIAL INFARCTION , PROBABLY OLD [40+ ms Q WAVE AND/OR ST/T ABNORMALITY IN II/aVF] CANNOT RULE OUT ANTERIOR MYOCARDIAL INFARCTION, AGE UNDETERMINED ABNORMAL EKG COMPARED TO ECG 08/31/2021 07:48:21 NO SIGNIFICANT CHANGES Electronically Signed On 12-09-2022 11:56:56 CDT by Roger San M.D.
[2022-12-08 23:55] LABS: Basophils Absolute Auto 0.1 K/mm3 (0.0-0.1); Basophils Percent Auto 0.6 % (0.2-1.2); Eosinophils Absolute Auto 0.2 K/mm3 (0-0.3); Eosinophils Percent Auto 0.9 % (0-4.4); Hematocrit 41.4 % (37.0-47.0); Hemoglobin 13.3 g/dL (12.0-15.0); Immature Granulocyte Absolute 0.07 K/mm3 (0.00-0.031); Immature Granulocyte Percent A 0.4 % (0-0.5); Lymphocytes Absolute Auto 2.85 K/mm3 (0.9-3.2); Lymphocytes Percent Auto 17.4 % (18.3-44.2); Mean Corpuscular HGB Conc 32.1 g/dl (32-36); Mean Corpuscular Hemoglobin 26.1 pg (26-34); Mean Corpuscular Volume 81.2 fl (80-100); Mean Platelet Volume 9.7 fl (7.4-10.4); Monocytes Absolute Auto 0.9 K/mm3 (0.1-0.6); Monocytes Percent Auto 5.6 % (2.6-8.5); Neutrophils Absolute Auto 12.3 K/mm3 (1.3-6.7); Neutrophils Percent Auto 75.1 % (45.5-73.1); Platelet Count Result 267 k/mm3 (150-375); Red Cell Distribution Width 16.1 % (11.5-14.5); White Blood Count 16.4 K/mm3 (4.5-10.0)
[2022-12-08 23:59] LABS: Appearance Urine Clear (Clear); Bacteria Urine None Seen /hpf; Bilirubin Urine Negative (Negative); Blood Urine 1+ (Negative); Color Urine Yellow (Yellow); Glucose Urine UA Negative (Negative); Ketones Urine Negative (Negative); Leukocyte Esterase Ur Negative LEU/UL (Negative); Nitrate Urine Negative (Negative); Non Pathogenic Casts 0-2; Protein Urine 1+ mg/dL (Negative); RBC Urine 0-2 /hpf (0-2); Specific Grav Ur 1.016 (1.001-1.035); Squamous Epithelial Cell Urine None seen /hpf (Few); Urobilinogen Urine 0.2 mg/dL (<2.0); WBC Urine 0-5 /hpf
[2022-12-09 00:01] VITALS: BP 125/103; PULSE 82; RESP 15
[2022-12-09 00:03] LABS: Add Urine Microscopic? YES
[2022-12-09 00:07] LABS: Alanine Aminotransferase 21 U/L (6-35); Alkaline Phosphatase 76 U/L (38-126); Anion Gap 9 mmol/L (8-16); Aspartate Amino Transferase 42 U/L (14-36); Bilirubin,Total 0.4 mg/dL (0.2-1.3); Blood Urea Nitrogen 18 mg/dL (7-17); Calcium 10.1 mg/dL (8.4-10.2); Carbon Dioxide 27 mmol/L (22-30); Chloride 104 mmol/L (98-107); Estimated CRCL calculation 68 ml/min; Estimated Glomerular Filt Rate > 60; Glucose 135 mg/dL (65-110); Lipase 102 U/L (23-300); Potassium 4.5 mmol/L (3.4-5.0); Sodium 140 mmol/L (137-145)
[2022-12-09] MEDS: MORPHINE SULFATE (*CRX) 4 MG/ML INJ IV PUSH ×2 (00:10→04:12)
[2022-12-09] MEDS: FAMOTIDINE 20 MG/2 ML VIAL IV PUSH (00:11)
[2022-12-09] MEDS: diphenhydrAMINE HCl INJ 50 MG/ML VIAL IV PUSH (00:11)
[2022-12-09] MEDS: ONDANSETRON INJ 4 MG/2 ML VIAL IV PUSH ×2 (00:11→04:31)
--- NOTE | 2022-12-09 00:33 | ED.ABDPAIN ---
HPI - Abdominal Pain General Chief Complaint: Abdominal Pain Stated Complaint: abdominal pain Time Seen by Provider: 12/08/22 23:19 History of Present Illness HPI narrative: Patient presenting with abdominal pain and bloating, she had just gone to [employer] [facility] around 3 and afterwards was nauseous, with severe abdominal pain, and feels like her abdomen is extremely distended. She has had history of bowel obstructions in the past. Related Data Home Medications Medication Instructions Recorded Confirmed bupropion HCl 150 mg tablet,12 hr 150 mg PO DAILY 10/22/19 08/29/21 sustained-release cholecalciferol (vitamin D3) 25 25 mcg PO BID 10/22/19 08/29/21 mcg (1,000 unit) capsule (Vitamin D3) coQ10 (ubiquinol) 100 mg capsule 100 mg PO DAILY 10/22/19 08/29/21 magnesium 250 mg tablet 250 mg PO DAILY 10/22/19 08/29/21 pantoprazole 40 mg tablet,delayed 40 mg PO QAM 10/22/19 08/29/21 release valacyclovir 1 gram tablet 1,000 mg PO DAILY PRN Itching 10/22/19 08/29/21 (Valtrex) aspirin 81 mg capsule 81 mg PO DAILY 06/17/21 08/29/21 glyburide 5 mg-metformin 500 mg 1 tablet PO DAILY 06/17/21 08/29/21 tablet losartan 50 mg tablet 50 mg PO DAILY 06/17/21 08/29/21 rosuvastatin 5 mg tablet 5 mg PO DAILY 10/17/21 Allergies Allergy/AdvReac Type Severity Reaction Status Date / Time clopidogrel Allergy Severe Muscle Verified 12/08/22 21:25 Spasms adhesive Allergy Unknown Rash Verified 12/08/22 21:25 amoxicillin Allergy Unknown Rash Verified 12/08/22 21:25 cefazolin Allergy Unknown Unknown Verified 12/08/22 21:25 Cephalosporins Allergy Unknown Unknown Verified 12/08/22 21:25 cephradine Allergy Unknown Unknown Verified 12/08/22 21:25 codeine Allergy Unknown Rash Verified 12/08/22 21:25 duloxetine Allergy Unknown Unknown Verified 12/08/22 21:25 hydromorphone Allergy Unknown Itching Verified 12/08/22 21:25 iodine Allergy Unknown Unknown Verified 12/08/22 21:25 lorazepam Allergy Unknown Unknown Verified 12/08/22 21:25 meperidine Allergy Unknown Unknown Verified 12/08/22 21:25 Penicillins Allergy Unknown Unknown Verified 12/08/22 21:25 phenytoin Allergy Unknown Unknown Verified 12/08/22 21:25 Gqodjuf-DJO-DtT Reductase Allergy Unknown MUSCLE Verified 12/08/22 21:25 Inhibitor WEAKNESS/CRAMPING [Mvpabsg-Rqd-Ine Reductase Inhibitor] Sulfa (Sulfonamide Allergy Unknown Rash Verified 12/08/22 21:25 Antibiotics) sulfanilamide Allergy Unknown Unknown Verified 12/08/22 21:25 tramadol Allergy Unknown Itching Verified 12/08/22 21:25 oxycodone Allergy Unknown Verified 12/08/22 21:25 Contrast Media Allergy Unknown Dyspnea / Uncoded 12/08/22 21:25 SOB Review of Systems Review of Systems: CONST: No fever. HEENT: No sore throat C/V: No chest pain RESP: No cough GI: Reports abdominal pain, nausea, vomiting : No dysuria. M/S: No joint pain. SKIN: No rash. NEURO: [No headache or focal numbness or weakness] PSYCH: [No depression] PMFSH Past Medical History Medical History Anxiety Bowel obstruction Cerebrovascular accident With mild right-sided weakness. Coronary artery disease COVID-19 Crohn's disease Not biopsy proven, identified by lab work. Depression History of endometriosis Hyperlipidemia (Unknown) Hypertension Nephrolithiasis Obstructive sleep apnea Intolerant to CPAP Pancreatitis Post traumatic stress disorder Sweat gland carcinoma Left upper cheek, status post excision. Type 2 diabetes mellitus (Unknown) Surgical History Surgical History History of appendectomy History of cardiac catheterization History of section, classical History of cholecystectomy History of coronary artery bypass graft (01/16/21) Four vessel bypass at [facility]. History of extraction of renal calculus History of hysterectomy History of meniscectomy of right knee History of rh
[2022-12-09 04:10] VITALS: BP 137/64; PULSE 74; RESP 16; O2SAT 97
[2022-12-09 05:41] VITALS: BP 130/56; PULSE 70; RESP 15; O2SAT 100
== END 2022-12-09 05:29 | disposition home or self-care (01) ==
PROVIDERS: Emergency Provider Emergency Medicine; PCP Family Medicine
DX: R10.9 Unspecified abdominal pain (principal); I25.10 Atherosclerotic heart disease of native coronary artery without angina pectoris; E78.5 Hyperlipidemia, unspecified; I10 Essential (primary) hypertension; E11.9 Type 2 diabetes mellitus without complications; Z86.73 Personal history of transient ischemic attack (TIA), and cerebral infarction without residual deficits
CPT/HCPCS: 36415; 74177; 80053; 81001; 83690; 85025; 93005; 96374; 96375; 96376; 99284; J1200; J2270; J2405; Q9967

== ENCOUNTER 2023-05-30 15:35 | Emergency (ER) | payer MEDICARE, SELFPAY ==
--- NOTE | 2023-05-30 15:56 | ED.EXTPRO ---
HPI - Extremity Problem General Chief complaint: Extremity Problem,Nontraumatic Stated complaint: pain in legs Time Seen by Provider: 05/30/23 16:25 Source: patient and RN notes reviewed Mode of arrival: ambulatory Limitations: no limitations History of Present Illness HPI Narrative: 67-year-old female presents with concern for pain, redness, swelling at the base of the 1st digit of her left foot. Reports that started about 5 days ago. She reports pain with movement, pain with weight-bearing. MD Complaint: extremity pain Related Data Home Medications Medication Instructions Recorded Confirmed bupropion HCl 150 mg tablet,12 hr 150 mg PO DAILY 10/22/19 05/30/23 sustained-release cholecalciferol (vitamin D3) 25 25 mcg PO BID 10/22/19 05/30/23 mcg (1,000 unit) capsule (Vitamin D3) coQ10 (ubiquinol) 100 mg capsule 100 mg PO DAILY 10/22/19 05/30/23 magnesium 250 mg tablet 250 mg PO DAILY 10/22/19 05/30/23 pantoprazole 40 mg tablet,delayed 40 mg PO QAM 10/22/19 05/30/23 release valacyclovir 1 gram tablet 1,000 mg PO DAILY PRN Itching 10/22/19 05/30/23 (Valtrex) aspirin 81 mg capsule 81 mg PO DAILY 06/17/21 05/30/23 glyburide 5 mg-metformin 500 mg 1 tablet PO DAILY 06/17/21 05/30/23 tablet losartan 50 mg tablet 50 mg PO DAILY 06/17/21 05/30/23 carvedilol 6.25 mg tablet 6.25 mg PO BID 05/30/23 05/30/23 metronidazole 500 mg tablet 500 mg PO TID 05/30/23 05/30/23 morphine 15 mg immediate release 15 mg PO DAILY 05/30/23 05/30/23 tablet nitroglycerin 0.4 mg sublingual See Rx Instructions .Route .COMPLEX 05/30/23 05/30/23 tablet oxybutynin chloride 5 mg tablet 5 mg PO DAILY 05/30/23 05/30/23 Allergies Allergy/AdvReac Type Severity Reaction Status Date / Time clopidogrel Allergy Severe Muscle Verified 05/30/23 15:56 Spasms dapagliflozin [From [facility]] Allergy Severe Other Verified 05/30/23 16:33 adhesive Allergy Unknown Rash Verified 05/30/23 15:56 amoxicillin Allergy Unknown Rash Verified 05/30/23 15:56 cefazolin Allergy Unknown Unknown Verified 05/30/23 15:56 Cephalosporins Allergy Unknown Unknown Verified 05/30/23 15:56 cephradine Allergy Unknown Unknown Verified 05/30/23 15:56 codeine Allergy Unknown Rash Verified 05/30/23 15:56 duloxetine Allergy Unknown Unknown Verified 05/30/23 15:56 hydromorphone Allergy Unknown Itching Verified 05/30/23 15:56 iodine Allergy Unknown Unknown Verified 05/30/23 15:56 lorazepam Allergy Unknown Unknown Verified 05/30/23 15:56 meperidine Allergy Unknown Unknown Verified 05/30/23 15:56 Penicillins Allergy Unknown Unknown Verified 05/30/23 15:56 phenytoin Allergy Unknown Unknown Verified 05/30/23 15:56 Cuyixqk-ZAR-LtC Reductase Allergy Unknown MUSCLE Verified 05/30/23 15:56 Inhibitor WEAKNESS/CRAMPING [Vagaicf-Dva-Vse Reductase Inhibitor] Sulfa (Sulfonamide Allergy Unknown Rash Verified 05/30/23 15:56 Antibiotics) sulfanilamide Allergy Unknown Unknown Verified 05/30/23 15:56 tramadol Allergy Unknown Itching Verified 05/30/23 15:56 oxycodone Allergy Unknown Verified 05/30/23 15:56 Contrast Media Allergy Unknown Dyspnea / Uncoded 12/08/22 21:25 SOB Review of Systems Review of Systems: CONSTITUTIONAL: Denies malaise, chills, sweats, or fever. CARDIOVASCULAR: Denies chest pain, palpitations, or edema. RESPIRATORY: Denies cough or dyspnea. SKIN: Denies rash or itching, bruising MUSCULOSKELETAL: Reports pain, swelling, redness to the base of the 1st digit of the left foot NEUROLOGIC: Denies numbness, weakness All systems reviewed & are unremarkable except as noted in HPI and below PMFSH Past Medical History Medical History Anxiety Bowel obstruction Cerebrovascular accident With mild right-sided weakness. Coronary artery disease COVID-19 Crohn's disease Not biopsy proven, identified by lab work. Depression History of endometriosis Hyperlipidemia (Unknown) Hypertension Nephrolithi
[2023-05-30 16:00] VITALS: BP 132/89; PULSE 85; RESP 16; TEMP 37.5; O2SAT 98
== END 2023-05-30 16:45 | disposition home or self-care (01) ==
PROVIDERS: Emergency Provider Nurse Practitioner; PCP Family Medicine
DX: M10.9 Gout, unspecified (principal); I25.10 Atherosclerotic heart disease of native coronary artery without angina pectoris; K50.90 Crohn's disease, unspecified, without complications; N80.9 Endometriosis, unspecified; I10 Essential (primary) hypertension; G47.33 Obstructive sleep apnea (adult) (pediatric); I69.351 Hemiplegia and hemiparesis following cerebral infarction affecting right dominant side; F32.A Depression, unspecified; F41.9 Anxiety disorder, unspecified; E11.9 Type 2 diabetes mellitus without complications; Z79.84 Long term (current) use of oral hypoglycemic drugs; Z85.828 Personal history of other malignant neoplasm of skin; Z95.1 Presence of aortocoronary bypass graft; Z86.16 Personal history of COVID-19; Z79.82 Long term (current) use of aspirin
CPT/HCPCS: 99213; G0463

== ENCOUNTER 2023-06-01 16:51 | Outpatient (CLI) | payer MEDICARE, SELFPAY ==
[2023-06-01 18:11] LABS: Uric Acid 8.2 mg/dL (2.5-7.5)
== END 2023-06-01 16:52 | disposition home or self-care (01) ==
LOC: ANHLAB 16:55
PROVIDERS: PCP Family Medicine; Visit Provider Family Medicine
DX: M10.00 Idiopathic gout, unspecified site (principal)
CPT/HCPCS: 36415; 84550

== ENCOUNTER 2023-12-31 00:02 | Inpatient (IN) | payer MEDICARE, SELFPAY ==
[2023-12-31] VITALS (11 sets, daily range): BP systolic 142–184; BP diastolic 68–89; PULSE 75–94; RESP 12–18; TEMP 36.1–36.8; O2SAT 92–96
--- NOTE | ~2023-12-31 | XR_ITS ---
XR chest 1V portable 01/01/2024 13:39 Indication: Chest pain Procedure: AP portable chest Comparison: 06/15/2020 Findings: Status post median sternotomy for CABG. Cardiomegaly. Mild pulmonary vascular congestion. N o focal pneumonia, pleural effusion or pneumothorax. There is residual contrast in the bowel within t he upper abdomen. There are cholecystectomy clips. Impression: 1: Mild pulmonary vascular congestion. Reviewed, dictated and finalized at location B. Impression: 1: Mild pulmonary vascular congestion.
--- NOTE | ~2023-12-31 | XR_ITS ---
XR abdomen/kub 1V 01/01/2024 06:02 INDICATION: Small bowel obstruction TECHNIQUE: KUB COMPARISON: None FINDINGS: Bowel gas pattern is normal. NG tube in the stomach. There are cholecystectomy clips. There is no evidence of free air, mass, organomegaly, ascites or obstruction. There are calcified granulom as of the liver and spleen. The bones appear intact. IMPRESSION: 1: No acute abdominal abnormality identified. Reviewed, dictated and finalized at location B.
--- NOTE | ~2023-12-31 | CT_ITS ---
CT of the Abdomen and Pelvis: Indication: Abdominal pain Technique: 2.5 mm axial scans were obtained through the abdomen and pelvis without IV contrast admin istration. Dose reduction technique was used on this scan by utilizing automated exposure control and iterative reconstruction technique. The dose-length product (DLP) was 823.14 mGy-cm. COMPARISON: 12/09/2022 Findings: Scans through the lung bases are unremarkable. Calcified hepatic and splenic granulomas are present. There is diffuse hepatic steatosis. Cholecystec nallely clips are present. The pancreas, adrenals and kidneys are within normal limits. There are athero sclerotic calcifications of the aorta. No lymphadenopathy. Proximal small bowel are mildly distended, with suspected transition point and focal equalization of small bowel contents in the right lower quadrant and midabdomen. Distal small bowel loops are decompr essed. Images through the pelvis were performed. Urinary bladder unremarkable. Small nodule seen on prior ex am is not well seen on the current exam. Status post hysterectomy. No pelvic mass seen. No ascites. Impression: Partial/early small bowel obstruction, transition point as detailed above. Diffuse hepatic steatosis. Reviewed, dictated and finalized at location . Impression: Partial/early small bowel obstruction, transition point as detailed above. Diffuse hepatic steatosis.
--- NOTE | ~2023-12-31 | XR_ITS ---
SMALL BOWEL SERIES ONLY INDICATION: Small bowel obstruction TECHNIQUE: Serial plain films and fluoroscopic spot films are performed following NG tube administrat ion of water-soluble contrast. COMPARISON: 01/01/2024 FINDINGS: Contrast was followed sequentially through the small bowel. The mucosal pattern is unremar kable. No evidence for stricture, polyp, diverticula or obstruction of flow of contrast. Transit ti me is normal. There are cholecystectomy clips. NG tube in the stomach. Transit time to the colon is l ess than 2 hours 30 minutes. IMPRESSION: 1: Normal small bowel series. Reviewed, dictated and finalized at location B.
--- NOTE | ~2023-12-31 | XR_ITS ---
Upright portable view of the abdomen Clinical history: NG tube placement Findings: NG tube is in satisfactory position. Mildly dilated small bowel loops suggest small bowel o bstruction. No free air seen. No abnormal mass lesion or calcification is seen. Osseous structures ar e intact. Impression: NG tube in satisfactory position. Probable small bowel obstruction. Reviewed, dictated and finalized at location . Impression: NG tube in satisfactory position. Probable small bowel obstruction.
--- NOTE | 2023-12-31 00:08 | ECG_ITS ---
Test Date: 2023-12-31 00:18:39 Measurements Intervals [place] Rate: 81 P: 21 CO: 130 QRS: 1 QRSD: 85 T: 20 QT: 346 QTc: 403 Interpretive Statements SINUS RHYTHM ANTERIOR INFARCT, AGE INDETERMINATE INFERIOR INFARCT, AGE INDETERMINATE BASELINE ARTIFACT- II, III, AVR, AVL, AVF ABNORMAL ECG No previous ECG available for comparison Electronically Signed On 12-31-2023 06:02:37 CDT by Latrell Quick D.O.
--- NOTE | 2023-12-31 00:11 | ED.ABDPAIN ---
HPI - Abdominal Pain General Chief Complaint: Abdominal Pain Stated Complaint: abd pain, thinks she has a bowel obstruction Time Seen by Provider: 12/31/23 00:03 History of Present Illness HPI narrative: 68-year-old female with history of CAD, CABG, CVA, type 2 diabetes, pancreatitis, Crohn's disease, bowel obstruction presents to emergency department for abdominal pain and concerns for bowel obstruction. Patient presents via EMS from home for sudden-onset abdominal pain and nausea at 5:00 p.m. States her pain is located in her epigastrium left upper quadrant. States she is concern for bowel obstruction. Her last bowel movement was this morning and small in caliber. States she has not passed much gas today. She denies dysuria or hematuria, vomiting, fever, chest pain or shortness of breath, cough or congestion. She is reporting nausea but no emesis. Patient reports multiple prior bowel obstructions in the past and states this feels similar. Prior abdominal surgeries include cystectomy. Related Data Home Medications Medication Instructions Recorded Confirmed bupropion HCl 150 mg tablet,12 hr 150 mg PO DAILY 10/22/19 05/30/23 sustained-release cholecalciferol (vitamin D3) 25 25 mcg PO BID 10/22/19 05/30/23 mcg (1,000 unit) capsule (Vitamin D3) coQ10 (ubiquinol) 100 mg capsule 100 mg PO DAILY 10/22/19 05/30/23 magnesium 250 mg tablet 250 mg PO DAILY 10/22/19 05/30/23 pantoprazole 40 mg tablet,delayed 40 mg PO QAM 10/22/19 05/30/23 release valacyclovir 1 gram tablet 1,000 mg PO DAILY PRN Itching 10/22/19 05/30/23 (Valtrex) aspirin 81 mg capsule 81 mg PO DAILY 06/17/21 05/30/23 glyburide 5 mg-metformin 500 mg 1 tablet PO DAILY 06/17/21 05/30/23 tablet losartan 50 mg tablet 50 mg PO DAILY 06/17/21 05/30/23 carvedilol 6.25 mg tablet 6.25 mg PO BID 05/30/23 05/30/23 metronidazole 500 mg tablet 500 mg PO TID 05/30/23 05/30/23 morphine 15 mg immediate release 15 mg PO DAILY 05/30/23 05/30/23 tablet nitroglycerin 0.4 mg sublingual See Rx Instructions .Route .COMPLEX 05/30/23 05/30/23 tablet oxybutynin chloride 5 mg tablet 5 mg PO DAILY 05/30/23 05/30/23 Allergies Allergy/AdvReac Type Severity Reaction Status Date / Time clopidogrel Allergy Severe Muscle Verified 05/30/23 15:56 Spasms dapagliflozin [From [facility]] Allergy Severe Other Verified 05/30/23 16:33 adhesive Allergy Unknown Rash Verified 05/30/23 15:56 amoxicillin Allergy Unknown Rash Verified 05/30/23 15:56 cefazolin Allergy Unknown Unknown Verified 05/30/23 15:56 Cephalosporins Allergy Unknown Unknown Verified 05/30/23 15:56 cephradine Allergy Unknown Unknown Verified 05/30/23 15:56 codeine Allergy Unknown Rash Verified 05/30/23 15:56 duloxetine Allergy Unknown Unknown Verified 05/30/23 15:56 hydromorphone Allergy Unknown Itching Verified 05/30/23 15:56 iodine Allergy Unknown Unknown Verified 05/30/23 15:56 lorazepam Allergy Unknown Unknown Verified 05/30/23 15:56 meperidine Allergy Unknown Unknown Verified 05/30/23 15:56 Penicillins Allergy Unknown Unknown Verified 05/30/23 15:56 phenytoin Allergy Unknown Unknown Verified 05/30/23 15:56 Wcpoann-EHL-HzR Reductase Allergy Unknown MUSCLE Verified 05/30/23 15:56 Inhibitor WEAKNESS/CRAMPING [Ttkypiq-Akh-Cem Reductase Inhibitor] Sulfa (Sulfonamide Allergy Unknown Rash Verified 05/30/23 15:56 Antibiotics) sulfanilamide Allergy Unknown Unknown Verified 05/30/23 15:56 tramadol Allergy Unknown Itching Verified 05/30/23 15:56 oxycodone Allergy Unknown Verified 05/30/23 15:56 Contrast Media Allergy Unknown Dyspnea / Uncoded 12/08/22 21:25 SOB Review of Systems Review of Systems: All systems reviewed & are unremarkable except as noted in HPI and below PMFSH Past Medical History Medical History Anxiety Bowel obstruction Cerebrovascular accident With mild right-sided weakness. Coronary artery disease COVID-19 Crohn's disea
[2023-12-31] MEDS: MORPHINE SULFATE (*CRX) 4 MG/ML INJ IV PUSH ×4 (00:22→20:51)
[2023-12-31] MEDS: SODIUM CHLORIDE 0.9% IV 1,000 ML 999 ML IV CONT (00:22)
[2023-12-31] MEDS: ONDANSETRON INJ 4 MG/2 ML VIAL IV PUSH ×2 (00:22→15:35)
[2023-12-31 00:25] LABS: Basophils Absolute Auto 0.1 K/mm3 (0.0-0.1); Basophils Percent Auto 0.5 % (0.2-1.2); Eosinophils Absolute Auto 0.2 K/mm3 (0-0.3); Hematocrit 42.9 % (37.0-47.0); Hemoglobin 14.6 g/dL (12.0-15.0); Immature Granulocyte Absolute 0.07 K/mm3 (0.00-0.031); Immature Granulocyte Percent A 0.5 % (0-0.5); Lymphocytes Absolute Auto 2.72 K/mm3 (0.9-3.2); Lymphocytes Percent Auto 17.6 % (18.3-44.2); Mean Corpuscular Hemoglobin 29.3 pg (26-34); Mean Corpuscular Volume 86.1 fl (80-100); Mean Platelet Volume 10.2 fl (7.4-10.4); Monocytes Percent Auto 6.1 % (2.6-8.5); Neutrophils Absolute Auto 11.5 K/mm3 (1.3-6.7); Neutrophils Percent Auto 74.3 % (45.5-73.1); Platelet Count Result 261 k/mm3 (150-375); Red Blood Count 4.98 M/mm3 (4.2-5.4); Red Cell Distribution Width 13.4 % (11.5-14.5); White Blood Count 15.5 K/mm3 (4.5-10.0)
[2023-12-31 00:34] LABS: INR 0.9; Prothrombin Time 12.5 Seconds (11.1-14.7)
[2023-12-31 00:35] LABS: Alanine Aminotransferase 28 U/L (6-35); Albumin Level 4.8 g/dL (3.5-5.1); Alkaline Phosphatase 124 U/L (38-126); Anion Gap 14 mmol/L (4-12); Aspartate Amino Transferase 37 U/L (14-36); Bilirubin,Total 0.6 mg/dL (0.2-1.3); Blood Urea Nitrogen 20 mg/dL (7-17); Calcium 9.8 mg/dL (8.4-10.2); Carbon Dioxide 23 mmol/L (22-30); Chloride 101 mmol/L (98-107); Estimated CRCL calculation 59 ml/min; Estimated Glomerular Filt Rate > 60; Glucose 193 mg/dL (65-110); Lipase 149 U/L (23-300); Partial Thromboplastin Time 25.5 Seconds (22.3-36.8); Sodium 138 mmol/L (137-145)
[2023-12-31 00:46] LABS: Troponin I < 0.012 ng/mL (0.000-0.034)
[2023-12-31 01:06] LABS: Lactic Acid Reflex 2.6 mmol/L (0.7-2.0)
[2023-12-31] MEDS: HYDROmorphone HCL INJ (*CRX) 1 MG/ML SYR 0.5 MG IV PUSH (02:25)
[2023-12-31] MEDS: ONDANSETRON INJ 4 MG/2 ML VIAL (03:39)
[2023-12-31 03:53] LABS: Reflex Lactic Acid Yes or No Add Lactic
[2023-12-31] MEDS: PROCHLORPERAZINE EDISYLATE 10 MG/2 ML VIAL IV PUSH (04:14)
[2023-12-31 04:53] LABS: Appearance Urine Clear (Clear); Bacteria Urine None Seen /hpf; Bilirubin Urine Negative (Negative); Blood Urine Trace (Negative); Color Urine Yellow (Yellow); Glucose Urine UA Negative (Negative); Ketones Urine Trace mg/dL (Negative); Leukocyte Esterase Ur Negative LEU/UL (Negative); Nitrate Urine Negative (Negative); Non Pathogenic Casts 0-2; Protein Urine 1+ mg/dL (Negative); Specific Grav Ur 1.023 (1.001-1.035); Squamous Epithelial Cell Urine None Seen /hpf (Few); Urobilinogen Urine 0.2 mg/dL (<2.0); WBC Urine 0-5 /hpf (0-3)
[2023-12-31 05:01] LABS: Add Urine Microscopic? YES
--- NOTE | 2023-12-31 05:07 | ADMGEN ---
This patient, Bianca Vee, was admitted to -. Patient/family oriented to hospital policies and general routines including ID bracelet, bed and alarms, visiting hours, pain management, procedures, bathroom and other care routines, personal items, smoking policy, room service/diet, and visiting hours. Information on how to activate the Rapid Response Team has been discussed. Patient/Family are encouraged to report perceived risks to care and to ask questions if they do not understand what they are told or what they should do.
[2023-12-31] MEDS: SODIUM CHLORIDE 0.9% IV 1,000 ML 115 ML IV CONT ×2 (06:00→15:35)
[2023-12-31 06:43] LABS: Lactic Acid 1.7 mmol/L (0.7-2.0)
--- NOTE | 2023-12-31 09:24 | WPDGICN ---
Assessment and Plan Assessment and plan (1) Small bowel obstruction: Code(s): K56.609 - Unspecified intestinal obstruction, unspecified as to partial versus complete obstruction Status: Acute (2) Abdominal pain: Qualifiers: Abdominal location: left upper quadrant Qualified Code(s): R10.12 - Left upper quadrant pain Code(s): R10.9 - Unspecified abdominal pain Status: Acute (3) Nausea: Code(s): R11.0 - Nausea Status: Acute (4) Bloating: Code(s): R14.0 - Abdominal distension (gaseous) Status: Acute (5) Hepatic steatosis: Code(s): K76.0 - Fatty (change of) liver, not elsewhere classified Status: Acute Plan 1. Abdominal pain/bloating/nausea/partial small bowel obstruction: Per patient last colonoscopy performed at [facility] 3-4 years ago was unremarkable, reports not available at today's visit. Colonoscopy 03/26/[address] Hanks showed tubular adenoma, diverticula, and internal hemorrhoids but no findings consistent with inflammatory bowel disease. Patient has never be diagnosed with IBD and has never been on any treatment for IBD. She reports similar presentation in August 2021 when she was diagnosed with a small bowel obstruction. Abdominal x-ray and CT abdomen/pelvis today are consistent with partial/early small bowel obstruction. On exam, abdomen is bloated and tender in the left upper quadrant. Bowel sounds are present but hypoactive in lower quadrants. NG tube in right nare to LIS. Bloating, pain, and nausea have improved but not resolved since admission. DDX: Partial small bowel obstruction secondary to adhesions from prior abdominal surgeries VS Crohn's disease Check inflammatory markers including stool studies to evaluate for possible inflammatory bowel disease Continue NG tube to low intermittent suction for decompression Continue supportive care to include pain management and antiemetics. Avoid narcotics Consider small bowel follow through with gastrografin tomorrow Surgical consultation if no improvement or worsening obstruction 2. Hepatic steatosis: Recent CT showed diffuse hepatic steatosis. LFTs normal except very mildly elevated AST at 37. Patient has many risk factors for fatty liver including HLD, diabetes, and elevated BMI at 30.7. monitor can be further worked up as outpatient if there are any change in LFTs Thank you very much for allowing me to share in the care of this very nice patient. This report may have been done utilizing a voice recognition system. Attempts have been made to correct errors. However, there may be uncorrected grammatical, spelling, and recognition errors present. GI Consult Note Consult date/time: 12/31/23 09:24 Reason for consult: Crohns and SBO HPI: This is a pleasant 68 year old female with a past medical surgical history of anxiety, bowel obstruction, CVA, CAD, Crohn's disease, depression, endometriosis, HLD, HTN, AMINA, pancreatitis, gout, PTSD, sweat gland carcinoma, , type 2 diabetes, CABG, cardiac stent placement, cholecystectomy, appendectomy, hysterectomy, and rhinoplasty she presented to the ER room 12/31/2023 with complaints of abdominal pain and concern for small bowel obstruction. GI consulted for Crohn's and small bowel obstruction. Patient was last admitted on August 2021 with similar complaints and diagnosed with a small bowel obstruction. Patient reports abdominal pain started at 5 pm yesterday. She describes the pain as crampy dull pain in the LUQ. Yesterday after 5 pm she also started having nausea, abdominal bloating and was unable to pass gas. She has had nausea but no vomiting, nausea has improved but not resolved with NG tube. She denies dysphagia, odynophagia or regurgitation. Reflux controlled on Protonix 40 mg daily. Her appetite was okay yesterday but poor today. Denies unintentional weight loss. Prior to yesterday, she was having regular bowel movements that
[2023-12-31 10:25] LABS: CRP 1.1 mg/dL (<1.0)
[2023-12-31 11:12] LABS: Erythrocyte Sedimentation Rate 23 mm/hr (0-20)
--- NOTE | 2023-12-31 17:31 | PM.IMHP ---
H&P: HPI History of Present Illness Date/Time: 12/31/23 17:31 Chief Complaint: Abdominal pain Narrative: The patient is a 68 year old female hx SBO 2021, HTN, DMII, hx appendectomy, hysterectomy, who presented for abdominal pain, n/v, diagnosed with partial SBO. She reports she was doing well, ate a normal breakfast and had a BM 12/29 in the morning. Around 4pm that evening she was nauseated, subsequently had dry heaves and abdominal pain so came to the ER She had a colonoscopies in 2013 that showed a tubular adenoma, diverticula, and internal hemorrhoids, but no IBD. Patient says reports last colonoscopy about 3-4 years ago. Possible adhesions per patient notes 2001 Dr. Love Lopez warned severe amount of scar tissue present in abdomen . In the ER, afebrile, HR 78, BP 158/68, O2 92%. Labs: WBC 15.5, H&H normal, ESR 23, AG 14, CO2 23, BUN 20, Glucose 193, AST 37, ALT 28, Alk phos 124. CT 12/30 showed a Partial/early small bowel obstruction, transition point. x-ray 12/30 showed NG tube in place. Patient still with LUQ pain this morning GI saw her this morning and recommended NGT, small bowel follow through, inflammatory markers and stool studies Review of Systems Review of Systems: Sleepy, ROS limited by participation but PMFSH Past Medical History Medical History (Updated 12/31/23 @ 18:18 by Eden Hernandez APRN) Anxiety Bowel obstruction Cerebrovascular accident With mild right-sided weakness. Coronary artery disease COVID-19 Crohn's disease Not biopsy proven, identified by lab work. Depression History of endometriosis Hyperlipidemia (Unknown) Hypertension Nephrolithiasis Obstructive sleep apnea Intolerant to CPAP Pancreatitis Post traumatic stress disorder Sweat gland carcinoma Left upper cheek, status post excision. Type 2 diabetes mellitus (Unknown) Surgical History Surgical History History of appendectomy History of cardiac catheterization History of section, classical History of cholecystectomy History of coronary artery bypass graft (01/16/21) [facility] vessel bypass at [facility]. History of extraction of renal calculus History of hysterectomy History of meniscectomy of right knee History of rhinoplasty History of tonsillectomy Family History Family History Father Acute myocardial infarction Family history of coronary artery disease Hypertension Hypercholesteremia Sibling Family history of alcoholism Hypertension Hypercholesteremia Grandparent Family history of coronary artery disease Mother Diabetes mellitus Acute myocardial infarction Congestive heart failure Leukemia Hypertension Cerebrovascular accident Hypercholesteremia Other Asthma Social History Social History Social History: The patient lives with her in [place]; they have 1 son. 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 No alcohol or illicit substance abuse. She designates her , David Vee, as her surrogate decision maker and she wishes to be a full code. Smoking status: Never smoker Alcohol intake: never Substance use: never Do You Feel Safe in your Home?: Yes Lack of Transportation: No Lack of Food: Never True Current Housing: I Have Housing Concerned About Future Housing: No Difficulty Paying Gas/Electric Bills: No Difficulty Paying for Meds: No Currently Unemployed: No Education: Associate Degree Difficulty w/ Childcare or Family Care: No Living arrangements: with family Spiritual care concerns: No Meds Home Medications and Allergies Home Medications Medication Instructions Recorded Confirmed Type cholecalciferol (vitamin D3) 25 25 mcg PO DAILY 10/22/19 12/31/23 History mcg (1,000 unit) capsule (Vitamin D3) coQ
[2023-12-31] MEDS: PANTOPRAZOLE SODIUM IV 40 MG VIAL IV PUSH (17:57)
--- NOTE | 2023-12-31 18:17 | PM.CNGS ---
Assessment and Plan Assessment and plan (1) Small bowel obstruction: Code(s): K56.609 - Unspecified intestinal obstruction, unspecified as to partial versus complete obstruction Status: Acute Assessment and Plan: Continue NG suction and IV fluids. Will recheck exam and plain film of the abdomen in the morning. Still having pain, I would not proceed with contrast studies as yet. Hopefully she will not need surgery as she has done several times in the past. (2) History of CVA (cerebrovascular accident): Code(s): Z86.73 - Personal history of transient ischemic attack (TIA), and cerebral infarction without residual deficits Status: Chronic (3) Hypertension: Qualifiers: Hypertension type: essential hypertension Qualified Code(s): I10 - Essential (primary) hypertension Code(s): I10 - Essential (primary) hypertension Status: Chronic (4) Type 2 diabetes mellitus: Onset Date: Unknown Qualifiers: Diabetes mellitus potato chip frier insulin use: without potato chip frier use Diabetes mellitus complication status: without complication Qualified Code(s): E11.9 - Type 2 diabetes mellitus without complications Code(s): E11.9 - Type 2 diabetes mellitus without complications Status: Chronic (5) Crohn's disease: Qualifiers: Digestive disease complication type: unspecified complication Gastrointestinal tract location: unspecified location Qualified Code(s): K50.919 - Crohn's disease, unspecified, with unspecified complications Code(s): K50.90 - Crohn's disease, unspecified, without complications Status: Chronic Assessment and Plan: History of Crohn's but patient now tells me she is thought not have Crohn's. With multiple history of SBO and findings in the area of the ileocecal valve, I think I will go ahead and consult Gastroenterology to evaluate. No evidence of inflammatory bowel disease on her CT scan. History of Present Illness Consult details Consult date: 12/31/23 (Patient seen at 7:00 a.m. this morning) Reason for consult: abdominal pain Requesting physician: Sadaf Jean-Baptiste PA-C Narrative: Patient is a 68-year-old woman with history of stroke and mild residual weakness. She has a history of multiple previous small-bowel obstructions. Her history of abdominal surgeries includes cholecystectomy, hysterectomy, and appendectomy. She had pain starting rather abruptly about 5 p.m. yesterday. Pain was in the epigastric area and left upper quadrant. She came to the emergency room and evaluation there showed evidence of a possible small-bowel obstruction. She had not had any vomiting but a nasogastric tube had been placed. She was feeling better when I saw her this morning although was still having some left upper quadrant pain. Pain was much better than when she came to the emergency room. She has not had any bowel movements or flatus since admission. She also has a history of Crohn's disease but tells me that more recently she has been told she does not have Crohn's disease. She is not on any medication for inflammatory bowel disease. She is seen today in consultation for small-bowel obstruction. Review of Systems Review of Systems: All systems reviewed & are unremarkable except as noted in HPI and below (HPI) [facility] Past Medical History Medical History Anxiety Bowel obstruction Cerebrovascular accident With mild right-sided weakness. Coronary artery disease COVID-19 Crohn's disease Not biopsy proven, identified by lab work. Depression History of endometriosis Hyperlipidemia (Unknown) Hypertension Nephrolithiasis Obstructive sleep apnea Intolerant to CPAP Pancreatitis Post traumatic stress disorder Sweat gland carcinoma Left upper cheek, status post excision. Type 2 diabetes mellitus (Unknown) Surgical History Surgical History (Reviewed 12/31/23 @ 18:22 by Osmany
--- NOTE | 2023-12-31 18:34 | PC.NURSE ---
Portal Administrator spoke with Veronica in lab regarding adding new stool orders to sample sent down this afternoon.
[2023-12-31] MEDS: PREGABALIN (*CRX) 25 MG CAPSULE PO (20:30)
[2023-12-31] MEDS: ENOXAPARIN 30 MG/0.3 ML SYRINGE SUB-Q (20:51)
[2024-01-01] VITALS (9 sets, daily range): BP systolic 133–162; BP diastolic 62–74; PULSE 67–98; RESP 16–20; TEMP 36.2–37; O2SAT 92–96
[2024-01-01 00:22] LABS: Glucose Point of Care 85 mg/dl (65-105)
--- NOTE | 2024-01-01 01:18 | ECG_ITS ---
Test Date: 2024-01-01 01:32:10 Measurements Intervals [place] Rate: 78 P: 30 IL: 163 QRS: 33 QRSD: 90 T: -5 QT: 377 QTc: 430 Interpretive Statements SINUS RHYTHM CONSIDER ANTERIOR INFARCT, AGE INDETERMINATE CONSIDER INFERIOR INFARCT, AGE INDETERMINATE BASELINE ARTIFACT- I, II, AVR, AVF ABNORMAL ECG Compared to ECG 12/31/2023 00:18:39 No significant changes Electronically Signed On 01-01-2024 09:02:04 CDT by Latrell Quick D.O.
[2024-01-01] MEDS: NITROGLYCERIN SL 0.4 MG TABLET SUBLINGUAL (01:39)
[2024-01-01] MEDS: MORPHINE SULFATE (*CRX) 4 MG/ML INJ IV PUSH ×3 (02:12→17:15)
[2024-01-01] MEDS: SODIUM CHLORIDE 0.9% IV 1,000 ML 115 ML IV CONT ×2 (02:13→17:25)
[2024-01-01 06:13] LABS: Glucose Point of Care 100 mg/dl (65-105)
[2024-01-01] MEDS: hydrALAZINE HCL 20 MG/ML VIAL 10 MG IV PUSH (06:39)
[2024-01-01 07:01] LABS: Hematocrit 38.8 % (37.0-47.0); Hemoglobin 12.5 g/dL (12.0-15.0); Mean Corpuscular HGB Conc 32.2 g/dl (32-36); Mean Corpuscular Hemoglobin 28.8 pg (26-34); Mean Corpuscular Volume 89.4 fl (80-100); Mean Platelet Volume 10.3 fl (7.4-10.4); Platelet Count Result 208 k/mm3 (150-375); Red Blood Count 4.34 M/mm3 (4.2-5.4); Red Cell Distribution Width 13.6 % (11.5-14.5); White Blood Count 12.1 K/mm3 (4.5-10.0)
[2024-01-01 07:22] LABS: Anion Gap 10 mmol/L (4-12); Blood Urea Nitrogen 12 mg/dL (7-17); CRP 2.7 mg/dL (<1.0); Calcium 8.3 mg/dL (8.4-10.2); Carbon Dioxide 28 mmol/L (22-30); Chloride 100 mmol/L (98-107); Estimated CRCL calculation 67 ml/min; Estimated Glomerular Filt Rate > 60; Glucose 93 mg/dL (65-110); Magnesium 1.1 mg/dL (1.6-2.3); Phosphorus 3.9 mg/dL (2.5-4.5); Potassium 3.8 mmol/L (3.4-5.0); Sodium 138 mmol/L (137-145)
[2024-01-01] MEDS: PREGABALIN (*CRX) 25 MG CAPSULE PO ×3 (08:10→17:15)
[2024-01-01] MEDS: PANTOPRAZOLE SODIUM IV 40 MG VIAL IV PUSH (08:10)
[2024-01-01] MEDS: ENOXAPARIN 30 MG/0.3 ML SYRINGE SUB-Q ×2 (08:10→20:19)
[2024-01-01] MEDS: MAGNESIUM SULF 4 GM/WATER100ML 4 GM/100 ML BAG IVPB (09:57)
[2024-01-01 12:02] LABS: Glucose Point of Care 189 mg/dl (65-105)
--- NOTE | 2024-01-01 12:56 | P.PNIM_ITS ---
Progress Note: A&P Assessment and Plan (1) Hepatic steatosis: Code(s): K76.0 - Fatty (change of) liver, not elsewhere classified Status: Acute (2) Nausea: Code(s): R11.0 - Nausea Status: Acute (3) Small bowel obstruction: Code(s): K56.609 - Unspecified intestinal obstruction, unspecified as to partial versus complete obstruction Status: Deleted (4) Abdominal pain: Qualifiers: Abdominal location: left upper quadrant Qualified Code(s): R10.12 - Left upper quadrant pain Code(s): R10.9 - Unspecified abdominal pain Status: Acute (5) CAD (coronary artery disease): Code(s): I25.10 - Atherosclerotic heart disease of [place] coronary artery without angina pectoris Status: Acute (6) Hypertension: Qualifiers: Hypertension type: essential hypertension Qualified Code(s): I10 - Essential (primary) hypertension Code(s): I10 - Essential (primary) hypertension Status: Chronic (7) Type 2 diabetes mellitus: Onset Date: Unknown Qualifiers: Diabetes mellitus terminal system operator insulin use: without terminal system operator use Diabetes mellitus complication status: without complication Qualified Code(s): E11.9 - Type 2 diabetes mellitus without complications Code(s): E11.9 - Type 2 diabetes mellitus without complications Status: Chronic Plan SBO * GI Consulted, appreciate recommendations * PPI IV * Small bowel follow through in the morning * Stool studies: C-diff, calprotectin, lactoferrin, stool culture, h pylori * CRP, ESR, celiac panel * Surgery consulted 01/01/2024 * SBS normal findings SBO resolved * NG tube discontinued * advance to full liquid HTN * BP above goal * Losartan, isosorbide DM * Accu-Cheks a.c. HS * sliding scale insulin * hold oral diabetic medications * Diabetic diet when tolerating * Optimize Dwayne inhibitors and statins. * Watch for hypoglycemia/hypoglycemic protocol ordered Acute pain * Lyrica TID * Morphine PRN Nausea * Zofran PRN HLD * Home repatha Code status: Full code per patient DVT prophylaxis: SCD's Stress ulcer prophylaxis: Protonix 40 daily PT/OT notes: Ambulatory Disposition: Patient continues admission for SBO resolving series show resolved, d/C NG tube and advanced diet, stool cultures pending. Patient will discharge to home when medically stable. Time Spent With Patient Time with patient: 15 - 25 minutes Subjective Date/time seen: 01/01/24 12:56 Interval history: Admission: Medical Record The patient is a 68 year old female hx SBO 2021, HTN, DMII, hx appendectomy, hysterectomy, who presented for abdominal pain, n/v, diagnosed with partial SBO. She reports she was doing well, ate a normal breakfast and had a BM 12/29 in the morning. Around 4pm that evening she was nauseated, subsequently had dry heaves and abdominal pain so came to the ER She had a colonoscopies in 2013 that showed a tubular adenoma, diverticula, and internal hemorrhoids, but no IBD. Patient says reports last colonoscopy about 3- 4 years ago. Possible adhesions per patient notes 2001 Dr. Love Lopez warned severe amount of scar tissue present in abdomen . In the ER, afebrile, HR 78, BP 158/68, O2 92%. Labs: WBC 15.5, H&H normal, ESR 23, AG 14, CO2 23, BUN 20, Glucose 193, AST 37, ALT 28, Alk phos 124. CT 12/30 showed a Partial/early small bowel obstruction, transition point. x-ray
--- NOTE | 2024-01-01 12:56 | PM.IMPN ---
Progress Note: A&P Assessment and Plan (1) Hepatic steatosis: Code(s): K76.0 - Fatty (change of) liver, not elsewhere classified Status: Acute (2) Nausea: Code(s): R11.0 - Nausea Status: Acute (3) Small bowel obstruction: Code(s): K56.609 - Unspecified intestinal obstruction, unspecified as to partial versus complete obstruction Status: Deleted (4) Abdominal pain: Qualifiers: Abdominal location: left upper quadrant Qualified Code(s): R10.12 - Left upper quadrant pain Code(s): R10.9 - Unspecified abdominal pain Status: Acute (5) CAD (coronary artery disease): Code(s): I25.10 - Atherosclerotic heart disease of [place] coronary artery without angina pectoris Status: Acute (6) Hypertension: Qualifiers: Hypertension type: essential hypertension Qualified Code(s): I10 - Essential (primary) hypertension Code(s): I10 - Essential (primary) hypertension Status: Chronic (7) Type 2 diabetes mellitus: Onset Date: Unknown Qualifiers: Diabetes mellitus intermediate frame tender insulin use: without intermediate frame tender use Diabetes mellitus complication status: without complication Qualified Code(s): E11.9 - Type 2 diabetes mellitus without complications Code(s): E11.9 - Type 2 diabetes mellitus without complications Status: Chronic Plan SBO GI Consulted, appreciate recommendations PPI IV Small bowel follow through in the morning Stool studies: C-diff, calprotectin, lactoferrin, stool culture, h pylori CRP, ESR, celiac panel Surgery consulted 01/01/2024 SBS normal findings SBO resolved NG tube discontinued advance to full liquid HTN BP above goal Losartan, isosorbide DM Accu-Cheks a.c. HS sliding scale insulin hold oral diabetic medications Diabetic diet when tolerating Optimize Dwayne inhibitors and statins. Watch for hypoglycemia/hypoglycemic protocol ordered Acute pain Lyrica TID Morphine PRN Nausea Zofran PRN HLD Home repatha Code status: Full code per patient DVT prophylaxis: SCD's Stress ulcer prophylaxis: Protonix 40 daily PT/OT notes: Ambulatory Disposition: Patient continues admission for SBO resolving series show resolved, d/C NG tube and advanced diet, stool cultures pending. Patient will discharge to home when medically stable. Time Spent With Patient Time with patient: 15 - 25 minutes Subjective Date/time seen: 07/20/24 12:56 Interval history: Admission: Medical Record The patient is a 68 year old female hx SBO 2021, HTN, DMII, hx appendectomy, hysterectomy, who presented for abdominal pain, n/v, diagnosed with partial SBO. She reports she was doing well, ate a normal breakfast and had a BM 12/29 in the morning. Around 4pm that evening she was nauseated, subsequently had dry heaves and abdominal pain so came to the ER She had a colonoscopies in 2013 that showed a tubular adenoma, diverticula, and internal hemorrhoids, but no IBD. Patient says reports last colonoscopy about 3-4 years ago. Possible adhesions per patient notes 2001 Dr. Love Lopez warned severe amount of scar tissue present in abdomen . In the ER, afebrile, HR 78, BP 158/68, O2 92%. Labs: WBC 15.5, H&H normal, ESR 23, AG 14, CO2 23, BUN 20, Glucose 193, AST 37, ALT 28, Alk phos 124. CT 12/30 showed a Partial/early small bowel obstruction, transition point. x-ray 12/[address] showed [address] tube in place. Patient still with LUQ pain this morning GI saw her this morning and recommended NGT, small bowel follow through, inflammatory markers and stool studies 01/01/2024: Assumed Care Patient still with intermittent abdominal pain however reports passing gas, output from NG tube has slowed down. SBS showed normal bowel series. Will discontinue NG tube and advance diet to full liquid diet, stool studies still pending. Patient did report pain on the LUQ right below her ribs CXR pendin
--- NOTE | 2024-01-01 13:00 | PC.NURSE ---
NG tube removed per written orders from Hospitalist. Patient tolerated procedure well.
--- NOTE | 2024-01-01 13:38 | WPDGIPROGNO ---
Progress Note: A&P Assessment and Plan (1) Ileus, unspecified: Code(s): K56.7 - Ileus, unspecified Status: Resolved Assessment and Plan: clinically better repeat SBFT is normal- no strictures at some point she was labeled as possible Crohn's however no definitive histological proven, in fact her GI doctor at [facility] told her that most likely she does not have Crohn's surgery on board, tolerating liquid diet now last colonoscopy about 3-4 years ago, probably we can repeat another one in outpatient setting (2) Small bowel obstruction: Code(s): K56.609 - Unspecified intestinal obstruction, unspecified as to partial versus complete obstruction Status: Acute Assessment and Plan: clinically better ngt removed (3) Abdominal pain: Qualifiers: Abdominal location: left upper quadrant Qualified Code(s): R10.12 - Left upper quadrant pain Code(s): R10.9 - Unspecified abdominal pain Status: Acute (4) Nausea: Code(s): R11.0 - Nausea Status: Acute Subjective Date/time seen: 01/01/24 13:38 Interval history: clinically better, still some abdominal pain but had large BM yesterday, no more emesis and NGT already removed, on CL diet Review of Systems Review of Systems: All systems reviewed & are unremarkable except as noted in HPI and below Exam Const: General: cooperative, healthy appearing, comfortable, no acute distress and well developed Orientation/consciousness: patient oriented x3 HENMT: Head: normal to inspection, normocephalic and atraumatic Eyes: General: appearance normal, both eyes and all related structures Conjunctivae: conjunctivae normal Neck: Neck: normal visual inspection Chest: Chest palpation & inspection: normal inspection of the chest Resp: Effort & Inspection: normal respiratory effort and able to speak in complete sentences Auscultation: clear to auscultation bilaterally Cardio: Rate: regular rate Rhythm: regular rhythm GI: Inspection: normal to inspection GI Palp: Yes Soft to palpation and Yes Tenderness to palpation present (GI) (mild ttp, no rebound- improved) Auscultation: normal bowel sounds Skin: General skin exam: normal color and no rashes or lesions noted Neuro: General: oriented to person, oriented to place, oriented to time and patient oriented x3 Cranial nerves: Yes Equal, round and reactive pupils present Speech: normal speech Extrem: General: normal to inspection and no clubbing, cyanosis or edema Psych: Appearance: grossly normal and well kempt Affect: normal affect Objective Data Vital Signs Vital Signs: Vital Signs - 24 hr 12/31/23 16:43 12/31/23 21:06 12/31/23 20:00 Temperature 97.6 F 97.6 F Pulse Rate 78 75 Respiratory Rate 12 18 Blood Pressure 158/68 H 142/70 H Pulse Oximetry 92 96 Oxygen Delivery Room Air Fraction of Inspired Oxygen 01/01/24 01:18 01/01/24 01:39 01/01/24 05:41 Temperature 97.2 F L Pulse Rate 77 77 82 Respiratory Rate 18 18 Blood Pressure 152/62 H 152/62 H Pulse Oximetry 96 92 Oxygen Delivery Fraction of Inspired Oxygen 01/01/24 06:41 01/01/24 08:10 Temperature Pulse Rate 81 Respiratory Rate 20 Blood Pressure 162/74 H Pulse Oximetry 96 Oxygen Delivery Room Air Fraction of Inspired Oxygen 21 Intake/Output Intake/Output: Intake & Output 12/29/23 12/30/23 12/31/23 01/01/24 23:59 23:59 23:59 23:59 Intake Total 2000 1000 Output Total 851 1200 Balance 1149 -200 Meds/Results Medications: Active Medications Generic Name Dose Route Start Last Admin Trade Name Freq PRN Reason Stop Dose Admin Carvedilol 6.25 mg 01/01/24 17:00 Carvedilol 6.25 Mg Tablet PO BIDWM REPLACED BY [facility] Dextrose 12.5 gm 12/31/23 18:32 Dextrose 50% 25 Gm/50 Ml Syringe IV PUSH PRN PRN Hypoglycemia Protocol Enoxaparin Sodium 30 mg 12/31/23 21:00 01/01/24 08:10 Enoxaparin 30 Mg/0.3 Ml Syringe SUB-Q
--- NOTE | 2024-01-01 14:22 | PM.PNGS ---
Progress Note: A&P Assessment and Plan (1) Small bowel obstruction: Code(s): K56.609 - Unspecified intestinal obstruction, unspecified as to partial versus complete obstruction Status: Acute Assessment and Plan: Appears to be resolved clinically and radiographically. Already has had NG removed and started on fulls by hospitalist. Will sign off. (2) History of CVA (cerebrovascular accident): Code(s): Z86.73 - Personal history of transient ischemic attack (TIA), and cerebral infarction without residual deficits Status: Chronic Subjective Subjective Date/Time Seen: 01/01/24 14:22 Patient reports: feels better, pain is less, bowel movement and afebrile Review of Systems Review of Systems: All systems reviewed & are unremarkable except as noted in HPI and below (HPI) Exam Const: General: comfortable and no acute distress Orientation/consciousness: patient oriented x3 GI: Inspection: non-distended, obesity and scar GI Palp: Yes Soft to palpation, No Tenderness to palpation present (GI), No Guarding due to palpation present (GI) and No Rebound tenderness present Auscultation: normoactive bowel sounds Neuro: General: patient oriented x3 and no focal motor deficits Extrem: General: no calf tenderness and no edema Psych: Affect: normal affect Insight: Good insight present (Psych) Judgement: Good judgement present (Psych) Objective Data Vital Signs Vital Signs: Vital Signs - 24 hr 12/31/23 16:43 12/31/23 21:06 12/31/23 20:00 Temperature 36.4 C 36.4 C Pulse Rate 78 75 Respiratory Rate 12 18 Blood Pressure 158/68 H 142/70 H Pulse Oximetry 92 96 Oxygen Delivery Room Air Fraction of Inspired Oxygen 01/01/24 01:18 01/01/24 01:39 01/01/24 05:41 Temperature 36.2 C L Pulse Rate 77 77 82 Respiratory Rate 18 18 Blood Pressure 152/62 H 152/62 H Pulse Oximetry 96 92 Oxygen Delivery Fraction of Inspired Oxygen 01/01/24 06:41 01/01/24 08:10 Temperature Pulse Rate 81 Respiratory Rate 20 Blood Pressure 162/74 H Pulse Oximetry 96 Oxygen Delivery Room Air Fraction of Inspired Oxygen 21 Intake/Output Intake/Output: Intake & Output 12/29/23 12/30/23 12/31/23 01/01/24 23:59 23:59 23:59 23:59 Intake Total 1999 1000 Output Total 851 1200 Balance 1149 -200 Meds/Results Medications: Active Medications Generic Name Dose Route Start Last Admin Trade Name Kojo PRN Reason Stop Dose Admin Carvedilol 6.25 mg 01/01/24 17:00 Carvedilol 6.25 Mg Tablet PO BIDWM NICHOLAS Dextrose 12.5 gm 12/31/23 18:32 Dextrose 50% 25 Gm/50 Ml Syringe IV PUSH PRN PRN Hypoglycemia Protocol Enoxaparin Sodium 30 mg 12/31/23 21:00 01/01/24 08:10 Enoxaparin 30 Mg/0.3 Ml Syringe SUB-Q 30 mg Q12HR NICHOLAS Administration Glucagon 1 mg 12/31/23 18:32 Glucagon For Inj 1 Mg Vial IM PRN PRN Hypoglycemia Protocol Glucose 15 gm 12/31/23 18:32 Glucose Oral Gel 15 Gm Of Glucse In 37.5 Gm Tube PO PRN PRN Hypoglycemia Protocol Hydralazine HCl 10 mg 12/31/23 18:31 01/01/24 06:39 Hydralazine Hcl 20 Mg/Ml Vial IV PUSH 10 mg Q8H PRN Administration Blood Pressure - High Sodium Chloride 1,000 mls @ 115 mls/hr 12/31/23 01:35 01/01/24 02:13 Normal Saline Iv IV CONT 115 mls/hr .[id number] NICHOLAS Administration Dextrose 1,000 mls @ 100 mls/hr 12/31/23 18:32 Dextrose 5% 1,000 Ml IVPB PRN PRN Hypoglycemia Protocol Insulin Aspart 2 - 5 units 01/01/24 00:00 01/01/24 12:14 Insulin Aspart (*Bkc) 100 Units/Ml SUB-Q Not Given Q6HR [facility] Protocol Isosorbide Mononitrate 60 mg 01/01/24 09:00 Isosorbide Mononitrate 60 Mg Tab.Er.24h PO DAILY [facility] Losartan Potassium 50 mg 01/01/24 09:00 Losartan Potassium 50 Mg Tablet PO DAILY NICHOLAS Morphine Sulfate 4 mg 12/31/23 07:24 01/01/24 05:50 Morphine Sulfate (*Crx) 4 Mg/Ml Inj IV PUSH 4 mg
[2024-01-01] MEDS: carvediloL 6.25 MG TABLET PO (17:14)
[2024-01-01 17:49] LABS: Glucose Point of Care 158 mg/dl (65-105)
[2024-01-01 18:35] LABS: Basophils Absolute Auto 0.1 K/mm3 (0.0-0.1); Basophils Percent Auto 0.4 % (0.2-1.2); Eosinophils Absolute Auto 0.1 K/mm3 (0-0.3); Eosinophils Percent Auto 0.4 % (0-4.4); Hematocrit 39.7 % (37.0-47.0); Hemoglobin 13.4 g/dL (12.0-15.0); Immature Granulocyte Absolute 0.07 K/mm3 (0.00-0.031); Immature Granulocyte Percent A 0.5 % (0-0.5); Lymphocytes Absolute Auto 2.54 K/mm3 (0.9-3.2); Lymphocytes Percent Auto 18.7 % (18.3-44.2); Mean Corpuscular HGB Conc 33.8 g/dl (32-36); Mean Corpuscular Hemoglobin 29.5 pg (26-34); Mean Corpuscular Volume 87.4 fl (80-100); Mean Platelet Volume 10.4 fl (7.4-10.4); Monocytes Absolute Auto 0.9 K/mm3 (0.1-0.6); Monocytes Percent Auto 6.9 % (2.6-8.5); Neutrophils Absolute Auto 9.9 K/mm3 (1.3-6.7); Neutrophils Percent Auto 73.1 % (45.5-73.1); Platelet Count Result 204 k/mm3 (150-375); Red Blood Count 4.54 M/mm3 (4.2-5.4); Red Cell Distribution Width 13.6 % (11.5-14.5); White Blood Count 13.6 K/mm3 (4.5-10.0)
[2024-01-01 18:46] LABS: Lactic Acid Reflex 1.2 mmol/L (0.7-2.0)
[2024-01-01 20:08] LABS: Glucose Point of Care 214 mg/dl (65-105)
[2024-01-02] MEDS: MORPHINE SULFATE (*CRX) 4 MG/ML INJ IV PUSH ×2 (00:40→06:28)
[2024-01-02] MEDS: SODIUM CHLORIDE 0.9% IV 1,000 ML 115 ML IV CONT ×2 (00:40→10:34)
[2024-01-02 04:11] VITALS: BP 170/84; PULSE 68; RESP 18; TEMP 37.2; O2SAT 98
[2024-01-02] MEDS: hydrALAZINE HCL 20 MG/ML VIAL 10 MG IV PUSH (05:45)
[2024-01-02] MEDS: ONDANSETRON INJ 4 MG/2 ML VIAL IV PUSH (06:28)
[2024-01-02 06:38] LABS: Alanine Aminotransferase 27 U/L (6-35); Albumin Level 3.8 g/dL (3.5-5.1); Alkaline Phosphatase 131 U/L (38-126); Anion Gap 10 mmol/L (4-12); Aspartate Amino Transferase 38 U/L (14-36); Bilirubin,Total 0.5 mg/dL (0.2-1.3); Blood Urea Nitrogen 8 mg/dL (7-17); Calcium 8.6 mg/dL (8.4-10.2); Carbon Dioxide 25 mmol/L (22-30); Chloride 102 mmol/L (98-107); Estimated CRCL calculation 78 ml/min; Estimated Glomerular Filt Rate > 60; Glucose 128 mg/dL (65-110); Magnesium 1.6 mg/dL (1.6-2.3); Potassium 3.4 mmol/L (3.4-5.0); Sodium 137 mmol/L (137-145)
[2024-01-02 06:40] LABS: Phosphorus 3.1 mg/dL (2.5-4.5)
[2024-01-02 08:21] LABS: Glucose Point of Care 145 mg/dl (65-105)
[2024-01-02 08:28] VITALS: PULSE 58
[2024-01-02] MEDS: carvediloL 6.25 MG TABLET PO (08:28)
[2024-01-02] MEDS: PANTOPRAZOLE 40 MG TABLET PO (08:29)
[2024-01-02] MEDS: PREGABALIN (*CRX) 25 MG CAPSULE PO ×2 (08:29→12:30)
[2024-01-02] MEDS: ENOXAPARIN 30 MG/0.3 ML SYRINGE SUB-Q (08:29)
--- NOTE | 2024-01-02 09:21 | WPDGIPROGNO ---
Progress Note: A&P Assessment and Plan (1) Ileus, unspecified: Code(s): K56.7 - Ileus, unspecified Status: Resolved Assessment and Plan: clinically better repeat SBFT is normal- no strictures at some point she was labeled as possible Crohn's however no definitive histological proven, in fact her GI doctor at [facility] told her that most likely she does not have Crohn's tolerating liquid diet, ok to advance as tolerated last colonoscopy about 3-4 years ago, we will repeat another one in few more weeks in outpatient setting (2) Small bowel obstruction: Code(s): K56.609 - Unspecified intestinal obstruction, unspecified as to partial versus complete obstruction Status: Acute Assessment and Plan: clinically better ngt removed and tolerating liquid diet (3) Abdominal pain: Qualifiers: Abdominal location: left upper quadrant Qualified Code(s): R10.12 - Left upper quadrant pain Code(s): R10.9 - Unspecified abdominal pain Status: Acute (4) Nausea: Code(s): R11.0 - Nausea Status: Acute Subjective Date/time seen: 01/02/24 09:21 Interval history: still some abdominal pain, tolerating liquid diet Review of Systems Review of Systems: All systems reviewed & are unremarkable except as noted in HPI and below Exam Const: General: cooperative, healthy appearing, comfortable, no acute distress and well developed Orientation/consciousness: patient oriented x3 HENMT: Head: normal to inspection, normocephalic and atraumatic Eyes: General: appearance normal, both eyes and all related structures Conjunctivae: conjunctivae normal Neck: Neck: normal visual inspection Chest: Chest palpation & inspection: normal inspection of the chest Resp: Effort & Inspection: normal respiratory effort and able to speak in complete sentences Auscultation: clear to auscultation bilaterally Cardio: Rate: regular rate Rhythm: regular rhythm GI: Inspection: normal to inspection GI Palp: Yes Soft to palpation and Yes Tenderness to palpation present (GI) (mild ttp, no rebound- improved) Auscultation: normal bowel sounds Skin: General skin exam: normal color and no rashes or lesions noted Neuro: General: oriented to person, oriented to place, oriented to time and patient oriented x3 Speech: normal speech Extrem: General: normal to inspection Psych: Appearance: grossly normal Affect: normal affect Objective Data Vital Signs Vital Signs: Vital Signs - 24 hr 01/01/24 14:00 01/01/24 17:14 01/01/24 19:47 Temperature 98.1 F 98.6 F Pulse Rate 98 67 80 Respiratory Rate 20 16 Blood Pressure 155/65 H 133/65 Pulse Oximetry 96 93 Oxygen Delivery 01/01/24 20:00 01/02/24 04:11 01/02/24 08:28 Temperature 98.9 F Pulse Rate 68 58 L Respiratory Rate 16 18 Blood Pressure 170/84 H Pulse Oximetry 98 Oxygen Delivery Room Air Intake/Output Intake/Output: Intake & Output 12/30/23 12/31/23 01/01/24 01/02/24 23:59 23:59 23:59 23:59 Intake Total 1999 2358 1073.8 Output Total 85 5200 900 Balance 1149 -92 173.8 Meds/Results Medications: Active Medications Generic Name Dose Route Start Last Admin Trade Name Freq PRN Reason Stop Dose Admin Carvedilol 6.25 mg 01/01/24 17:00 01/02/24 08:28 Carvedilol 6.25 Mg Tablet PO 6.25 mg BIDWM NICHOLAS Administration Dextrose 12.5 gm 12/31/23 18:32 Dextrose 50% 25 Gm/50 Ml Syringe IV PUSH PRN PRN Hypoglycemia Protocol Enoxaparin Sodium 30 mg 12/31/23 21:00 01/02/24 08:29 Enoxaparin 30 Mg/0.3 Ml Syringe SUB-Q 30 mg Q12HR NICHOLAS Administration Glucagon 1 mg 12/31/23 18:32 Glucagon For Inj 1 Mg Vial IM PRN PRN Hypoglycemia Protocol Glucose 15 gm 12/31/23 18:32 Glucose Oral Gel 15 Gm Of Glucse In 37.5 Gm Tube PO PRN PRN Hypoglycemia Protocol Hydralazine HCl 10 mg 12/31/23 18:31 01/02/24 05:45 Hydralazine Hcl
[2024-01-02 12:33] LABS: Glucose Point of Care 214 mg/dl (65-105)
[2024-01-02] MEDS: INSULIN ASPART (*BKC) 100 UNITS/ML SUB-Q (12:45)
--- NOTE | 2024-01-02 14:05 | P.DS_ITS ---
DS: Admitting Diagnosis Discharge Date 01/02/24 Admitting Diagnosis Small-bowel obstruction DS: Discharge Diagnosis Discharge Diagnosis (1) Hepatic steatosis: Code(s): K76.0 - Fatty (change of) liver, not elsewhere classified Status: Acute (2) Nausea: Code(s): R11.0 - Nausea Status: Acute (3) Small bowel obstruction: Code(s): K56.609 - Unspecified intestinal obstruction, unspecified as to partial versus complete obstruction Status: Deleted (4) Abdominal pain: Qualifiers: Abdominal location: left upper quadrant Qualified Code(s): R10.12 - Left upper quadrant pain Code(s): R10.9 - Unspecified abdominal pain Status: Acute (5) CAD (coronary artery disease): Code(s): I25.10 - Atherosclerotic heart disease of [place] coronary artery without angina pectoris Status: Acute (6) Hypertension: Qualifiers: Hypertension type: essential hypertension Qualified Code(s): I10 - Essential (primary) hypertension Code(s): I10 - Essential (primary) hypertension Status: Chronic (7) Type 2 diabetes mellitus: Onset Date: Unknown Qualifiers: Diabetes mellitus complication status: without complication Diabetes mellitus halfway insulin use: without halfway use Qualified Code(s): E11.9 - Type 2 diabetes mellitus without complications Code(s): E11.9 - Type 2 diabetes mellitus without complications Status: Chronic Plan SBO * GI Consulted, appreciate recommendations * PPI IV * Small bowel follow through in the morning * Stool studies: C-diff, calprotectin, lactoferrin, stool culture, h pylori * CRP, ESR, celiac panel * Surgery consulted 01/01/2024 * SBS normal findings SBO resolved * NG tube discontinued * advance to full liquid HTN * BP above goal * Losartan, isosorbide DM * Accu-Cheks a.c. HS * sliding scale insulin * hold oral diabetic medications * Diabetic diet when tolerating * Optimize Dwayne inhibitors and statins. * Watch for hypoglycemia/hypoglycemic protocol ordered Acute pain * Lyrica TID * Morphine PRN Nausea * Zofran PRN HLD * Home repatha Code status: Full code per patient DVT prophylaxis: SCD's Stress ulcer prophylaxis: Protonix 40 daily PT/OT notes: Ambulatory Disposition: Patient continues admission for SBO resolving series show resolved, d/C NG tube and advanced diet, stool cultures pending. Patient will discharge to home when medically stable. DS: Summary Hospital Course Reason for hospitalization: Small-bowel obstruction Hospital Course: Admission: Medical Record The patient is a 68 year old female hx SBO 2021, HTN, DMII, hx appendectomy, hysterectomy, who presented for abdominal pain, n/v, diagnosed with partial SBO. She reports she was doing well, ate a normal breakfast and had a BM 718 in the morning. Around 4pm that evening she was nauseated, subsequently had dry heaves and abdominal pain so came to the ER She had a colonoscopies in 2013 that showed a tubular adenoma, diverticula, and internal hemorrhoids, but no IBD. Patient says reports last colonoscopy about 3- 4 years ago. Possible adhesions per patient notes 2001 Dr. Love Lopez warned severe amount of scar tissue present in abdomen . In the ER, afebrile, HR 78, BP 158/68, O2 92%. Labs: WBC 15.5, H&H normal, ESR 23, AG 14, CO2 23, BUN 20, Glucose 193, AST 37, ALT
--- NOTE | 2024-01-02 14:05 | PM.DS ---
DS: Admitting Diagnosis Discharge Date 01/02/24 Admitting Diagnosis Small-bowel obstruction DS: Discharge Diagnosis Discharge Diagnosis (1) Hepatic steatosis: Code(s): K76.0 - Fatty (change of) liver, not elsewhere classified Status: Acute (2) Nausea: Code(s): R11.0 - Nausea Status: Acute (3) Small bowel obstruction: Code(s): K56.609 - Unspecified intestinal obstruction, unspecified as to partial versus complete obstruction Status: Deleted (4) Abdominal pain: Qualifiers: Abdominal location: left upper quadrant Qualified Code(s): R10.12 - Left upper quadrant pain Code(s): R10.9 - Unspecified abdominal pain Status: Acute (5) CAD (coronary artery disease): Code(s): I25.10 - Atherosclerotic heart disease of [place] coronary artery without angina pectoris Status: Acute (6) Hypertension: Qualifiers: Hypertension type: essential hypertension Qualified Code(s): I10 - Essential (primary) hypertension Code(s): I10 - Essential (primary) hypertension Status: Chronic (7) Type 2 diabetes mellitus: Onset Date: Unknown Qualifiers: Diabetes mellitus complication status: without complication Diabetes mellitus mcc insulin use: without mcc use Qualified Code(s): E11.9 - Type 2 diabetes mellitus without complications Code(s): E11.9 - Type 2 diabetes mellitus without complications Status: Chronic Plan SBO GI Consulted, appreciate recommendations PPI IV Small bowel follow through in the morning Stool studies: C-diff, calprotectin, lactoferrin, stool culture, h pylori CRP, ESR, celiac panel Surgery consulted 01/01/2024 SBS normal findings SBO resolved NG tube discontinued advance to full liquid HTN BP above goal Losartan, isosorbide DM Accu-Cheks a.c. HS sliding scale insulin hold oral diabetic medications Diabetic diet when tolerating Optimize Dwayne inhibitors and statins. Watch for hypoglycemia/hypoglycemic protocol ordered Acute pain Lyrica TID Morphine PRN Nausea Zofran PRN HLD Home repatha Code status: Full code per patient DVT prophylaxis: SCD's Stress ulcer prophylaxis: Protonix 40 daily PT/OT notes: Ambulatory Disposition: Patient continues admission for SBO resolving series show resolved, d/C NG tube and advanced diet, stool cultures pending. Patient will discharge to home when medically stable. DS: Summary Hospital Course Reason for hospitalization: Small-bowel obstruction Hospital Course: Admission: Medical Record The patient is a 68 year old female hx SBO 2021, HTN, DMII, hx appendectomy, hysterectomy, who presented for abdominal pain, n/v, diagnosed with partial SBO. She reports she was doing well, ate a normal breakfast and had a BM 12/29 in the morning. Around 4pm that evening she was nauseated, subsequently had dry heaves and abdominal pain so came to the ER She had a colonoscopies in 2013 that showed a tubular adenoma, diverticula, and internal hemorrhoids, but no IBD. Patient says reports last colonoscopy about 3-4 years ago. Possible adhesions per patient notes 2001 Dr. Love Lopez warned severe amount of scar tissue present in abdomen . In the ER, afebrile, HR 78, BP 158/68, O2 92%. Labs: WBC 15.5, H&H normal, ESR 23, AG 14, CO2 23, BUN 20, Glucose 193, AST 37, ALT 28, Alk phos 124. CT 12/30 showed a Partial/early small bowel obstruction, transition point. x-ray 12/30 showed NG tube in place. Patient still with LUQ pain this morning GI saw her this morning and recommended NGT, small bowel follow through, inflammatory markers and stool studies 01/01/2024: Assumed Care Patient still with intermittent abdominal pain however reports passing gas, output from NG tube has slowed down. SBS showed normal bowel series. Will discontinue NG tube and advance diet to full liquid diet, stool studies
[2024-01-03 14:23] LABS: H pylori Ag Stool RESULT: Not Detected
[2024-01-04 12:43] LABS: Lactoferrin, Stool COMMENT:
[2024-01-05 08:13] LABS: Immunoglobulin A 183 mg/dL (70-320); TTG IGA AB <1.0 U/mL
[2024-01-06 14:58] LABS: S cerevisiae Ab (IgA) 14.4 U (<=20.0)
[2024-01-06 22:04] LABS: ANCA Screen Negative (Negative)
[2024-01-07 20:08] LABS: Myeloperoxidase Ab <1.0 AI (<1.0); Proteinase-3 Ab <1.0 AI (<1.0)
[2024-01-08 18:42] LABS: Calprotectin, Stool 147 mcg/g
== END 2024-01-02 13:53 | disposition home or self-care (01) | DRG 389 ==
LOC: ANHED 04:40 → ANH3MED 05:39
PROVIDERS: Nurse Practitioner Acute Care; Nurse Practitioner Family; Surgery; Admitting Provider Internal Medicine; Emergency Provider Physician Assistant; PCP Family Medicine; Visit Provider Nurse Practitioner Family
DX: K56.600 Partial intestinal obstruction, unspecified as to cause (principal); I69.351 Hemiplegia and hemiparesis following cerebral infarction affecting right dominant side; K76.0 Fatty (change of) liver, not elsewhere classified; I25.10 Atherosclerotic heart disease of native coronary artery without angina pectoris; E11.9 Type 2 diabetes mellitus without complications; I10 Essential (primary) hypertension; F41.9 Anxiety disorder, unspecified; G47.33 Obstructive sleep apnea (adult) (pediatric); E78.5 Hyperlipidemia, unspecified; K56.7 Ileus, unspecified; F43.10 Post-traumatic stress disorder, unspecified; Z85.89 Personal history of malignant neoplasm of other organs and systems; Z90.49 Acquired absence of other specified parts of digestive tract; Z90.710 Acquired absence of both cervix and uterus; Z95.1 Presence of aortocoronary bypass graft; Z86.16 Personal history of COVID-19; Z95.5 Presence of coronary angioplasty implant and graft
CPT/HCPCS: 36415; 71045; 74018; 74176; 74250; 80048; 80053; 81001; 82784; 82948; 83605; 83630; 83690; 83735; 83993; 84100; 84484; 85025; 85027; 85610; 85652; 85730; 86036; 86140; 86364; 86671; 87045; 87338; 87427; 87449; 93005; 96361; 96374; 96375; 96376; 99285; A9270; J0360; J0780; J1170; J1650; J1815; J2270; J2405; J2470; J3475; J7030

== ENCOUNTER 2024-09-29 09:15 | Emergency (ER) | payer MEDICARE, SELFPAY ==
--- NOTE | 2024-09-29 09:18 | ED.SKABFB ---
HPI - Skin/Abscess/Foreign Bdy General Stated complaint: rash on left wrist Time Seen by Provider: 09/29/24 09:17 Source: patient Mode of arrival: ambulatory Limitations: no limitations History of Present Illness HPI narrative: Patient is a 68-year-old female who presents with a rash on left wrist this morning. Patient has not used anything on rash. Patient normally wears wrist brace but did not use any yesterday or today. States it is intermittently itchy. Related Data Home Medications ?Medication ?Instructions ?Recorded ?Confirmed ?Last Taken ?Type cholecalciferol (vitamin D3) 25 25 mcg PO DAILY 10/22/19 12/31/23 Unknown History mcg (1,000 unit) capsule (Vitamin D3) coQ10 (ubiquinol) 100 mg capsule 100 mg PO DAILY 10/22/19 12/31/23 Unknown History magnesium 250 mg tablet 500 mg PO DAILY 10/22/19 12/31/23 Unknown History pantoprazole 40 mg tablet,delayed 40 mg PO QAM 10/22/19 12/31/23 Unknown History release valacyclovir 1 gram tablet 1,000 mg PO DAILY PRN Itching 10/22/19 12/31/23 Unknown History (Valtrex) aspirin 81 mg capsule 81 mg PO DAILY 06/17/21 12/31/23 Unknown History glyburide 5 mg-metformin 500 mg 1 tablet PO BID 06/17/21 12/31/23 Unknown History tablet losartan 50 mg tablet 50 mg PO DAILY 06/17/21 12/31/23 Unknown History carvedilol 6.25 mg tablet 6.25 mg PO BID 05/30/23 12/31/23 Unknown History morphine 15 mg immediate release 15 mg PO Q12H PRN Pain (Scale 05/30/23 12/31/23 Unknown History tablet Score 7-10) nitroglycerin 0.4 mg sublingual 0.4 mg sublingual PRN PRN Chest 05/30/23 12/31/23 Unknown History tablet Pain B Complex-Vitamin B12 1 tab-cap PO DAILY 12/31/23 12/31/23 Unknown History Lactobacillus rhamnosus-Bifidobac. 1 cap PO DAILY 12/31/23 12/31/23 Unknown History animalis 3 billion cell capsule ([facility]) allopurinol 100 mg tablet 100 mg PO DAILY 12/31/23 12/31/23 Unknown History desvenlafaxine succinate 50 mg 50 mg PO DAILY PRN Bladder Spasms 12/31/23 12/31/23 Unknown History tablet,extended release 24 hr evolocumab 140 mg/mL subcutaneous 140 mg subcut [id number] 12/31/23 12/31/23 Unknown History pen injector (Marcin Jiménez) geriatric multivitamin-min 1 tablet PO DAILY 12/31/23 12/31/23 Unknown History isosorbide mononitrate 60 mg 60 mg PO DAILY 12/31/23 12/31/23 Unknown History tablet,extended release 24 hr potassium gluconate 550 mg tablet 550 meq PO DAILY 12/31/23 12/31/23 Unknown History pregabalin 25 mg capsule 25 mg PO TID 12/31/23 12/31/23 Unknown History promethazine 25 mg tablet 25 mg PO Q8H PRN Nausea And 12/31/23 12/31/23 Unknown History Vomiting Allergies Allergy/AdvReac Type Severity Reaction Status Date / Time clopidogrel Allergy Severe Muscle Verified 09/29/24 09:42 Spasms dapagliflozin (From [facility]) Allergy Severe Other Verified 09/29/24 09:42 adhesive Allergy Unknown Rash Verified 09/29/24 09:42 amoxicillin Allergy Unknown Rash Verified 09/29/24 09:42 cefazolin Allergy Unknown Unknown Verified 09/29/24 09:42 Cephalosporins Allergy Unknown Unknown Verified 09/29/24 09:42 cephradine Allergy Unknown Unknown Verified 09/29/24 09:42 codeine Allergy Unknown Rash Verified 09/29/24 09:42 duloxetine Allergy Unknown Unknown Verified 09/29/24 09:42 hydromorphone Allergy Unknown Itching Verified 09/29/24 09:42 iodine Allergy Unknown Unknown Verified 09/29/24 09:42 lorazepam Allergy Unknown Unknown Verified 09/29/24 09:42 meperidine Allergy Unknown Unknown Verified 09/29/24 09:42 Penicillins Allergy Unknown Unknown Verified 09/29/24 09:42 phenytoin Allergy Unknown Unknown Verified 09/29/24 09:42 [id number] Reductase Allergy Unknown MUSCLE Verified 09/29/24 09:42 Inhibitor (Rivaect-Vjj-Sun WEAKNESS/CRAMPING Reductase Inhibitor) Sulfa (Sulfonamide Allergy Unknown Rash Verified 09/29/24 09:42 Antibiotics) sulfanilamide Allergy Unknown Unknown Verified 09/29/24 09:42 tramadol Allergy Unknown Itching Verified 09/29/24 09:42 oxycodone Allergy Unknown Verified 09/29/24 09:42 Contrast Media Allergy Unknown Dyspnea / Uncoded 09/29/24 09:42 SOB Review of Systems Review of Systems: All systems reviewed & are unremarkable except as noted in HPI and below Constitutional: Constitutional: Denies body ache(s), Denies chills, Denies fatigue, Denies fever(s), Denies headache(s), Denies malaise and Denies weakness Eyes: Eyes: Denies blurry vision, Denies irritation and Denies loss of vision ENT: Denies otalgia, Denies headache(s), Denies nasal discharge, Denies sinus pain and Denies sore throat Cardiovascular: Cardiovascular: Denies chest pain, Denies irregular heart rhythm and Denies dyspnea Respiratory: Respiratory: Denies dyspnea Gastrointestinal: Gastrointestinal: Denies abdominal pain, Denies melena, Denies hematochezia, Denies diarrhea, Denies nausea and Denies vomiting Musculoskeletal: Musculoskeletal: Denies back pain, Denies myalgias and Denies arthralgias Integumentary/Breasts: Skin/Breast: Reports pruritus and Reports rash Neurologic: Denies headache(s), Denies loss of vision and Denies weakness Psychiatric: Psychiatric: Reports no additional psychiatric complaints Endocrine: Endocrine: Denies fatigue PMFSH Past Medical History Medical History Sweat gland carcinoma Left upper cheek, status post excision. Coronary artery disease Cerebrovascular accident With mild right-sided weakness. Post traumatic stress disorder COVID-19 Hypertension History of endometriosis Hyperlipidemia (Unknown) Obstructive sleep apnea Intolerant to CPAP Crohn's disease Not biopsy proven, identified by lab work. Bowel obstruction Pancreatitis Type 2 diabetes mellitus (Unknown) Anxiety Depression Nephrolithiasis Surgical History Surgical History History of coronary artery bypass graft (01/16/21) [facility] vessel bypass at [facility]. History of cardiac catheterization History of rhinoplasty History of hysterectomy History of meniscectomy of right knee History of extraction of renal calculus History of appendectomy History of section, classical History of cholecystectomy History of tonsillectomy Family History Family History Father Acute myocardial infarction Family history of coronary artery disease Hypertension Hypercholesteremia Sibling Family history of alcoholism Hypertension Hypercholesteremia Grandparent Family history of coronary artery disease Mother Diabetes mellitus Acute myocardial infarction Congestive heart failure Leukemia Hypertension Cerebrovascular accident Hypercholesteremia Other Asthma Social History Social History Social History: The patient lives with her in [place]; they have 1 son. 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 No alcohol or illicit substance abuse. She designates her , David Vee, as her surrogate decision maker and she wishes to be a full code. Smoking status: Never smoker Alcohol intake: never Substance use: never Do You Feel Safe in your Home?: Yes Lack of Transportation: No Lack of Food: Never True Current Housing: I Have Housing Concerned About Future Housing: No Difficulty Paying Gas/Electric Bills: No Difficulty Paying for Meds: No Currently Unemployed: No Education: Associate Degree Difficulty w/ Childcare or Family Care: No Living arrangements: with family Spiritual care concerns: No Comments At time of signature, agree with nursing past medical, surgical, social and family history. There is no relevant family history pertinent to the presenting complaint. Exam Const: General: cooperative, healthy appearing, comfortable, no acute distress and well nourished Nutritional Appearance: well nourished Orientation/consciousness: patient oriented x3 Limitations: no limitations HENMT: Head: normal to inspection, normocephalic and atraumatic Ears: hearing grossly normal bilaterally and external ears normal Face/Nose/Sinus: Normal external nose present, normal facial exam and face symmetric Face and sinus: normal facial exam and face symmetric Mouth: Yes lip normal Eyes: General: appearance normal, both eyes and all related structures Alignment and Position: alignment normal and position normal Periorbital: periorbital findings normal Eyelids: eyelids normal Pupils: Equal, round and reactive pupils present EOM: EOMs intact bilaterally Neck: Neck: normal visual inspection, full ROM and supple Chest: Chest palpation & inspection: normal inspection of the chest Resp: Effort & Inspection: normal respiratory effort and able to speak in complete sentences Auscultation: clear to auscultation bilaterally Cardio: Rate: regular rate Rhythm: regular rhythm Heart sounds: S1 normal heart sound present and S2 normal heart sound present GI: Inspection: normal to inspection Skin: General skin exam: normal color and no rashes or lesions noted Neuro: General: patient oriented x3 and moves all extremities Cranial nerves: Yes Equal, round and reactive pupils present Speech: normal speech Gait exam (Neuro): Normal gait present Extrem: General: normal to inspection, full ROM and no edema Hand/finger images:  1. scattered 0.25 cm red papules. do drainage or surrounding erythema, warmth. Psych: Appearance: grossly normal and well kempt Mental Status: mental status grossly normal Speech and movement: Normal speech and movement present Affect: normal affect Attitude: cooperative Thought process: Normal thought process present Course Course Emergency Course: Patient is aware of diagnosis, understands and agrees to treatment plan. Anticipatory guidance given. Patient agrees to follow-up as directed and is aware of reasons to seek care at the emergency department. Portions of this record may have been created with voice recognition software Level of Care: Express Care Visit Vital Signs Vital signs: Reviewed MDM - Skin/Abscess/Foreign Bdy MDM Narrative Medical decision making narrative: Pt well hydrated appearing, in no respiratory distress, hemodynamically stable. Recommend supportive care. The patient is stable at time of discharge the clinical impression was discussed and the patient was given the opportunity to ask questions, which were addressed as completely as possible given the information available at present. Anticipatory guidance and return to care precautions were discussed and the importance of primary care follow-up was stressed and encouraged. The patient voiced understanding of the plan, indications to return, and the need for follow-up. Exam findings show no acute concerns or changes Patient is appropriate for outpatient treatment and follow-up. Differential Diagnosis Differential diagnosis: Likely viral exanthem, allergic reaction to drug, eczema, insect bites and contact dermatitis Medical Records Attestation: I reviewed the patient's medical records. Discharge Plan Discharge Clinical Impression: Contact dermatitis Qualifiers: Contact dermatitis type: unspecified Contact dermatitis trigger: unspecified trigger Qualified Code(s): L25.9 - Unspecified contact dermatitis, unspecified cause Patient Disposition: Home Condition: Stable Instructions: Dermatitis (ED) Additional Instructions: The most important part of your care is follow up with Primary care provider. Avoid hot showers, Take cool showers. Wash the area with gentle soap and water only. Use cortisone cream Avoid scratching when possible to prevent worsening of the condition and disruption of the skin that could lead to bacterial infection To relieve itching, place a cool washcloth or some ice over the area that itches, rather than scratching Follow up with primary care provider or seek ER if you have trouble breathing, become hoarse, or start wheezing, develop belly cramps, vomiting or feel dizzy. Patient Language: Greek Prescriptions: No Action carvedilol 6.25 mg tablet 6.25 mg PO BID nitroglycerin 0.4 mg tablet, sublingual 0.4 mg sublingual PRN PRN (Reason: Chest Pain) morphine 15 mg tablet 15 mg PO Q12H PRN (Reason: Pain (Scale Score 7-10)) valacyclovir [Valtrex] 1 gram Tablet 1,000 mg PO DAILY PRN (Reason: Itching) Rx Instructions: as needed for shingles pantoprazole 40 mg Tablet,Delayed Release (Dr/Ec) 40 mg PO QAM magnesium 250 mg Tablet 500 mg PO DAILY coQ10 (ubiquinol) 100 mg Capsule 100 mg PO DAILY cholecalciferol (vitamin D3) [Vitamin D3] 25 mcg (1,000 unit) Capsule 25 mcg PO DAILY B Complex-Vitamin B12 1 tab-cap PO DAILY potassium gluconate 550 mg Tablet 550 meq PO DAILY allopurinol 100 mg tablet 100 mg PO DAILY isosorbide mononitrate 60 mg tablet extended release 24 hr 60 mg PO DAILY promethazine 25 mg tablet 25 mg PO Q8H PRN (Reason: Nausea And Vomiting) geriatric multivitamin-min Tablet 1 tablet PO DAILY pregabalin 25 mg Capsule 25 mg PO TID desvenlafaxine succinate 50 mg tablet extended release 24 hr 50 mg PO DAILY PRN (Reason: Bladder Spasms) Repatha SureClick 140 mg/mL pen injector 140 mg SUBCUT [id number] [facility] 3 billion cell Capsule 1 cap PO DAILY losartan 50 mg Tablet 50 mg PO DAILY glyburide-metformin 5-500 mg Tablet 1 tablet PO BID aspirin 81 mg Capsule 81 mg PO DAILY Follow-up/Referrals: Dillon,Juancho Starr MD [Primary Care Provider] - 3 Days Time of Disposition: 10:00
[2024-09-29 09:31] VITALS: BP 150/81; PULSE 84; RESP 20; TEMP 36.9; O2SAT 98
== END 2024-09-29 10:05 | disposition home or self-care (01) ==
PROVIDERS: Emergency Provider Nurse Practitioner Family; PCP Family Medicine
DX: L25.9 Unspecified contact dermatitis, unspecified cause (principal); I25.10 Atherosclerotic heart disease of native coronary artery without angina pectoris; I69.951 Hemiplegia and hemiparesis following unspecified cerebrovascular disease affecting right dominant side; I10 Essential (primary) hypertension; E11.9 Type 2 diabetes mellitus without complications; Z79.84 Long term (current) use of oral hypoglycemic drugs; E78.5 Hyperlipidemia, unspecified; K50.90 Crohn's disease, unspecified, without complications; G47.33 Obstructive sleep apnea (adult) (pediatric); Z86.16 Personal history of COVID-19; N80.9 Endometriosis, unspecified; Z95.1 Presence of aortocoronary bypass graft; Z85.828 Personal history of other malignant neoplasm of skin; Z79.82 Long term (current) use of aspirin
CPT/HCPCS: 99212; G0463